=== PATIENT | female | born 1945 | race Caucasian/White ===

== ENCOUNTER → 2019-02-22 07:21 | Outpatient (CLI) | payer MEDICARE, OTHER, SELFPAY ==
--- NOTE | 2019-02-22 08:40 | PM.TREADMILL ---
Cardiac Stress Test Report Referral & Results Date Patient Seen: 02/22/19 Time Patient Seen: 08:30 Requesting provider: Zabrina Vincent Indication: Abnormal EKG Rest ECG: NSR Procedure Note: After both written and verbal informed consent the patient had an IV started by the diagnostic imaging RN, and then was hooked up to the treadmill monitoring system. The Lexiscan material, and then the Cardiolite tracer, were administered sequentially. An additional 3 min was spent monitoring the patient while supine on the gurney. The patient had a normal response to all infused materials. Impression: Successful Lakeisha protocol. Will await perfusion imaging. Please note: Actual ECG tracings can be found in the PACS system.
--- NOTE | 2019-02-23 17:32 | DI.NM.S_ITS ---
DATE OF SERVICE: 02/22/2019 PROCEDURE: Pharmacological perfusion study. INDICATIONS: Preoperative evaluation, abnormal EKG, underlying diabetes mellitus, hypertension, hyperlipidemia, obesity.. RADIOPHARMACEUTICAL: 25.5 mCi technetium-99m Myoview IV was injected at stress and 27.0 mCi technetium-99m Myoview IV was injected at rest. CARDIAC STRESS: Patient underwent IV Lexiscan perfusion study under the supervision of an attending staff. Patient remained hemodynamically stable. No symptoms were reported. Baseline EKG showed sinus rhythm with diffuse low- voltage complexes. Stress EKG did not reveal any obvious inducible ischemic changes. There were no significant arrhythmias seen. RAW DATA: Significant breast shadow was seen. GATED STUDY: Resting stress LV ejection fraction 80%, and stress LV ejection fraction 86% without any significant wall motion abnormalities. There is no transient ischemic dilatation. TID ratio is 0.87, which is within normal limits. Resting LV end-diastolic volume is 108 mL. Lung/heart ratio is 0.40, which is within normal limits. MYOCARDIAL PERFUSION SCAN: Please note that in this study there is no prone images. Stress supine and resting supine images were compared to each other. Stress supine images revealed minimally decreased perfusion of distal anterior septum. During resting supine, there was small-sized mildly decreased perfusion of distal anterior septum as well as apex. Resting images have more perfusion defects than stress supine. I do not see any obvious reversible ischemia. CONCLUSION: I will call this study a likely normal myocardial perfusion scan with evidence of breast tissue attenuation artifact. Stress supine images showed only minimally decreased perfusion of distal anterior septum. The rest of the segments have normal perfusion. Significant breast shadow seen during raw images. Those segments are moving well. Stress left ventricular (LV) ejection fraction 86%. Overall, this is a low-risk myocardial perfusion scan. Please note that this patient does not have any prone images. Carrie Cortez - [employer]/mario/ab doc#: [id number]/job#: [id number] dd: 02/23/2019 17:10:00 dt: 02/23/2019 17:25:00 DICTATING MD/COPIES TO: Funmilayo Bassett MD COPIES MNE: SUMMER
== END ==
PROVIDERS: Visit Provider Physician Assistant Medical
DX: R94.31 Abnormal electrocardiogram [ECG] [EKG] (principal); E11.9 Type 2 diabetes mellitus without complications; I10 Essential (primary) hypertension; E78.5 Hyperlipidemia, unspecified; E66.9 Obesity, unspecified
CPT/HCPCS: 78452; 93016; 93017; 93018; A9502; J2785

== ENCOUNTER 2019-04-24 06:01 | Inpatient (IN) | payer MEDICARE, OTHER, SELFPAY ==
[2019-04-06 09:46] VITALS: BMI 44.4
[2019-04-24] VITALS (20 sets, daily range): BP systolic 119–175; BP diastolic 53–88; PULSE 18–108; RESP 9–18; TEMP 35.6–36.8; O2SAT 90–100; BMI 43.7
--- NOTE | 2019-04-24 | DI.RAD.S_ITS ---
PROCEDURE: XR LUMBAR SPINE 2-3V INDICATIONS: L4-5, L5-S1 TLIF TECHNIQUE: 2 views of the lumbar spine were acquired. COMPARISON: None. FINDINGS: Bones: Postoperative examination, immediately after spine fusion surgery from dorsal approach. Normal alignment is established by transverse pedicle screws and vertical fixation rods bilaterally crossing from L4-S1, with interbody disc cage prosthesis devices at the 2 intervening disc levels. Soft tissues: Overlying bowel gas pattern is normal. No suspicious soft tissue calcifications. IMPRESSION: Normal alignment immediately after dorsal spine fusion surgery L4-S1. Dictated by: Sudeep Man M.D. on 04/24/2019 at 14:29 Approved by: Sudeep Man M.D. on 04/24/2019 at 14:41
[2019-04-24] MEDS: VANCOMYCIN 1,500 MG/300 ML FROZ.PIGGY 200 MG IV (07:12)
[2019-04-24] MEDS: LACTATED RINGERS 1,000 ML 42 ML IV ×3 (07:42→11:09)
--- NOTE | 2019-04-24 07:46 | PM.PREOP ---
Pre-operative Note Interval Note History & Physical reviewed/Exam performed by Physician: Yes Changes to H&P: No
[2019-04-24] MEDS: BUPIVACAINE LIPOSOME 266 MG/20 ML VIAL INJ (08:38)
[2019-04-24] MEDS: BUPIVACAINE 0.25% W/ EPI 30 ML VIAL INJ (08:38)
--- NOTE | 2019-04-24 08:44 | SUR.OPER ---
Prone on spine table, head in foam head support, padded chest and pelvic supports, gel pad at knees, lower legs supported by pillows; nipples, genitalia and toes free of pressure, arms secured on foam padded arm boards at <90 degrees abduction. Tape over blanket at thigh secured to table.
--- NOTE | 2019-04-24 12:34 | P.OP_ITS ---
Operative Date/Time/Diagnoses Date of procedure: 04/24/19 Time of procedure: 08:15 Pre-op diagnosis: 1. L4-5, L5-S1 spondylolisthesis 2. L4-5, L5-S1 spinal stenosis with neurogenic claudication Post-op diagnosis: same Procedure & Clinicians Procedure: 1. L4-5, L5-S1 Postero-lateral and posterior interbody fusion 2. L4-5, L5-S1 interbody cage placement. 3. L4-5, L5-S1 decompressive laminectomy with bilateral facetecomies 4. L4-5, L5-S1 Posterior segmental instrumentation 5. Muldrow of bone marrow from iliac crest 6. Utilization of microsurgical technique and operating microscope Same procedure as scheduled: Yes Indications: Patient has been having chronic back pain and worsening lumbar radiculopathy. Patient failed multiple conservative management with worsening pain weakness and numbness in her lower extremity. Patient has been having difficulty performing activity of daily living. After discussing risks benefits of treatment options, patient elected proceed with surgery. Surgeon: Soledad Sosa [employer]enic [employer] Supervisor: Elicia Beckman Click Yes if Unassisted: No Anesthesia Type: General Operative Notes Closure Type: primary Specimen(s): none sent Prosthetic devices, grafts, tissues, transplants, or devices: Globus revolve screws, Rise cages Applied: catheter Estimated Blood Loss (mL): 100 Blood products transfused: none Procedure in detail: Patient was seen in the preoperative area. Risks and bene fits of the surgery was discussed with the patient. Informed consent was obtained from the patient and placed in the chart. Surgical site was marked. Patient was taken to the operative room. General anesthesia was administered. Prophylactic antibiotic was given to the patient less than 30 min before the incision was made. Patient was placed into a prone position on the Parish table. Patient's back was then prepped and draped in the sterile fashion. Time- out was performed at this time. Using AP and lateral C-arm imaging the interval between L4-S1 was identified and marked on patient's back. A 2 inch incision 2 in from midline was made on the left side first. The fascia was incised in line with skin incision. Globus MARS retractors was placed inside the incision and docked onto the L4 and L5 lamina. Using microsurgical technique and operating microscope, a L4 and L5 laminectomy and L4-5 L5-S1 facetectomy was performed using a Kerrison rongeur. During the process of decompression more than 75% of bilateral L4-5 L5-S1 facets were removed in order to decompress the spinal canal and the lateral recess. The L4- 5 L5-S1 level was grossly unstable after the decompression was completed and requiring the fusion procedure. The disc space at L4-5, L5-S1 was identified. And a total diskectomy was performed at L4-5, L5-S1 level. The endplates were decorticated using a rasp and shaver. The total diskectomy and decortication was performed at L4-5, L5-S1 level in order to to accomplish a L4-5, L5-S1 fusion. The local bone from the laminectomy and facetectomy was saved for local bone grafting. After the total diskectomy and decortication was completed, Bio4 bone graft material was combined with local bone that was harvested earlier. At this time, a separate skin is incision was made over the iliac crest. A Jamshidi needle was inserted into the iliac crest through a separate skin incision. 5 cc of bone marrow aspiration was obtained through the separate skin incision using a Jamshidi needle from the iliac crest. The bone marrow aspiration was combined with local bone and the Bio4 bone grafting material. The bone grafting material was placed into the L4-5, L5-S1 interbody space along with two cages, one expandable cage at each level. The cages were expanded to their maximum height using the torque limiting screwdriver. At this time a mirror image incision was made on the right side. The fascia was incised in line with the skin incision. Globus MARS retractor was inserted and docked onto the L4-5, L5-S1 posterolateral gutter. Using the power drill, posterior-lateral decortication was performed at L4-5, L5-S1 level until bleeding cortical bone was identified. The remaining bone grafting material was placed into the L4-5 L5-S1 posterior lateral gutter he order to accomplish posterolateral fusion at the L4-5 L5-S1 levels. Using the double C-arm technique, pedicle screws were placed into the L4, L5, S1 pedicles bilaterally. This was done by placing the Jamshidi needle into the pedicles, then placing the guidewires over the Jamshidi needle, and finally placing the cannulated screws over the guidewires bilaterally. After the pedicle screws were placed, 2 titanium rods was locked into the heads of the pedicle screws using locking caps and torque limiting screwdriver. Total 6 pedicles screws were placed. The thread reducers were used to reduce patient's spondylolisthesis and appropriate reduction was accomplished using the heart were placed into the patient's L4-S1 vertebrae. After all the hardware was placed, and confirmed with AP and lateral C-arm imaging, the wound was then irrigated with sterile normal saline and packed with Ray-Kelton gauze for 3 min to accomplish hemostasis. After the gauze was removed the deep fascia was closed with #1 Vicryl suture. The subcutaneous layer was closed with 2-0 Vicryl. The skin was closed with skin andra. Patient tolerated the procedure well. There were no complications. Complications: none Post-operative Condition: stable Disposition: PACU Plan for aftercare: Admit to inpatient hospital
[2019-04-24] MEDS: fentaNYL 100 MCG/2 ML INJ IV (12:41)
[2019-04-24] MEDS: HYDROMORPHONE 2 MG INJ IV (12:42)
--- NOTE | 2019-04-24 12:44 | PC.NURSE ---
Day shift: Pt not on AC unit at this time.
[2019-04-24] MEDS: INSULIN REGULAR 100 UNIT/ML 3 ML VIAL IV (12:46)
[2019-04-24] MEDS: OXYCODONE/ACETAMINOPHEN 5/325 TABLET 1 TAB PO (13:18)
[2019-04-24] MEDS: hydrOXYzine 50 MG/ML INJ 25 MG IM (13:26)
--- NOTE | 2019-04-24 13:51 | SUR.PHASEI ---
Patient resting quietly in bed with eyes closed but arousable too voice. Patient still remains on oxygen at 2 liters. VSS. RRR 11 at transfer. All belongings with patient to room.
--- NOTE | 2019-04-24 14:15 | PC.NURSE ---
Day shift: Pt goes by Randa. Pt on unit from PACU at approx 1400. Call light in reach and bed alarm is on. Davis cath patent and draining to gravity. Back dressing is CDI. MECHANICAL FIELD ENGINEER intact and PPP. BP elevated. Will continue to monitor.
[2019-04-24] MEDS: SODIUM CHLORIDE 0.9% 1,000 ML 100 ML IV (14:38)
[2019-04-24] MEDS: OXYCODONE IR 10 MG TABLET PO ×3 (16:15→23:57)
--- NOTE | 2019-04-24 16:21 | PT-IP ANOTE ---
PT orders received, chart reviewed. PT contacted pt to initiate evaluation, but she was extremely drowsy and uncomfortable, not able to participate at this time. Will check on patient morning of 04/25.
[2019-04-24] MEDS: HYDROMORPHONE 0.5 MG INJ IV (17:10)
[2019-04-24] MEDS: FLUTICASONE 44 MCG HFA 120 PUFF INH INH (19:27)
[2019-04-24] MEDS: CLINDAMYCIN 900 MG/50 ML PIGGYBACK 50 MG IV (19:50)
[2019-04-24] MEDS: SENNOSIDES 8.6 MG TABLET 17.2 MG PO (20:00)
[2019-04-24] MEDS: OXYBUTYNIN 5 MG TABLET PO (20:00)
[2019-04-24] MEDS: DOCUSATE 100 MG CAPSULE PO (20:00)
[2019-04-24] MEDS: SIMVASTATIN 20 MG TABLET PO (20:01)
[2019-04-24] MEDS: DORZOLAMIDE 2% OPHTH 10 ML 1 DROPS EYE-BOTH (20:03)
[2019-04-24] MEDS: ACETAMINOPHEN 325 MG TABLET 650 MG PO (23:57)
[2019-04-25] VITALS (9 sets, daily range): BP systolic 117–160; BP diastolic 50–75; PULSE 92–101; RESP 16–19; TEMP 36.7–37.4; O2SAT 90–98
[2019-04-25] MEDS: SODIUM CHLORIDE 0.9% 1,000 ML 100 ML IV ×3 (01:16→21:44)
[2019-04-25] MEDS: HYDROMORPHONE 0.5 MG INJ IV (01:39)
[2019-04-25] MEDS: CLINDAMYCIN 900 MG/50 ML PIGGYBACK 50 MG IV (03:14)
[2019-04-25 05:21] LABS: Hematocrit 32.8 % (36-46); Hemoglobin 11.1 g/dL (12.0-16.0)
[2019-04-25] MEDS: LEVOTHYROXINE 150 MCG TABLET PO (05:36)
--- NOTE | 2019-04-25 07:53 | DI.US.S_ITS ---
PROCEDURE: US PERIPH VENOUS LOW EXTREM LT INDICATIONS: LEFT CALF TENDER TO PALPATION POST OPERATIVE TECHNIQUE: Real-time imaging, as well as color and pulse Doppler interrogation, were performed of the lower extremity deep veins from the inguinal ligament to the popliteal fossa. COMPARISON: None. FINDINGS: The common femoral, femoral and popliteal veins are normally compressible, and free of intraluminal thrombus. Color and pulse Doppler demonstrate normal phasic intraluminal flow. There is normal augmentation response to distal compression maneuver. IMPRESSION: No deep venous thrombosis in the left lower extremity. Dictated by: Quintin Hernandez M.D. on 04/25/2019 at 9:21 Approved by: Quintin Hernandez M.D. on 04/25/2019 at 9:21
--- NOTE | 2019-04-25 07:53 | PM.PNPO.1 ---
Subjective Subjective Date Patient Seen: 04/25/19 Time Patient Seen: 07:30 Interval history: POD #1 s/p L4-5, L5-S1 TLIF with Dr. Sosa. Overnight patient complains of moderate pain, worsens with movement in bed. Has deep pain in lower back at incision site and hips bilaterally. Denies muscle spasms, burning sensation, numbness, tingling. Patient has not ambulated out of bed since surgery. Verdugo catheter in place. Pain well managed with oxycodone 10mg, dilaudid 0.5 IV prn, tylenol. Patient denies fever, chills, chest pain, shortness of breath. Exam Vital Signs (past 8 hours): - 04/25/19 06:30 Temperature 98.5 F Pulse Rate 96 H Respiratory Rate 16 Blood Pressure 142/66 H Pulse Oximetry 98 Oxygen Delivery Method Nasal Cannula Oxygen Flow Rate 3 Narrative Exam Narrative: 73 year old female is laying comfortably in bed, in no apparent distress. A&Ox3. Dressing CDI on lower back. L calf tender to deep palpation, R calf nttp. Mild non pitting edema in LE b/l. Able to actively dorsiflex/plantar flex LE b/l. Sensory function grossly intact to light touch in LE b/l. Capillary refill <2sec. Dorsalis pedis 2+. Objective Labs Result Diagrams: 04/25/19 05:00 Labs: Laboratory Results - last 24 hr 04/25/19 05:00 Hgb 11.1 L Hct 32.8 L Assessment & Plan Post-op Postoperative Procedures: Procedures Operation Date: 04/24/19 07:45 Actual Procedures Side Surgeon p L4-5, L5-S1 TLIF w/posterior instrumentation Soledad Sosa MD Postoperative plan narrative: Rule out DVT - L calf pain to deep palpation ; doppler ultrasound ordered and came back negative Continue current pain management. Patient will being working with PT this morning. She was encouraged to mobilize more to reduce pain. If patient able to mobilize, discontinue verdugo catheter. Discharge in next 24-48 hours, likely will need a SNF Time Spent With Patient Time with patient: less than 15 minutes Quality VTE Deep Vein Thrombosis/Pulmonary Embolism Present on Admission: No
[2019-04-25] MEDS: ACETAMINOPHEN 325 MG TABLET 650 MG PO ×2 (09:51→15:24)
[2019-04-25] MEDS: OXYCODONE IR 10 MG TABLET PO ×4 (09:51→20:04)
[2019-04-25] MEDS: DOCUSATE 100 MG CAPSULE PO ×2 (09:52→21:48)
[2019-04-25] MEDS: CHOLECALCIFEROL (VITAMIN D3) 1,000 UNIT TABLET 2000 UNIT PO (09:52)
[2019-04-25] MEDS: LORATADINE 10 MG TABLET PO (09:52)
[2019-04-25] MEDS: MULTIVITAMIN 1 TABLET 1 TAB PO (09:52)
[2019-04-25] MEDS: DORZOLAMIDE 2% OPHTH 10 ML 1 DROPS EYE-BOTH ×2 (09:53→21:46)
[2019-04-25] MEDS: FLUTICASONE 44 MCG HFA 120 PUFF INH INH ×2 (10:10→21:19)
--- NOTE | 2019-04-25 10:57 | OT.IP.EVAL ---
Current Diagnoses Morbid (severe) obesity due to excess calories (04/24/19) Spondylolisthesis, lumbar region (04/24/19) Other spondylosis with radiculopathy, lumbosacral region (04/24/19) Spinal stenosis, lumbar region with neurogenic claudication (04/24/19) Surgery Performed Operation Date: 04/24/19 07:45 Actual Procedures p L4-5, L5-S1 TLIF w/posterior instrumentation - Soledad Sosa MD Past Medical History (Last Updated 04/06/19 @ 10:25 by Randa Pan RN) Arthritis (Acute) Diabetes (Acute) Easy bruisability (Acute) Edema (Acute) Hair loss (Acute) Heartburn (Acute) HLD (hyperlipidemia) (Acute) HTN (hypertension) (Acute) Hypothyroid (Acute) Pneumonia (Acute) Sciatica (Acute) Seasonal allergies (Acute) Wrinkled retina, right eye (Acute) Surgical History (Last Updated 04/06/19 @ 10:25 by Randa Pan RN) H/O: hysterectomy (Acute) Hx laparoscopic cholecystectomy (Acute) Hx of bilateral cataract extraction (Acute) Occupational Therapy Inpatient Evaluation/Re-Eval M1 PT/OT-IP Prior Functional Status Start: 04/25/19 13:18 Freq: NEEDED Status: Active Protocol: Document 04/25/19 13:18 [facility] (Rec: 04/25/19 13:40 [facility] [id number]) Medical Review Prior Functional Status Medical History Reviewed Yes Communication Independent. Mobility and Gait Pt states use of 2 cane to walk outside, pt's family clarified that pt would use 2 canes to walk inside the house as well and only able to walk to he mailbox and back approx 25 ft. Pt states her house in too small to use a FWw inside. Activities of Daily Living and IADL's Pt states needing increased time to do all ADL and IADl needs. Pt did all her bills and medications on her own. Social History Household Members none Living Arrangements House Number of Floors (Floors) One Floor Number of Stairs To Enter/Railing? Ramp to enter the house. Home Environment High Toilet,Walk in Shower Home Equipment Straight Cane,Hand Held Shower ,Grab Bars In Shower Additional Social History Comment Pt sleeps in a power recliner. M2 OT-IP Current Condition Start: 04/25/19 13:18 Freq: Status: Active Protocol: Document 04/25/19 13:18 [facility] (Rec: 04/25/19 13:40 [facility] [id number]) Occupational Therapy Current Condition Current Condition Evaluation Date 04/25/19 Treatment Diagnosis s/p L4-5, L5-S1 TLIF, decreased mobility and self care Post Operative Precautions Lumbar Precautions Log Roll,No Twisting,Limit Bending,Lifting Restriction of 10 lbs,Gait Belt above Incisional Area M3 OT- IP Subjective and Pain Start: 04/25/19 13:18 Freq: Status: Active Protocol: Document 04/25/19 13:18 [facility] (Rec: 04/25/19 13:40 [facility] [id number]) OT- Subjective Occupational Therapy Visit Type Type Initial Evaluation Visit Start Time 10:57 Visit Stop Time 11:57 Total Visit Minutes 60 Occupational Therapy Visit Comments Patient Comments Pt willing to try to get up. PT/OT present for eval as pt needing extensive physical assist for bed mobility. Pt's family also present. Patient/Caregiver Goals Pt open to going to skilled rehab prior to going home. OT Pain Assessment Pain When Pain Assessed During Mobility Pain Present Pain Present Pain Reported Location Lower Back Intensity 5 Scale Used Numeric (1 - 10) M4 OT- IP ADL's Start: 04/25/19 13:18 Freq: Status: Active Protocol: Document 04/25/19 13:18 [facility] (Rec: 04/25/19 13:40 [facility] [id number]) OT [id number] Comments OT Self-Feeding Comments Pt able to drink form water bottle once handed to her. OT ADL-Grooming General Evaluation Grooming Ability Standby Assistance Areas Needing Assistance Retrieving/Set-up of Grooming Items Comments OT Grooming Comments Pt able to do while sitting up in the recliner. OT ADL-Oral Care General Eval Oral Care Ability Independent OT ADL-Dressing General Eval Lower Body Dressing Ability Maximum Assistance Areas Needing Assistance Socks,Shoes Comments OT Dressing Comments Dependent for socks and able to help slip in her feet to slipper while holding the slippers in place. OT ADL-Toileting General Evaluation Toileting Ability Total Assistance Areas Needing Assistance Empty Catheter or Colostomy Comments OT Toileting Comments Davis still in. OT ADL-Bathing Comments OT Bathing Comments Not at this time, sponge bath more appropriate due to limited not able to transfer at this time yet. M5 OT- IP IADL's Start: 04/25/19 13:18 Freq: Status: Active Protocol: Document 04/25/19 13:18 [facility] (Rec: 04/25/19 13:40 [facility] [id number]) OT-Instrumental Activities of Daily Living Home Safety Awareness Home Safety Comments A this time pt not able to recall any back precautions and looking to go to skilled rehab prior to going home. M6 OT- IP Functional Cognition Start: 04/25/19 13:18 Freq: Status: Active Protocol: Document 04/25/19 13:18 [facility] (Rec: 04/25/19 13:40 [facility] [id number]) Cognitive Factors Limiting Selfcare Function Cognitive Ability Level of Alertness Alert,Drowsy Patient Orientation Name,Place,Situation Attention Span Ability Capable of Focused Attention, Capable of Sustained Attention Ability to Follow Commands Able to Follow One Step Commands with Increased Time Memory Description Short Term Impaired Safety Awareness Decreased Recall of Precautions,Decreased Ability to Apply Precautions, Underestimates Need for Assistance Problem Solving Ability Unable to Identify Errors, Needs Assist to Identify Solutions Cognitive Comments Cognitive Assessment Comments Pt very sleepy and not able to recall any back precautions. Pt needing step by step instructions for bed mobility and safety with FWW. Pt a bit confused as wanting her neck roll for her knees, felt like she was falling when lying in bed. OT- Hearing Assessment OT- Hearing Assessment WFL OT- Vision Assessment Vision Assessment Comments Chart states winkled retina right eye and pt states not able to see well out of right eye. Pt not able to read name tag when shown to pt.Pt able to feel call light, but requested on nursingn to check with her whether the bulb call light would work better for her. M7 OT- IP Mobility and Balance Start: 04/25/19 13:18 Freq: Status: Active Protocol: Document 04/25/19 13:18 [facility] (Rec: 04/25/19 13:40 [facility] [id number]) OT- Bed Mobility Assessment Supine to Sit Supine to Sit Assist Maximum Assistance,2 Person Assistance,Head of Bed Elevated,Bedrails Sit to Supine Sit to Supine Assist Maximum Assistance,2 Person Assistance OT-Transfer Assessment Sit to and From Stand Sit to and from Stand Maximum Assistance,2 Person Assistance Devices Transfer Assistive Devices Gait Belt,4 Wheeled Walker Comments Mobility Comments Pt MAX A to help assist to get her legs to the edge of the bed and total assist to get her trunk upright to sitting. MAX A X 2 to stand with FWW with bed raised up to stand. Pt tends to stand with flexed posture. Pt only able to tolerate standing at this time and have to sit back down. OT- Balance Assessment Sitting Balance and Reactions Static Sitting Balance Ability Fair Standing Balance and Reactions Static Standing Balance Ability Poor M8 OT- IP Objective Assessments Start: 04/25/19 13:18 Freq: Status: Active Protocol: Document 04/25/19 13:18 [facility] (Rec: 04/25/19 13:40 [facility] [id number]) OT Gross Range of Motion Upper Extremity Range of Motion Assessment Within Functional Limits OT Strength Upper Extremity Strength Assessment Within Functional Limits M9 OT- IP Assessment and Plan Start: 04/25/19 13:18 Freq: Status: Active Protocol: Document 04/25/19 13:18 [facility] (Rec: 04/25/19 13:40 [facility] [id number]) OT Summary Assessment and Plan Potential Rehabilitation Potential Good Analytic Complexity at Evaluation Low Summary OT Impairments Pain,Strength,Balance, Functional Cognition, Functional Mobility,Grooming, Dressing,Toileting,Bathing, Toilet Transfers,Shower Transfers Progress Towards Goals Slow Progress due to Pain,Slow Progress due to Activity Tolerance,Slow Progress due to Cognition Assessment Summary Pt low complexity and main barrier is decreased activity tolerance, balance, strength, and now needing extensive two person assist for bed mobility and only able to stand at this time. Pt looking to go to skilled rehab as far from her baseline for MOD I at home . Continue inpt OT with pt to work on education of equipment needs for ADL's, use of adaptive equipment to help increased safety and independence for ADL needs , and to educated for incorporation of back precautions for all needs. Goals Self-Feeding Goal Independent Grooming Goal Standby Assistance Dressing Goal Minimal Assistance Toileting Goal Minimal Assistance Bathing Goal Moderate Assistance Toilet Transfer Goal Minimal Assistance Shower Transfer Goal Minimal Assistance OT-Other Goals Grooming goal in standing. Days to Meet Goals 10 Frequency of Treatment Frequency Of Treatment Once a Day Treatment Plan OT Treatment Plan ADL Training,Functional Cognition Training,Functional Mobility,Patient/Family Education,Discharge Planning Other Treatment Recommendations and Next Transfer to [facility] [place] with MODA X2 Treatment Focus with FWW. Discharge Recommendations OT Discharge Recommendations SNF Rehab Home Equipment Needs Defer to skilled rehab.
--- NOTE | 2019-04-25 11:55 | PT.IIE ---
Current Diagnoses Morbid (severe) obesity due to excess calories (04/24/19) Spondylolisthesis, lumbar region (04/24/19) Other spondylosis with radiculopathy, lumbosacral region (04/24/19) Spinal stenosis, lumbar region with neurogenic claudication (04/24/19) Surgery Performed Operation Date: 04/24/19 07:45 Actual Procedures p L4-5, L5-S1 TLIF w/posterior instrumentation - Soledad Sosa MD Surgical History (Last Updated 04/06/19 @ 10:25 by Randa Pan RN) H/O: hysterectomy (Acute) Hx laparoscopic cholecystectomy (Acute) Hx of bilateral cataract extraction (Acute) Medical History (Last Updated 04/06/19 @ 10:25 by Randa Pan RN) Arthritis (Acute) Diabetes (Acute) Easy bruisability (Acute) Edema (Acute) Hair loss (Acute) Heartburn (Acute) HLD (hyperlipidemia) (Acute) HTN (hypertension) (Acute) Hypothyroid (Acute) Pneumonia (Acute) Sciatica (Acute) Seasonal allergies (Acute) Wrinkled retina, right eye (Acute) Physical Therapy Inpatient Evaluation/Re-Eval M1 PT/OT-IP Prior Functional Status Start: 04/25/19 13:18 Freq: NEEDED Status: Active Protocol: Document 04/25/19 14:11 AW (Rec: 04/25/19 14:41 AW [id number]) Medical Review Prior Functional Status Medical History Reviewed Yes Communication Independent. Mobility and Gait Pt states use of 2 cane to walk outside, pt's family clarified that pt would use 2 canes to walk inside the house as well and only able to walk to he mailbox and back approx 25 ft. Activities of Daily Living and IADL's Pt states needing increased time to do all ADL and IADl needs. Pt did all her billls and medications on her own. Social History Household Members none Living Arrangements House Number of Floors (Floors) One Floor Number of Stairs To Enter/Railing? Ramp to enter the house. Home Environment High Toilet,Walk in Shower Home Equipment Straight Cane,Hand Held Shower ,Grab Bars In Shower Additional Social History Comment Pt sleeps in a power recliner. M2 PT-IP Current Condition Start: 04/24/19 16:13 Freq: NEEDED Status: Active Protocol: Document 04/25/19 14:11 AW (Rec: 04/25/19 14:41 AW [id number]) Physical Therapy Current Condition Current Condition Evaluation Date 04/25/19 Treatment Diagnosis s/p TLIF, impaired mobility Onset Date 04/24/19 Precautions Lumbar Precautions Log Roll,No Twisting,Limit Bending,Lifting Restriction of 10 lbs,Gait Belt above Incisional Area Other Precautions history of multiple falls Weight Bearing Status Weight Bearing Status Full Weight Bearing M3 PT-IP Subjective Start: 04/24/19 16:13 Freq: NEEDED Status: Active Protocol: Document 04/25/19 14:11 AW (Rec: 04/25/19 14:41 AW [id number]) Subjective Physical Therapy Visit Type Type Initial Evaluation Visit Start Time 10:52 Visit Stop Time 11:55 Total Visit Minutes 63 Notes Pt seen with OT. Pt son and daughter in law also in room, contributing to history. Number of COMMERCIAL ATTACHE Visits 0 Physical Therapy Visit Comments Patient Comments I feel dopey. Patient Goals Pt would like to be able to sleep in a bed eventually Therapy Pain Assessment Pain When Pain Assessed During Mobility Pain Present Pain Present Pain Reported Location Lower Back Intensity 5 Scale Used 3/10 at rest; 5/10 with mobility M4 PT-IP Mobility and Gait Start: 04/24/19 16:13 Freq: NEEDED Status: Active Protocol: Document 04/25/19 14:11 AW (Rec: 04/25/19 14:41 AW [id number]) PT-Bed Mobility Assessment Rolling Type of Rolling Log Rolling Level of Assist Maximal Assistance,2 Person Assistance Supine to Sit Supine to Sit Maximum Assistance,Total Assistance,2 Person Assistance ,Head of Bed Elevated,Bedrails Sit to Supine Sit to Supine Maximum Assistance,2 Person Assistance Scooting Scooting to Edge of Bed Maximum Assistance Scooting Up and Down in Bed Dependent PT-Transfer Assessment Sit to and From Stand Sit to and from Stand Maximum Assistance,2 Person Assistance,Use of Upper Extremities Equipment Transfer Assistive Device Gait Belt,Front Wheeled Walker Orthotic/Prosthetic Devices or Brace: No Comments Mobility Comments Pt required max A to move legs toward EOB and then needed total assist to right her trunk. Max A required to scoot toward EOB using draw sheet to assist. Pt completed sit to stand with max A x 2 twice. She was able to stand 5-10 seconds before needing to sit down. She attempted a third sit to stand but could not complete. Pt was able to scoot toward HOB by moving her feet to the right and then pivoting her hips x 3 and mod A x 2. Return to supine required max A x 2 and verbal cues using log roll technique. OT/PT spent considerable time repositioning pt in bed. She is used to sleeping in a power recliner and has trouble finding a comfortable position in bed. Pt left with call light and needs within reach, family visiting. Reported to RN that pt has difficulty seeing the call light and she may do better with a bulb- style call system. PT-Balance Assessment Sitting Balance and Reactions Static Sitting Balance Ability Fair Dynamic Sitting Balance Ability Fair Standing Balance and Reactions Static Standing Balance Ability Poor Dynamic Standing Balance Ability Poor Device Used FWW M5 PT-IP Objective Assessments Start: 04/24/19 16:13 Freq: NEEDED Status: Active Protocol: Document 04/25/19 14:11 AW (Rec: 04/25/19 14:41 AW [id number]) Orientation Orientation/Cognition Level of Alertness Confusional State Orientation Name,Place,Situation Language Function Ability No Deficits Noted Safety Awareness Understands Safety Issues Memory Description Short Term Impaired Comments Pt was a poor historian, inflating her prior level of function compared with reports from her family. Gross Range of Motion Lower Extremity ROM Assessment Bilaterally Impaired Strength Lower Extremity Strength Assessment Bilaterally Impaired Hip 3-/5 Knee 4-/5 Ankle 3+/5 Comments Strength Comments Strength was symmetrical but poor against gravity. Sensation Assessment Sensation Gross Sensation WNL Comments Sensation Comments No deficits on clinical exam M6 PT-IP Treatment Start: 04/24/19 16:13 Freq: NEEDED Status: Active Protocol: Document 04/25/19 14:11 AW (Rec: 04/25/19 14:41 AW [id number]) Physical Therapy Treatment Education Education Provided Precautions,Weight Bearing Status,Post-Op Packet,Safety Other Treatments Other Treatment Performed PT provided education on PT plan of care, post-op precautions, and need for assistive devices. M7 PT-IP Assessment and Plan Start: 04/24/19 16:13 Freq: NEEDED Status: Active Protocol: Document 04/25/19 14:11 AW (Rec: 04/25/19 14:41 AW [id number]) PT Summary Assessment and Plan Potential Rehabilitation Potential Good Status of Condition at Evaluation Evolving Summary Impairments Pain,ROM,Strength,Balance, Cognition,Bed Mobility, Transfers,Gait,Activity Tolerance Assessment Summary Randa is a 73 yo woman seen for PT evaluation on POD1 following L3-7 L4-5 L5-S1 TLIF . At baseline, she used bilateral single point canes for household mobility. She could walk as far as her mailbox (~25 feet) with the canes. She and her family did report multiple falls within the past few months. On evaluation, pt presents with significant bilateral lower extremity weakness. She typically sleeps in a power recliner/lift chair, but did require max A x 2 for bed mobility and standing. Gait was not attempted this visit due to weakness and poor standing tolerance. Pt requires continued acute and subacute PT to address these impairments and to increase her independence and safety at home. PT recommends SNF rehab when medically stable for discharge. Goals Bed Mobility Goal Minimal Assistance Transfer Goal Minimal Assistance,Front Wheeled Walker Gait Goal Minimal Assistance,Four Wheel Walker Gait Distance 25 feet Days to Meet Goals 10 Frequency of Treatment Frequency Of Treatment Twice a Day Treatment Plan Physical Therapy Treatment Plan Bed Mobility Training,Transfer Training,Gait Training, Therapeutic Exercise,Balance Retraining,Post Op Education, Discharge Planning,Hot or Cold Pack,Neuromuscular Re-ed, Coordination Retraining,Manual Therapy Other Recommendations and Next Treatment bed mobility, standing Focus tolerance, transfer if able Recommendations To Nursing Amount of Assist Needed 2 Person Assist Discharge Recommendations PT Discharge Recommendations SNF Rehab Equipment Needed for Home Before defer to SNF Discharge
--- NOTE | 2019-04-25 12:27 | CM.DANOTE ---
DCP/Assessment: Reviewed chart. Patient is a 73yr old female admitted to [facility] for lumbar surgery performed by Dr. Sosa on 04-24-19. PCP is Dr. Zabrina Vincent. Primary payor is 1)Medicare 2)[employer]. Met with patient explained CM/SW role. Patient laying in bed with [address] Patient laying flat in bed and appears uncomfortable. Therapy evaluation pending. Patient reports that she resides alone and hopes to go to [facility] when medically stable. Patient notified that she will need to meet criteria. However, it appears she will given her medical history which includes severe obesity. Placed call to October at [facility] requesting that they evaluate for admit. P: Pending. Hopeful that patient will be accepted at [facility] when medically stable. Patient inpatient status from day of admit 04-24-19. ROSETTE Wong Discharge Planning/Care Management Pre-Anesthesia Assessment Start: 04/06/19 09:46 Freq: Status: Complete Protocol: Document 04/06/19 09:46 CAB (Rec: 04/06/19 10:41 CAB [id number]) Pre-Anesthesia Assessment Preferred Name Randa Patient Information Reviewed Via Phone Assessment Assessment Completed With Patient Diagnostic Results BMP/CMP,CBC,EKG Comment Outside labs/EKG scanned to record Primary Care Provider Zabrina Vincent Medical Clearance Received Yes Seen Specialist in Last 12 Months Yes Specialist Seen Opthamologist/Corporate Logistics Manager, Orthopedist Comment PCP clearance 03/07/19 scanned to record Primary Language Estonian Public Service Administrator Required No Height 162.56 cm Weight 117.48 kg Body Mass Index (BMI) 44.4 Hearing Ability Normal Visual Assist Glasses Dentition Type Teeth, Natural Present,Teeth, Missing Barriers to Learning None Comment Pt denies, but seems slightly confused at times Hx Anesthesia Reactions No Hx Family Anesthesia Reaction No Hx Malignant Hyperthermia No Hx Blood Transfusions No Anesthesia Review Requested No alcohol intake never Smoking Status Former smoker how long ago did patient quit smoking Quit age 38 Substance Use Type does not use Pain Present Pain Reported Musculoskeletal Symptoms Abnormal Gait,Back Pain, Difficulty Walking,Muscle Weakness History of Falling (Recent or History of Yes ) Patient is completely paralyzed or No completely immobile Prosthesis or Orthotic Device Cane Mental Status Oriented to own ability Is patient on oxygen? No Does patient have GIVENS/SOB No Hx Sleep Apnea No Currently Taking a Beta Cindy No Can You Climb a Flight of Stairs Without Pt unsure SOB Hx Chest Pain No Hx SOB No Hx Syncope or Dizziness Yes: Vertigo, intermittent Anti-Coagulant Therapy No Has a Core Sucker No Cardiac Testing Yes: Perfus scan @ [facility] 02/22/19 r/t abn EKG-normal Hx Pacemaker/ICD No Pacemaker Rep Required? No Diet Type At Home Diabetic dysphagia No Bladder Pattern Nocturia Urinary Catheter Present No Hx Urinary Self Catheterization No Diabetes Yes: Checks blood sugar twice a day HgbA1C 7.1 Date 01/18/19 Patient No Lactating No Hx Drug Resistant Organism No Presence of External or Internal Medical Yes: Bilateral eye lens Devices Have you traveled outside the [facility] in the last 30 days? Marital Status / Lives With none Prior Living Arrangements House Number of Floors (Floors) One Floor Support System Child/Children Does the Patient Have Assistance After Yes Surgery Patient Discharge Plan Description [facility] Facility/Rehab Comment Children are attentive and supportive Feels Safe in Current Environment Yes Been Physically Hurt or Threatened By a No Person in Current Environment Do you have thoughts of harming yourself None or others? Are you currently considering suicide? No Do you have a plan to hurt yourself or No Plan others? Do You Have Any Spiritual Beliefs That No May Affect Your HC Choices? Do You Have Any Cultural Practices That No May Affect Your HC Choices? Comment Religion Who Can We Speak to About Patient's Care Family, friends Identifying Code for Release of Patient Declines to issue Information Health Care Proxy/Next of Kin Martina (daughter in-law) Health Care Proxy Emergency Contact Name Ed (son) Emergency Contact Advance Directives? Yes: Whereabouts unknown Advance Directives on File No Power of Nuclear Waste Process Operator No PAC Instructions Durable medical equipment, Medications to take/avoid, Nasal antibiotic,No ETOH/ petroleum product on skin DOS, NPO,Pre-surgical wash,Sturdy shoes/comfortable clothes,Do not bring valuables and remove jewelry Comment States cannot remove wedding ring
--- NOTE | 2019-04-25 17:13 | PT.IPTN ---
Current Diagnoses Morbid (severe) obesity due to excess calories (04/24/19) Spondylolisthesis, lumbar region (04/24/19) Other spondylosis with radiculopathy, lumbosacral region (04/24/19) Spinal stenosis, lumbar region with neurogenic claudication (04/24/19) Surgery Performed Operation Date: 04/24/19 07:45 Actual Procedures p L4-5, L5-S1 TLIF w/posterior instrumentation - Soledad Sosa MD Physical Therapy Treatment Note M2 PT-IP Current Condition Start: 04/24/19 16:13 Freq: NEEDED Status: Active Protocol: Document 04/25/19 14:11 AW (Rec: 04/25/19 14:41 AW [id number]) Physical Therapy Current Condition Current Condition Evaluation Date 04/25/19 Treatment Diagnosis s/p TLIF, impaired mobility Onset Date 04/24/19 Precautions Lumbar Precautions Log Roll,No Twisting,Limit Bending,Lifting Restriction of 10 lbs,Gait Belt above Incisional Area Other Precautions history of multiple falls Weight Bearing Status Weight Bearing Status Full Weight Bearing M3 PT-IP Subjective Start: 04/24/19 16:13 Freq: NEEDED Status: Active Protocol: Document 04/25/19 17:04 AW (Rec: 04/25/19 17:13 AW [id number]) Subjective Physical Therapy Visit Type Type Treatment Note Visit Start Time 16:40 Visit Stop Time 17:00 Total Visit Minutes 20 Number of INSTRUCTIONAL INTERVENTIONIST Visits 0 Physical Therapy Visit Comments Patient Comments Pt sleepy but willing to work with therapy Therapy Pain Assessment Pain When Pain Assessed During Mobility Pain Present Pain Present Allowed to Sleep Location Lower Back Scale Used pt reluctant to quantify but not as bad as I expected Pain Management Techniques Re-positioning,Timing of Activity with Medications M4 PT-IP Mobility and Gait Start: 04/24/19 16:13 Freq: NEEDED Status: Active Protocol: Document 04/25/19 17:04 AW (Rec: 04/25/19 17:13 AW [id number]) PT-Bed Mobility Assessment Rolling Type of Rolling Log Rolling Level of Assist Maximal Assistance,2 Person Assistance Supine to Sit Supine to Sit Maximum Assistance,Total Assistance,2 Person Assistance ,Head of Bed Elevated,Bedrails Sit to Supine Sit to Supine Maximum Assistance,2 Person Assistance Scooting Scooting to Edge of Bed Moderate Assistance Scooting Up and Down in Bed Dependent PT-Transfer Assessment Sit to and From Stand Sit to and from Stand Maximum Assistance,2 Person Assistance,Use of Upper Extremities Equipment Orthotic/Prosthetic Devices or Brace: No Comments Mobility Comments Pt continued to require max A x 2 for supine to sit and log roll to return to supine. In sitting, pt did use bed rail and bed cane to assist with pulling herself to EOB. Pt attempted sit to stand with max A x 2 and FWW by pulling on walker frame stabilized by therapist. First attempt resulted in lifting hips from bed but lack of extension. Second attempt resulted in standing in flexed posture. Standing was tolerated 3-5 seconds before pt needed return to sitting. In sitting, pt was able to assist with shifting her hips back in the bed. Log roll for return to supine. LONGWALL HEADGATE OPERATOR assisted with all mobility. Pt left with LONGWALL HEADGATE OPERATOR attending, family visiting, call light within reach. M5 PT-IP Objective Assessments Start: 04/24/19 16:13 Freq: NEEDED Status: Active Protocol: Document 04/25/19 14:11 AW (Rec: 04/25/19 14:41 AW [id number]) Orientation Orientation/Cognition Level of Alertness Confusional State Orientation Name,Place,Situation Language Function Ability No Deficits Noted Safety Awareness Understands Safety Issues Memory Description Short Term Impaired Comments Pt was a poor historian, inflating her prior level of function compared with reports from her family. Gross Range of Motion Lower Extremity ROM Assessment Bilaterally Impaired Strength Lower Extremity Strength Assessment Bilaterally Impaired Hip 3-/5 Knee 4-/5 Ankle 3+/5 Comments Strength Comments Strength was symmetrical but poor against gravity. Sensation Assessment Sensation Gross Sensation WNL Comments Sensation Comments No deficits on clinical exam M6 PT-IP Treatment Start: 04/24/19 16:13 Freq: NEEDED Status: Active Protocol: Document 04/25/19 17:04 AW (Rec: 04/25/19 17:13 AW [id number]) Physical Therapy Treatment Education Education Provided Precautions,Weight Bearing Status,Safety Other Treatments Other Treatment Performed PT provided education on benefits of mobility for skin integrity and respiratory function M7 PT-IP Assessment and Plan Start: 04/24/19 16:13 Freq: NEEDED Status: Active Protocol: Document 04/25/19 17:04 AW (Rec: 04/25/19 17:13 AW [id number]) PT Summary Assessment and Plan Summary Impairments Pain,ROM,Strength,Balance, Cognition,Bed Mobility, Transfers,Gait,Activity Tolerance Progress Towards Goals Slow Progress due to Pain,Slow Progress due to Activity Tolerance Assessment Summary Pt shows good effort with therapy. She continues to require max A x 2 for bed mobility and attempts to stand with FWW. She will certainly require SNF rehab at discharge . Goals Bed Mobility Goal Minimal Assistance Transfer Goal Minimal Assistance,Front Wheeled Walker Gait Goal Minimal Assistance,Four Wheel Walker Gait Distance 25 feet Days to Meet Goals 10 Frequency of Treatment Frequency Of Treatment Twice a Day Treatment Plan Physical Therapy Treatment Plan Bed Mobility Training,Transfer Training,Gait Training, Therapeutic Exercise,Balance Retraining,Post Op Education, Discharge Planning,Hot or Cold Pack,Neuromuscular Re-ed, Coordination Retraining,Manual Therapy Other Recommendations and Next Treatment bed mobility, standing Focus tolerance, transfer if able Recommendations To Nursing Amount of Assist Needed 2 Person Assist Discharge Recommendations PT Discharge Recommendations SNF Rehab Equipment Needed for Home Before defer to SNF Discharge
[2019-04-25] MEDS: OXYBUTYNIN 5 MG TABLET PO (21:48)
[2019-04-25] MEDS: SENNOSIDES 8.6 MG TABLET 17.2 MG PO (21:48)
[2019-04-25] MEDS: SIMVASTATIN 20 MG TABLET PO (21:49)
[2019-04-26] VITALS (12 sets, daily range): BP systolic 121–158; BP diastolic 58–77; PULSE 100–109; RESP 18–20; TEMP 36.3–37.6; O2SAT 90–97
[2019-04-26] MEDS: OXYCODONE IR 10 MG TABLET PO (03:44)
[2019-04-26] MEDS: SODIUM CHLORIDE 0.9% 1,000 ML 100 ML IV (06:13)
[2019-04-26] MEDS: LEVOTHYROXINE 150 MCG TABLET PO (06:14)
--- NOTE | 2019-04-26 06:19 | PC.NURSE ---
Pt reports pain 10/10, oxycodone given x1 per order. Pt verbalized tolerating pain enough to turn side to side q2hr with diony bed. Pt able to reach (with min assist) to opposite side rail to assist in turn. Pt able to turn enough to allow for RN skin check, dressing (CDI bulky gauze with tegaderm), and assessment of posterior lung sounds. Appeared to sleep overnight, easily aroused and A&O x4. Pt conversed with RN regarding childhood memories ie mother was seamstress. Davis remain patent. Offering sips of water with turns and with meds. Noted pt to take sips independently with water at bedside. No BM since 04/23, on schedule stool meds. Offered pt praise for turns and increased mobility in bed. Allowed time for pt to reflect on the progress she has made in past 24hrs and how this was reassuring she may be able to push herself some with PT today. IVF con't per order as pt not yet tolerating PO fluids due to drowsiness/pain. Will report to next shift to confer with MD regarding IVF. Pt with foot SCDs on.
[2019-04-26] MEDS: ACETAMINOPHEN 325 MG TABLET 650 MG PO ×3 (08:35→20:00)
[2019-04-26] MEDS: DOCUSATE 100 MG CAPSULE PO ×2 (09:03→20:00)
[2019-04-26] MEDS: hydroCHLOROthiazide 25 MG TABLET PO (09:03)
[2019-04-26] MEDS: MULTIVITAMIN 1 TABLET 1 TAB PO (09:03)
[2019-04-26] MEDS: CHOLECALCIFEROL (VITAMIN D3) 1,000 UNIT TABLET 2000 UNIT PO (09:03)
[2019-04-26] MEDS: LORATADINE 10 MG TABLET PO (09:04)
[2019-04-26] MEDS: FELODIPINE ER 5 MG TAB PO (09:05)
[2019-04-26] MEDS: DORZOLAMIDE 2% OPHTH 10 ML 1 DROPS EYE-BOTH ×2 (09:06→20:01)
[2019-04-26] MEDS: FLUTICASONE 44 MCG HFA 120 PUFF INH INH ×2 (09:06→19:27)
--- NOTE | 2019-04-26 10:08 | PC.NURSE ---
Addendum entered by Zehra Mcnamara R.N. 04/26/19 14:43: PAIN - after ret to bed, pt drowsy, given 650mg po tylenol. Addendum entered by Zehra Mcnamara R.N. 04/26/19 13:57: PAIN - spoke to David DELAROSA regarding pt oversedation with earlier 10mg oxycodone, will review medications. Addendum entered by Zehra Mcnamara R.N. 04/26/19 13:55: MS/GI/PAIN - states no pain while seated and not moving, pt has become more alert and responses clearer since am assessment, given mom after lunch, phys therapy in to mobilize, pt tried standing and said she couldn' support legs, rosetta lift brought in and returned to bed. Addendum entered by Zehra Mcnamara R.N. 04/26/19 11:14: MS/PAIN - pt remains drowsy but able to interact with PT and OT, pt assisted with log roll and slowly up to dangle position, very slowly stood and took a few steps to the chair, OT assisting with adl's and encouraging pt to do herself, now ready for some po intake. Original Note: AM NOTE - during bedside shift report, pt noted to be very drowsy, snorning the her eyes partially open, will respond to verbal stimulus, speech and movements are delayed and pupils are constricted, did not eat breakfast, later am, enc with stimulus to reposition and able sip water and take some medications orally, given 650mg po tylenol, discussed pt mobilization with PT and OT and pt now repositioned in bed with pillow support under knees, pt does not help to lift from bed, back discomfort 8 on scale 0/10, footie scd on and able to wiggle toes, +bt, passing flatus, no nausea now, 2l 96-97%, decr to 1L, noted to have superficial abraisons to r cheek at 02 tubing.
--- NOTE | 2019-04-26 10:40 | PT.IPTN ---
Current Diagnoses Morbid (severe) obesity due to excess calories (04/24/19) Spondylolisthesis, lumbar region (04/24/19) Other spondylosis with radiculopathy, lumbosacral region (04/24/19) Spinal stenosis, lumbar region with neurogenic claudication (04/24/19) Surgery Performed Operation Date: 04/24/19 07:45 Actual Procedures p L4-5, L5-S1 TLIF w/posterior instrumentation - Soledad Sosa MD Physical Therapy Treatment Note M2 PT-IP Current Condition Start: 04/24/19 16:13 Freq: NEEDED Status: Active Protocol: Document 04/25/19 14:11 AW (Rec: 04/25/19 14:41 AW [id number]) Physical Therapy Current Condition Current Condition Evaluation Date 04/25/19 Treatment Diagnosis s/p TLIF, impaired mobility Onset Date 04/24/19 Precautions Lumbar Precautions Log Roll,No Twisting,Limit Bending,Lifting Restriction of 10 lbs,Gait Belt above Incisional Area Other Precautions history of multiple falls Weight Bearing Status Weight Bearing Status Full Weight Bearing M3 PT-IP Subjective Start: 04/24/19 16:13 Freq: NEEDED Status: Active Protocol: Document 04/26/19 10:40 AB (Rec: 04/26/19 11:44 AB [id number]) Subjective Physical Therapy Visit Type Type Treatment Note Visit Start Time 10:40 Visit Stop Time 11:09 Total Visit Minutes 29 Number of FIRE PREVENTION SPECIALIST Visits 0 Therapy Pain Assessment Pain When Pain Assessed During Mobility Pain Present Pain Present Pain Reported Location Lower Back Scale Used pain scale not stated Pain Behaviors Guarding Pain Management Techniques Re-positioning M4 PT-IP Mobility and Gait Start: 04/24/19 16:13 Freq: NEEDED Status: Active Protocol: Document 04/26/19 10:40 AB (Rec: 04/26/19 11:44 AB [id number]) PT-Bed Mobility Assessment Rolling Type of Rolling Log Rolling Level of Assist Maximal Assistance,2 Person Assistance Supine to Sit Supine to Sit Total Assistance,2 Person Assistance Scooting Scooting to Edge of Bed Dependent PT-Transfer Assessment Sit to and From Stand Sit to and from Stand Maximum Assistance,2 Person Assistance,Use of Upper Extremities Equipment Transfer Assistive Device Gait Belt,Front Wheeled Walker Orthotic/Prosthetic Devices or Brace: No Transfers Transfer Destination Chair Transfer Technique Stand Step Pivot Transfer Ability Level of Assist Maximum Assistance,2 Person Assistance,Use of Upper Extremities Comments Mobility Comments completed log roll supine to sit total Ax 2 and max cues. required initial mod to max A to maintain sitting on EOB and cues to correct posture and balance. pt completed sit to stand using FWW max A x 2 and max cues. attempted transfer to chair but pt unable to complete with max A x 2-3 but tolerated ~ 15 sec of standing. attempted transfer again and completed sit to stand max A x 2 and max cues and completed stand pivot transfer using FWW max A x 2 and max cues. positioned pt on chair. call light and table placed within reach. Left pt with OT. Gait Assessment Comments Gait Comments unable at this time M5 PT-IP Objective Assessments Start: 04/24/19 16:13 Freq: NEEDED Status: Active Protocol: Document 04/25/19 14:11 AW (Rec: 04/25/19 14:41 AW [id number]) Orientation Orientation/Cognition Level of Alertness Confusional State Orientation Name,Place,Situation Language Function Ability No Deficits Noted Safety Awareness Understands Safety Issues Memory Description Short Term Impaired Comments Pt was a poor historian, inflating her prior level of function compared with reports from her family. Gross Range of Motion Lower Extremity ROM Assessment Bilaterally Impaired Strength Lower Extremity Strength Assessment Bilaterally Impaired Hip 3-/5 Knee 4-/5 Ankle 3+/5 Comments Strength Comments Strength was symmetrical but poor against gravity. Sensation Assessment Sensation Gross Sensation WNL Comments Sensation Comments No deficits on clinical exam M6 PT-IP Treatment Start: 04/24/19 16:13 Freq: NEEDED Status: Active Protocol: Document 04/26/19 10:40 AB (Rec: 04/26/19 11:44 AB [id number]) Physical Therapy Treatment Exercises Exercises Heel Slides Education Education Provided Precautions,Safety Other Treatments Other Treatment Performed pt unable to recall her precautions. reviewed back precautions with pt. M7 PT-IP Assessment and Plan Start: 04/24/19 16:13 Freq: NEEDED Status: Active Protocol: Document 04/26/19 10:40 AB (Rec: 04/26/19 11:44 AB [id number]) PT Summary Assessment and Plan Potential Rehabilitation Potential Fair Summary Impairments Pain,ROM,Strength,Balance, Coordination,Sensation,Tone, Cognition,Bed Mobility, Transfers,Gait,Activity Tolerance Progress Towards Goals Slow Progress due to Pain,Slow Progress due to Activity Tolerance Assessment Summary pt requires max A x 2 to total A x 2 and max cues with mobility. pt requires SNF rehab at this time to improve strength and be able to increase mobility independence prior to d/c home. Goals Bed Mobility Goal Minimal Assistance Transfer Goal Minimal Assistance,Front Wheeled Walker Gait Goal Minimal Assistance,Four Wheel Walker Gait Distance 50 Days to Meet Goals 10 Frequency of Treatment Frequency Of Treatment Twice a Day Treatment Plan Physical Therapy Treatment Plan Bed Mobility Training,Transfer Training,Gait Training, Therapeutic Exercise,Balance Retraining,Post Op Education, Discharge Planning,Hot or Cold Pack,Neuromuscular Re-ed, Coordination Retraining,Manual Therapy Other Recommendations and Next Treatment bed mobility, standing Focus tolerance, transfer, ambulation Recommendations To Nursing Amount of Assist Needed Mechanical Lift Discharge Recommendations PT Discharge Recommendations SNF Rehab
--- NOTE | 2019-04-26 11:16 | OT.IP.TRT ---
Current Diagnoses Morbid (severe) obesity due to excess calories (04/24/19) Spondylolisthesis, lumbar region (04/24/19) Other spondylosis with radiculopathy, lumbosacral region (04/24/19) Spinal stenosis, lumbar region with neurogenic claudication (04/24/19) Surgery Performed Operation Date: 04/24/19 07:45 Actual Procedures p L4-5, L5-S1 TLIF w/posterior instrumentation - Soledad Sosa MD Occupational Therapy Treatment Note M2 OT-IP Current Condition Start: 04/25/19 13:18 Freq: Status: Active Protocol: Document 04/25/19 13:18 [facility] (Rec: 04/25/19 13:40 [facility] [id number]) Occupational Therapy Current Condition Current Condition Evaluation Date 04/25/19 Treatment Diagnosis s/p L4-5, L5-S1 TLIF, decreased mobility and self care Post Operative Precautions Lumbar Precautions Log Roll,No Twisting,Limit Bending,Lifting Restriction of 10 lbs,Gait Belt above Incisional Area M3 OT- IP Subjective and Pain Start: 04/25/19 13:18 Freq: Status: Active Protocol: Document 04/26/19 11:16 PJM (Rec: 04/26/19 12:54 PJM [id number]) OT- Subjective Occupational Therapy Visit Type Type Treatment Note Visit Start Time 10:48 Visit Stop Time 11:16 Total Visit Minutes 28 Notes co tx with P.T. as 2 skilled assist needed for all functional mobility at present Occupational Therapy Visit Comments Patient Comments I am not thinking straight. Patient/Caregiver Goals to get stronger and be return to independent living alone OT Pain Assessment Pain When Pain Assessed After Treatment Pain Present Pain Present Pain Reported Location Lower Back Scale Used pt did not rate Description Aching,Acute Pain Behaviors Facial Grimacing,Guarding Management Techniques Distraction,Re-positioning, Timing of Activity with Medications M4 OT- IP ADL's Start: 04/25/19 13:18 Freq: Status: Active Protocol: Document 04/26/19 11:16 PJM (Rec: 04/26/19 12:54 PJM [id number]) OT [id number] General Evaluation Self-Feeding Ability Standby Assistance Comments OT Self-Feeding Comments pt needs full meal tray set up and intermittent verbal cues due to drowsiness and slow speed of processing OT ADL-Grooming General Evaluation Grooming Ability Standby Assistance Areas Needing Assistance Combing/Brushing Hair,Face Washing Comments OT Grooming Comments seated in chair; poor thoroughness OT ADL-Oral Care Comments Oral Care Comments did not occur OT ADL-Dressing General Eval Lower Body Dressing Ability Total Assistance Areas Needing Assistance Shoes OT ADL-Toileting General Evaluation Toileting Ability Total Assistance Comments OT Toileting Comments verdugo still in place OT ADL-Bathing Comments OT Bathing Comments to be assessed as activity level improves M6 OT- IP Functional Cognition Start: 04/25/19 13:18 Freq: Status: Active Protocol: Document 04/26/19 11:16 PJM (Rec: 04/26/19 12:54 [facility] [id number]) Cognitive Factors Limiting Selfcare Function Cognitive Ability Level of Alertness Drowsy,Lethargic Attention Span Ability Capable of Focused Attention Ability to Follow Commands Able to Follow One Step Commands with Increased Time, Able to Follow One Step Commands with Repetition Cognitive Comments Cognitive Assessment Comments Pt presents with slow speed of processing and appears over sedated this session. RN aware and decreasing narcotics given. M7 OT- IP Mobility and Balance Start: 04/25/19 13:18 Freq: Status: Active Protocol: Document 04/26/19 11:16 PJM (Rec: 04/26/19 12:54 [facility] [id number]) OT- Bed Mobility Assessment Rolling Type of Rolling Roll to Right Level of Assistance Maximum Assistance,Total Assistance,2 Person Assistance Supine to Sit Supine to Sit Assist Maximum Assistance,Total Assistance,2 Person Assistance Scooting Scooting to Edge of Bed Maximum Assistance,1 Person Assistance OT-Transfer Assessment Sit to and From Stand Sit to and from Stand Maximum Assistance,2 Person Assistance,Use of Upper Extremities Transfers Transfer Ability Maximum Assistance,2 Person Assistance,Use of Upper Extremities Technique Transfer Destination Chair Transfer Technique Stand Step Pivot Devices Transfer Assistive Devices Gait Belt,Front Wheeled Walker Comments Mobility Comments Pt needs max verbal cues to problem solve log rolling technique and hand placement for all mobility. Appears apraxic likely due to pain meds. OT- Gait Assessment Comments Gait Ability Comments pt unable to ambulate at present OT- Balance Assessment Sitting Balance and Reactions Static Sitting Balance Ability Fair Comments Other Balance Tests/Deviations/Treatment tends to lean back or sideways : while seated EOB with max assist needed initially for sitting balance progressing to close BSA to CGA M9 OT- IP Assessment and Plan Start: 04/25/19 13:18 Freq: Status: Active Protocol: Document 04/26/19 11:16 PJStephen (Rec: 04/26/19 12:54 PJM [id number]) OT Summary Assessment and Plan Potential Rehabilitation Potential Good Summary Progress Towards Goals Slow Progress due to Pain,Slow Progress due to Activity Tolerance Assessment Summary Pt did make progress with mobility today as she was able to complete sit to stand x2then slowly take 2-3 very small steps to chair with heavy BUE use on FWW. She currently requires max assist of 2 for all moblity but anticipate pt will continue to improve as she becomes less sedated. Pt able to wash face and comb hair with poor to fair thoroughness seated, and able to feed herself with intermittent cues due to drowsiness. Pt will need SNF at discharge as she is far below her baseline level of function as she normally lives alone and is independent with self care, IADLS including driving. Goals Self-Feeding Goal Independent Grooming Goal Standby Assistance Dressing Goal Minimal Assistance Toileting Goal Minimal Assistance Bathing Goal Moderate Assistance Toilet Transfer Goal Minimal Assistance Shower Transfer Goal Minimal Assistance OT-Other Goals Grooming goal in standing. Days to Meet Goals 10 Frequency of Treatment Frequency Of Treatment Once a Day Treatment Plan OT Treatment Plan ADL Training,Functional Cognition Training,Functional Mobility,Patient/Family Education,Discharge Planning Discharge Recommendations OT Discharge Recommendations SNF Rehab Home Equipment Needs Defer to skilled rehab.
[2019-04-26] MEDS: GLIMEPIRIDE 2 MG TABLET 1 MG PO ×2 (12:06→17:10)
[2019-04-26] MEDS: MAGNESIUM HYDROXIDE 30 ML UDC PO (13:44)
--- NOTE | 2019-04-26 14:10 | PT.IPTN ---
Current Diagnoses Morbid (severe) obesity due to excess calories (04/24/19) Spondylolisthesis, lumbar region (04/24/19) Other spondylosis with radiculopathy, lumbosacral region (04/24/19) Spinal stenosis, lumbar region with neurogenic claudication (04/24/19) Surgery Performed Operation Date: 04/24/19 07:45 Actual Procedures p L4-5, L5-S1 TLIF w/posterior instrumentation - Soledad Sosa MD Physical Therapy Treatment Note M2 PT-IP Current Condition Start: 04/24/19 16:13 Freq: NEEDED Status: Active Protocol: Document 04/25/19 14:11 AW (Rec: 04/25/19 14:41 AW [id number]) Physical Therapy Current Condition Current Condition Evaluation Date 04/25/19 Treatment Diagnosis s/p TLIF, impaired mobility Onset Date 04/24/19 Precautions Lumbar Precautions Log Roll,No Twisting,Limit Bending,Lifting Restriction of 10 lbs,Gait Belt above Incisional Area Other Precautions history of multiple falls Weight Bearing Status Weight Bearing Status Full Weight Bearing M3 PT-IP Subjective Start: 04/24/19 16:13 Freq: NEEDED Status: Active Protocol: Document 04/26/19 13:40 SP (Rec: 04/26/19 14:27 SP [id number]) Subjective Physical Therapy Visit Type Type Treatment Note Visit Start Time 13:40 Visit Stop Time 14:10 Total Visit Minutes 30 Notes Pt seen with executive director of nursing . Number of MAINTENANCE DATA ANALYST Visits 1 Physical Therapy Visit Comments Patient Comments Pt willing to work with PT, feel little sleepy . Patient Goals Pt would like to use the commode. Therapy Pain Assessment Pain When Pain Assessed During Mobility Pain Present Pain Present Pain Reported Location Lower Back Intensity 9 Scale Used Numeric (1 - 10) Pain Behaviors Facial Grimacing,Holding Area, Moaning,Restlessness Pain Management Techniques Re-positioning,Timing of Activity with Medications M4 PT-IP Mobility and Gait Start: 04/24/19 16:13 Freq: NEEDED Status: Active Protocol: Document 04/26/19 13:40 SP (Rec: 04/26/19 14:27 SP [id number]) PT-Bed Mobility Assessment Scooting Scooting Up and Down in Bed Dependent PT-Transfer Assessment Sit to and From Stand Sit to and from Stand Maximum Assistance,Total Assistance,2 Person Assistance ,Use of Upper Extremities Equipment Transfer Assistive Device Gait Belt,Front Wheeled Walker ,Mechanical Lift Orthotic/Prosthetic Devices or Brace: No Transfers Transfer Destination Bed,Chair,Bedside Commode Transfer Ability Level of Assist Total Assistance,2 Person Assistance Comments Mobility Comments Pt tried 3 attempts sit to stand from chair Max to total A of 2 person using FWW for support. Pt was unable to tolerate pain in posterior L LE and come to full standing, BUE full WB on chair arm rests . Pt required use of mechanical lift with executive director of nursing to assist patient to bed side commode. Pt was able to maintain sitting on commode SBA and BLE supported on a cushion. Pt unsuccessful BM on commode and required mechanical lift back to bed. Pt required support for eccentric upper body laying back into bed due to lack of strength and pain reported. Pt requested LLE elevated on 3 pillows for comfort of posterior thigh pain 9/10 during mobility and 7/10 once rested in bed. Gait Assessment Comments Gait Comments unable at this time. PT-Balance Assessment Sitting Balance and Reactions Static Sitting Balance Ability Fair Dynamic Sitting Balance Ability Fair Standing Balance and Reactions Static Standing Balance Ability Poor Dynamic Standing Balance Ability Poor Device Used FWW M5 PT-IP Objective Assessments Start: 04/24/19 16:13 Freq: NEEDED Status: Active Protocol: Document 04/25/19 14:11 AW (Rec: 04/25/19 14:41 AW [id number]) Orientation Orientation/Cognition Level of Alertness Confusional State Orientation Name,Place,Situation Language Function Ability No Deficits Noted Safety Awareness Understands Safety Issues Memory Description Short Term Impaired Comments Pt was a poor historian, inflating her prior level of function compared with reports from her family. Gross Range of Motion Lower Extremity ROM Assessment Bilaterally Impaired Strength Lower Extremity Strength Assessment Bilaterally Impaired Hip 3-/5 Knee 4-/5 Ankle 3+/5 Comments Strength Comments Strength was symmetrical but poor against gravity. Sensation Assessment Sensation Gross Sensation WNL Comments Sensation Comments No deficits on clinical exam M6 PT-IP Treatment Start: 04/24/19 16:13 Freq: NEEDED Status: Active Protocol: Document 04/26/19 13:40 SP (Rec: 04/26/19 14:27 SP [id number]) Physical Therapy Treatment Education Education Provided Precautions,Safety Other Treatments Other Treatment Performed pt unable to recall her precautions. reviewed back precautions with pt. PT provided education on benefits of mobility for skin integrity and respiratory function M7 PT-IP Assessment and Plan Start: 04/24/19 16:13 Freq: NEEDED Status: Active Protocol: Document 04/26/19 13:40 SP (Rec: 04/26/19 14:27 SP [id number]) PT Summary Assessment and Plan Potential Rehabilitation Potential Fair Summary Impairments Pain,ROM,Strength,Balance, Coordination,Sensation,Tone, Cognition,Bed Mobility, Transfers,Gait,Activity Tolerance Progress Towards Goals Slow Progress due to Pain,Slow Progress due to Activity Tolerance Assessment Summary pt requires max A x 2 to total A x 2 and max cues with mobility. pt requires SNF rehab at this time to improve strength and be able to increase mobility independence prior to d/c home. Pt had all needs within reach and executive director of nursing in room when left tx. Goals Bed Mobility Goal Minimal Assistance Transfer Goal Minimal Assistance,Front Wheeled Walker Gait Goal Minimal Assistance,Four Wheel Walker Gait Distance 50 Days to Meet Goals 10 Frequency of Treatment Frequency Of Treatment Twice a Day Treatment Plan Physical Therapy Treatment Plan Bed Mobility Training,Transfer Training,Gait Training, Therapeutic Exercise,Balance Retraining,Post Op Education, Discharge Planning,Hot or Cold Pack,Neuromuscular Re-ed, Coordination Retraining,Manual Therapy Other Recommendations and Next Treatment bed mobility, standing Focus tolerance, transfer, ambulation Recommendations To Nursing Amount of Assist Needed Mechanical Lift Discharge Recommendations PT Discharge Recommendations SNF Rehab Equipment Needed for Home Before Defer to SNF Discharge
[2019-04-26] MEDS: raNITIdine 150 MG CAPSULE 300 MG PO (17:10)
--- NOTE | 2019-04-26 17:30 | PM.PNPO.1 ---
Subjective Subjective Date Patient Seen: 04/26/19 Time Patient Seen: 17:30 Interval history: Patient's pain is moderate to severe. Her major complaint is sharp pain which is intermittent in nature down the left posterior thigh into the calf. She notes increased pain with any movement of the left leg. She was able to get up and sit at the bedside chair this morning but wasn't able tolerate it for long until she need to go back into bed. She has minimal pain along the lumbar spine. She denies fever chills. No shortness of breath or chest pain. Exam Vital Signs (past 8 hours): - 04/26/19 11:15 04/26/19 14:37 04/26/19 15:40 Temperature 99.6 F Pulse Rate 109 H 100 H Respiratory Rate 20 20 Blood Pressure 121/72 155/77 H Pulse Oximetry 94 94 91 Oxygen Delivery Method Room Air Oxygen Flow Rate 2 Narrative Exam Narrative: Pleasant 73-year-old female resting comfortably in bed in no apparent distress. The lumbar dressing is clean, dry and intact. The left leg is tender along the posterior thigh into the calf. The tenderness is generalized. There is no abnormal swelling in the left leg. She has 5/5 strength left lower extremity. Left leg is warm and dry. Sensation grossly intact to light touch. SCDs are on and functioning. Objective Labs Result Diagrams: 04/25/19 05:00 Assessment & Plan Post-op Postoperative Procedures: Procedures Operation Date: 04/24/19 07:45 Actual Procedures Side Surgeon p L4-5, L5-S1 TLIF w/posterior instrumentation Soledad Sosa MD Postop day 2. Patient had left leg ultrasound yesterday which was negative. Encouraged her to continue ankle pumps. Mobilize with physical therapy. Possible discharge to [facility] facility tomorrow or the following day secondary to limited mobility and pain control issues. Quality VTE Deep Vein Thrombosis/Pulmonary Embolism Present on Admission: No
[2019-04-26] MEDS: OXYBUTYNIN 5 MG TABLET PO (20:01)
[2019-04-26] MEDS: LISINOPRIL 20 MG TABLET PO (20:01)
[2019-04-26] MEDS: SIMVASTATIN 20 MG TABLET PO (20:01)
[2019-04-26] MEDS: SENNOSIDES 8.6 MG TABLET 17.2 MG PO (20:01)
[2019-04-27] VITALS: O2SAT 94
[2019-04-27 00:30] VITALS: BP 160/82; PULSE 96; RESP 20; TEMP 37.4; O2SAT 94
[2019-04-27] MEDS: ACETAMINOPHEN 325 MG TABLET 650 MG PO ×2 (02:13→09:10)
[2019-04-27 05:42] VITALS: BP 155/77; PULSE 94; RESP 18; TEMP 36.7; O2SAT 96
[2019-04-27] MEDS: LEVOTHYROXINE 150 MCG TABLET PO (05:47)
[2019-04-27] MEDS: BISACODYL 10 MG SUPP PR (07:29)
[2019-04-27 07:30] VITALS: BP 160/74; PULSE 96; RESP 26; TEMP 37.4; O2SAT 92
[2019-04-27 07:41] VITALS: O2SAT 93
--- NOTE | 2019-04-27 07:41 | PC.NURSE ---
Addendum entered by Zehra Mcnamara R.N. 04/27/19 14:37: TSF - DC packet given to ambulance personnel. Addendum entered by Zehra Mcnamara R.N. 04/27/19 14:34: DC - prior to tsf to [place] [facility], [place] [facility] [place] and some incontinence, urine appearance yellow, periarea cleaned, using lift, tsf pt to the [place] [facility], all her belongings packed, including eye drops, Flovent, has large black suitcase taken by son with clothing, shoes, has her glasses on, x2 canes sent, report called to Janeth ABDALLA. Addendum entered by Zehra Mcnamara R.N. 04/27/19 12:58: - post verdugo removal, pt was lifted via [facility] to [facility] and voided 225ml urine. Addendum entered by Zehra Mcnamara R.N. 04/27/19 11:28: GI//MS/PAIN - after breakfast, given tylenol 650mg for back discomfort 6 on scale 0/10, rosetta lift to the [facility] w/med soft brown stool, rosetta back to the chair, discussed verdugo cath with David DELAROSA and shown and advised that the pt had blood tinged urine in verdugo, new order rec'd to dc verdugo now, no other order at this time, emptied 500ml, balloon deflated and dc'd w/o difficulty, placed in brief, barrier cream to skin opening l buttock cheek and at r torso skin fold, removed surg dsg, parallel incisions w/o drainage, surrounding bruising and has a small fluid filled blister at the l distal end, replaced with coversite. Original Note: AM NOTE - after bedside shift report, discussed bm with pt, with assist from direct marketing intern and night RN, pt turned side and dulcolax suppos admin, pt has difficulty moving her legs w/complaint l leg pain, did enc try bend and assist with turn, repositioned for comfort w/l leg supported with pillow, open mouth breathing, responses are appropriate, ra 93%, hr 92, abd soft, +bt, verdugo w/concentrated urine.+
[2019-04-27] MEDS: FELODIPINE ER 5 MG TAB PO (09:09)
[2019-04-27] MEDS: CHOLECALCIFEROL (VITAMIN D3) 1,000 UNIT TABLET 2000 UNIT PO (09:09)
[2019-04-27] MEDS: DORZOLAMIDE 2% OPHTH 10 ML 1 DROPS EYE-BOTH (09:09)
[2019-04-27] MEDS: hydroCHLOROthiazide 25 MG TABLET PO (09:09)
[2019-04-27] MEDS: DOCUSATE 100 MG CAPSULE PO (09:09)
[2019-04-27] MEDS: LORATADINE 10 MG TABLET PO (09:09)
[2019-04-27] MEDS: MULTIVITAMIN 1 TABLET 1 TAB PO (09:09)
[2019-04-27] MEDS: FLUTICASONE 44 MCG HFA 120 PUFF INH INH (09:11)
[2019-04-27] MEDS: SODIUM CHLORIDE 0.9% FLUSH 10 ML IV (09:11)
--- NOTE | 2019-04-27 10:38 | P.DS_ITS ---
History of Present Illness History of Present Illness Date Patient Seen: 04/27/19 Time Patient Seen: 10:45 Chief complaint: [id number] Narrative: Patient's pain is moderate to severe. Still complaining about left posterior leg pain. She does have bilateral leg pain prior to surgery. She knows the right leg pain has subsided however the left leg pain is mildly worse. Denies numbness and tingling in her lower extremities. No shortness of breath or chest pain. No nausea vomiting. Denies fever chills. Discharge Providers Provider Date of admission: 04/24/19 06:01 Discharge Date: 04/27/19 Primary care physician: Zabrina Vincent PA-C Consults: 04/24/19 14:15 Consult to Occupational Therapy Evaluate & Treat Comment: Physician Instructions: Evaluate and treat Consult to Physical Therapy Evaluate & Treat Comment: Physician Instructions: Evaluate and Treat Discharge provider: David Bull PA-C Summary Hospital Course Discharge Diagnosis: Pre-op diagnosis: 1. L4-5, L5-S1 spondylolisthesis 2. L4-5, L5-S1 spinal stenosis with neurogenic claudication Morbid obesity Post-op diagnosis: same Hospital Course: Procedure: 1. L4-5, L5-S1 Postero-lateral and posterior interbody fusion 2. L4-5, L5-S1 interbody cage placement. 3. L4-5, L5-S1 decompressive laminectomy with bilateral facetecomies 4. L4-5, L5-S1 Posterior segmental instrumentation 5. Bypro of bone marrow from iliac crest 6. Utilization of microsurgical technique and operating microscope Same procedure as scheduled: Yes Indications: Patient has been having chronic back pain and worsening lumbar radiculopathy. Patient failed multiple conservative management with worsening pain weakness and numbness in her lower extremity. Patient has been having difficulty performing activity of daily living. After discussing risks benefits of treatment options, patient elected proceed with surgery. Surgeon: Soledad Sosa Carton Gluing Machine Operator: Elicia Beckman Click Yes if Unassisted: No Anesthesia Type: General Operative Notes Closure Type: primary Specimen(s): none sent Prosthetic devices, grafts, tissues, transplants, or devices: Globus revolve screws, Rise cages Applied: catheter Estimated Blood Loss (mL): 100 Blood products transfused: none Patient admitted to the hospital for the above-mentioned procedure. Patient consented to the same. Patient taken to the operating room on April 24, 2019. Patient underwent surgery and is back in her room recovering well as in stable condition. Patient has been slow to mobilize secondary to left leg pain. Patient did have bilateral leg pain prior to surgery. Right leg pain has di minished and left leg pain is slightly worse. She did have an ultrasound on left leg 2 days ago which was negative for DVT. She denies numbness and tingling in her lower extremities. Morbidly obese female requiring max assist. She will need detention facility placement for further rehab prior to returning home. Status at Discharge Cognitive/behavioral status at discharge: at baseline, oriented Functional status at discharge: uses cane/walker Overall status at discharge: patient is progressing back to baseline Time Spent with Patient Time spent: Less than 30 minutes Exam Vital Signs (past 8 hours): - 04/27/19 05:42 04/27/19 07:30 04/27/19 07:41 Temperature 98.0 F 99.4 F Pulse Rate 94 H 96 H Respiratory Rate 18 26 H Blood Pressure 155/77 H 160/74 H Pulse Oximetry 96 92 93 Oxygen Delivery Method Room Air Oxygen Flow Rate 0 Narrative Exam Narrative: 73-year-old female sitting in bedside chair in no apparent distress. Lumbar dressing is clean, dry and intact. Both lower legs are warm and dry. Left calf is soft and nontender. Motor functions intact distally bilateral lower extremities. Sensation grossly intact to light touch bilateral lower extremities. Objective Labs Result Diagrams: 04/25/19 05:00 Discharge Plan Discharge Plan Patient Disposition: SNF Transfer to: [facility] and [facility] Under care of provider: Dr. Sosa Consult as needed: Dental, Hearing, Mental health, Podiatry and Vision Discharge comment: DC to SNF today Discharge orders & Medications Prescriptions: New hydroxyzine pamoate 25 mg Capsule 25 mg PO Q6-8H PRN (Reason: Nausea And Vomiting) Qty: 30 RF: 0 oxycodone 5 mg tablet 5 mg PO Q4H PRN (Reason: pain) Qty: 60 RF: 0 Continued glimepiride [Amaryl] 2 MG tablet 1 mg PO BID Qty: 0 RF: 0 fexofenadine 180 MG tablet 180 mg PO QDAY Qty: 0 RF: 0 multivitamin Capsule 1 cap PO QAM Qty: 0 RF: 0 levothyroxine [Synthroid] 150 MCG tablet 150 mcg PO QAM Qty: 0 RF: 0 cholecalciferol (vitamin D3) [Vitamin D3] 2,000 UNIT capsule 2,000 iu PO QDAY Qty: 0 RF: 0 hydrochlorothiazide 25 MG tablet 25 mg PO QDAY Qty: 0 RF: 0 acetaminophen [Tylenol Extra Strength] 500 MG tablet 1,000 mg PO TID Qty: 0 RF: 0 cyclobenzaprine 10 mg Tablet 10 mg PO TID PRN (Reason: Muscle pain, spasm) RF: 0 lisinopril 20 mg Tablet 20 mg PO BEDTIME RF: 0 felodipine 5 mg Tablet Extended Release 24 Hr 5 mg PO QAM RF: 0 meloxicam 7.5 mg Tablet 7.5 mg PO BID RF: 0 meclizine 25 mg Tablet 25 mg PO DAILY PRN (Reason: Vertigo) RF: 0 simvastatin 20 mg Tablet 20 mg PO BEDTIME RF: 0 diphenhydramine HCl [Benadryl] 25 mg Capsule 50 mg PO BEDTIME PRN (Reason: Allergic Symptoms) RF: 0 Flovent HFA 44 mcg/actuation Hfa Aerosol Inhaler 2 puff INHALATION BID RF: 0 ranitidine HCl 150 mg Capsule 300 mg PO QPM RF: 0 oxybutynin chloride 5 mg Tablet 5 mg PO BEDTIME RF: 0 Victoza 2-Wilfredo 0.6 mg/0.1 mL (18 mg/3 mL) Pen Injector 1.2 mg SUBCUT DAILY RF: 0 dorzolamide 2 % Drops 1 % OPHTHALMIC (EYE) BID RF: 0 Alphagan P 0.1 % drops 0.1 % EYE-RIGHT BID RF: 0 Follow up/Referrals: Soledad Sosa MD [Physician] - (2 wks) Zabrina Vincent PA-C [Primary Care Provider] - Discharge Health Status Multidrug resistant organism: No MDRO Diet/Activity/Treatments Diet: Carb-consistent/Diabetic Liquid consistency: Normal/Thin Food texture: Regular Activity: Limit bending, twisting, lifting Cold/Heat Therapy: ice to low back as needed Skin/Wound/Dressing Care Report to your healthcare provider any signs of infection, such as:: chills, f ever, night sweats, increased pain, unusual drainage and unusual redness Dressing: keep clean and dry Special Rehabilitation Services Reason for rehabilitation: Post-operative therapy Rehab type: Physical therapy and Occupational therapy Restrictions to mobility: limit bending, twisting, lifting Discharge Data Primary Care Provider: Zabrina Vincent VTE Deep Vein Thrombosis/Pulmonary Embolism Present on Admission: No
--- NOTE | 2019-04-27 10:50 | PT.IPTN ---
Current Diagnoses Morbid (severe) obesity due to excess calories (04/24/19) Spondylolisthesis, lumbar region (04/24/19) Other spondylosis with radiculopathy, lumbosacral region (04/24/19) Spinal stenosis, lumbar region with neurogenic claudication (04/24/19) Surgery Performed Operation Date: 04/24/19 07:45 Actual Procedures p L4-5, L5-S1 TLIF w/posterior instrumentation - Soledad Sosa MD Physical Therapy Treatment Note M2 PT-IP Current Condition Start: 04/24/19 16:13 Freq: NEEDED Status: Active Protocol: Document 04/25/19 14:11 AW (Rec: 04/25/19 14:41 AW [id number]) Physical Therapy Current Condition Current Condition Evaluation Date 04/25/19 Treatment Diagnosis s/p TLIF, impaired mobility Onset Date 04/24/19 Precautions Lumbar Precautions Log Roll,No Twisting,Limit Bending,Lifting Restriction of 10 lbs,Gait Belt above Incisional Area Other Precautions history of multiple falls Weight Bearing Status Weight Bearing Status Full Weight Bearing M3 PT-IP Subjective Start: 04/24/19 16:13 Freq: NEEDED Status: Active Protocol: Document 04/27/19 10:21 FARHAD (Rec: 04/27/19 11:53 FARHAD [id number]) Subjective Physical Therapy Visit Type Type Treatment Note Visit Start Time 10:21 Visit Stop Time 10:50 Total Visit Minutes 29 Notes Treatment supervised by TARSHA Jolly. Number of PLANT OPERATIONS VICE PRESIDENT Visits 2 Physical Therapy Visit Comments Patient Comments Pt agreeable to work w/ therapy. Therapy Pain Assessment Pain When Pain Assessed At Rest Pain Present Pain Present Pain Reported Location Lower Back Intensity 5 Scale Used Numeric (1 - 10) Pain Behaviors Facial Grimacing,Holding Area, Moaning,Restlessness Pain Management Techniques Re-positioning M4 PT-IP Mobility and Gait Start: 04/24/19 16:13 Freq: NEEDED Status: Active Protocol: Document 04/27/19 10:21 FARHAD (Rec: 04/27/19 11:53 FARHAD [id number]) PT-Bed Mobility Assessment Rolling Type of Rolling Log Rolling Level of Assist Maximal Assistance,2 Person Assistance Sit to Supine Sit to Supine Maximum Assistance,2 Person Assistance Scooting Scooting to Edge of Bed Maximum Assistance Scooting Up and Down in Bed Maximum Assistance PT-Transfer Assessment Sit to and From Stand Sit to and from Stand Maximum Assistance,2 Person Assistance,Use of Upper Extremities Equipment Transfer Assistive Device Gait Belt,Front Wheeled Walker Orthotic/Prosthetic Devices or Brace: No Transfers Transfer Destination Bed Transfer Technique Squat Pivot Transfer Ability Level of Assist Maximum Assistance,2 Person Assistance Comments Mobility Comments Pt required Mod A for transitioning trunk flexion to sit foward in chair,cued to use BUE to pull self foward to assist application of gait belt, Max A x1 with max cues for scooting to edge of chair, and Max to total Ax2 for sit< >squat from stair. Pt was unable to fully stand from chair w/ Max A due to LLE pain and weakness and requested to sit back down. Pt was then Max to total A x2 for squat pivot with 1 person in front utilizing gait belt and providing anterior L>R knee support to prevent buckling and one behind for posterior pelvic support to transition squat pivot from chair to bed. Required Max A x2 for scooting back in bed x3 attempts before completed. Max Ax1 for sit<>sup for LE assistance into bed as well as Max A x2 for scooting up and repositioning in bed. Pt requested 2-3 pillow support uner LLE for comfort and pain control. Pt left in bed all needs in reach w/ nursing present. Gait Assessment Comments Gait Comments unable at this time. PT-Balance Assessment Sitting Balance and Reactions Static Sitting Balance Ability Poor Dynamic Sitting Balance Ability Poor Standing Balance and Reactions Static Standing Balance Ability Poor Dynamic Standing Balance Ability Poor Device Used FWW M5 PT-IP Objective Assessments Start: 04/24/19 16:13 Freq: NEEDED Status: Active Protocol: Document 04/25/19 14:11 AW (Rec: 04/25/19 14:41 AW [id number]) Orientation Orientation/Cognition Level of Alertness Confusional State Orientation Name,Place,Situation Language Function Ability No Deficits Noted Safety Awareness Understands Safety Issues Memory Description Short Term Impaired Comments Pt was a poor historian, inflating her prior level of function compared with reports from her family. Gross Range of Motion Lower Extremity ROM Assessment Bilaterally Impaired Strength Lower Extremity Strength Assessment Bilaterally Impaired Hip 3-/5 Knee 4-/5 Ankle 3+/5 Comments Strength Comments Strength was symmetrical but poor against gravity. Sensation Assessment Sensation Gross Sensation WNL Comments Sensation Comments No deficits on clinical exam M6 PT-IP Treatment Start: 04/24/19 16:13 Freq: NEEDED Status: Active Protocol: Document 04/27/19 10:21 FARHAD (Rec: 04/27/19 11:53 [id number]) Physical Therapy Treatment Exercises Exercises Ankle Pumps,Gluteal Sets,Quad Sets Education Education Provided Precautions,Safety Other Treatments Other Treatment Performed Instructed to perform exercises every 30 min to for assist in reeducation on strengthen to progress in indepenedence for transfers. M7 PT-IP Assessment and Plan Start: 04/24/19 16:13 Freq: NEEDED Status: Active Protocol: Document 04/27/19 10:21 FARHAD (Rec: 04/27/19 11:53 [id number]) PT Summary Assessment and Plan Potential Rehabilitation Potential Fair Summary Impairments Pain,ROM,Strength,Balance, Coordination,Sensation,Tone, Cognition,Bed Mobility, Transfers,Gait,Activity Tolerance Progress Towards Goals Slow Progress due to Pain,Slow Progress due to Activity Tolerance Assessment Summary Pt continues to be limited by pain and weakness. Pt is eager to report that she is unable to perform requested task before trying. Encouraged pt to try moving her legs on her own, put weight through legs for standing, and scoot in chair and bed, but she was unable due to janice pain. Pt was Max A for scooting to edge of chair, and Max A x2 for squat pivot transfer to bed and seated scooting in bed, Max a x1 for sit<>sup for LE assistance and log roll. Pt left repositioned in bed to decrease pain w/ nursing present. Goals Bed Mobility Goal Minimal Assistance Transfer Goal Minimal Assistance,Front Wheeled Walker Gait Goal Minimal Assistance,Four Wheel Walker Gait Distance 50 Days to Meet Goals 10 Frequency of Treatment Frequency Of Treatment Twice a Day Treatment Plan Physical Therapy Treatment Plan Bed Mobility Training,Transfer Training,Gait Training, Therapeutic Exercise,Balance Retraining,Post Op Education, Discharge Planning,Hot or Cold Pack,Neuromuscular Re-ed, Coordination Retraining,Manual Therapy Other Recommendations and Next Treatment bed mobility, standing Focus tolerance, transfer, ambulation Recommendations To Nursing Amount of Assist Needed Mechanical Lift Discharge Recommendations PT Discharge Recommendations SNF Rehab Equipment Needed for Home Before Defer to SNF Discharge
[2019-04-27 11:40] VITALS: TEMP 36.7
--- NOTE | 2019-04-27 12:11 | CM.DPC ---
DCP Cont: Faxed SNF order, signed med list, discharge summary and PASRR to [facility] at fax # [phone]. Fax confirmation scanned in. Gaby Granger, [facility] Social Insurance Specialist
[2019-04-27] MEDS: GLIMEPIRIDE 2 MG TABLET 1 MG PO (12:29)
--- NOTE | 2019-04-27 13:52 | CM.DPC ---
DC Note: Reviewed chart and spoke to October at [facility], pt okay to admit there today. Then spoke w/ Ortho PA David Bull who explained that pt was medically ready to DC to SNF today and she was agreeable to this plan; [facility] via BLS Completed PASRR and requested that Gaby, Chief Ultrasound Technologist fax all DC ppk and arrange BLS transport. This was arranged for October at [facility] was updated. P: DC to [facility] via BLS today. ROSETTE Walker
== END 2019-04-27 14:39 | DRG 454 ==
PROVIDERS: Admitting Provider Orthopaedic Surgery Orthopaedic Surgery of the Spine; PCP Physician Assistant Medical; Visit Provider Orthopaedic Surgery Orthopaedic Surgery of the Spine
PROC: 0SG00AJ Fusion of Lumbar Vertebral Joint with Interbody Fusion Device, Posterior Approach, Anterior Column, Open Approach (ICD-10-PCS; principal; 2019-04-24 07:45)
DX: M48.062 Spinal stenosis, lumbar region with neurogenic claudication (principal); Z68.41 Body mass index [BMI] 40.0-44.9, adult; M47.27 Other spondylosis with radiculopathy, lumbosacral region; E66.01 Morbid (severe) obesity due to excess calories; I10 Essential (primary) hypertension; E78.5 Hyperlipidemia, unspecified; K21.9 Gastro-esophageal reflux disease without esophagitis; E11.9 Type 2 diabetes mellitus without complications; J45.909 Unspecified asthma, uncomplicated; Z87.891 Personal history of nicotine dependence; E07.9 Disorder of thyroid, unspecified; M79.662 Pain in left lower leg; M79.661 Pain in right lower leg
CPT/HCPCS: 36415; 72100; 76000; 82962; 85014; 85018; 93971; 94640; 94760; 97110; 97162; 97165; 97530; 97535; C1776; C9290; J0330; J1170; J2405; J2704; J3010; J3410

== ENCOUNTER 2019-06-01 17:06 | Inpatient (IN) | payer MEDICARE, OTHER, SELFPAY ==
[2019-04-24 14:26] VITALS: BMI 43.7
[2019-06-01 17:09] VITALS: BP 152/81; PULSE 97; RESP 18; TEMP 36.1; O2SAT 98
--- NOTE | 2019-06-01 18:55 | DI.RAD.S_ITS ---
PROCEDURE: XR CHEST 1V INDICATIONS: suspected sepsis TECHNIQUE: One view of the chest was acquired. COMPARISON: None. FINDINGS: Surgical changes and devices: None. Lungs and pleura: Lungs are clear. No pleural effusions or pneumothorax. Mediastinum: Mediastinal contours appear normal. Heart size is normal. Bones and chest wall: No suspicious bony lesions. Overlying soft tissues appear unremarkable. IMPRESSION: No acute cardiopulmonary disease. Dictated by: Quintin Hernandez M.D. on 06/01/2019 at 19:46 Approved by: Quintin Hernandez M.D. on 06/01/2019 at 19:47
--- NOTE | 2019-06-01 18:58 | PC.NURSE ---
s/p thoracic surgery on 04/24, was just dc from [facility] yesterday. today reporting not feeling well, confusion, pt concern incision site with drainage. denies
[2019-06-01 19:14] LABS: Add Manual Diff / Slide Review NO; Basophils Absolute Auto 100 /uL (0-100); Basophils Percent Auto 0.9 % (0-2); Eosinophils Absolute Auto 200 /uL (0-450); Eosinophils Percent Auto 1.9 % (2-4); Hematocrit 37.6 % (36-46); Hemoglobin 12.7 g/dL (12.0-16.0); Lymphocytes Absolute Auto 1600 /uL (1100-4500); Lymphocytes Percent Auto 19.5 % (25-40); Mean Corpuscular HGB Conc 33.9 % (30-36); Mean Corpuscular Hemoglobin 32.6 PG (26-34); Mean Corpuscular Volume 96.3 fL (80-100); Monocytes Absolute Auto 700 /uL (0-900); Monocytes Percent Auto 8.8 % (3-14); Neutrophils Absolute Auto 5600 /uL (1500-7000); Neutrophils Percent Auto 68.9 % (50-75); Platelet Count 331 X10^3/uL (150-400); Red Blood Cell Count 3.91 X10^6/uL (4.0-5.2); Red Cell Distribution Width 14.4 % (11.6-14.8); White Blood Cell Count 8.1 X10^3/uL (4.5-11.0)
[2019-06-01 19:22] LABS: INR 1.1 (0.9-1.3); Prothrombin Time 12.4 SECONDS (10.1-12.7)
[2019-06-01 19:23] VITALS: BP 137/59; PULSE 84; RESP 16; O2SAT 94
[2019-06-01 19:24] LABS: PTT Partial Thromboplastin Tim 46 SECONDS (26.4-36.2)
[2019-06-01 19:27] LABS: Alanine Aminotransferase 16 IU/L (<35); Albumin 4.3 g/dL (3.5-5.0); Albumin Globulin Ratio 1.4 (1.0-2.8); Alkaline Phosphatase 111 U/L (38-126); Aspartate Aminotransferase 28 IU/L (14-36); BUN Creatinine Ratio 32.5 (6-22); Bilirubin Total 0.3 mg/dL (0.2-1.3); Blood Urea Nitrogen 26 mg/dL (7-17); Calcium 9.8 mg/dL (8.4-10.2); Carbon Dioxide 27 mmol/L (22-32); Chloride 102 mmol/L (98-107); Estimated Glomerular Filt Rate > 60.0 mL/min (>60); Globulin 3.1 g/dL (1.7-4.1); Glucose 121 mg/dL (80-110); HEMOLYSIS < 15 (0-50); Lipase 237 U/L (23-300); Potassium 3.5 mmol/L (3.4-5.1); Sodium 138 mmol/L (137-145); Total Protein 7.4 g/dL (6.3-8.2)
--- NOTE | 2019-06-01 19:35 | ED.DIZZY ---
HPI - Dizziness General Chief Complaint: Dizziness Stated Complaint: states has open wound on back that is not healing Time Seen by Provider: 06/01/19 18:06 Source: patient Mode of arrival: Ambulatory History of Present Illness HPI Narrative: 73-year-old former smoker with extensive medical history including diabetes, hypertension hyperlipidemia presents with her son and a chief complaint of dizziness, weakness and drainage from a surgical site. Patient was just discharged yesterday from [facility] after having a lumbar surgery on April 24. They just noticed yesterday some drainage from a wound site on her right lumbar region and had written a prescription for an antibiotic but she had yet to fill it. She feels poorly but is very nondescript in her symptoms stating she feels dizzy, weak and in her own words ?like shit?. She denies fever, shaking chills nor nausea, vomiting or diarrhea. She denies neurologic symptoms such as numbness, tingling or weakness of her extremities. She denies any control with bowel or bladder. She presents with her son whom is very concerned about her ability to be at home alone. She has at home without any help during the day and did not do well in her 1st day at home. She forgot to take all of her medications and called him this morning and was confused and clearly unable to care for herself. Related Data Home Medications Medication Instructions Recorded Confirmed acetaminophen [Tylenol Extra 1,000 mg PO TID #0 05/10/17 04/24/19 Strength] cholecalciferol (vitamin D3) 2,000 iu PO QDAY #0 05/10/17 04/24/19 [Vitamin D3] fexofenadine 180 mg PO QDAY #0 05/10/17 04/24/19 glimepiride [Amaryl] 1 mg PO BID #0 05/10/17 04/24/19 hydrochlorothiazide 25 mg PO QDAY #0 05/10/17 04/24/19 levothyroxine [Synthroid] 150 mcg PO QAM #0 05/10/17 04/24/19 multivitamin 1 cap PO QAM #0 05/10/17 04/24/19 Flovent HFA 2 puff INHALATION BID 04/06/19 04/24/19 Victoza 2-Wilfredo 1.2 mg SUBCUT DAILY 04/06/19 04/24/19 cyclobenzaprine 10 mg PO TID PRN 04/06/19 04/24/19 diphenhydramine HCl [Benadryl] 50 mg PO BEDTIME PRN 04/06/19 04/24/19 felodipine 5 mg PO QAM 04/06/19 04/24/19 lisinopril 20 mg PO BEDTIME 04/06/19 04/24/19 meclizine 25 mg PO DAILY PRN 04/06/19 04/24/19 meloxicam 7.5 mg PO BID 04/06/19 04/24/19 oxybutynin chloride 5 mg PO BEDTIME 04/06/19 04/24/19 ranitidine HCl 300 mg PO QPM 04/06/19 04/24/19 simvastatin 20 mg PO BEDTIME 04/06/19 04/24/19 dorzolamide 1 % OPHTHALMIC (EYE) BID 04/21/19 04/24/19 Alphagan P 0.1 % EYE-RIGHT BID 04/26/19 04/26/19 Previous Rx's Medication Instructions Recorded aspirin 81 mg PO DAILY #30 tab 04/27/19 hydroxyzine pamoate 25 mg PO Q6-8H PRN #30 cap 04/27/19 oxycodone 5 mg PO Q4H PRN #60 tab 04/27/19 Allergies Allergy/AdvReac Type Severity Reaction Status Date / Time adhesive tape Allergy Severe Rash Verified 06/01/19 17:19 alcohol Allergy Severe Vomiting Verified 06/01/19 17:19 Penicillins Allergy Reaction Verified 06/01/19 17:19 unknown, Told me years ago I was allergic gabapentin AdvReac Severe Diarrhea Verified 06/01/19 17:19 meperidine [From Demerol] AdvReac Severe feeling Verified 06/01/19 17:19 of falling off a georgette propoxyphene [From Darvon] AdvReac Severe feeling Verified 06/01/19 17:19 of falling off a georgette Review of Systems Constitutional Constitutional: Denies chills, Reports fatigue, Denies fever(s), Denies frequent falls, Denies lethargy and Reports weakness Eyes Eyes: Denies change in vision, Denies eye discharge, Denies irritation and Denies loss of vision ENT Ears, Nose, Mouth, and Throat: Denies change in voice, Denies dizziness, Denies neck pain, Denies sore throat and Denies throat swelling Cardiovascular Cardiovascular: Denies chest pain, Denies irregular heart rhythm, Denies lightheadedness, Denies palpitations, Denies dyspnea, Denies dyspnea on exertion and Denies orthopnea Respiratory Respiratory: Denies cough, Denies dyspnea, Denies dyspnea on exertion and Denies wheezing Gastrointestinal Gastrointestinal: Denies abdominal pain, Denies change in bowel habits, Denies diarrhea, Denies nausea and Denies vomiting Genitourinary Genitourinary: Denies hematuria, Denies flank pain, Denies urinary incontinence and Denies urinary urgency Musculoskeletal Musculoskeletal: Denies back pain, Denies muscle weakness, Denies neck pain, Denies numbness and Denies tingling Integumentary/Breasts Skin/Breast: Denies pruritus, Denies erythema, Denies rash and Reports wounds Neurologic Neurologic: Denies behavioral changes, Denies confusion, Denies dizziness, Denies frequent falls, Denies loss of vision, Denies numbness, Denies tingling and Reports weakness Psychiatric Psychiatric: Denies anxiety, Denies behavioral changes, Denies confusion, Denies depression, Denies homicidal ideation and Denies suicidal ideation Endocrine Endocrine: Reports fatigue, Denies flushing and Denies palpitations Hematologic/Lymphatic Hematologic/Lymphatic: Denies easy bruising Allergic/Immunologic Allergic/Immunologic: Denies urticaria, Denies throat swelling and Denies wheezing Patient History Medical History Arthritis (Acute) Diabetes (Acute) Easy bruisability (Acute) Edema (Acute) Hair loss (Acute) Heartburn (Acute) HLD (hyperlipidemia) (Acute) HTN (hypertension) (Acute) Hypothyroid (Acute) Pneumonia (Acute) Sciatica (Acute) Seasonal allergies (Acute) Wrinkled retina, right eye (Acute) Surgical History H/O: hysterectomy (Acute) Hx laparoscopic cholecystectomy (Acute) Hx of bilateral cataract extraction (Acute) Social History household members: none Smoking Status: Former smoker alcohol intake: never Smoking Status: Former smoker Substance Use Type: does not use Exam Narrative Exam Narrative: GENERAL: [73] year old patient appears stated age. Morbidly obese, awake and alert, apparently currently at her baseline mentation per son. GCS 15 HEAD: Atraumatic. Normocephalic. EYES: Pupils equal round and reactive. Extraocular motions intact. No scleral icterus. No injection or drainage. ENT: Nose without bleeding, purulent drainage. Throat without erythema, tonsillar hypertrophy or exudate. Airway patent. NECK: Trachea midline. Non tender CARDIOVASCULAR: Regular rate and rhythm without murmurs, gallops, or rubs. RESPIRATORY: Clear to auscultation. Breath sounds equal bilaterally. No wheezes, rales, or rhonchi. GASTROINTESTINAL: Abdomen soft, non-tender, nondistended. EXTREMITIES: No edema or joint tenderness. BACK: Wound dehiscence at right lower lumbar region with mild amount of drainage which has been cultured and sent to the lab. There is no underlying fluctuance or induration. No significant surrounding erythema. No saddle anesthesia or lower extremity numbness, tingling or weakness. NEURO: AOx3. SKIN: No rash or erythema of visible areas, other than that which is noted above Initial Vital Signs Initial Vital Signs: Vital Signs Temperature 97.0 F L 06/01/19 17:09 Pulse Rate 97 H 06/01/19 17:09 Respiratory Rate 18 06/01/19 17:09 Blood Pressure 152/81 H 06/01/19 17:09 Pulse Oximetry 98 06/01/19 17:09 Course Course Course Narrative: patient is able to ambulate to bathroom with assistance Orders Ordered: ED Orders 06/01/19 18:45 C-Reactive Protein Quant Stat Complete Blood Count AUTO DIFF Stat Comprehensive Metabolic Panel Stat Erythrocyte Sedimentation Rate Stat Lactate (Lactic Acid) Stat Lipase Stat Partial Thromboplastin Time Stat Procalcitonin Stat Prothrombin Time INR Stat Wound Culture and Gram Stain Stat 06/01/19 18:55 XR chest 1V Stat 06/01/19 19:12 EKG-12 Lead Stat 06/01/19 20:00 Blood Culture Stat 06/01/19 20:54 CT lumbar spine w con Stat Vancomycin HCl/Dextrose (Vancomycin) 1,500 mg in 300 mls @ 200 mls/hr IV NOW ONE Stop: 06/02/19 00:12 Last Admin: 06/01/19 22:52 Dose: 200 mls/hr [facility]: [facility] Consultations Consultation #1: call to orthopedics (Yumiko) whom has reviewed imaging and requests admission to hospitalist with orthopedic referral (Dr. Sosa) can see her tomorrow. Request that she remain NPO after midnight. Vital Signs Vital signs: Vital Signs - 8 hr 06/01/19 17:09 06/01/19 19:23 06/01/19 21:36 Temperature 97.0 F L Pulse Rate 97 H 84 90 Respiratory Rate 18 16 16 Blood Pressure 152/81 H Blood Pressure [Left Arm] 137/59 L 164/71 H Pulse Oximetry 98 94 96 06/01/19 23:00 Temperature Pulse Rate 84 Respiratory Rate 19 Blood Pressure Blood Pressure [Left Arm] 144/72 H Pulse Oximetry 94 MDM - Dizziness Lab Data Result diagrams: 06/01/19 18:45 06/01/19 18:45 Labs: Lab Results 06/01/19 06/01/19 06/01/19 Range/Units 18:45 18:45 18:45 WBC 8.1 (4.5-11.0) X10^3/uL RBC 3.91 L (4.0-5.2) X10^6/uL Hgb 12.7 (12.0-16.0) g/dL Hct 37.6 (36-46) % MCV 96.3 (80-100) fL MCH 32.6 (26-34) PG MCHC 33.9 (30-36) % RDW 14.4 (11.6-14.8) % Plt Count 331 (150-400) X10^3/uL Neut % (Auto) 68.9 (50-75) % Lymph % (Auto) 19.5 L (25-40) % Sanders % (Auto) 8.8 (3-14) % Eos % (Auto) 1.9 L (2-4) % Baso % (Auto) 0.9 (0-2) % Neut # (Auto) 5600 (5661-1603) /uL Lymph # (Auto) 1600 (0210-0009) /uL Sanders # (Auto) 700 (0-900) /uL Eos # (Auto) 200 (0-450) /uL Baso # (Auto) 100 (0-100) /uL ESR (0-20) MM/HR PT 12.4 (10.1-12.7) SECONDS INR 1.1 (0.9-1.3) APTT 46 H (26.4-36.2) SECONDS Sodium (137-145) mmol/L Potassium (3.4-5.1) mmol/L Chloride (98-107) mmol/L Carbon Dioxide (22-32) mmol/L BUN (7-17) mg/dL Creatinine (0.52-1.04) mg/dL Estimated GFR (>60) mL/min BUN/Creatinine Ratio (6-22) Glucose (80-110) mg/dL Lactate (0.7-2.1) mmol/L Calcium (8.4-10.2) mg/dL Total Bilirubin (0.2-1.3) mg/dL AST (14-36) IU/L ALT (<35) IU/L Alkaline Phosphatase (38-126) U/L C-Reactive Protein (<1.0) mg/dL Total Protein (6.3-8.2) g/dL Albumin (3.5-5.0) g/dL Globulin (1.7-4.1) g/dL Albumin/Globulin Ratio (1.0-2.8) Lipase (23-300) U/L Procalcitonin < 0.05 (<0.5) ng/mL 06/01/19 06/01/19 06/01/19 Range/Units 18:45 18:45 18:45 WBC (4.5-11.0) X10^3/uL RBC (4.0-5.2) X10^6/uL Hgb (12.0-16.0) g/dL Hct (36-46) % MCV (80-100) fL MCH (26-34) PG MCHC (30-36) % RDW (11.6-14.8) % Plt Count (150-400) X10^3/uL Neut % (Auto) (50-75) % Lymph % (Auto) (25-40) % Sanders % (Auto) (3-14) % Eos % (Auto) (2-4) % Baso % (Auto) (0-2) % Neut # (Auto) (7830-3083) /uL Lymph # (Auto) (7933-7977) /uL Sanders # (Auto) (0-900) /uL Eos # (Auto) (0-450) /uL Baso # (Auto) (0-100) /uL ESR 24 H (0-20) MM/HR PT (10.1-12.7) SECONDS INR (0.9-1.3) APTT (26.4-36.2) SECONDS Sodium 138 (137-145) mmol/L Potassium 3.5 (3.4-5.1) mmol/L Chloride 102 (98-107) mmol/L Carbon Dioxide 27 (22-32) mmol/L BUN 26 H (7-17) mg/dL Creatinine 0.80 (0.52-1.04) mg/dL Estimated GFR > 60.0 (>60) mL/min BUN/Creatinine Ratio 32.5 H (6-22) Glucose 121 H (80-110) mg/dL Lactate 1.0 (0.7-2.1) mmol/L Calcium 9.8 (8.4-10.2) mg/dL Total Bilirubin 0.3 (0.2-1.3) mg/dL AST 28 (14-36) IU/L ALT 16 (<35) IU/L Alkaline Phosphatase 111 (38-126) U/L C-Reactive Protein (<1.0) mg/dL Total Protein 7.4 (6.3-8.2) g/dL Albumin 4.3 (3.5-5.0) g/dL Globulin 3.1 (1.7-4.1) g/dL Albumin/Globulin Ratio 1.4 (1.0-2.8) Lipase 237 (23-300) U/L Procalcitonin (<0.5) ng/mL 06/01/19 Range/Units 18:45 WBC (4.5-11.0) X10^3/uL RBC (4.0-5.2) X10^6/uL Hgb (12.0-16.0) g/dL Hct (36-46) % MCV (80-100) fL MCH (26-34) PG MCHC (30-36) % RDW (11.6-14.8) % Plt Count (150-400) X10^3/uL Neut % (Auto) (50-75) % Lymph % (Auto) (25-40) % Sanders % (Auto) (3-14) % Eos % (Auto) (2-4) % Baso % (Auto) (0-2) % Neut # (Auto) (0773-9033) /uL Lymph # (Auto) (2334-4217) /uL Sanders # (Auto) (0-900) /uL Eos # (Auto) (0-450) /uL Baso # (Auto) (0-100) /uL ESR (0-20) MM/HR PT (10.1-12.7) SECONDS INR (0.9-1.3) APTT (26.4-36.2) SECONDS Sodium (137-145) mmol/L Potassium (3.4-5.1) mmol/L Chloride (98-107) mmol/L Carbon Dioxide (22-32) mmol/L BUN (7-17) mg/dL Creatinine (0.52-1.04) mg/dL Estimated GFR (>60) mL/min BUN/Creatinine Ratio (6-22) Glucose (80-110) mg/dL Lactate (0.7-2.1) mmol/L Calcium (8.4-10.2) mg/dL Total Bilirubin (0.2-1.3) mg/dL AST (14-36) IU/L ALT (<35) IU/L Alkaline Phosphatase (38-126) U/L C-Reactive Protein 0.8 (<1.0) mg/dL Total Protein (6.3-8.2) g/dL Albumin (3.5-5.0) g/dL Globulin (1.7-4.1) g/dL Albumin/Globulin Ratio (1.0-2.8) Lipase (23-300) U/L Procalcitonin (<0.5) ng/mL Urine Dip Bedside Urine Glucose Negative Bedside Urine Bilirubin - Negative Bedside Urine Ketone + 15 Urine Specific [place] 1.015 Bedside Urine Occult Blood - Negative Bedside Urine pH 5.5 Bedside Urine Protein +/- 15 Bedside Urine Urobilinogen - Negative Bedside Urine Nitrite - Negative Bedside Urine Leukocytes - Negative Esterase Discharge Plan Departure Patient Disposition: Admitted as Observation Clinical Impression: Post-operative wound abscess, Weakness Admit Date/Time: 06/01/19 23:37 Admit Provider: Isreal Sheets
[2019-06-01 19:42] LABS: Procalcitonin < 0.05 ng/mL (<0.5)
[2019-06-01 20:11] LABS: C-Reactive Protein Quant 0.8 mg/dL (<1.0)
[2019-06-01 20:33] LABS: Erythrocyte Sedimentation Rate 24 MM/HR (0-20)
--- NOTE | 2019-06-01 20:54 | DI.CT.S_ITS ---
PROCEDURE: CT LUMBAR SPINE W CON INDICATIONS: post operative complications TECHNIQUE: After the administration of intravenous Isovue contrast, 3 mm thick sections acquired through the levels of interest. Sagittal and coronal reformats were then constructed. For radiation dose reduction, the following was used: automated exposure control. COMPARISON: [facility], CR, XR LUMBAR SPINE 2-3V, 04/24/2019, 9:32. [facility], CR, XR LUMBAR SPINE 2 OR 3 VIEWS, 01/11/2019, 15:23. [facility], MR, MR LUMBAR SPINE WITHOUT CONTRAST, 12/08/2018, 10:23. FINDINGS: Image quality: Excellent. Bones: There is discectomy, laminectomy and posterior fusion at L4-L5 and L5-S1. Pedicular screws and fusion rods appear intact. There is grade 1 listhesis of L4-L5 and L5-S1. [id number] degenerative disc disease is present in the lower thoracic and lumbar spine. Soft tissues: Metallic artifacts from surgical hardware somewhat obscure adjacent structures. In the area of left hemilaminectomies at L5 and S1, there is amorphous soft tissue which may be postsurgical change but post surgical consultation such as hematoma or infection cannot be excluded. There is a small rim enhancing collection measuring 1.4 x 2.0 cm just superficial to the left paraspinous muscle and the subcutaneous tissue posteriorly, suspicious for small abscess. There is skin thickening and a subcutaneous tract along the surgical scar on the right side, which correlates with clinical finding of drainage on the skin. Deep to this area, there is a 1.0 x 1.5 cm ring-enhancing collection suspicious for an abscess. IMPRESSION: 1. Postsurgical changes related to discectomy, laminectomy and posterior fusion at L4-L5 and L5-S1. The surgical hardware appear intact. 2. Along the laminectomy defect, there is amorphous soft tissue which may be postsurgical change but postsurgical complication such as hematoma or infection cannot be confidently excluded. If clinically indicated, MRI with and without contrast may be obtained. 3. Skin thickening and a subcutaneous tract along the surgical scar on the right side. two small rim enhancing collections in the lower back, one on each side are suspicious for small abscesses. No drainable fluid collections. The result was discussed with Dr. Mattson. Dictated by: Quintin Hernandez M.D. on 06/01/2019 at 21:49 Approved by: Quintin Hernandez M.D. on 06/01/2019 at 22:06
[2019-06-01 21:36] VITALS: BP 164/71; PULSE 90; RESP 16; O2SAT 96
--- NOTE | 2019-06-01 22:30 | PC.NURSE ---
Medication reconciliation attempted and unable to obtain from pt or Son, pt Son at bedside states that he will try to obtain list/meds for admission.
[2019-06-01] MEDS: VANCOMYCIN 1,500 MG/300 ML FROZ.PIGGY 200 MG IV (22:52)
[2019-06-01 23:00] VITALS: BP 144/72; PULSE 84; RESP 19; O2SAT 94
[2019-06-02] VITALS (7 sets, daily range): BP systolic 136–155; BP diastolic 59–69; PULSE 63–83; RESP 12–18; TEMP 36–36.3; O2SAT 93–96; BMI 44.9
[2019-06-02] MEDS: LACTATED RINGERS 1,000 ML 100 ML IV ×3 (02:37→22:17)
--- NOTE | 2019-06-02 03:06 | PM.HP.1 ---
History of Present Illness History of Present Illness Date Patient Seen: 06/02/19 Time Patient Seen: 01:00 Chief complaint: states has open wound on back that is not healing Narrative: Ms. Carrie Cortez is a 73-year-old female patient with a history significant for morbid obesity, diabetes type 2, hypertension, hyperlipidemia, asthma, GERD, hypothyroidism, osteoarthritis degenerative joint disease and memory loss presents to the ER with her son with complaints of dizziness and weakness and draining surgical wound. The patient was discharged to home where she lives alone from [facility] on 05/31/2019 where she had been rehabilitating following and L4-5, L5-S1 lumbar fusion with instrumentation done on 04/24/2019. The day of discharge drainage was noted from one of her incisions and she had received a prescription for antibiotics that had not yet been filled. She had not taken any of her medications. The patient states she ambulates with 2 canes. She denies falls. She denies complaints of fevers chills or headache. She does report nasal congestion has a history of allergies and denies sore throat. She denies chest pain or palpitations, shortness of breath cough or wheezing. She denies changes in bowel or bladder and reports no loss of control. Reports no complaints of numbness or tingling of her lower extremities. Upon arrival to the ER the patient is afebrile with temperature 97.0?, heart rate of 97, blood pressure 152/81, respirations of 13 saturating 98% on room air. Imaging is obtained finding postsurgical changes related diskectomy laminectomy and post fusion of L4-L5 and L5-S1, or for soft tissue changes are noted along the laminectomy defect with skin thickening and subcutaneous tract along the surgical scar on the right side, 2 small rim enhancing collections of lower back 1 on each side of the suspicious for small abscesses. Chest x-ray finds no acute cardiopulmonary processes. On laboratory analysis the patient has white count of 8.1, hemoglobin 12.7, hematocrit of 37.6 and platelets of 331. ESR is elevated at 24 and procalcitonin is negative at less than 0.05. Her PT is 12.4 with an INR 1.1 and a PTT of 46. Her electrolytes are within normal range with a BUN of 26 and creatinine 0.8 and a nonfasting glucose of 121. Liver functions are within normal range. Twelve lead EKG is obtained finding sinus rhythm with a right bundle branch block and left anterior fascicular block. Orthopedics has been consulted his request at the medicine admit the patient related to her multiple comorbid conditions with orthopedics to consult. Patient History Medical History Arthritis (Acute) Diabetes (Acute) Easy bruisability (Acute) Edema (Acute) Hair loss (Acute) Heartburn (Acute) HLD (hyperlipidemia) (Acute) HTN (hypertension) (Acute) Hypothyroid (Acute) Pneumonia (Acute) Sciatica (Acute) Seasonal allergies (Acute) Wrinkled retina, right eye (Acute) Surgical History H/O: hysterectomy (Acute) Hx laparoscopic cholecystectomy (Acute) Hx of bilateral cataract extraction (Acute) Family & Social History Family History (Updated 06/02/19 @ 03:24 by IONA Evans) Father Emphysema of lung Mother Diabetes mellitus Obesity Social History: household members none Prior Living Arrangements House Safety & Behavioral: Feels Safe in Current Yes Environment Been Physically Hurt or No Threatened By a Person Suicidal Ideation Description None Tobacco & Substance use: Smoking Status Former smoker alcohol intake never Substance Use Type does not use Comment: Patient lives in a single family home by herself. She has been for 3-4 years. Her father was a heavy smoker in from complications of emphysema in his 50s. Her mother was obese with diabetes and heart attack in her mid 50s. She has 4 brothers and 2 sisters and 3 children. Smoking: Patient quit smoking 35 years ago before which she was a social smoker but had significant secondhand exposure from her father. Alcohol: Patient denies consuming alcohol stating she is allergic. Substance use: Patient denies recreation pharmaceuticals herbal or cannabis products. Advanced directives: Patient states she has an advanced directive and states her desire to be FULL CODE. She designates her son Jarrod to be her surrogate decision maker. Meds Home Medications and Allergies Home Medications Medication Instructions Recorded Confirmed Type acetaminophen [Tylenol Extra 1,000 mg PO TID #0 05/10/17 04/24/19 History Strength] cholecalciferol (vitamin D3) 2,000 iu PO QDAY #0 05/10/17 04/24/19 History [Vitamin D3] fexofenadine 180 mg PO QDAY #0 05/10/17 04/24/19 History glimepiride [Amaryl] 1 mg PO BID #0 05/10/17 04/24/19 History hydrochlorothiazide 25 mg PO QDAY #0 05/10/17 04/24/19 History levothyroxine [Synthroid] 150 mcg PO QAM #0 05/10/17 04/24/19 History multivitamin 1 cap PO QAM #0 05/10/17 04/24/19 History Flovent HFA 2 puff INHALATION BID 04/06/19 04/24/19 History Victoza 2-Wilfredo 1.2 mg SUBCUT DAILY 04/06/19 04/24/19 History cyclobenzaprine 10 mg PO TID PRN 04/06/19 04/24/19 History diphenhydramine HCl [Benadryl] 50 mg PO BEDTIME PRN 04/06/19 04/24/19 History felodipine 5 mg PO QAM 04/06/19 04/24/19 History lisinopril 20 mg PO BEDTIME 04/06/19 04/24/19 History meclizine 25 mg PO DAILY PRN 04/06/19 04/24/19 History meloxicam 7.5 mg PO BID 04/06/19 04/24/19 History oxybutynin chloride 5 mg PO BEDTIME 04/06/19 04/24/19 History ranitidine HCl 300 mg PO QPM 04/06/19 04/24/19 History simvastatin 20 mg PO BEDTIME 04/06/19 04/24/19 History dorzolamide 1 % OPHTHALMIC (EYE) BID 04/21/19 04/24/19 History Alphagan P 0.1 % EYE-RIGHT BID 04/26/19 04/26/19 History aspirin 81 mg PO DAILY #30 tab 04/27/19 Rx hydroxyzine pamoate 25 mg PO Q6-8H PRN #30 cap 04/27/19 Rx oxycodone 5 mg PO Q4H PRN #60 tab 04/27/19 Rx Allergies Allergy/AdvReac Type Severity Reaction Status Date / Time adhesive tape Allergy Severe Rash Verified 06/01/19 17:19 alcohol Allergy Severe Vomiting Verified 06/01/19 17:19 Penicillins Allergy Reaction Verified 06/01/19 17:19 unknown, Told me years ago I was allergic gabapentin AdvReac Severe Diarrhea Verified 06/01/19 17:19 meperidine [From Demerol] AdvReac Severe feeling Verified 06/01/19 17:19 of falling off a georgette propoxyphene [From Darvon] AdvReac Severe feeling Verified 06/01/19 17:19 of falling off a georgette Review of Systems Review of Systems Narrative: All systems reviewed and found unremarkable under discussed in the HPI above. Exam Vital Signs (past 8 hours): - 06/01/19 19:23 06/01/19 21:36 06/01/19 23:00 Temperature Pulse Rate 84 90 84 Respiratory Rate 16 16 19 Blood Pressure Blood Pressure [Left Arm] 137/59 L 164/71 H 144/72 H Pulse Oximetry 94 96 94 06/02/19 00:35 Temperature 97.3 F L Pulse Rate 83 Respiratory Rate 12 Blood Pressure 144/66 H Blood Pressure [Left Arm] Pulse Oximetry 95 Oxygen Delivery Method Room Air Oxygen Flow Rate 0 Narrative Exam Narrative: GENERAL APPEARANCE: well developed, morbidly obese with a BMI of 44.9, supine in bed in no acute distress. HEENT: Normocephalic, PERRLA, conjunctiva clear, sclera anicteric, EOMs intact without nystagmus, mucous membranes are moist and pink without lesions or exudate. NECK/THYROID: neck supple, no JVD, no thyromegaly, trachea midline. LYMPH NODES: no cervical or supraclavicular lymphadenopathy. SKIN: [place], warm and dry. HEART: regular rate and rhythm, S1-S2, no murmur, no rubs or gallops, brisk capillary refill, trace to 1+ bilateral lower extremity edema LUNGS: clear to auscultation bilaterally, no coarseness crackles or wheezing, no cough present CHEST: Symmetrical movement, no accessory muscle use, good tidal volume. ABDOMEN: Soft, obese, no abdominal tenderness, no guarding or peritoneal signs, no organomegaly, exam limited by body habitus, active bowel tones. BACK: To parent lumbar incisions, draining wound from the right incision. EXTREMITIES: moves all extremities, strength is 4/5 and symmetrical, hip pain with straight leg raise, no deformities or joint effusions. NEUROLOGIC: Alert and responsive, oriented x3, blunted affect, slow to respond with impaired memory and recall cranial nerves II-XII grossly intact, sensation intact to light touch, hearing grossly normal to speech. PSYCH: Flat affect, cooperative, appropriate with stable behavior. Objective Labs Result Diagrams: 06/01/19 18:45 06/01/19 18:45 Labs: Laboratory Results - last 24 hr 06/01/19 06/01/19 06/01/19 18:45 18:45 18:45 WBC 8.1 RBC 3.91 L Hgb 12.7 Hct 37.6 MCV 96.3 MCH 32.6 MCHC 33.9 RDW 14.4 Plt Count 331 Neut % (Auto) 68.9 Lymph % (Auto) 19.5 L [place] % (Auto) 8.8 Eos % (Auto) 1.9 L Baso % (Auto) 0.9 Neut # (Auto) 5600 Lymph # (Auto) 1600 [place] # (Auto) 700 Eos # (Auto) 200 Baso # (Auto) 100 ESR PT 12.4 INR 1.1 APTT 46 H Sodium Potassium Chloride Carbon Dioxide BUN Creatinine Estimated GFR BUN/Creatinine Ratio Glucose Lactate Calcium Total Bilirubin AST ALT Alkaline Phosphatase C-Reactive Protein Total Protein Albumin Globulin Albumin/Globulin Ratio Lipase Procalcitonin < 0.05 06/01/19 06/01/19 06/01/19 18:45 18:45 18:45 WBC RBC Hgb Hct MCV MCH MCHC RDW Plt Count Neut % (Auto) Lymph % (Auto) [place] % (Auto) Eos % (Auto) Baso % (Auto) Neut # (Auto) Lymph # (Auto) [place] # (Auto) Eos # (Auto) Baso # (Auto) ESR 24 H PT INR APTT Sodium 138 Potassium 3.5 Chloride 102 Carbon Dioxide 27 BUN 26 H Creatinine 0.80 Estimated GFR > 60.0 BUN/Creatinine Ratio 32.5 H Glucose 121 H Lactate 1.0 Calcium 9.8 Total Bilirubin 0.3 AST 28 ALT 16 Alkaline Phosphatase 111 C-Reactive Protein Total Protein 7.4 Albumin 4.3 Globulin 3.1 Albumin/Globulin Ratio 1.4 Lipase 237 Procalcitonin 06/01/19 18:45 WBC RBC Hgb Hct MCV MCH MCHC RDW Plt Count Neut % (Auto) Lymph % (Auto) [place] % (Auto) Eos % (Auto) Baso % (Auto) Neut # (Auto) Lymph # (Auto) [place] # (Auto) Eos # (Auto) Baso # (Auto) ESR PT INR APTT Sodium Potassium Chloride Carbon Dioxide BUN Creatinine Estimated GFR BUN/Creatinine Ratio Glucose Lactate Calcium Total Bilirubin AST ALT Alkaline Phosphatase C-Reactive Protein 0.8 Total Protein Albumin Globulin Albumin/Globulin Ratio Lipase Procalcitonin Assessment & Plan Assessment & Plan narrative: This is a 73-year-old female patient who was discharged yesterday from [facility] where she had been rehabilitating following lumbar spinal fusion. The patient has developed a postoperative infection with wound drainage. Patient has self-care deficit not taking medications at with no caregiver at home. 1. Postoperative wound infection, status post lumbar spinal fusion, present on admission, active. -patient underwent lumbar laminectomy and fusion of L4-5, L5-S1 on 04/24/2019, discharge to [facility] on 04/27/2019. -wound drainage noted on day of discharge 05/31/2019, prescription provided but had not been filled. -lab findings: White count 8.1, ESR 24, CRP 0.8, procalcitonin less than 0.05. -CT scan finds amorphous soft tissue which may be postsurgical change lung laminectomy defect and skin thickening with subcutaneous tract along the surgical scar on the right side, 2 small rim enhancing collections in the lower back one on each side are suspicious for small abscesses. -wound culture obtained in the ER culture obtained, gram stain identifies 1+ positive cocci. Blood cultures obtained. -orthopedics consulted from the ER, appreciate Orthopedics evaluation treatment and recommendations. Patient is NPO pending evaluation. -ordered vancomycin 1500 mg IV every 12 hours, pharmacy to dose. -hydromorphone 0.5 mg IV every 6 hours as needed for pain. -will hold aspirin pending possible surgery 2. Diabetes type 2, non insulin-dependent, chronic, present on admission, active -blood sugar on admission is 121. No complaints of neuropathy, no evidence of nephropathy. -patient takes glimepiride and Victoza, both medications are held -blood sugars is every 6 hours while NPO, sliding scale correctional insulin low range. 3. Essential hypertension, chronic, present on admission, active -blood pressure on admission is 152/81. -will continue home regimen of lisinopril 20 mg daily and hydrochlorothiazide 25 mg daily. 4. Asthma, chronic, stable. -presumed to be mild persistent with the patient using Flovent twice daily. -respiratory therapy to consult -albuterol nebulizer every 2 hours as needed for shortness of breath or wheezing. -continue home regimen of Flovent 2 puffs twice daily. 5. Gastroesophageal reflux disorder, chronic, stable. -no complaints of abdominal pain or heartburn. -continue home regimen of ranitidine 300 mg each evening. 6. Hyperlipidemia, chronic, presumed stable -will continue home regimen of simvastatin 20 mg daily at bedtime. 7. Acquired hypothyroidism, chronic, presumed stable. -will continue home regimen of levothyroxine 150 mcg daily. 8. Overactive bladder, chronic, stable -continue home regimen of oxybutynin 5 mg at bedtime 9. Impaired memory, chronic. -patient with impaired memory and recall, the patient is for 3-4 years and lives alone. -per patient's son she failed to take any of her medicines yesterday. -requested social media sr strategy manager consult to evaluate living situation -requested OT consult for cognitive evaluation VTE prophylaxis: SCDs, heparin Diet: NPO IVF: Lactated Ringer's 100 cc/hour The patient is admitted to the hospital with a postoperative wound infection requiring IV antibiotics and surgical evaluation. The patient is admitted as inpatient with expected length stay to be greater than 2 midnights. Scores GCS Cale coma scale eye opening: Spontaneous [place] coma scale verbal response: Orientated [place] coma scale motor response: Obey commands Shevlin coma scale total score: 15 Quality VTE Deep Vein Thrombosis/Pulmonary Embolism Present on Admission: No
[2019-06-02 07:05] LABS: Add Manual Diff / Slide Review NO; Basophils Absolute Auto 100 /uL (0-100); Basophils Percent Auto 1.2 % (0-2); Eosinophils Absolute Auto 300 /uL (0-450); Eosinophils Percent Auto 5.6 % (2-4); Hematocrit 35.1 % (36-46); Hemoglobin 11.8 g/dL (12.0-16.0); Lymphocytes Absolute Auto 1400 /uL (1100-4500); Lymphocytes Percent Auto 23.7 % (25-40); Mean Corpuscular HGB Conc 33.5 % (30-36); Mean Corpuscular Hemoglobin 32.4 PG (26-34); Mean Corpuscular Volume 96.6 fL (80-100); Monocytes Absolute Auto 600 /uL (0-900); Monocytes Percent Auto 9.6 % (3-14); Neutrophils Absolute Auto 3600 /uL (1500-7000); Neutrophils Percent Auto 59.9 % (50-75); Platelet Count 313 X10^3/uL (150-400); Red Blood Cell Count 3.64 X10^6/uL (4.0-5.2); Red Cell Distribution Width 14.6 % (11.6-14.8); White Blood Cell Count 6.1 X10^3/uL (4.5-11.0)
[2019-06-02 07:10] LABS: BUN Creatinine Ratio 24.3 (6-22); Blood Urea Nitrogen 17 mg/dL (7-17); Calcium 9.2 mg/dL (8.4-10.2); Carbon Dioxide 25 mmol/L (22-32); Chloride 104 mmol/L (98-107); Estimated Glomerular Filt Rate > 60.0 mL/min (>60); Glucose 125 mg/dL (80-110); HEMOLYSIS < 15 (0-50); Potassium 3.3 mmol/L (3.4-5.1); Sodium 137 mmol/L (137-145)
[2019-06-02 07:29] LABS: Hemoglobin A1C% w Est Avg Glu 6.2 % (4.0-6.0)
--- NOTE | 2019-06-02 07:39 | PM.CN ---
History of Present Illness Consult details Date Patient Seen: 06/02/19 Time Patient Seen: 07:39 Chief complaint: states has open wound on back that is not healing Reason for consult: post-op wound complication Narrative: Patient is a 73-year-old female patient who presented to the ER last night with complaints of dizziness and weakness and draining surgical wound. The patient was discharged to home where she lives alone from [facility] on 05/31/2019 where she had been rehabilitating following and L4-5, L5-S1 lumbar fusion with instrumentation done on 04/24/2019. The day of discharge drainage was noted from one of her incisions and she had received a prescription for antibiotics that had not yet been filled. She had not taken any of her medications. She denies falls. She denies complaints of fevers chills or headache. She denies chest pain or palpitations, shortness of breath cough or wheezing. She denies changes in bowel or bladder and reports no loss of control. Reports no complaints of numbness or tingling of her lower extremities. CT scan was ordered by the ED physician and read as several small abscesses near the wound track. Meds Home Medications and Allergies Home Medications Medication Instructions Recorded Confirmed Type acetaminophen [Tylenol Extra 1,000 mg PO TID #0 05/10/17 04/24/19 History Strength] cholecalciferol (vitamin D3) 2,000 iu PO QDAY #0 05/10/17 04/24/19 History [Vitamin D3] fexofenadine 180 mg PO QDAY #0 05/10/17 04/24/19 History glimepiride [Amaryl] 1 mg PO BID #0 05/10/17 04/24/19 History hydrochlorothiazide 25 mg PO QDAY #0 05/10/17 04/24/19 History levothyroxine [Synthroid] 150 mcg PO QAM #0 05/10/17 04/24/19 History multivitamin 1 cap PO QAM #0 05/10/17 04/24/19 History Flovent HFA 2 puff INHALATION BID 04/06/19 04/24/19 History Victoza 2-Wilfredo 1.2 mg SUBCUT DAILY 04/06/19 04/24/19 History cyclobenzaprine 10 mg PO TID PRN 04/06/19 04/24/19 History diphenhydramine HCl [Benadryl] 50 mg PO BEDTIME PRN 04/06/19 04/24/19 History felodipine 5 mg PO QAM 04/06/19 04/24/19 History lisinopril 20 mg PO BEDTIME 04/06/19 04/24/19 History meclizine 25 mg PO DAILY PRN 04/06/19 04/24/19 History meloxicam 7.5 mg PO BID 04/06/19 04/24/19 History oxybutynin chloride 5 mg PO BEDTIME 04/06/19 04/24/19 History ranitidine HCl 300 mg PO QPM 04/06/19 04/24/19 History simvastatin 20 mg PO BEDTIME 04/06/19 04/24/19 History dorzolamide 1 % OPHTHALMIC (EYE) BID 04/21/19 04/24/19 History Alphagan P 0.1 % EYE-RIGHT BID 04/26/19 04/26/19 History aspirin 81 mg PO DAILY #30 tab 04/27/19 Rx hydroxyzine pamoate 25 mg PO Q6-8H PRN #30 cap 04/27/19 Rx oxycodone 5 mg PO Q4H PRN #60 tab 04/27/19 Rx Allergies Allergy/AdvReac Type Severity Reaction Status Date / Time adhesive tape Allergy Severe Rash Verified 06/01/19 17:19 alcohol Allergy Severe Vomiting Verified 06/01/19 17:19 Penicillins Allergy Reaction Verified 06/01/19 17:19 unknown, Told me years ago I was allergic gabapentin AdvReac Severe Diarrhea Verified 06/01/19 17:19 meperidine [From Demerol] AdvReac Severe feeling Verified 06/01/19 17:19 of falling off a georgette propoxyphene [From Darvon] AdvReac Severe feeling Verified 06/01/19 17:19 of falling off a georgette Review of Systems Review of Systems ROS Unobtainable: All systems reviewed & are unremarkable except as noted in HPI and below Exam Vital Signs (past 8 hours): - 06/02/19 00:35 06/02/19 05:01 Temperature 97.3 F L 97.4 F L Pulse Rate 83 76 Respiratory Rate 12 18 Blood Pressure 144/66 H 136/59 L Pulse Oximetry 95 94 Oxygen Delivery Method Room Air Oxygen Flow Rate 0 Narrative Exam Narrative: NV intact distally. No radicular symptoms. No increased pain. Denies sadle anaesthesia. 5/5 DF/PF/EHL Surgical wound with 1-2 cm of dehiscence. Slow drainage. Objective Labs Result Diagrams: 06/02/19 06:40 06/02/19 06:40 Labs: Laboratory Results - last 24 hr 06/01/19 06/01/19 06/01/19 18:45 18:45 18:45 WBC 8.1 RBC 3.91 L Hgb 12.7 Hct 37.6 MCV 96.3 MCH 32.6 MCHC 33.9 RDW 14.4 Plt Count 331 Neut % (Auto) 68.9 Lymph % (Auto) 19.5 L [place] % (Auto) 8.8 Eos % (Auto) 1.9 L Baso % (Auto) 0.9 Neut # (Auto) 5600 Lymph # (Auto) 1600 [place] # (Auto) 700 Eos # (Auto) 200 Baso # (Auto) 100 ESR PT 12.4 INR 1.1 APTT 46 H Sodium Potassium Chloride Carbon Dioxide BUN Creatinine Estimated GFR BUN/Creatinine Ratio Glucose Lactate Calcium Total Bilirubin AST ALT Alkaline Phosphatase C-Reactive Protein Total Protein Albumin Globulin Albumin/Globulin Ratio Lipase Procalcitonin < 0.05 06/01/19 06/01/19 06/01/19 18:45 18:45 18:45 WBC RBC Hgb Hct MCV MCH MCHC RDW Plt Count Neut % (Auto) Lymph % (Auto) [place] % (Auto) Eos % (Auto) Baso % (Auto) Neut # (Auto) Lymph # (Auto) [place] # (Auto) Eos # (Auto) Baso # (Auto) ESR 24 H PT INR APTT Sodium 138 Potassium 3.5 Chloride 102 Carbon Dioxide 27 BUN 26 H Creatinine 0.80 Estimated GFR > 60.0 BUN/Creatinine Ratio 32.5 H Glucose 121 H Lactate 1.0 Calcium 9.8 Total Bilirubin 0.3 AST 28 ALT 16 Alkaline Phosphatase 111 C-Reactive Protein Total Protein 7.4 Albumin 4.3 Globulin 3.1 Albumin/Globulin Ratio 1.4 Lipase 237 Procalcitonin 06/01/19 06/02/19 06/02/19 18:45 06:40 06:40 WBC 6.1 RBC 3.64 L Hgb 11.8 L Hct 35.1 L MCV 96.6 MCH 32.4 MCHC 33.5 RDW 14.6 Plt Count 313 Neut % (Auto) 59.9 Lymph % (Auto) 23.7 L [place] % (Auto) 9.6 Eos % (Auto) 5.6 H Baso % (Auto) 1.2 Neut # (Auto) 3600 Lymph # (Auto) 1400 [place] # (Auto) 600 Eos # (Auto) 300 Baso # (Auto) 100 ESR PT INR APTT Sodium 137 Potassium 3.3 L Chloride 104 Carbon Dioxide 25 BUN 17 Creatinine 0.70 Estimated GFR > 60.0 BUN/Creatinine Ratio 24.3 H Glucose 125 H Lactate Calcium 9.2 Total Bilirubin AST ALT Alkaline Phosphatase C-Reactive Protein 0.8 Total Protein Albumin Globulin Albumin/Globulin Ratio Lipase Procalcitonin Assessment & Plan Assessment & Plan narrative: Patient is a 73 yo female now 6 weeks s/p L4-S1 decompression and fusion. She presented to the ED last night with post-op wound complications and lethargy. CT was obtained which demonstrates several small abscesses. She was admitted for IV abx (vanco). I will have Dr. Sosa review the CT scan today. WBAT NPO until final decision made continue IV vanco
--- NOTE | 2019-06-02 09:32 | OT.IP.TRT ---
Current Diagnoses Infection following a procedure, other surgical site, initial encounter (06/01/19) Occupational Therapy Treatment Note M3 OT- IP Subjective and Pain Start: 06/02/19 09:31 Freq: Status: Active Protocol: Document 06/02/19 09:31 [facility] (Rec: 06/02/19 09:31 [facility] [id number]) OT- Subjective Occupational Therapy Visit Type Type Administrative Note Notes Per nursing to hold off on OT eval today as pt may need to have surgery later today. To check on pt tomorrow.
[2019-06-02] MEDS: BRIMONIDINE 0.1% OPHTH 5 ML 1 DROPS EYE-RIGHT ×2 (10:00→22:13)
--- NOTE | 2019-06-02 10:27 | PT-IP ANOTE ---
Per nursing Becca to hold off PT eval since pt might have I&D later this afternoon. Will attempt again tomorrow morning.
[2019-06-02] MEDS: DORZOLAMIDE 2% OPHTH 10 ML 1 DROPS EYE-RIGHT ×2 (10:57→22:13)
[2019-06-02] MEDS: HEPARIN 5,000 UNIT/ML VIAL 5000 UNIT SUBCUT ×2 (10:59→22:24)
[2019-06-02] MEDS: FELODIPINE ER 5 MG TAB PO (11:02)
--- NOTE | 2019-06-02 11:05 | PC.NURSE ---
Addendum entered by Becca Contreras R.N. 06/02/19 11:34: 1000-Son at bed side. Updated on POC, IV ABX, Son expresses concern with Pt not at baseline currently. Confusion, overall weakness, continue IV ABX. Will Discuss with PA, who has also seen Pt this AM. Original Note: Am shift Pt is A/ox2, forgetful at times. Flat facial affect. Challenging to read, I don't know to many questions, my son will be back, you can ask him when prompted about living situation. When [facility] called for med rec, Loreta stated Pt left AMA yesterday, Pt denies knowledge of this.
[2019-06-02] MEDS: VANCOMYCIN 1,250 MG in SODIUM CHLORIDE 0.9% 250 ML IV ×2 (11:49→22:17)
[2019-06-02] MEDS: POTASSIUM CHLORIDE 20 MEQ TAB 40 MEQ PO (12:39)
--- NOTE | 2019-06-02 12:51 | P.PN_ITS ---
Exam Vital Signs (past 8 hours): - 06/02/19 05:01 06/02/19 08:00 06/02/19 12:00 Temperature 97.4 F L 96.8 F L 97.4 F L Pulse Rate 76 63 70 Respiratory Rate 18 16 17 Blood Pressure 136/59 L 139/62 136/64 Pulse Oximetry 94 94 93 Oxygen Delivery Method Room Air Oxygen Flow Rate 0 Objective Labs Result Diagrams: 06/02/19 06:40 06/02/19 06:40 Labs: Laboratory Results - last 24 hr 06/01/19 06/01/19 06/01/19 18:45 18:45 18:45 WBC 8.1 RBC 3.91 L Hgb 12.7 Hct 37.6 MCV 96.3 MCH 32.6 MCHC 33.9 RDW 14.4 Plt Count 331 Neut % (Auto) 68.9 Lymph % (Auto) 19.5 L Gosper % (Auto) 8.8 Eos % (Auto) 1.9 L Baso % (Auto) 0.9 Neut # (Auto) 5600 Lymph # (Auto) 1600 Gosper # (Auto) 700 Eos # (Auto) 200 Baso # (Auto) 100 ESR PT 12.4 INR 1.1 APTT 46 H Sodium Potassium Chloride Carbon Dioxide BUN Creatinine Estimated GFR BUN/Creatinine Ratio Glucose Hemoglobin A1c Lactate Calcium Magnesium Total Bilirubin AST ALT Alkaline Phosphatase C-Reactive Protein Total Protein Albumin Globulin Albumin/Globulin Ratio Lipase Procalcitonin < 0.05 06/01/19 06/01/19 06/01/19 18:45 18:45 18:45 WBC RBC Hgb Hct MCV MCH MCHC RDW Plt Count Neut % (Auto) Lymph % (Auto) Gosper % (Auto) Eos % (Auto) Baso % (Auto) Neut # (Auto) Lymph # (Auto) Gosper # (Auto) Eos # (Auto) Baso # (Auto) ESR 24 H PT INR APTT Sodium 138 Potassium 3.5 Chloride 102 Carbon Dioxide 27 BUN 26 H Creatinine 0.80 Estimated GFR > 60.0 BUN/Creatinine Ratio 32.5 H Glucose 121 H Hemoglobin A1c Lactate 1.0 Calcium 9.8 Magnesium Total Bilirubin 0.3 AST 28 ALT 16 Alkaline Phosphatase 111 C-Reactive Protein Total Protein 7.4 Albumin 4.3 Globulin 3.1 Albumin/Globulin Ratio 1.4 Lipase 237 Procalcitonin 06/01/19 06/02/1906/02/20 18:45 06:40 06:40 WBC 6.1 RBC 3.64 L Hgb 11.8 L Hct 35.1 L MCV 96.6 MCH 32.4 MCHC 33.5 RDW 14.6 Plt Count 313 Neut % (Auto) 59.9 Lymph % (Auto) 23.7 L Gosper % (Auto) 9.6 Eos % (Auto) 5.6 H Baso % (Auto) 1.2 Neut # (Auto) 3600 Lymph # (Auto) 1400 Gosper # (Auto) 600 Eos # (Auto) 300 Baso # (Auto) 100 ESR PT INR APTT Sodium 137 Potassium 3.3 L Chloride 104 Carbon Dioxide 25 BUN 17 Creatinine 0.70 Estimated GFR > 60.0 BUN/Creatinine Ratio 24.3 H Glucose 125 H Hemoglobin A1c Lactate Calcium 9.2 Magnesium Total Bilirubin AST ALT Alkaline Phosphatase C-Reactive Protein 0.8 Total Protein Albumin Globulin Albumin/Globulin Ratio Lipase Procalcitonin 06/02/19 06/02/19 06:40 06:40 WBC RBC Hgb Hct MCV MCH MCHC RDW Plt Count Neut % (Auto) Lymph % (Auto) Gosper % (Auto) Eos % (Auto) Baso % (Auto) Neut # (Auto) Lymph # (Auto) Gosper # (Auto) Eos # (Auto) Baso # (Auto) ESR PT INR APTT Sodium Potassium Chloride Carbon Dioxide BUN Creatinine Estimated GFR BUN/Creatinine Ratio Glucose Hemoglobin A1c 6.2 H Lactate Calcium Magnesium 2.0 Total Bilirubin AST ALT Alkaline Phosphatase C-Reactive Protein Total Protein Albumin Globulin Albumin/Globulin Ratio Lipase Procalcitonin Assessment & Plan Assessment & Plan narrative: Patient admitted due to inability to perform self care and lack of family support with ED assessment and reported wound issues. Patient on exam is A&Ox3, comfortable. Her wound as examined. There is no erythema, minimum spotting on dressing. Left sided incision has small abrasion. Right sided wound has 1 cm area of granulation tissue exposed due to inferior incision delayed healing. The right sided wound is also shallow and limited to the less than 1 cm subcutaneous layer. There is no induration or fluid collection that can be expressed. I discussed with patient she will need some simple wound cleaning to maintain hygiene and she does not need formal wound debridement. I recommend oral antibiotic x 7 days, keflex 500 mg qid. I will see her in 1 week for wound check. She is neuro intact on exam. She does not have family member to help with her wound care. Combine with her limited mobility, she may benefit from more extended SNF stay, which she recently was discharged from. Quality VTE Deep Vein Thrombosis/Pulmonary Embolism Present on Admission: No
--- NOTE | 2019-06-02 13:55 | PT.IIE ---
Current Diagnoses Infection following a procedure, other surgical site, initial encounter (06/01/19) Surgical History (Last Reviewed 06/01/19 @ 22:47 by Justino Mattson DO) H/O: hysterectomy (Acute) Hx laparoscopic cholecystectomy (Acute) Hx of bilateral cataract extraction (Acute) Medical History (Last Reviewed 06/01/19 @ 22:47 by Justino Mattson DO) Arthritis (Acute) Diabetes (Acute) Easy bruisability (Acute) Edema (Acute) Hair loss (Acute) Heartburn (Acute) HLD (hyperlipidemia) (Acute) HTN (hypertension) (Acute) Hypothyroid (Acute) Pneumonia (Acute) Sciatica (Acute) Seasonal allergies (Acute) Wrinkled retina, right eye (Acute) Physical Therapy Inpatient Evaluation/Re-Eval M1 PT/OT-IP Prior Functional Status Start: 06/02/19 09:31 Freq: NEEDED Status: Active Protocol: Document 06/02/19 13:55 AB (Rec: 06/02/19 15:21 AB [id number]) Medical Review Prior Functional Status Medical History Reviewed Yes Communication able to make needs known Mobility and Gait per son: pt went to [facility] and was doing well and went home 05/31/19. pt was doing fine and modified independent with mobilities and ambulation using 2 SPC. son stated that the next day, pt was not feeling well and prompted him to take pt to the hospital. Social History Household Members none Living Arrangements House Number of Floors (Floors) One Floor Number of Stairs To Enter/Railing? ramp to enter Home Environment High Toilet,Ramp Home Equipment Front Wheel Walker,Straight Cane,Shower Seat without Backrest,Hand Held Shower,Lift Recliner,Grab Bars In Shower Additional Social History Comment pt has a toilet safety bar/ handles M2 PT-IP Current Condition Start: 06/02/19 08:31 Freq: NEEDED Status: Active Protocol: Document 06/02/19 13:55 AB (Rec: 06/02/19 15:21 AB [id number]) Physical Therapy Current Condition Current Condition Evaluation Date 06/02/19 Treatment Diagnosis wound abscess; difficulty in walking Onset Date 06/01/19 Precautions Lumbar Precautions Log Roll,No Twisting,Limit Bending,Lifting Restriction of 10 lbs,Gait Belt above Incisional Area M3 PT-IP Subjective Start: 06/02/19 08:31 Freq: NEEDED Status: Active Protocol: Document 06/02/19 13:55 AB (Rec: 06/02/19 15:21 AB [id number]) Subjective Physical Therapy Visit Type Type Initial Evaluation Visit Start Time 13:55 Visit Stop Time 14:16 Total Visit Minutes 21 Number of RECORD CENTER SPECIALIST Visits 0 Physical Therapy Visit Comments Patient Comments pt agreeable to do PT but c/o lightheadedness Therapy Pain Assessment Pain When Pain Assessed At Rest Pain Present Pain Present Pain Reported Location Lower Back Intensity 5 Scale Used Numeric (1 - 10) Pain Management Techniques Re-positioning,Timing of Activity with Medications M4 PT-IP Mobility and Gait Start: 06/02/19 08:31 Freq: NEEDED Status: Active Protocol: Document 06/02/19 13:55 AB (Rec: 06/02/19 15:21 AB [id number]) PT-Transfer Assessment Sit to and From Stand Sit to and from Stand Maximum Assistance,1 Person Assistance,Use of Upper Extremities Equipment Transfer Assistive Device Gait Belt,Front Wheeled Walker Orthotic/Prosthetic Devices or Brace: No Comments Mobility Comments pt sitting on chair. c/o lightheadedness. BP 155/71. completed sit to stand from the chair max A and max cues. required 3 attempts before able to stand up. pt ambulated ~ 3 ft and c/o lightheadedness and wants to sit down. ambulated ~ 3ft backwards. BP checked: 157/77 . pt agreed to stand again and completed max A and max cues with 2 attempts. refused to do more ambulation. pt sat back on chair. positioned on chair. call light and table within. Bed mobility not assessed as pt does not want to go back to bed and that pt uses a lift chair to sleep on. Gait Assessment Gait Gait Assistance Required: Moderate Assistance,Maximum Assistance,1 Person Assist Distance (Feet) 3 Able to Maintain Weight Bearing Status Yes During Gait Assistive Devices Assistive Device Gait Belt,Front Wheeled Walker Orthotic/Prosthetic Devices or Brace: Yes Gait Deviations General Gait Pattern Antalgic,Step-to Gait Factors Limiting Gait Function Factors Limiting Gait Function Decreased Activity Tolerance, Decreased Strength,Difficulty Following Directions,Limited Range of Motion,Pain,Poor Balance,Poor Safety Awareness Comments Gait Comments pls refer to mobility section PT-Balance Assessment Sitting Balance and Reactions Static Sitting Balance Ability Good Dynamic Sitting Balance Ability Good Standing Balance and Reactions Static Standing Balance Ability Fair Dynamic Standing Balance Ability Poor Device Used FWW M5 PT-IP Objective Assessments Start: 06/02/19 08:31 Freq: NEEDED Status: Active Protocol: Document 06/02/19 13:55 AB (Rec: 06/02/19 15:21 AB [id number]) Orientation Orientation/Cognition Level of Alertness Alert Orientation Name,Situation Language Function Ability No Deficits Noted Safety Awareness Decreased Safety Awareness Memory Description Short Term Impaired Gross Range of Motion Lower Extremity ROM Assessment Within Functional Limits Strength Lower Extremity Strength Assessment Right Impaired Hip 3-/5 Knee 3+/5 Coordination Assessment Gross Coordination Gross Coordination WNL Sensation Assessment Sensation Gross Sensation WNL Muscle Tone Muscle Tone WNL Yes M6 PT-IP Treatment Start: 06/02/19 08:31 Freq: NEEDED Status: Active Protocol: Document 06/02/19 13:55 AB (Rec: 06/02/19 15:21 AB [id number]) Physical Therapy Treatment Education Education Provided Precautions,Safety M7 PT-IP Assessment and Plan Start: 06/02/19 08:31 Freq: NEEDED Status: Active Protocol: Document 06/02/19 13:55 AB (Rec: 06/02/19 15:21 AB [id number]) PT Summary Assessment and Plan Potential Rehabilitation Potential Fair Status of Condition at Evaluation Evolving Summary Impairments Pain,ROM,Strength,Balance, Coordination,Sensation,Tone, Cognition,Bed Mobility, Transfers,Gait,Activity Tolerance Assessment Summary Pt on hold this morning pending doctor's consult for possible I&D on wound. Consult was completed by Dr. Sosa and from EMR note that pt does not need a formal wound debridement at this time. Checked with nurse and agreed that pt can work with PT. pt agreed to do PT and completed. pt requiring max A with sit to stand and ambulation and will require SNF rehab to improve strength and mobility level. Goals Transfer Goal Contact Guard Assistance,Front Wheeled Walker Gait Goal Contact Guard Assistance,Front Wheel Walker Gait Distance 100 Days to Meet Goals 10 Frequency of Treatment Frequency Of Treatment Twice a Day Treatment Plan Physical Therapy Treatment Plan Bed Mobility Training,Transfer Training,Gait Training, Therapeutic Exercise,Balance Retraining,Post Op Education, Discharge Planning,Hot or Cold Pack,Neuromuscular Re-ed, Coordination Retraining,Manual Therapy Other Recommendations and Next Treatment ambulation Focus Recommendations To Nursing Amount of Assist Needed 2 Person Assist Discharge Recommendations PT Discharge Recommendations SNF Rehab
--- NOTE | 2019-06-02 15:15 | OT.IP.EVAL ---
Current Diagnoses Infection following a procedure, other surgical site, initial encounter (06/01/19) Past Medical History (Last Reviewed 06/01/19 @ 22:47 by Justino Mattson DO) Arthritis (Acute) Diabetes (Acute) Easy bruisability (Acute) Edema (Acute) Hair loss (Acute) Heartburn (Acute) HLD (hyperlipidemia) (Acute) HTN (hypertension) (Acute) Hypothyroid (Acute) Pneumonia (Acute) Sciatica (Acute) Seasonal allergies (Acute) Wrinkled retina, right eye (Acute) Surgical History (Last Reviewed 06/01/19 @ 22:47 by Justino Mattson DO) H/O: hysterectomy (Acute) Hx laparoscopic cholecystectomy (Acute) Hx of bilateral cataract extraction (Acute) Occupational Therapy Inpatient Evaluation/Re-Eval M1 PT/OT-IP Prior Functional Status Start: 06/02/19 09:31 Freq: NEEDED Status: Active Protocol: Document 06/02/19 16:31 [facility] (Rec: 06/02/19 17:07 [facility] [id number]) Medical Review Prior Functional Status Medical History Reviewed Yes Communication able to make needs known Mobility and Gait per son: pt went to [facility] and was doing well and went home 05/31/19. pt was doing fine and modified independent with mobilities and ambulation using 2 SPC. Son stated that the next day, pt was not feeling well and prompted him to take pt to the hospital. Pt's son noted that pt did not take her medication or have anything to eat. Activities of Daily Living and IADL's Prior to wound abscess, pt was JASEN with all ADl's, IADl's , took her own medications and paid her bills and states just drove locally. Social History Household Members none Living Arrangements House Number of Floors (Floors) One Floor Number of Stairs To Enter/Railing? ramp to enter Home Environment High Toilet,Ramp Home Equipment Front Wheel Walker,Straight Cane,Shower Seat without Backrest,Hand Held Shower,Lift Recliner,Grab Bars In Shower Additional Social History Comment pt has a toilet safety bar/ handles M2 OT-IP Current Condition Start: 06/02/19 09:31 Freq: Status: Active Protocol: Document 06/02/19 16:31 [facility] (Rec: 06/02/19 17:07 [facility] [id number]) Occupational Therapy Current Condition Current Condition Evaluation Date 06/02/19 Treatment Diagnosis Wound abscess, altered mental status Diagnosis Onset Date 06/01/19 Post Operative Precautions Lumbar Precautions Log Roll,No Twisting,Limit Bending,Lifting Restriction of 10 lbs,Gait Belt above Incisional Area Weight Bearing Status Weight Bearing Status Weight Bear as Tolerated M3 OT- IP Subjective and Pain Start: 06/02/19 09:31 Freq: Status: Active Protocol: Document 06/02/19 16:31 [facility] (Rec: 06/02/19 17:07 [facility] [id number]) OT- Subjective Occupational Therapy Visit Type Type Initial Evaluation Visit Start Time 15:15 Visit Stop Time 16:32 Total Visit Minutes 77 Notes Surgeon states not surgery needed and just to have simple wound cleansing to maintain hygiene. Occupational Therapy Visit Comments Patient Comments Pt states does not feel back to normal and feel not able to care for herself at this time . Patient/Caregiver Goals To get better especially cognitively and be able to go home. OT Pain Assessment Pain When Pain Assessed At Rest Pain Present Pain Present Denied Pain M4 OT- IP ADL's Start: 06/02/19 09:31 Freq: Status: Active Protocol: Document 06/02/19 16:31 [facility] (Rec: 06/02/19 17:07 [facility] [id number]) OT [id number] Comments OT Self-Feeding Comments Not at meal time. OT ADL-Grooming General Evaluation Grooming Ability Standby Assistance Comments OT Grooming Comments Pt able to wash her hands while standing with FWW in front of her. OT ADL-Oral Care Comments Oral Care Comments Not performed. OT ADL-Dressing Comments OT Dressing Comments Pt states use of stock patcher and sock aid at home for LB dressing needs and wears a pad a night. Pt states has to use the bathroom several times at night. OT ADL-Toileting General Evaluation Toileting Ability Standby Assistance Comments OT Toileting Comments Pt able to wipe on her own after use of toilet. OT ADL-Bathing Comments OT Bathing Comments Not performed. M5 OT- IP IADL's Start: 06/02/19 09:31 Freq: Status: Active Protocol: Document 06/02/19 16:31 [facility] (Rec: 06/02/19 17:07 [facility] [id number]) OT-Instrumental Activities of Daily Living Home Safety Awareness Home Safety Comments Pt able to answer all home safety questions with 100% accuracy. Medication Management Medication Management Comments Pt state uses pill organizer. educated pt and family regarding use of automatic pill dispenser. Money Management Money Management Comments Pt having trouble with number calculations on the SLUMS and would benefit from assist at this time. Society Reporter Society Reporter Comments At this time pt would benefit from assist with IADl needs. Driving Driving Comments Not recommended at this time see cognitive section. M6 OT- IP Functional Cognition Start: 06/02/19 09:31 Freq: Status: Active Protocol: Document 06/02/19 16:31 [facility] (Rec: 06/02/19 17:07 [facility] [id number]) Cognitive Factors Limiting Selfcare Function Cognitive Ability Level of Alertness Alert,Confusional State Patient Orientation Name,Place,Situation Attention Span Ability Capable of Focused Attention, Unable to Sustain Attention Ability to Follow Commands Able to Follow One Step Commands Memory Description Short Term Impaired Safety Awareness Underestimates Need for Assistance Problem Solving Ability Needs Assist to Identify Solutions Executive Function Ability Unable to Remember Details Cognitive Tests SLUMS Pt scored 12/30 which implioes dementia. Pt feels that she has not been sleeping well, and that her medications maybe effecting her cognition. Pt thinking that it was Wednesday, unable to do simple 2 digit math calculation as not able to recall the information, only able to name 12 animals and kept repeating the same ones at times, unable to draw the clock correctly and also for the hour hands, only able to answer 2/4 questions after a paragraph read. It would be beneficial to retry the SLUMs at a later date. Prior pt able to, sew in her sleep, Pt scored 4.6 on the ACL out of 6.0 which implies may live lone with daily assistance , scan visible environment and limited for cause and effect. However compared to pt's SLUM's score and functional needs, OT recommending that pt has someone to stay with the pt due to decreased short term memory and safety awareness. When coming out of the bathroom, pt did not remember where the sink was at. In the middle of checking her proprioception, pt blaked out and could not recall what she was doing. Cognitive Comments Cognitive Assessment Comments Pt scored 210 seconds on [place] making B and needing 3 MAX vc as forgetting the directions. Per [employer] a score of greater than 180 seconds implies greater risk on getting into a car accident. During the assessment pt not able to find the numbers/letters as her finger/hand were covering the numbers /letters and needing cues to move her hand. OT- Vision and Hearing OT- Vision Assessment Vision Assessment Comments Per pt needs new glasses and has a Winkled retina and not able to see well with her right eye. M7 OT- IP Mobility and Balance Start: 06/02/19 09:31 Freq: Status: Active Protocol: Document 06/02/19 16:31 [facility] (Rec: 06/02/19 17:07 [facility] [id number]) OT-Transfer Assessment Sit to and From Stand Sit to and from Stand Minimal Assistance Transfers Transfer Ability Contact Guard Assistance Technique Transfer Destination Bed,Chair,Toilet Transfer Technique Stand Step Pivot Devices Transfer Assistive Devices Gait Belt,Front Wheeled Walker Comments Mobility Comments Pt sleeps in a recliner at home. Josette to stand from recliner and CGA with fww. vc to keep FWW in front of her at all times.. Pt at home uses two cane as FWW too big for her home. OT- Balance Assessment Sitting Balance and Reactions Static Sitting Balance Ability Normal Standing Balance and Reactions Static Standing Balance Ability Fair M8 OT- IP Objective Assessments Start: 06/02/19 09:31 Freq: Status: Active Protocol: Document 06/02/19 16:31 [facility] (Rec: 06/02/19 17:07 [facility] [id number]) OT Gross Range of Motion Upper Extremity Range of Motion Assessment Within Functional Limits OT Strength Comments Strength Comments RUE 4/5, LUE4-/5 OT- Coordination Assessment Upper Extremity Finger to Nose Test Within Functional Limits OT-Muscle Tone Assessment Muscle Tone WNL Yes OT Sensation Assessment Location Lower Extremity Light Touch Intact/Normal Upper Extremity Light Touch Intact/Normal Proprioception (Position) Intact/Normal M9 OT- IP Assessment and Plan Start: 06/02/19 09:31 Freq: Status: Active Protocol: Document 06/02/19 16:31 [facility] (Rec: 06/02/19 17:07 [facility] [id number]) OT Summary Assessment and Plan Potential Rehabilitation Potential Good Analytic Complexity at Evaluation Low Summary OT Impairments Functional Cognition,Dressing, Toileting,Bathing,Shower Transfers Progress Towards Goals Progressing Toward Goals Assessment Summary Pt low complexity and main barrier having decreased short term memory , safety awareness and periods of confusion. Recommend pt to go to skilled rehab otherwise would need to have someone stay with her to help care for her. Goals Self-Feeding Goal Independent Grooming Goal Independent Dressing Goal Independent Toileting Goal Independent Bathing Goal Standby Assistance Toilet Transfer Goal Independent Shower Transfer Goal Standby Assistance Patient/Caregiver Education Goal Demonstrate Post-Op Precautions,Caregiver Independent Assisting Patient Days to Meet Goals 5 Frequency of Treatment Frequency Of Treatment Once a Day Treatment Plan OT Treatment Plan ADL Training,Functional Cognition Training,Functional Mobility,Patient/Family Education,Discharge Planning Other Treatment Recommendations and Next shower, reassess cognition Treatment Focus Discharge Recommendations OT Discharge Recommendations SNF Rehab Home Equipment Needs Automatic pill dispenser
--- NOTE | 2019-06-02 15:22 | DIET.PN ---
Dietary Progress Note Assessment: 73y F admitted for unhealing abcess on back s/p lumbar fusion procedure in April 2019 referred to nutrition for morbid obesity c BMI>40. prior to surgery pt was doing 45 min/d on recumbent bike, has lost 12# in 2 mo intentionally. Wants to get back to doing this along with free weights to support health. Pt going back to [facility] for further rehab, admits she wasn't able to care for herself well at home. Pt reports they feed her well there but she doesn't have a choice in menu options. HT: 157.6cm WT: 111.5kg UBW: 117kg BMI: 44.9 MNA: 12 normal Alejandro: 19 Nutrition Diagnosis: inadequate intake of nutrients for healing r/t increased need for pro, vit a, vit, c, zinc aeb wound abcesses s/p lumbar fusion procedure, pt unable to care for self in home setting. Interventions: Discussed healthy plate, nutrients for wound healing. Focus on protein at every meal, moderating carbs to no more than 45g/meal, including orange fruits/vegetables daily. Diet Order: CCD EER: 1800kcal (wt loss), 100g PRO (0.9g/kg), 2.8L fluids Monitoring/Evaluations: as needed
--- NOTE | 2019-06-02 15:51 | CM.IDA ---
Brief DCP Note: Placed call to October at [facility] today per pt/family request; pt is accepted for Wednesday, PASSR needed. Pt and family agreeable to this. More detailed initial assessment note and information to follow Wednesday. JW
[2019-06-02] MEDS: INSULIN ASPART 100 UNIT/ML INSULN PEN SUBCUT (17:16)
[2019-06-02] MEDS: raNITIdine 150 MG CAPSULE 300 MG PO (17:18)
[2019-06-02] MEDS: FLUTICASONE 44 MCG HFA 120 PUFF INH INH (18:40)
[2019-06-02 22:07] LABS: RBC Urine None Seen (0-5/HPF); WBC Urine None Seen (0-5/HPF)
[2019-06-02 22:10] LABS: Appearance Urine UA CLEAR; Bilirubin Urine UA NEGATIVE (NEGATIVE); Color Urine UA YELLOW; Glucose Urine UA NEGATIVE (Negative); Ketones Urine UA TRACE (NEGATIVE); Leukocyte Esterase Urine UA NEGATIVE (NEGATIVE); Nitrite Urine UA NEGATIVE (Negative); Occult Blood Urine UA NEGATIVE (Negative); Protein Urine UA NEGATIVE (Negative); Specific Gravity Urine UA 1.015 (1.000-1.035); Urobilinogen Urine UA 0.2 E.U./dL (0.2)
[2019-06-02] MEDS: OXYBUTYNIN 5 MG TABLET PO (22:13)
[2019-06-02] MEDS: SIMVASTATIN 20 MG TABLET PO (22:13)
[2019-06-02 22:15] LABS: pH Urine UA 5.5 (4.5-8.0)
[2019-06-02 23:06] LABS: Bacteria Urine Occasional (0-1); Squamous Epithelial Cell Urine 1-5 /HPF (0-5/HPF)
[2019-06-02 23:07] LABS: Culture Indicated Urine Cult Not Indicated
[2019-06-03 00:06] VITALS: BP 133/64; PULSE 73; RESP 20; TEMP 36.1; O2SAT 91
[2019-06-03 04:00] VITALS: BP 143/74; PULSE 62; RESP 20; TEMP 36.4; O2SAT 96
[2019-06-03 06:05] LABS: BUN Creatinine Ratio 23.8 (6-22); Blood Urea Nitrogen 19 mg/dL (7-17); Calcium 9.1 mg/dL (8.4-10.2); Carbon Dioxide 26 mmol/L (22-32); Chloride 105 mmol/L (98-107); Estimated Glomerular Filt Rate > 60.0 mL/min (>60); Glucose 139 mg/dL (80-110); HEMOLYSIS 23 (0-50); Magnesium 1.9 mg/dL (1.6-2.3); Sodium 137 mmol/L (137-145)
[2019-06-03 06:51] LABS: TSH w/ Reflex to FT4 1.71 uIU/mL (0.47-4.68)
[2019-06-03 08:00] VITALS: BP 146/75; PULSE 57; RESP 17; TEMP 36.6; O2SAT 99
[2019-06-03] MEDS: HEPARIN 5,000 UNIT/ML VIAL 5000 UNIT SUBCUT (08:05)
[2019-06-03] MEDS: FELODIPINE ER 5 MG TAB PO (08:05)
[2019-06-03] MEDS: BRIMONIDINE 0.1% OPHTH 5 ML 1 DROPS EYE-RIGHT (08:05)
[2019-06-03] MEDS: LEVOTHYROXINE 150 MCG TABLET PO (08:06)
[2019-06-03] MEDS: INSULIN ASPART 100 UNIT/ML INSULN PEN SUBCUT ×2 (08:06→12:15)
[2019-06-03] MEDS: FLUTICASONE 44 MCG HFA 120 PUFF INH INH (08:58)
[2019-06-03 09:06] VITALS: PULSE 75; RESP 16; O2SAT 95
[2019-06-03] MEDS: DORZOLAMIDE 2% OPHTH 10 ML 1 DROPS EYE-RIGHT (09:07)
--- NOTE | 2019-06-03 10:44 | PT.IPTN ---
Current Diagnoses Infection following a procedure, other surgical site, initial encounter (06/01/19) Physical Therapy Treatment Note M2 PT-IP Current Condition Start: 06/02/19 08:31 Freq: NEEDED Status: Active Protocol: Document 06/02/19 13:55 AB (Rec: 06/02/19 15:21 AB [id number]) Physical Therapy Current Condition Current Condition Evaluation Date 06/02/19 Treatment Diagnosis wound abscess; difficulty in walking Onset Date 06/01/19 Precautions Lumbar Precautions Log Roll,No Twisting,Limit Bending,Lifting Restriction of 10 lbs,Gait Belt above Incisional Area M3 PT-IP Subjective Start: 06/02/19 08:31 Freq: NEEDED Status: Active Protocol: Document 06/03/19 10:44 AB (Rec: 06/03/19 12:13 AB [id number]) Subjective Physical Therapy Visit Type Type Treatment Note Visit Start Time 10:44 Visit Stop Time 11:05 Total Visit Minutes 21 Number of TROLLEY COLLECTOR Visits 0 Physical Therapy Visit Comments Patient Comments pt agreeable to do PT Therapy Pain Assessment Pain When Pain Assessed At Rest Pain Present Pain Present Pain Reported Location Lower Back Scale Used pain scale not stated; stated soreness but not enough to say it is pain Pain Management Techniques Re-positioning,Timing of Activity with Medications M4 PT-IP Mobility and Gait Start: 06/02/19 08:31 Freq: NEEDED Status: Active Protocol: Document 06/03/19 10:44 AB (Rec: 06/03/19 12:13 AB [id number]) PT-Bed Mobility Assessment Rolling Type of Rolling Log Rolling Level of Assist Standby Assistance Supine to Sit Supine to Sit Standby Assistance,Bedrails Sit to Supine Sit to Supine Standby Assistance,Bedrails Scooting Scooting to Edge of Bed Standby Assistance PT-Transfer Assessment Sit to and From Stand Sit to and from Stand Contact Guard Assistance,1 Person Assistance,Use of Upper Extremities Equipment Transfer Assistive Device Bed Rail,Front Wheeled Walker Orthotic/Prosthetic Devices or Brace: No Transfers Transfer Destination Bed,Chair Transfer Technique ambulated using FWW Transfer Ability Level of Assist Minimal Assistance,1 Person Assistance Comments Mobility Comments pt sitting on chair and agreeable to do PT. completed sit to stand CGA and ambulated ~ 100 ft using FWW min A and cues. ambulated to the bed and completed log roll bed mobility supine <>sit SBA with use of bed rail. pt completed sit to stand from EOB CGA and ambulated to the chair using FWW min A and cues . positioned pt on the chair. call light and table placed within reach. Gait Assessment Gait Gait Assistance Required: Minimum Assistance Distance (Feet) 100 Able to Maintain Weight Bearing Status Yes During Gait Assistive Devices Assistive Device Gait Belt,Front Wheeled Walker Orthotic/Prosthetic Devices or Brace: No Gait Deviations General Gait Pattern Antalgic,Decreased Stride Length,Decreased Feet Clearance Factors Limiting Gait Function Factors Limiting Gait Function Decreased Activity Tolerance, Limited Range of Motion,Pain, Poor Balance,Poor Safety Awareness Comments Gait Comments pls refer to mobility section for details M5 PT-IP Objective Assessments Start: 06/02/19 08:31 Freq: NEEDED Status: Active Protocol: Document 06/02/19 13:55 AB (Rec: 06/02/19 15:21 AB [id number]) Orientation Orientation/Cognition Level of Alertness Alert Orientation Name,Situation Language Function Ability No Deficits Noted Safety Awareness Decreased Safety Awareness Memory Description Short Term Impaired Gross Range of Motion Lower Extremity ROM Assessment Within Functional Limits Strength Lower Extremity Strength Assessment Right Impaired Hip 3-/5 Knee 3+/5 Coordination Assessment Gross Coordination Gross Coordination WNL Sensation Assessment Sensation Gross Sensation WNL Muscle Tone Muscle Tone WNL Yes M6 PT-IP Treatment Start: 06/02/19 08:31 Freq: NEEDED Status: Active Protocol: Document 06/03/19 10:44 AB (Rec: 06/03/19 12:13 AB [id number]) Physical Therapy Treatment Education Education Provided Precautions,Safety Other Treatments Other Treatment Performed pt has been using her lift chair to sleep on but expressed desire to eventually be able to use her bed. pt completed bed mobility but used bed rail to assist. educated pt regarding possible benefit from bed canes. showed pt bed cane picture and stated that she will show it to her son. M7 PT-IP Assessment and Plan Start: 06/02/19 08:31 Freq: NEEDED Status: Active Protocol: Document 06/03/19 10:44 AB (Rec: 06/03/19 12:13 AB [id number]) PT Summary Assessment and Plan Potential Rehabilitation Potential Good Summary Impairments Pain,ROM,Strength,Balance, Coordination,Sensation,Tone, Cognition,Bed Mobility, Transfers,Gait,Activity Tolerance Progress Towards Goals Progressing Toward Goals Assessment Summary pt progressing with mobility and able to ambulate more today using FWW min A and cues . pt lives alone and has to be more independent than current level and will require SNF rehab. Goals Transfer Goal Contact Guard Assistance,Front Wheeled Walker Gait Goal Contact Guard Assistance,Front Wheel Walker Gait Distance 100 Days to Meet Goals 10 Frequency of Treatment Frequency Of Treatment Twice a Day Treatment Plan Physical Therapy Treatment Plan Bed Mobility Training,Transfer Training,Gait Training, Therapeutic Exercise,Balance Retraining,Post Op Education, Discharge Planning,Hot or Cold Pack,Neuromuscular Re-ed, Coordination Retraining,Manual Therapy Other Recommendations and Next Treatment ambulation Focus Recommendations To Nursing Amount of Assist Needed 1 Person Assist Discharge Recommendations PT Discharge Recommendations SNF Rehab
--- NOTE | 2019-06-03 11:06 | P.DS_ITS ---
History of Present Illness History of Present Illness Date Patient Seen: 06/03/19 Time Patient Seen: 11:06 Chief complaint: states has open wound on back that is not healing Narrative: As per IONA Evans: Ms. Carrie Cortez is a 73-year-old female patient with a history significant for morbid obesity, diabetes type 2, hypertension, hyperlipidemia, asthma, GERD, hypothyroidism, osteoarthritis degenerative joint disease and memory loss presents to the ER with her son with complaints of dizziness and weakness and draining surgical wound. The patient was discharged to home where she lives alone from [facility] on 05/31/2019 where she had been rehabilitating following and L4-5, L5-S1 lumbar fusion with instrumentation done on 04/24/2019. The day of discharge drainage was noted from one of her incisions and she had received a prescription for antibiotics that had not yet been filled. She had not taken any of her medications. The patient states she ambulates with 2 canes. She denies falls. She denies complaints of fevers chills or headache. She does report nasal congestion has a history of allergies and denies sore throat. She denies chest pain or palpitations, shortness of breath cough or wheezing. She denies changes in bowel or bladder and reports no loss of control. Reports no complaints of numbness or tingling of her lower extremities. Upon arrival to the ER the patient is afebrile with temperature 97.0?, heart rate of 97, blood pressure 152/81, respirations of 13 saturating 98% on room air. Imaging is obtained finding postsurgical changes related diskectomy laminectomy and post fusion of L4-L5 and L5-S1, or for soft tissue changes are noted along the laminectomy defect with skin thickening and subcutaneous tract along the surgical scar on the right side, 2 small rim enhancing collections of lower back 1 on each side of the suspicious for small abscesses. Chest x-ray finds no acute cardiopulmonary processes. On laboratory analysis the patient has white count of 8.1, hemoglobin 12.7, hematocrit of 37.6 and platelets of 331. ESR is elevated at 24 and procalcitonin is negative at less than 0.05. Her PT is 12.4 with an INR 1.1 and a PTT of 46. Her electrolytes are within normal range with a BUN of 26 and creatinine 0.8 and a nonfasting glucose of 121. Liver functions are within normal range. Twelve lead EKG is obtained finding sinus rhythm with a right bundle branch block and left anterior fascicular block. Orthopedics has been consulted his request at the medicine admit the patient related to her multiple comorbid conditions with orthopedics to consult. Discharge Providers Provider Date of admission: 06/01/19 23:37 Discharge Date: 06/03/19 Primary care physician: Zabrina Vincent PA-C Consults: 06/02/19 01:07 Consult to Dietitian, Adult Routine Comment: Reason For Exam: Morbid obesity Consult to Discharge Planning Routine Comment: Consult to Physician Routine Comment: Consulting Provider: Soledad Sosa Reason for consultation: Postoperative wound abscess Has provider been notified: Yes 06/02/19 03:33 Consult to Respiratory Therapy Evaluate & Treat Comment: Asthma using Flovent inhaler Physician Instructions: Evaluate and treat 06/02/19 04:06 Consult to TUMBLER DRIER OPERATOR - Radiologic Therapist Routine Comment: Self-care deficit, inability to live alone. TUMBLER DRIER OPERATOR Consult: Community [facility] Res Need 06/02/19 04:14 Consult to Occupational Therapy Evaluate & Treat Comment: Evaluate cognitive impairment, s/p lumbar fusion Physician Instructions: Evaluate and treat 06/02/19 04:16 Consult to Physical Therapy Evaluate & Treat Comment: S/p lumbar fusion, impaired mobility Physician Instructions: Evaluate and Treat Discharge provider: Isreal Ayon DO Summary Hospital Course Discharge Diagnosis: 1. Postoperative wound infection, status post lumbar spinal fusion, present on admission, active. 2. toxic-metabolic encephalopathy, acute, present on admission, improved. 3. Diabetes type 2, non insulin-dependent, chronic, present on admission, active 4. Essential hypertension, chronic, present on admission, active 5. Asthma, chronic, stable. 6. Gastroesophageal reflux disorder, chronic, stable. 7. Hyperlipidemia, chronic, presumed stable 8. Acquired hypothyroidism, chronic, presumed stable. 9. Overactive bladder, chronic, stable Hospital Course: This is a 73-year-old female patient who was discharged from [facility] where she had been rehabilitating following lumbar spinal fusion. The patient has developed a postoperative infection with wound drainage. Her confusion at home was likely secondary to her postoperative wound infection as she did improve after initiation of IV antibiotics. She is being discharged on Keflex back to [facility] today. 1. Postoperative wound infection, status post lumbar spinal fusion, present on admission, active. -patient underwent lumbar laminectomy and fusion of L4-5, L5-S1 on 04/24/2019, discharge to [facility] on 04/27/2019. -wound drainage noted on day of discharge 05/31/2019, prescription provided but had not been filled. -CT scan finds amorphous soft tissue which may be postsurgical change lung laminectomy defect and skin thickening with subcutaneous tract along the surgical scar on the right side, 2 small rim enhancing collections in the lower back one on each side are suspicious for small abscesses. -wound culture obtained in the ER culture obtained, grew multidrug resistant MSSA. Patient was continued on IV vancomycin with improvement and confusion. Orthopedic surgery recommendations appreciated, no surgical intervention was performed. Recommended Keflex upon discharge, after cultures have now resulted this seems reasonable. If there is no improvement in her wound would recommend ID consultation given her MSSA is still quite drug-resistant. 2. Toxic metabolic encephalopathy, acute, present on admission, improved. -likely secondary to underlying postoperative wound infection. Patient did improve after initiation of IV antibiotics. -continue antibiotics as noted above -further evaluation with urinalysis and TSH was unremarkable. 3. Diabetes type 2, non insulin-dependent, chronic, present on admission, active -blood sugar on admission is 121. No complaints of neuropathy, no evidence of nephropathy. -patient takes glimepiride and Victoza, which she can continue 4. Essential hypertension, chronic, present on admission, active -will continue home regimen of lisinopril 20 mg daily and hydrochlorothiazide 25 mg daily. 5. Asthma, chronic, stable. -presumed to be mild persistent with the patient using Flovent twice daily. -continue home regimen of Flovent 2 puffs twice daily. 6. Gastroesophageal reflux disorder, chronic, stable. -no complaints of abdominal pain or heartburn. -continue home regimen of ranitidine 300 mg each evening. 7. Hyperlipidemia, chronic, presumed stable -will continue home regimen of simvastatin 20 mg daily at bedtime. 8. Acquired hypothyroidism, chronic, presumed stable. -will continue home regimen of levothyroxine 150 mcg daily. 9. Overactive bladder, chronic, stable -continue home regimen of oxybutynin 5 mg at bedtime Exam Vital Signs (past 8 hours): - 06/03/19 04:00 06/03/19 08:00 06/03/19 09:06 Temperature 97.6 F 98 F Pulse Rate 62 57 L 75 Respiratory Rate 20 17 16 Blood Pressure 143/74 H 146/75 H Pulse Oximetry 96 99 95 Oxygen Delivery Method Room Air Oxygen Flow Rate 0 Narrative Exam Narrative: GENERAL APPEARANCE: well developed, morbidly obese with a BMI of 44.9, supine in bed in no acute distress. HEENT: Normocephalic, PERRLA, conjunctiva clear, sclera anicteric, EOMs intact without nystagmus, mucous membranes are moist and pink without lesions or exudate. NECK/THYROID: neck supple, no JVD, no thyromegaly, trachea midline. LYMPH NODES: no cervical or supraclavicular lymphadenopathy. SKIN: [place], warm and dry. HEART: regular rate and rhythm, S1-S2, no murmur, no rubs or gallops, brisk capillary refill, trace to 1+ bilateral lower extremity edema LUNGS: clear to auscultation bilaterally, no coarseness crackles or wheezing, no cough present CHEST: Symmetrical movement, no accessory muscle use, good tidal volume. ABDOMEN: Soft, obese, no abdominal tenderness, no guarding or peritoneal signs, no organomegaly, exam limited by body habitus, active bowel tones. BACK: To parent lumbar incisions, draining wound from the right incision. EXTREMITIES: moves all extremities, strength is 4/5 and symmetrical, hip pain with straight leg raise, no deformities or joint effusions. NEUROLOGIC: Alert and responsive, oriented x3, blunted affect, slow to respond but with improved memory and recall. cranial nerves II-XII grossly intact, sensa tion intact to light touch, hearing grossly normal to speech. PSYCH: Flat affect, cooperative, appropriate with stable behavior. Objective Labs Result Diagrams: 06/02/19 06:40 06/03/19 05:45 Labs: Laboratory Results - last 24 hr 06/02/19 06/02/19 06/02/19 06:40 06:40 20:20 Sodium Potassium Chloride Carbon Dioxide BUN Creatinine Estimated GFR BUN/Creatinine Ratio Glucose Calcium Magnesium 2.0 TSH 1.71 Urine Color Yellow Urine Appearance Clear Urine pH 5.5 Ur Specific [place] 1.015 Urine Protein Negative Urine Glucose (UA) Negative Urine Ketones Trace H Urine Occult Blood Negative Urine Nitrate Negative Urine Bilirubin Negative Urine Urobilinogen 0.2 Ur Leukocyte Esterase Negative Urine RBC None seen Urine WBC None seen Ur Squamous Epith Cells 1-5 /hpf Urine Bacteria Occasional (0-1) Ur Culture Indicated? Cult not indicated 06/03/19 05:45 Sodium 137 Potassium 4.0 Chloride 105 Carbon Dioxide 26 BUN 19 H Creatinine 0.80 Estimated GFR > 60.0 BUN/Creatinine Ratio 23.8 H Glucose 139 H Calcium 9.1 Magnesium 1.9 TSH Urine Color Urine Appearance Urine pH Ur Specific [place] Urine Protein Urine Glucose (UA) Urine Ketones Urine Occult Blood Urine Nitrate Urine Bilirubin Urine Urobilinogen Ur Leukocyte Esterase Urine RBC Urine WBC Ur Squamous Epith Cells Urine Bacteria Ur Culture Indicated? Discharge Plan Discharge Plan Patient Disposition: SNF Transfer to: [facility] Discharge comment: This is a 73-year-old female patient who was discharged from [facility] where she had been rehabilitating following lumbar spinal fusion. The patient has developed a postoperative infection with wound drainage. Her confusion at home was likely secondary to her postoperative wound infection as she did improve after initiation of IV antibiotics. She is being discharged on Keflex back to [facility] today. 1. Postoperative wound infection, status post lumbar spinal fusion, present on admission, active. -patient underwent lumbar laminectomy and fusion of L4-5, L5-S1 on 04/24/2019, discharge to [facility] on 04/27/2019. -wound drainage noted on day of discharge 05/31/2019, prescription provided but had not been filled. -CT scan finds amorphous soft tissue which may be postsurgical change lung laminectomy defect and skin thickening with subcutaneous tract along the surgica l scar on the right side, 2 small rim enhancing collections in the lower back one on each side are suspicious for small abscesses. -wound culture obtained in the ER culture obtained, grew multidrug resistant MSSA. Patient was continued on IV vancomycin with improvement and confusion. Orthopedic surgery recommendations appreciated, no surgical intervention was performed. Recommended Keflex upon discharge, after cultures have now resulted this seems reasonable. If there is no improvement in her wound would recommend ID consultation given her MSSA is still quite drug-resistant. 2. Toxic metabolic encephalopathy, acute, present on admission, improved. -likely secondary to underlying postoperative wound infection. Patient did improve after initiation of IV antibiotics. -continue antibiotics as noted above -further evaluation with urinalysis and TSH was unremarkable. 3. Diabetes type 2, non insulin-dependent, chronic, present on admission, active -blood sugar on admission is 121. No complaints of neuropathy, no evidence of nephropathy. -patient takes glimepiride and Victoza, which she can continue 4. Essential hypertension, chronic, present on admission, active -will continue home regimen of lisinopril 20 mg daily and hydrochlorothiazide 25 mg daily. 5. Asthma, chronic, stable. -presumed to be mild persistent with the patient using Flovent twice daily. -continue home regimen of Flovent 2 puffs twice daily. 6. Gastroesophageal reflux disorder, chronic, stable. -no complaints of abdominal pain or heartburn. -continue home regimen of ranitidine 300 mg each evening. 7. Hyperlipidemia, chronic, presumed stable -will continue home regimen of simvastatin 20 mg daily at bedtime. 8. Acquired hypothyroidism, chronic, presumed stable. -will continue home regimen of levothyroxine 150 mcg daily. 9. Overactive bladder, chronic, stable -continue home regimen of oxybutynin 5 mg at bedtime Discharge orders & Medications Prescriptions: New ranitidine HCl 150 mg Capsule 300 mg PO QPM 30 Days Qty: 60 RF: 0 dorzolamide 2 % Drops 1 drops EYE-RIGHT BID 30 Days Qty: 2 RF: 0 cephalexin 500 mg capsule 500 mg PO QID 7 Days Qty: 28 RF: 0 Continued glimepiride [Amaryl] 2 MG tablet 1 mg PO BID Qty: 0 RF: 0 fexofenadine 180 MG tablet 180 mg PO QDAY Qty: 0 RF: 0 multivitamin Capsule 1 cap PO QAM Qty: 0 RF: 0 levothyroxine [Synthroid] 150 MCG tablet 150 mcg PO QAM Qty: 0 RF: 0 cholecalciferol (vitamin D3) [Vitamin D3] 2,000 UNIT capsule 2,000 iu PO QDAY Qty: 0 RF: 0 hydrochlorothiazide 25 MG tablet 25 mg PO DAILY Qty: 0 RF: 0 acetaminophen [Tylenol Extra Strength] 500 MG tablet 1,000 mg PO TID Qty: 0 RF: 0 cyclobenzaprine 10 mg Tablet 10 mg PO TID PRN (Reason: Muscle pain, spasm) RF: 0 lisinopril 20 mg Tablet 20 mg PO BEDTIME RF: 0 felodipine 5 mg Tablet Extended Release 24 Hr 10 mg PO QAM RF: 0 meloxicam 7.5 mg Tablet 7.5 mg PO BID RF: 0 meclizine 25 mg Tablet 25 mg PO DAILY PRN (Reason: Vertigo) RF: 0 simvastatin 20 mg Tablet 20 mg PO BEDTIME RF: 0 diphenhydramine HCl [Benadryl] 25 mg Capsule 50 mg PO BEDTIME PRN (Reason: Allergic Symptoms) RF: 0 Flovent HFA 44 mcg/actuation Hfa Aerosol Inhaler 2 puff INHALATION BID RF: 0 oxybutynin chloride 5 mg Tablet 5 mg PO BEDTIME RF: 0 Alphagan P 0.1 % drops 0.1 % EYE-RIGHT BID RF: 0 hydroxyzine pamoate 25 mg Capsule 25 mg PO Q6-8H PRN (Reason: Nausea And Vomiting) Qty: 30 RF: 0 oxycodone 5 mg tablet 5 mg PO Q4H PRN (Reason: pain) Qty: 60 RF: 0 aspirin 81 mg tablet,delayed release (DR/EC) 81 mg PO DAILY Qty: 30 RF: 0 dorzolamide-timolol 22.3-6.8 mg/mL drops 1 drp EYE-RIGHT BID RF: 0 ranitidine HCl 150 mg tablet 300 mg PO BEDTIME RF: 0 gabapentin 300 mg capsule 300 mg PO BID RF: 0 Victoza 3-Wilfredo 0.6 mg/0.1 mL (18 mg/3 mL) pen injector SUBCUT RF: 0 Follow up/Referrals: Zabrina Vincent PA-C [Primary Care Provider] - Discharge Health Status Health Concerns: post operative wound infection Multidrug resistant organism: Other Precautions: [place] Diet/Activity/Treatments Diet: Diet as Tolerated Activity: As tolerated [facility] Reason for rehabilitation: Post-operative therapy and Recovery r/t decondition Rehab type: Physical therapy and Occupational therapy Discharge Data Primary Care Provider: Zabrina Vincent VTE Deep Vein Thrombosis/Pulmonary Embolism Present on Admission: No
--- NOTE | 2019-06-03 11:17 | P.PN_ITS ---
Subjective Subjective Date Patient Seen: 06/03/19 Time Patient Seen: 11:17 Interval history: Patient is HD #2 for superficial wound dehiscence and subsequent infection. She is over 5 weeks s/p L4-5, L5-S1 TLIF with Dr. Sosa. She reports her pain has been well controlled. Has not mobilized much this hospitalization but states she was moving well at SNF. She reports she feels more clear headed than she did yesterday, and recalls meeting me yesterday. Exam Vital Signs (past 8 hours): - 06/03/19 04:00 06/03/19 08:00 06/03/19 09:06 Temperature 97.6 F 98 F Pulse Rate 62 57 L 75 Respiratory Rate 20 17 16 Blood Pressure 143/74 H 146/75 H Pulse Oximetry 96 99 95 Oxygen Delivery Method Room Air Oxygen Flow Rate 0 Narrative Exam Narrative: 73 year old female resting comfortably in chair. Alert and oriented in no acute distress. Band aid in place over right distal incision. Removed to reveal visible granulation tissue. Minimal surrounding erythema. No visible drainage. Objective Labs Result Diagrams: 06/02/19 06:40 06/03/19 05:45 Labs: Laboratory Results - last 24 hr 06/02/19 06/02/19 06/02/19 06:40 06:40 20:20 Sodium Potassium Chloride Carbon Dioxide BUN Creatinine Estimated GFR BUN/Creatinine Ratio Glucose Calcium Magnesium 2.0 TSH 1.71 Urine Color Yellow Urine Appearance Clear Urine pH 5.5 Ur Specific [place] 1.015 Urine Protein Negative Urine Glucose (UA) Negative Urine Ketones Trace H Urine Occult Blood Negative Urine Nitrate Negative Urine Bilirubin Negative Urine Urobilinogen 0.2 Ur Leukocyte Esterase Negative Urine RBC None seen Urine WBC None seen Ur Squamous Epith Cells 1-5 /hpf Urine Bacteria Occasional (0-1) Ur Culture Indicated? Cult not indicated 06/03/19 05:45 Sodium 137 Potassium 4.0 Chloride 105 Carbon Dioxide 26 BUN 19 H Creatinine 0.80 Estimated GFR > 60.0 BUN/Creatinine Ratio 23.8 H Glucose 139 H Calcium 9.1 Magnesium 1.9 TSH Urine Color Urine Appearance Urine pH Ur Specific [place] Urine Protein Urine Glucose (UA) Urine Ketones Urine Occult Blood Urine Nitrate Urine Bilirubin Urine Urobilinogen Ur Leukocyte Esterase Urine RBC Urine WBC Ur Squamous Epith Cells Urine Bacteria Ur Culture Indicated? Assessment & Plan Assessment & Plan narrative: Patient should continue to mobilize with PT. Cultures grew multidrug resistant MSSA, Keflex remains appropriate based off of these. Coversite dressing applied prior to discharge. She will need daily dressing changes to keep the wound clean and to assess heali ng progress. Due to social reasons patient will need to discharge to SNF. Follow up with Dr. Sosa outpatient in 1 week for wound check. Quality VTE Deep Vein Thrombosis/Pulmonary Embolism Present on Admission: No
[2019-06-03] MEDS: cephALEXin 250 MG CAPSULE 500 MG PO (12:16)
--- NOTE | 2019-06-03 13:16 | PC.NURSE ---
SHIFT SUMMARY: PATIENT 2P ASSIST OOB THEN 1P, SBA FOR ACTIVITY. HAD 3 VERY SMALL LITTLE STOOLS SOFT AND FORMED THIS AM. VOIDING WITHOUT DIFFICULTY. MD AND ORTHO PA NOTIFIED OF PATIENT TRANSIENT C/O LEFT CALF SORENESS WHEN SHE FIRST GOT OOB. NO REDNESS OR SWELLING TO THAT AREA. RIGHT DISTAL BACK INCISION WITH SMALL OPEN AREA SMALLER THAN DIME SIZED WITH 90% ADHERENT WHITE SLOUGH AND 10% GRANULATION TISSUE. NO ACTIVE DRAINAGE. LEFT DISTAL BACK INCISION WITH WHITISH APPEARING SCAB. NON-OPEN AND NON-DRAINING. CLEANSED RIGHT DISTAL WOUND WITH NS AND GAUZE AND APPLIED COVERSITE PER ORDERS. REPORT GIVEN TO DANIELLE AT [facility]. PATIENT LEFT WITH ALL BELONGINGS AND PACKET GIVEN TO TRANSPORT STAFF. PATIENT'S PHONE IS IN HER POCKET.
--- NOTE | 2019-06-03 15:15 | CM.IDA ---
Initial DCP Assessment Note: Pt is a 73 yo female, resident of [place]. Pt presented to the ED w/her son Jarrod after being home from [facility] (SNF) for one day s/p spinal surgery at 12.9.19. Pt's spinal wounds were weeping and son also concerned that pt was much more confused than baseline. PCP: Zabrina Vincent Payer: [facility] Reviewed chart yesterday and then met w/pt and her son Jarrod. Pt does not have a DPOA assigned, she has three sons, 2 in [facility] ( [facility]) and one in [facility]. Sons in [facility] visit pt every weekend, son Jarrod is particularly involved in his mom's care. Strongly encouraged pt to designate a DPOA that she trusts. Son Jarrod already on pt's chking account in case assist w/ bills/finances is needed. Pt is not A+O during yesterday's conversation; significant short term memory loss is noted and pt is loppy . Son Jarrod explains this is not my mom, could she have had a stroke? Jarrod explains pt had been doing really well at [facility] before they DC her home w/family. She was walking w/walker and completely A+O w/her usual short term memory loss, but nothing significant. Pt admits she doesn't remember much about returning home from [facility] and doesn't remember if she took her AM meds the morning after she got home, she admits she felt very strange and lethargic half way through the day and placed call to son Jarrod. This BUSINESS LAW TEACHER strongly encouraged pt and son to consider ways to help avoid a crisis from developing once pt returns home again...especially since pt lives alone, is medically and functionally vulnerable and family do not live nearby. Provided the Senior Resource Guide... we discussed in home caregivers, home health and potential HI spouse benefits (?) and then provided an [employer] care application. DCP: Pt was agreeable to going back to [facility], son agreed, and October at [facility] reviewed referral and accepted pt back again, new PASRR completed. Today, DC order completed for SNF and pt remained agreeable to [facility]; pt much more later today and po abx were prescribed for a confirmed post operative wound infection. w/c transport was arranged for 1300 p/u, RN Dorina made aware of time and RN to RN report number provided. PASRR, completed and signed med list, DC ppk were all faxed to [facility]. ROSETTE Walker
== END 2019-06-03 13:20 | DRG 862 ==
LOC: ED 22:51 → AC 23:38
PROVIDERS: Internal Medicine; Admitting Provider Nurse Practitioner Adult Health; Emergency Provider Emergency Medicine; PCP Physician Assistant Medical; Visit Provider Nurse Practitioner Adult Health
DX: T81.49XA Infection following a procedure, other surgical site, initial encounter (principal); G93.41 Metabolic encephalopathy; Z68.41 Body mass index [BMI] 40.0-44.9, adult; E66.01 Morbid (severe) obesity due to excess calories; E11.9 Type 2 diabetes mellitus without complications; I10 Essential (primary) hypertension; E03.9 Hypothyroidism, unspecified; E78.5 Hyperlipidemia, unspecified; J45.909 Unspecified asthma, uncomplicated; K21.9 Gastro-esophageal reflux disease without esophagitis; N32.81 Overactive bladder; B95.61 Methicillin susceptible Staphylococcus aureus infection as the cause of diseases classified elsewhere; Z79.84 Long term (current) use of oral hypoglycemic drugs
CPT/HCPCS: 36415; 71045; 72132; 80048; 80053; 81001; 81003; 82962; 83036; 83605; 83690; 83735; 84145; 84443; 85025; 85610; 85651; 85730; 86140; 87040; 87070; 87075; 87077; 87147; 87186; 87205; 93005; 94640; 96365; 96366; 97116; 97162; 97165; 97535; 99284; 99285; J1644; Q9967

== ENCOUNTER 2019-07-10 15:17 | Observation (INO) | payer MEDICARE, OTHER, SELFPAY ==
[2019-06-02 00:51] VITALS: BMI 44.9
[2019-07-10 15:23] VITALS: BP 161/71; PULSE 89; RESP 18; TEMP 36.3; O2SAT 97
--- NOTE | 2019-07-10 15:28 | DI.RAD.S_ITS ---
PROCEDURE: XR CHEST 1V INDICATIONS: suspected sepsis TECHNIQUE: One view of the chest was acquired. COMPARISON: [facility], CR, XR CHEST 1V, 06/01/2019, 18:58. FINDINGS: Surgical changes and devices: None. Lungs and pleura: Lungs are clear. No pleural effusions or pneumothorax. Calcified granulomas are present within the left lung, which appear to be similar to the previous exam. Mediastinum: Mediastinal contours appear normal. Heart size is normal. There is aortic atherosclerosis. Bones and chest wall: No suspicious bony lesions. Overlying soft tissues appear unremarkable. IMPRESSION: No acute cardiopulmonary process is evident. Dictated by: Tera Grant M.D. on 07/10/2019 at 15:07 Approved by: Tera Grant M.D. on 07/10/2019 at 15:08
[2019-07-10 15:56] LABS: Add Manual Diff / Slide Review NO; Basophils Absolute Auto 100 /uL (0-100); Basophils Percent Auto 0.7 % (0-2); Eosinophils Absolute Auto 0 /uL (0-450); Eosinophils Percent Auto 0.4 % (2-4); Hematocrit 37.1 % (36-46); Hemoglobin 12.6 g/dL (12.0-16.0); Lymphocytes Absolute Auto 1500 /uL (1100-4500); Lymphocytes Percent Auto 20.3 % (25-40); Mean Corpuscular HGB Conc 33.9 % (30-36); Mean Corpuscular Hemoglobin 32.2 PG (26-34); Mean Corpuscular Volume 94.8 fL (80-100); Monocytes Absolute Auto 500 /uL (0-900); Monocytes Percent Auto 6.8 % (3-14); Neutrophils Absolute Auto 5200 /uL (1500-7000); Neutrophils Percent Auto 71.8 % (50-75); Platelet Count 345 X10^3/uL (150-400); Red Blood Cell Count 3.91 X10^6/uL (4.0-5.2); Red Cell Distribution Width 14.3 % (11.6-14.8); White Blood Cell Count 7.2 X10^3/uL (4.5-11.0)
[2019-07-10 16:05] LABS: INR 1.1 (0.9-1.3); Prothrombin Time 12.2 SECONDS (10.1-12.7)
[2019-07-10 16:08] LABS: PTT Partial Thromboplastin Tim 53 SECONDS (26.4-36.2)
--- NOTE | 2019-07-10 16:11 | DI.CT.S_ITS ---
PROCEDURE: CT HEAD/BRAIN WO CON INDICATIONS: confusion TECHNIQUE: Noncontrast 4.5 mm thick angled axial sections acquired from the foramen magnum to the vertex, with coronal and sagittal reformats. For radiation dose reduction, the following was used: automated exposure control, adjustment of mA and/or kV according to patient size. COMPARISON: None. FINDINGS: Image quality: Diagnostic. CSF spaces: Basal cisterns are patent. No extra-axial fluid collections. Ventricles are normal in size and shape. Brain: No midline shift. No intracranial masses or hemorrhage. Norton-white matter interface is normal. Relatively symmetric areas of low attenuation are identified involving the deep white matter along the sylvian fissures, which probably involves the external capsules. Skull and face: Calvarium and visualized facial bones are intact, without suspicious lesions. Sinuses: Visualized sinuses and mastoids are clear. IMPRESSION: 1. No acute intracranial hemorrhage. 2. Low attenuation involving the deep white matter within the region of the sylvian fissures probably is related to previous ischemia. The need for better characterization utilizing MRI may be determined clinically. Dictated by: Tera Grant M.D. on 07/10/2019 at 15:46 Approved by: Tera Grant M.D. on 07/10/2019 at 15:47
[2019-07-10 16:12] LABS: Creatine Kinase 174 U/L (30-135)
[2019-07-10 16:13] LABS: Alanine Aminotransferase 28 IU/L (<35); Albumin 4.4 g/dL (3.5-5.0); Albumin Globulin Ratio 1.3 (1.0-2.8); Alkaline Phosphatase 92 U/L (38-126); Aspartate Aminotransferase 39 IU/L (14-36); BUN Creatinine Ratio 37.1 (6-22); Bilirubin Total 0.3 mg/dL (0.2-1.3); Blood Urea Nitrogen 26 mg/dL (7-17); Calcium 10.1 mg/dL (8.4-10.2); Carbon Dioxide 24 mmol/L (22-32); Chloride 105 mmol/L (98-107); Estimated Glomerular Filt Rate > 60.0 mL/min (>60); Globulin 3.3 g/dL (1.7-4.1); Glucose 131 mg/dL (80-110); HEMOLYSIS 17 (0-50); Lipase 208 U/L (23-300); Sodium 139 mmol/L (137-145); Total Protein 7.7 g/dL (6.3-8.2)
[2019-07-10 16:14] LABS: Lactate (Lactic Acid) 0.7 mmol/L (0.7-2.1)
[2019-07-10 16:24] LABS: Troponin I < 0.012 ng/mL (0.01-0.034)
[2019-07-10 16:26] LABS: Procalcitonin < 0.05 ng/mL (<0.5)
[2019-07-10 16:27] LABS: CKMB % Relative Index 4.7 % (1.5-5.0); Creatine Kinase MB 8.12 ng/mL (<2.37)
[2019-07-10 16:40] LABS: C-Reactive Protein Quant < 0.5 mg/dL (<1.0); Erythrocyte Sedimentation Rate 29 MM/HR (0-20)
[2019-07-10 16:41] LABS: Bacteria Urine None Seen
[2019-07-10 16:42] LABS: Appearance Urine UA CLEAR; Bilirubin Urine UA NEGATIVE (NEGATIVE); Color Urine UA YELLOW; Glucose Urine UA NEGATIVE (Negative); Ketones Urine UA NEGATIVE (NEGATIVE); Leukocyte Esterase Urine UA NEGATIVE (NEGATIVE); Nitrite Urine UA NEGATIVE (Negative); Occult Blood Urine UA TRACE-INTACT (Negative); Protein Urine UA NEGATIVE (Negative); Specific Gravity Urine UA 1.015 (1.000-1.035); Urobilinogen Urine UA 0.2 E.U./dL (0.2)
[2019-07-10 16:49] LABS: Culture Indicated Urine Cult Not Indicated; RBC Urine 0-1/HPF (0-5/HPF); Squamous Epithelial Cell Urine 0-1 /HPF (0-5/HPF); WBC Urine 0-1/HPF (0-5/HPF)
[2019-07-10] MEDS: SODIUM CHLORIDE 0.9% 1,000 ML 1000 ML IV (16:49)
[2019-07-10 17:06] LABS: UR Morphine/Opiate cutoff 300 Negative (Negative); Ur Creatinine Normal (Normal); Ur Specific Gravity Normal (Normal); Urine Amphetamines Negative (Negative); Urine Barbiturates Negative (Negative); Urine Benzodiazepines Negative (Negative); Urine Cocaine Negative (Negative); Urine MDMA Negative (Negative); Urine Methadone Negative (Negative); Urine Methamphetamines Negative (Negative); Urine Oxycodone Negative (Negative); Urine Phencyclidine Negative (Negative); Urine Tetrahydrocannabinol Negative (Negative); Urine Tricyclic Antidepressant Negative (Negative); Urine pH Normal (Normal)
--- NOTE | 2019-07-10 17:52 | DI.CT.S_ITS ---
PROCEDURE: CT LUMBAR SPINE W CON INDICATIONS: fever, confusion, hx post op infection TECHNIQUE: After the administration of intravenous Isovue contrast, 3 mm thick sections acquired through the levels of interest. Sagittal and coronal reformats were then constructed. For radiation dose reduction, the following was used: automated exposure control. COMPARISON: [facility], CT, CT LUMBAR SPINE W CON, 06/01/2019, 21:12. FINDINGS: Image quality: There is motion artifact slightly limiting evaluation. Metallic streak artifact is demonstrated associated with patient's surgical hardware limiting evaluation. Bones: Postsurgical changes are redemonstrated status post posterior fixation at L4-S1 with bilateral pedicle screws and posterior fusion rods as well as prior discectomy demonstrated at L4-5 and L5-S1. Posterior left hemilaminectomies also again noted at these levels. The there is minimal retrolisthesis redemonstrated at T12-L1 and L1-L2. Minimal anterolisthesis redemonstrated at L3-L4. There is mild grade 1 anterolisthesis at L4-5. The findings are similar to the prior study. Multilevel mild disc space narrowing with vacuum disc phenomenon redemonstrated throughout the remaining lumbar spine and visualized lower thoracic spine. There is facet arthropathy within the lower lumbar spine. Soft tissues: Within the surgical bed posteriorly at L4 and L5, there is soft tissue fullness along the hemilaminectomy which appears increased compared to the prior study and is suspicious for a fluid collection which is not well evaluated on the current study due to streak artifact and CT technique. There is fat stranding and edema within the posterior subcutaneous soft tissues and paraspinous musculature again noted without a discrete abscess collection. IMPRESSION: 1. Post surgical changes redemonstrated in the lower lumbar spine as described with suggestion of a fluid collection in the left hemilaminectomy surgical bed at L4-5. Evaluation is limited on CT. If clinical concern persists, further evaluation may be obtained with a contrast enhanced MRI. Dictated by: Felix Garcia M.D. on 07/10/2019 at 19:08 Approved by: Felix Garcia M.D. on 07/10/2019 at 19:15
[2019-07-10 18:17] LABS: Adenovirus Not Detected (Not Detect); Bordetella pertussis Not Detected (Not Detect); Chlamydophila pneumoniae Not Detected (Not Detect); Coronavirus 229E Not Detected (Not Detect); Coronavirus HKU1 Not Detected (Not Detect); Coronavirus NL 63 Not Detected (Not Detect); Coronavirus OC43 Not Detected (Not Detect); Human Metapneumovirus Not Detected (Not Detect); Human Rhinovirus/Enterovirus Not Detected (Not Detect); Influenza A Not Detected (Not Detect); Influenza B Not Detected (Not Detect); Mycoplasma pneumoniae Not Detected (Not Detect); Parainfluenza Virus 1 Not Detected (Not Detect); Parainfluenza Virus 2 Not Detected (Not Detect); Parainfluenza Virus 3 Not Detected (Not Detect); Parainfluenza Virus 4 Not Detected (Not Detect); Respiratory Syncytial Virus Not Detected (Not Detect)
[2019-07-10] MEDS: SODIUM CHLORIDE 0.9% 1,000 ML 150 ML IV (20:02)
--- NOTE | 2019-07-10 20:29 | ED_ITS ---
HPI - Fever <Patricia Patino PREP PERSON-BC - Last Filed: 07/10/19 20:40> General Chief Complaint: Fever Stated Complaint: Fever Time Seen by Provider: 07/10/19 15:30 Source: patient Mode of arrival: EMS Limitations: no limitations History of Present Illness HPI Narrative: The patient is a 73-year-old female former smoker with history of spinal surgery at this facility in April, admission for postoperative infection in May who presents by EMS from her PCPs office for chief complaint of confusion and fever. She is noted to have a fever 100.4 at her PCPs office, where she was at for a wound check. She states that she was there to get rid of medication. The patient complains of general muscle aches, chills, malaise and fatigue for the past 3 days. She states she has had some soft stools, but no abdominal pain nausea vomiting or diarrhea. She states that her back is increasingly painful. The patient was discharged to assisted on 06/03/2019 and was discharged from assisted on 07/03/2019. She lives by herself in [place]. She denies any dysuria urgency or frequency. She denies any chest pain or shortness of breath. She states she just does not feel very well overall. She states she was scheduled to have surgery on her eye due to lid lag and a wrinkle, but that surgery was postponed due to her current complications with her back surgery. PCP is concerned about a open area on her back. She denies any incontinence bowel, incontinence of bladder or saddle anesthesia. She denies any numbness or tingling or any focal weakness. Related Data Home Medications Medication Instructions Recorded Confirmed acetaminophen [Tylenol Extra 1,000 mg PO TID #0 05/10/17 07/10/19 Strength] cholecalciferol (vitamin D3) 2,000 iu PO DAILY #0 05/10/17 07/10/19 [Vitamin D3] glimepiride [Amaryl] 1 mg PO BID #0 05/10/17 07/10/19 hydrochlorothiazide 25 mg PO DAILY #0 05/10/17 07/10/19 levothyroxine [Synthroid] 150 mcg PO QAM #0 05/10/17 07/10/19 Flovent HFA 2 puff INHALATION BID 04/06/19 07/10/19 cyclobenzaprine 10 mg PO TID PRN 04/06/19 07/10/19 diphenhydramine HCl [Benadryl] 50 mg PO BEDTIME PRN 04/06/19 07/10/19 felodipine 10 mg PO QAM 04/06/19 07/10/19 lisinopril 20 mg PO BEDTIME 04/06/19 07/10/19 meclizine 25 mg PO DAILY PRN 04/06/19 07/10/19 meloxicam 7.5 mg PO BID 04/06/19 07/10/19 oxybutynin chloride 5 mg PO BEDTIME 04/06/19 07/10/19 simvastatin 20 mg PO BEDTIME 04/06/19 07/10/19 Alphagan P 0.1 % EYE-RIGHT BID 04/26/19 07/10/19 Victoza 3-Wilfredo 1.2 mg SUBCUT BEDTIME 06/02/19 07/10/19 gabapentin 300 mg PO BID 06/02/19 07/10/19 loratadine [Claritin] 10 mg PO DAILY 07/10/19 07/10/19 multivitamin with minerals 1 tab PO DAILY 07/10/19 07/10/19 oxybutynin chloride 5 mg PO BEDTIME 07/10/19 07/10/19 Previous Rx's Medication Instructions Recorded aspirin 81 mg PO DAILY #30 tab 04/27/19 hydroxyzine pamoate 25 mg PO Q6-8H PRN #30 cap 04/27/19 dorzolamide 1 drops EYE-RIGHT BID 30 Days #2 ml 06/03/19 ranitidine HCl 300 mg PO QPM 30 Days #60 cap 06/03/19 Allergies Allergy/AdvReac Type Severity Reaction Status Date / Time adhesive tape Allergy Severe Rash Verified 06/01/19 17:19 alcohol Allergy Severe Vomiting Verified 06/01/19 17:19 Penicillins Allergy Reaction Verified 06/01/19 17:19 unknown, Told me years ago I was allergic gabapentin AdvReac Severe Diarrhea Verified 06/01/19 17:19 meperidine [From Demerol] AdvReac Severe feeling Verified 06/01/19 17:19 of falling off a georgette propoxyphene [From Darvon] AdvReac Severe feeling Verified 06/01/19 17:19 of falling off a georgette Review of Systems <ROSHAN Robb - Last Filed: 07/10/19 20:40> Review of Systems Narrative: GENERAL: See HPI HEENT: Denies sinus pain, ear pain, sore throat, difficulty swallowing, dizziness. RESPIRATORY: Denies dyspnea, cough, wheezing, hemoptysis, sputum. CARDIOVASCULAR: Denies chest pain, palpitations, orthopnea, edema, GASTROINTESTINAL: Denies nausea, vomiting, abdominal pain, diarrhea, constipation, melena. : Denies dysuria, frequency, incontinence, hematuria, urinary retention. MUSCULOSKELETAL: See HPI SKIN: See HPI NEUROLOGIC: Denies weakness, headache, numbness, change in speech, confusion, seizures, incoordination. PSYCHIATRIC: No concerning psychosocial issues. 12 point review of systems is negative except for those stated above Patient History <ROSHAN Robb - Last Filed: 07/10/19 20:40> Medical History Arthritis (Acute) Diabetes (Acute) Easy bruisability (Acute) Edema (Acute) Hair loss (Acute) Heartburn (Acute) HLD (hyperlipidemia) (Acute) HTN (hypertension) (Acute) Hypothyroid (Acute) Pneumonia (Acute) Sciatica (Acute) Seasonal allergies (Acute) Wrinkled retina, right eye (Acute) Surgical History H/O: hysterectomy (Acute) Hx laparoscopic cholecystectomy (Acute) Hx of bilateral cataract extraction (Acute) Family History Father Emphysema of lung Mother Diabetes mellitus Obesity Social History household members: none Smoking Status: Former smoker alcohol intake: never Smoking Status: Former smoker Substance Use Type: does not use Exam <ROSHAN Robb - Last Filed: 07/10/19 20:40> Narrative Exam Narrative: GENERAL: Obese chronically ill-appearing female lying on stretcher HEAD: Atraumatic. Normocephalic. No temporal or scalp tenderness. EYES: Pupils equal round and reactive. Extraocular motions intact. No scleral icterus. No injection or drainage. ENT: Nose without bleeding, purulent drainage or septal hematoma. Throat without erythema, tonsillar hypertrophy or exudate. Uvula midline. Airway patent. NECK: Trachea midline. No JVD or lymphadenopathy. Supple, nontender, no meningeal signs. CARDIOVASCULAR: Regular rate and rhythm RESPIRATORY: Clear to auscultation. Breath sounds equal bilaterally. No wheezes, rales, or rhonchi. No cough. No increased GASTROINTESTINAL: Abdomen soft, non-tender, nondistended. No hepato- splenomegaly, or palpable masses. No guarding. EXTREMITIES: No clubbing, cyanosis, or edema. No joint tenderness, effusion, or edema noted. BACK: Skin exam as noted. Diffuse tenderness to lumbar spine palpation.. NEURO: Alert to place, name, year. Not oriented to situation. Stable gait was standby. SKIN: Open area on lower right of posterior lumbar spine surgical incision open with very slight drainage noted. Surrounded by 0.5 cm of erythema. Initial Vital Signs Initial Vital Signs: Vital Signs Temperature 97.4 F L 07/10/19 15:23 Pulse Rate 89 07/10/19 15:23 Respiratory Rate 18 07/10/19 15:23 Blood Pressure 161/71 H 07/10/19 15:23 Pulse Oximetry 97 07/10/19 15:23 <Patricia aCmpa DO - Last Filed: 07/11/19 07:42> Initial Vital Signs Initial Vital Signs: Vital Signs Temperature 97.4 F L 07/10/19 15:23 Pulse Rate 89 07/10/19 15:23 Respiratory Rate 18 07/10/19 15:23 Blood Pressure 161/71 H 07/10/19 15:23 Pulse Oximetry 97 07/10/19 15:23 Course <ROSHAN Robb - Last Filed: 07/10/19 20:40> Orders Ordered: Acetaminophen (Tylenol) 975 mg PO Q8H PRN PRN Reason: Fever/Mild Pain (1-3) Albuterol (Ventolin) 2.5 mg INH [id number] PRN PRN Reason: Shortness Of Breath Bisacodyl (Dulcolax) 10 mg NM DAILY PRN PRN Reason: Constipation Brimonidine Tartrate (Alphagan P 0.1% Oph) 1 drops EYE-RIGHT BID [facility] Last Admin: 07/10/19 22:34 Dose: 1 drops Documented by: KKNOTT Calcium Carbonate (Tums) 1,000 mg PO Q4HR PRN PRN Reason: Dyspepsia Cyclobenzaprine HCl (Flexeril) 10 mg PO TID PRN PRN Reason: Muscle pain, spasm Last Admin: 07/10/19 22:28 Dose: 10 mg Documented by: YUKI Dextrose (D50w) 25 gm IV PRN PRN; Protocol PRN Reason: Hypoglycemia Docusate Sodium (Colace) 100 mg PO BID PRN PRN Reason: Constipation Last Admin: 07/10/19 22:28 Dose: 100 mg Documented by: YUKI Dorzolamide HCl (Trusopt) 1 drops EYE-RIGHT BID [facility] Last Admin: 07/10/19 22:34 Dose: Not Given Documented by: YUKI Felodipine (Plendil) 10 mg PO DAILY [facility] Fluticasone Propionate (Flovent Hfa) 2 puff INH BID [facility] Last Admin: 07/10/19 23:23 Dose: 2 puff Documented by: DENTON Gabapentin (Neurontin) 300 mg PO BID [facility] Last Admin: 07/10/19 22:29 Dose: Not Given Documented by: YUKI Glimepiride (Amaryl) 1 mg PO BID [facility] Last Admin: 07/10/19 22:33 Dose: 1 mg Documented by: YUKI Hydrochlorothiazide (Hydrochlorothiazide) 25 mg PO DAILY [facility] Sodium Chloride (Normal Saline 0.9%) 1,000 mls @ 100 mls/hr IV CONT [facility] Last Admin: 07/11/19 06:57 Dose: 100 mls/hr Documented by: Infusion: 07/11/19 06:57 Dose: 100 mls/hr Documented by: Admin: 07/10/19 22:23 Dose: 100 mls/hr Documented by: YUKI Vancomycin HCl 1,250 mg/ (Sodium Chloride) 250 mls @ 167 mls/hr IV Q12H [facility] Insulin Aspart (Novolog Flexpen) 0 unit SUBCUT Q6H [facility]; Protocol Last Admin: 07/11/19 06:17 Dose: 1 unit Documented by: MICHAEL Cosigned by: ANILA Admin: 07/11/19 00:55 Dose: Not Given Documented by: MICHAEL Levothyroxine Sodium (Synthroid) 150 mcg PO 0600 [facility] Last Admin: 07/11/19 06:27 Dose: Not Given Documented by: MICHAEL Lisinopril (Zestril) 20 mg PO BEDTIME [facility] Last Admin: 07/10/19 22:31 Dose: 20 mg Documented by: YUKI Melatonin (Melatonin) 6 mg PO BEDTIME [facility] Last Admin: 07/10/19 23:01 Dose: 6 mg Documented by: YUKI Meloxicam (Mobic) 7.5 mg PO BID [facility] Last Admin: 07/10/19 22:29 Dose: 7.5 mg Documented by: YUKI Multivitamins/Calcium (Thera M Plus) 1 tab PO DAILY [facility] Non-Formulary Medication (Liraglutide [Victoza 3-Wilfredo]) 1.2 mg SUBCUT BEDTIME [facility] Last Admin: 07/10/19 22:56 Dose: Not Given Documented by: YUKI Ondansetron HCl (Zofran) 4 mg IV Q8HR PRN PRN Reason: Nausea And Vomiting Oxybutynin Chloride (Ditropan Xl) 5 mg PO BEDTIME [facility] Last Admin: 07/10/19 22:33 Dose: 5 mg Documented by: YUKI Ranitidine HCl (Zantac) 300 mg PO QPM [facility] Simvastatin (Zocor) 20 mg PO BEDTIME [facility] Last Admin: 07/10/19 22:33 Dose: 20 mg Documented by: YUKI Vancomycin HCl (Vancomycin Trough) 1 request [facility] [place] ONE Stop: 07/12/19 11:31 Discontinued Medications Acetaminophen (Tylenol) 650 mg PO Q6HR PRN PRN Reason: Fever/Mild Pain (1-3) Sodium Chloride (Normal Saline 0.9%) 1,000 mls @ 1,000 mls/hr IV BOLUS ONE Stop: 07/10/19 16:27 Last Infusion: 07/10/19 18:05 Dose: 0 mls/hr Documented by: Admin: 07/10/19 16:49 Dose: 1,000 mls/hr Documented by: NORM Sodium Chloride (Normal Saline 0.9%) 1,000 mls @ 150 mls/hr IV CONT [facility] Last Admin: 07/10/19 20:02 Dose: 150 mls/hr Documented by: NORM Vancomycin HCl/Dextrose (Vancomycin) 1,500 mg in 300 mls @ 200 mls/hr IV NOW ONE Stop: 07/11/19 00:57 Last Infusion: 07/11/19 01:45 Dose: 0 mls/hr Documented by: Admin: 07/11/19 00:14 Dose: 200 mls/hr Documented by: MICHAEL Vital Signs Vital signs: Vital Signs - 8 hr 07/10/19 15:23 Temperature 97.4 F L Pulse Rate 89 Respiratory Rate 18 Blood Pressure 161/71 H Pulse Oximetry 97 <Patricia Campa, - Last Filed: 07/11/19 07:42> Orders Ordered: Acetaminophen (Tylenol) 975 mg PO Q8H PRN PRN Reason: Fever/Mild Pain (1-3) Albuterol (Ventolin) 2.5 mg INH [id number] PRN PRN Reason: Shortness Of Breath Bisacodyl (Dulcolax) 10 mg NM DAILY PRN PRN Reason: Constipation Brimonidine Tartrate (Alphagan P 0.1% Oph) 1 drops EYE-RIGHT BID [facility] Last Admin: 07/10/19 22:34 Dose: 1 drops Documented by: YUKI Calcium Carbonate (Tums) 1,000 mg PO Q4HR PRN PRN Reason: Dyspepsia Cyclobenzaprine HCl (Flexeril) 10 mg PO TID PRN PRN Reason: Muscle pain, spasm Last Admin: 07/10/19 22:28 Dose: 10 mg Documented by: YUKI Dextrose (D50w) 25 gm IV PRN PRN; Protocol PRN Reason: Hypoglycemia Docusate Sodium (Colace) 100 mg PO BID PRN PRN Reason: Constipation Last Admin: 07/10/19 22:28 Dose: 100 mg Documented by: YUKI Dorzolamide HCl (Trusopt) 1 drops EYE-RIGHT BID [facility] Last Admin: 07/10/19 22:34 Dose: Not Given Documented by: YUKI Felodipine (Plendil) 10 mg PO DAILY [facility] Fluticasone Propionate (Flovent Hfa) 2 puff INH BID [facility] Last Admin: 07/10/19 23:23 Dose: 2 puff Documented by: DENTON Gabapentin (Neurontin) 300 mg PO BID [facility] Last Admin: 07/10/19 22:29 Dose: Not Given Documented by: YUKI Glimepiride (Amaryl) 1 mg PO BID [facility] Last Admin: 07/10/19 22:33 Dose: 1 mg Documented by: YUKI Hydrochlorothiazide (Hydrochlorothiazide) 25 mg PO DAILY [facility] Sodium Chloride (Normal Saline 0.9%) 1,000 mls @ 100 mls/hr IV CONT [facility] Last Admin: 07/11/19 06:57 Dose: 100 mls/hr Documented by: Infusion: 07/11/19 06:57 Dose: 100 mls/hr Documented by: Admin: 07/10/19 22:23 Dose: 100 mls/hr Documented by: YUKI Vancomycin HCl 1,250 mg/ (Sodium Chloride) 250 mls @ 167 mls/hr IV Q12H [facility] Insulin Aspart (Novolog Flexpen) 0 unit SUBCUT Q6H [facility]; Protocol Last Admin: 07/11/19 06:17 Dose: 1 unit Documented by: MICHAEL Cosigned by: ANILA Admin: 07/11/19 00:55 Dose: Not Given Documented by: MICHAEL Levothyroxine Sodium (Synthroid) 150 mcg PO 0600 [facility] Last Admin: 07/11/19 06:27 Dose: Not Given Documented by: MICHAEL Lisinopril (Zestril) 20 mg PO BEDTIME [facility] Last Admin: 07/10/19 22:31 Dose: 20 mg Documented by: YUKI Melatonin (Melatonin) 6 mg PO BEDTIME [facility] Last Admin: 07/10/19 23:01 Dose: 6 mg Documented by: YUKI Meloxicam (Mobic) 7.5 mg PO BID [facility] Last Admin: 07/10/19 22:29 Dose: 7.5 mg Documented by: YUKI Multivitamins/Calcium (Thera M Plus) 1 tab PO DAILY [facility] Non-Formulary Medication (Liraglutide [Victoza 3-Wilfredo]) 1.2 mg SUBCUT BEDTIME [facility] Last Admin: 07/10/19 22:56 Dose: Not Given Documented by: YUKI Ondansetron HCl (Zofran) 4 mg IV Q8HR PRN PRN Reason: Nausea And Vomiting Oxybutynin Chloride (Ditropan Xl) 5 mg PO BEDTIME [facility] Last Admin: 07/10/19 22:33 Dose: 5 mg Documented by: YUKI Ranitidine HCl (Zantac) 300 mg PO QPM [facility] Simvastatin (Zocor) 20 mg PO BEDTIME [facility] Last Admin: 07/10/19 22:33 Dose: 20 mg Documented by: YUKI Vancomycin HCl (Vancomycin Trough) 1 request [facility] [place] ONE Stop: 07/12/19 11:31 Discontinued Medications Acetaminophen (Tylenol) 650 mg PO Q6HR PRN PRN Reason: Fever/Mild Pain (1-3) Sodium Chloride (Normal Saline 0.9%) 1,000 mls @ 1,000 mls/hr IV BOLUS ONE Stop: 07/10/19 16:27 Last Infusion: 07/10/19 18:05 Dose: 0 mls/hr Documented by: Admin: 07/10/19 16:49 Dose: 1,000 mls/hr Documented by: NORM Sodium Chloride (Normal Saline 0.9%) 1,000 mls @ 150 mls/hr IV CONT [facility] Last Admin: 07/10/19 20:02 Dose: 150 mls/hr Documented by: NORM Vancomycin HCl/Dextrose (Vancomycin) 1,500 mg in 300 mls @ 200 mls/hr IV NOW ONE Stop: 07/11/19 00:57 Last Infusion: 07/11/19 01:45 Dose: 0 mls/hr Documented by: Admin: 07/11/19 00:14 Dose: 200 mls/hr Documented by: MICHAEL Vital Signs Vital signs: Vital Signs - 8 hr 07/10/19 15:23 Temperature 97.4 F L Pulse Rate 89 Respiratory Rate 18 Blood Pressure 161/71 H Pulse Oximetry 97 MDM - Fever <ROSHAN Robb - Last Filed: 07/10/19 20:40> Lab Data Result diagrams: 07/11/19 06:45 07/11/19 06:45 Labs: Lab Results 07/10/19 07/10/19 07/10/19 Range/Units 15:46 15:46 15:46 WBC 7.2 (4.5-11.0) X10^3/uL RBC 3.91 L (4.0-5.2) X10^6/uL Hgb 12.6 (12.0-16.0) g/dL Hct 37.1 (36-46) % MCV 94.8 (80-100) fL MCH 32.2 (26-34) PG MCHC 33.9 (30-36) % RDW 14.3 (11.6-14.8) % Plt Count 345 (150-400) X10^3/uL Neut % (Auto) 71.8 (50-75) % Lymph % (Auto) 20.3 L (25-40) % Vermilion % (Auto) 6.8 (3-14) % Eos % (Auto) 0.4 L (2-4) % Baso % (Auto) 0.7 (0-2) % Neut # (Auto) 5200 (4089-0559) /uL Lymph # (Auto) 1500 (3937-2307) /uL [place] # (Auto) 500 (0-900) /uL Eos # (Auto) 0 (0-450) /uL Baso # (Auto) 100 (0-100) /uL ESR (0-20) MM/HR PT 12.2 (10.1-12.7) SECONDS INR 1.1 (0.9-1.3) APTT 53 H D (26.4-36.2) SECONDS Sodium (137-145) mmol/L Potassium (3.4-5.1) mmol/L Chloride (98-107) mmol/L Carbon Dioxide (22-32) mmol/L BUN (7-17) mg/dL Creatinine (0.52-1.04) mg/dL Estimated GFR (>60) mL/min BUN/Creatinine Ratio (6-22) Glucose (80-110) mg/dL Lactate (0.7-2.1) mmol/L Calcium (8.4-10.2) mg/dL Total Bilirubin (0.2-1.3) mg/dL AST (14-36) IU/L ALT (<35) IU/L Alkaline Phosphatase (38-126) U/L Total Creatine Kinase (30-135) U/L CK-MB (CK-2) (<2.37) ng/mL CK-MB (CK-2) Rel Index (1.5-5.0) % Troponin I (0.01-0.034) ng/mL C-Reactive Protein (<1.0) mg/dL Total Protein (6.3-8.2) g/dL Albumin (3.5-5.0) g/dL Globulin (1.7-4.1) g/dL Albumin/Globulin Ratio (1.0-2.8) Lipase (23-300) U/L Procalcitonin < 0.05 (<0.5) ng/mL Urine Color Urine Appearance Urine pH (4.5-8.0) Ur Specific Artemas (1.000-1.035) Urine Protein (Negative) Urine Glucose (UA) (Negative) g/dL Urine Ketones (NEGATIVE) Urine Occult Blood (Negative) Urine Nitrate (Negative) Urine Bilirubin (NEGATIVE) Urine Urobilinogen (0.2) E.U./dL Ur Leukocyte Esterase (NEGATIVE) Urine RBC (0-5/HPF) Urine WBC (0-5/HPF) Ur Squamous Epith Cells (0-5/HPF) Urine Bacteria (None) Ur Culture Indicated? U Opiates 300ng/mL cut (Negative) Ur Oxycodone Screen (Negative) Urine Methadone Screen (Negative) Ur Barbiturates Screen (Negative) U Tricyclic Antidepress (Negative) Ur Phencyclidine Scrn (Negative) Ur Amphetamines Screen (Negative) U Methamphetamines Scrn (Negative) Ur MDMA Scrn (Ecstasy) (Negative) U Benzodiazepines Scrn (Negative) Urine Cocaine Screen (Negative) U Marijuana (THC) Screen (Negative) Chlamy pneumoniae PCR (Not Detect) Adenovirus (PCR) (Not Detect) B.parapertussis DNA PCR (Not Detect) Coronavirus OC43 (PCR) (Not Detect) Coronavirus HKU1 (PCR) (Not Detect) Coronavirus 229E (PCR) (Not Detect) Coronavirus NL63 (PCR) (Not Detect) Human Metapneumovir PCR (Not Detect) Influenza Type A (PCR) (Not Detect) Influenza Type B (PCR) (Not Detect) M. pneumoniae (PCR) (Not Detect) Parainfluenza 1 (PCR) (Not Detect) Parainfluenza 2 (PCR) (Not Detect) Parainfluenza 3 (PCR) (Not Detect) Parainfluenza 4 (PCR) (Not Detect) RSV (PCR) (Not Detect) Entero/Rhino (PCR) (Not Detect) 07/10/19 07/10/19 07/10/19 Range/Units 15:46 15:46 15:46 WBC (4.5-11.0) X10^3/uL RBC (4.0-5.2) X10^6/uL Hgb (12.0-16.0) g/dL Hct (36-46) % MCV (80-100) fL MCH (26-34) PG MCHC (30-36) % RDW (11.6-14.8) % Plt Count (150-400) X10^3/uL Neut % (Auto) (50-75) % Lymph % (Auto) (25-40) % Vermilion % (Auto) (3-14) % Eos % (Auto) (2-4) % Baso % (Auto) (0-2) % Neut # (Auto) (9492-0726) /uL Lymph # (Auto) (5804-8048) /uL Vermilion # (Auto) (0-900) /uL Eos # (Auto) (0-450) /uL Baso # (Auto) (0-100) /uL ESR (0-20) MM/HR PT (10.1-12.7) SECONDS INR (0.9-1.3) APTT (26.4-36.2) SECONDS Sodium 139 (137-145) mmol/L Potassium 4.0 (3.4-5.1) mmol/L Chloride 105 (98-107) mmol/L Carbon Dioxide 24 (22-32) mmol/L BUN 26 H (7-17) mg/dL Creatinine 0.70 (0.52-1.04) mg/dL Estimated GFR > 60.0 (>60) mL/min BUN/Creatinine Ratio 37.1 H (6-22) Glucose 131 H (80-110) mg/dL Lactate 0.7 (0.7-2.1) mmol/L Calcium 10.1 (8.4-10.2) mg/dL Total Bilirubin 0.3 (0.2-1.3) mg/dL AST 39 H (14-36) IU/L ALT 28 (<35) IU/L Alkaline Phosphatase 92 (38-126) U/L Total Creatine Kinase 174 H (30-135) U/L CK-MB (CK-2) 8.12 H (<2.37) ng/mL CK-MB (CK-2) Rel Index 4.7 (1.5-5.0) % Troponin I < 0.012 (0.01-0.034) ng/mL C-Reactive Protein (<1.0) mg/dL Total Protein 7.7 (6.3-8.2) g/dL Albumin 4.4 (3.5-5.0) g/dL Globulin 3.3 (1.7-4.1) g/dL Albumin/Globulin Ratio 1.3 (1.0-2.8) Lipase 208 (23-300) U/L Procalcitonin (<0.5) ng/mL Urine Color Urine Appearance Urine pH (4.5-8.0) Ur Specific Artemas (1.000-1.035) Urine Protein (Negative) Urine Glucose (UA) (Negative) g/dL Urine Ketones (NEGATIVE) Urine Occult Blood (Negative) Urine Nitrate (Negative) Urine Bilirubin (NEGATIVE) Urine Urobilinogen (0.2) E.U./dL Ur Leukocyte Esterase (NEGATIVE) Urine RBC (0-5/HPF) Urine WBC (0-5/HPF) Ur Squamous Epith Cells (0-5/HPF) Urine Bacteria (None) Ur Culture Indicated? U Opiates 300ng/mL cut (Negative) Ur Oxycodone Screen (Negative) Urine Methadone Screen (Negative) Ur Barbiturates Screen (Negative) U Tricyclic Antidepress (Negative) Ur Phencyclidine Scrn (Negative) Ur Amphetamines Screen (Negative) U Methamphetamines Scrn (Negative) Ur MDMA Scrn (Ecstasy) (Negative) U Benzodiazepines Scrn (Negative) Urine Cocaine Screen (Negative) U Marijuana (THC) Screen (Negative) Chlamy pneumoniae PCR (Not Detect) Adenovirus (PCR) (Not Detect) B.parapertussis DNA PCR (Not Detect) Coronavirus OC43 (PCR) (Not Detect) Coronavirus HKU1 (PCR) (Not Detect) Coronavirus 229E (PCR) (Not Detect) Coronavirus NL63 (PCR) (Not Detect) Human Metapneumovir PCR (Not Detect) Influenza Type A (PCR) (Not Detect) Influenza Type B (PCR) (Not Detect) M. pneumoniae (PCR) (Not Detect) Parainfluenza 1 (PCR) (Not Detect) Parainfluenza 2 (PCR) (Not Detect) Parainfluenza 3 (PCR) (Not Detect) Parainfluenza 4 (PCR) (Not Detect) RSV (PCR) (Not Detect) Entero/Rhino (PCR) (Not Detect) 07/10/19 07/10/19 07/10/19 Range/Units 15:46 15:46 16:16 WBC (4.5-11.0) X10^3/uL RBC (4.0-5.2) X10^6/uL Hgb (12.0-16.0) g/dL Hct (36-46) % MCV (80-100) fL MCH (26-34) PG MCHC (30-36) % RDW (11.6-14.8) % Plt Count (150-400) X10^3/uL Neut % (Auto) (50-75) % Lymph % (Auto) (25-40) % Vermilion % (Auto) (3-14) % Eos % (Auto) (2-4) % Baso % (Auto) (0-2) % Neut # (Auto) (7548-5894) /uL Lymph # (Auto) (4363-9835) /uL Vermilion # (Auto) (0-900) /uL Eos # (Auto) (0-450) /uL Baso # (Auto) (0-100) /uL ESR 29 H (0-20) MM/HR PT (10.1-12.7) SECONDS INR (0.9-1.3) APTT (26.4-36.2) SECONDS Sodium (137-145) mmol/L Potassium (3.4-5.1) mmol/L Chloride (98-107) mmol/L Carbon Dioxide (22-32) mmol/L BUN (7-17) mg/dL Creatinine (0.52-1.04) mg/dL Estimated GFR (>60) mL/min BUN/Creatinine Ratio (6-22) Glucose (80-110) mg/dL Lactate (0.7-2.1) mmol/L Calcium (8.4-10.2) mg/dL Total Bilirubin (0.2-1.3) mg/dL AST (14-36) IU/L ALT (<35) IU/L Alkaline Phosphatase (38-126) U/L Total Creatine Kinase (30-135) U/L CK-MB (CK-2) (<2.37) ng/mL CK-MB (CK-2) Rel Index (1.5-5.0) % Troponin I (0.01-0.034) ng/mL C-Reactive Protein < 0.5 (<1.0) mg/dL Total Protein (6.3-8.2) g/dL Albumin (3.5-5.0) g/dL Globulin (1.7-4.1) g/dL Albumin/Globulin Ratio (1.0-2.8) Lipase (23-300) U/L Procalcitonin (<0.5) ng/mL Urine Color Urine Appearance Urine pH (4.5-8.0) Ur Specific Artemas (1.000-1.035) Urine Protein (Negative) Urine Glucose (UA) (Negative) g/dL Urine Ketones (NEGATIVE) Urine Occult Blood (Negative) Urine Nitrate (Negative) Urine Bilirubin (NEGATIVE) Urine Urobilinogen (0.2) E.U./dL Ur Leukocyte Esterase (NEGATIVE) Urine RBC (0-5/HPF) Urine WBC (0-5/HPF) Ur Squamous Epith Cells (0-5/HPF) Urine Bacteria (None) Ur Culture Indicated? U Opiates 300ng/mL cut Negative (Negative) Ur Oxycodone Screen Negative (Negative) Urine Methadone Screen Negative (Negative) Ur Barbiturates Screen Negative (Negative) U Tricyclic Antidepress Negative (Negative) Ur Phencyclidine Scrn Negative (Negative) Ur Amphetamines Screen Negative (Negative) U Methamphetamines Scrn Negative (Negative) Ur MDMA Scrn (Ecstasy) Negative (Negative) U Benzodiazepines Scrn Negative (Negative) Urine Cocaine Screen Negative (Negative) U Marijuana (THC) Screen Negative (Negative) Chlamy pneumoniae PCR (Not Detect) Adenovirus (PCR) (Not Detect) B.parapertussis DNA PCR (Not Detect) Coronavirus OC43 (PCR) (Not Detect) Coronavirus HKU1 (PCR) (Not Detect) Coronavirus 229E (PCR) (Not Detect) Coronavirus NL63 (PCR) (Not Detect) Human Metapneumovir PCR (Not Detect) Influenza Type A (PCR) (Not Detect) Influenza Type B (PCR) (Not Detect) M. pneumoniae (PCR) (Not Detect) Parainfluenza 1 (PCR) (Not Detect) Parainfluenza 2 (PCR) (Not Detect) Parainfluenza 3 (PCR) (Not Detect) Parainfluenza 4 (PCR) (Not Detect) RSV (PCR) (Not Detect) Entero/Rhino (PCR) (Not Detect) 07/10/19 07/10/19 Range/Units 16:26 17:02 WBC (4.5-11.0) X10^3/uL RBC (4.0-5.2) X10^6/uL Hgb (12.0-16.0) g/dL Hct (36-46) % MCV (80-100) fL MCH (26-34) PG MCHC (30-36) % RDW (11.6-14.8) % Plt Count (150-400) X10^3/uL Neut % (Auto) (50-75) % Lymph % (Auto) (25-40) % Vermilion % (Auto) (3-14) % Eos % (Auto) (2-4) % Baso % (Auto) (0-2) % Neut # (Auto) (8419-7163) /uL Lymph # (Auto) (2264-4237) /uL Vermilion # (Auto) (0-900) /uL Eos # (Auto) (0-450) /uL Baso # (Auto) (0-100) /uL ESR (0-20) MM/HR PT (10.1-12.7) SECONDS INR (0.9-1.3) APTT (26.4-36.2) SECONDS Sodium (137-145) mmol/L Potassium (3.4-5.1) mmol/L Chloride (98-107) mmol/L Carbon Dioxide (22-32) mmol/L BUN (7-17) mg/dL Creatinine (0.52-1.04) mg/dL Estimated GFR (>60) mL/min BUN/Creatinine Ratio (6-22) Glucose (80-110) mg/dL Lactate (0.7-2.1) mmol/L Calcium (8.4-10.2) mg/dL Total Bilirubin (0.2-1.3) mg/dL AST (14-36) IU/L ALT (<35) IU/L Alkaline Phosphatase (38-126) U/L Total Creatine Kinase (30-135) U/L CK-MB (CK-2) (<2.37) ng/mL CK-MB (CK-2) Rel Index (1.5-5.0) % Troponin I (0.01-0.034) ng/mL C-Reactive Protein (<1.0) mg/dL Total Protein (6.3-8.2) g/dL Albumin (3.5-5.0) g/dL Globulin (1.7-4.1) g/dL Albumin/Globulin Ratio (1.0-2.8) Lipase (23-300) U/L Procalcitonin (<0.5) ng/mL Urine Color Yellow Urine Appearance Clear Urine pH 7.0 (4.5-8.0) Ur Specific Artemas 1.015 (1.000-1.035) Urine Protein Negative (Negative) Urine Glucose (UA) Negative (Negative) g/dL Urine Ketones Negative (NEGATIVE) Urine Occult Blood Trace-intact (Negative) Urine Nitrate Negative (Negative) Urine Bilirubin Negative (NEGATIVE) Urine Urobilinogen 0.2 (0.2) E.U./dL Ur Leukocyte Esterase Negative (NEGATIVE) Urine RBC 0-1/hpf (0-5/HPF) Urine WBC 0-1/hpf (0-5/HPF) Ur Squamous Epith Cells 0-1 /hpf (0-5/HPF) Urine Bacteria None seen (None) Ur Culture Indicated? Cult not indicated U Opiates 300ng/mL cut (Negative) Ur Oxycodone Screen (Negative) Urine Methadone Screen (Negative) Ur Barbiturates Screen (Negative) U Tricyclic Antidepress (Negative) Ur Phencyclidine Scrn (Negative) Ur Amphetamines Screen (Negative) U Methamphetamines Scrn (Negative) Ur MDMA Scrn (Ecstasy) (Negative) U Benzodiazepines Scrn (Negative) Urine Cocaine Screen (Negative) U Marijuana (THC) Screen (Negative) Chlamy pneumoniae PCR Not detected (Not Detect) Adenovirus (PCR) Not detected (Not Detect) B.parapertussis DNA PCR Not detected (Not Detect) Coronavirus OC43 (PCR) Not detected (Not Detect) Coronavirus HKU1 (PCR) Not detected (Not Detect) Coronavirus 229E (PCR) Not detected (Not Detect) Coronavirus NL63 (PCR) Not detected (Not Detect) Human Metapneumovir PCR Not detected (Not Detect) Influenza Type A (PCR) Not detected (Not Detect) Influenza Type B (PCR) Not detected (Not Detect) M. pneumoniae (PCR) Not detected (Not Detect) Parainfluenza 1 (PCR) Not detected (Not Detect) Parainfluenza 2 (PCR) Not detected (Not Detect) Parainfluenza 3 (PCR) Not detected (Not Detect) Parainfluenza 4 (PCR) Not detected (Not Detect) RSV (PCR) Not detected (Not Detect) Entero/Rhino (PCR) Not detected (Not Detect) Imaging Data Lumbar spine CT: Radiologist's Impression: [address] [place] [id number] [address] Scan Report Signed Patient: Carrie Cortez CMR#: [id number] : 4Acct:[id number] Age/Sex: 73 / FDate of Service: 07/10/19 Loc: ED Accession Number: [id number] Procedure: CT lumbar spine w con Ordering Provider: Patricia Patino PREP PERSON-BC PROCEDURE: CT LUMBAR SPINE W CON INDICATIONS: fever, confusion, hx post op infection TECHNIQUE: After the administration of intravenous Isovue contrast, 3 mm thick sections acquired through the levels of interest. Sagittal and coronal reformats were then constructed. For radiation dose reduction, the following was used: automated exposure control. COMPARISON: Located Within [facility], CT, CT LUMBAR SPINE W CON, 06/01/2019, 21:12. FINDINGS: Image quality: There is motion artifact slightly limiting evaluation. Metallic streak artifact is demonstrated associated with patient's surgical hardware limiting evaluation. Bones: Postsurgical changes are redemonstrated status post posterior fixation at L4-S1 with bilateral pedicle screws and posterior fusion rods as well as prior discectomy demonstrated at L4-5 and L5-S1. Posterior left hemilaminectomies also again noted at these levels. The there is minimal retrolisthesis redemonstrated at T12-L1 and L1-L2. Minimal anterolisthesis redemonstrated at L3-L4. There is mild grade 1 anterolisthesis at L4-5. The findings are similar to the prior study. Multilevel mild disc space narrowing with vacuum disc phenomenon redemonstrated throughout the remaining lumbar spine and visualized lower thoracic spine. There is facet arthropathy within the lower lumbar spine. Soft tissues: Within the surgical bed posteriorly at L4 and L5, there is soft tissue fullness along the hemilaminectomy which appears increased compared to the prior study and is suspicious for a fluid collection which is not well evaluated on the current study due to streak artifact and CT technique. There is fat stranding and edema within the posterior subcutaneous soft tissues and paraspinous musculature again noted without a discrete abscess collection. IMPRESSION: 1. Post surgical changes redemonstrated in the lower lumbar spine as described with suggestion of a fluid collection in the left hemilaminectomy surgical bed at L4- 5. Evaluation is limited on CT. If clinical concern persists, further evaluation may be obtained with a contrast enhanced MRI. Dictated by: Felix Garcia M.D. on 07/10/2019 at 19:08 Approved by: Felix Garcia M.D. on 07/10/2019 at 19:15 CT scan - head: Radiologist's Impression: [address] [place] [address] CT Scan Report Signed Patient: Carrie Cortez CMR#: [id number] : 4Acct:[id number] Age/Sex: 73 / FDate of Service: 07/10/19 Loc: ED Accession Number: [id number] Procedure: CT head/brain wo con Ordering Provider: Patricia Patino [facility] PROCEDURE: CT HEAD/BRAIN WO CON INDICATIONS: confusion TECHNIQUE: Noncontrast 4.5 mm thick angled axial sections acquired from the foramen magnum to the vertex, with coronal and sagittal reformats. For radiation dose reduction, the following was used: automated exposure control, adjustment of mA and/or kV according to patient size. COMPARISON: None. FINDINGS: Image quality: Diagnostic. CSF spaces: Basal cisterns are patent. No extra-axial fluid collections. Ventricles are normal in size and shape. Brain: No midline shift. No intracranial masses or hemorrhage. Norton-white matter interface is normal. Relatively symmetric areas of low attenuation are identified involving the deep white matter along the sylvian fissures, which probably involves the external capsules. Skull and face: Calvarium and visualized facial bones are intact, without suspicious lesions. Sinuses: Visualized sinuses and mastoids are clear. IMPRESSION: 1. No acute intracranial hemorrhage. 2. Low attenuation involving the deep white matter within the region of the sylvian fissures probably is related to previous ischemia. The need for better characterization utilizing MRI may be determined clinically. Dictated by: Tera Grant M.D. on 07/10/2019 at 15:46 Approved by: Tera Grant M.D. on 07/10/2019 at 15:47 Chest x-ray: Radiologist's Impression: [address] [place] [id number] XRay Report Signed Patient: Carrie Cortez CMR#: [id number] : 4Acct:[id number] Age/Sex: 73 / FDate of Service: 07/10/19 Loc: ED Accession Number: [id number] Procedure: XR chest 1V Ordering Provider: Patricia Campa D.O. PROCEDURE: XR CHEST 1V INDICATIONS: suspected sepsis TECHNIQUE: One view of the chest was acquired. COMPARISON: [facility], XR CHEST 1V, 06/01/2019, 18:58. FINDINGS: Surgical changes and devices: None. Lungs and pleura: Lungs are clear. No pleural effusions or pneumothorax. Calcified granulomas are present within the left lung, which appear to be similar to the previous exam. Mediastinum: Mediastinal contours appear normal. Heart size is normal. There is aortic atherosclerosis. Bones and chest wall: No suspicious bony lesions. Overlying soft tissues appear unremarkable. IMPRESSION: No acute cardiopulmonary process is evident. Dictated by: Tera Grant M.D. on 07/10/2019 at 15:07 Approved by: Tera Grant M.D. on 07/10/2019 at 15:08 [facility] Narrative Medical decision making narrative: The patient is a 73-year-old female who presents with a chief complaint of fever and confusion from her primary care provider's office. Head CT shows no acute findings, chest x-ray shows no pneumonia, urinalysis shows no infection, respiratory panel is negative, urine drug screen is negative. Thus given the patient's history of postsurgical abscess, I did obtain a CT of her lumbar spine. This shows a slightly larger fluid collection in the left hemilaminectomy surgical bed. The patient's ESR slightly elevated, she has no leukocytosis, no elevation of her procalcitonin, no lactate. She has no elevated CRP. However given the patient's history and CT findings, I did speak with Dr. Ledbetter on-call from [facility]. Given the patient's earlier overall status as well as changes in mental status, I do not believe she is safe to discharge. Wound cultures pe nding at this time. Blood cultures are also pending. Discussed bringing the patient in by hospitalist with orthopedic consult. Per Dr. Ledbetter will hold off on antibiotics at this point time. Discussed patient at length admitting IONA Sheets, who kindly agreed to admit the patient to observation status. Patient is in accordance with plan and has no questions or concerns. <Patricia Campa, DO - Last Filed: 07/11/19 07:42> Lab Data Attestation: I reviewed the patient's lab results. Labs: Lab Results 07/10/19 07/10/19 07/10/19 Range/Units 15:46 15:46 15:46 WBC 7.2 (4.5-11.0) X10^3/uL RBC 3.91 L (4.0-5.2) X10^6/uL Hgb 12.6 (12.0-16.0) g/dL Hct 37.1 (36-46) % MCV 94.8 (80-100) fL MCH 32.2 (26-34) PG MCHC 33.9 (30-36) % RDW 14.3 (11.6-14.8) % Plt Count 345 (150-400) X10^3/uL Neut % (Auto) 71.8 (50-75) % Lymph % (Auto) 20.3 L (25-40) % Vermilion % (Auto) 6.8 (3-14) % Eos % (Auto) 0.4 L (2-4) % Baso % (Auto) 0.7 (0-2) % Neut # (Auto) 5200 (4328-4414) /uL Lymph # (Auto) 1500 (5086-0157) /uL Vermilion # (Auto) 500 (0-900) /uL Eos # (Auto) 0 (0-450) /uL Baso # (Auto) 100 (0-100) /uL ESR (0-20) MM/HR PT 12.2 (10.1-12.7) SECONDS INR 1.1 (0.9-1.3) APTT 53 H D (26.4-36.2) SECONDS Sodium (137-145) mmol/L Potassium (3.4-5.1) mmol/L Chloride (98-107) mmol/L Carbon Dioxide (22-32) mmol/L BUN (7-17) mg/dL Creatinine (0.52-1.04) mg/dL Estimated GFR (>60) mL/min BUN/Creatinine Ratio (6-22) Glucose (80-110) mg/dL Lactate (0.7-2.1) mmol/L Calcium (8.4-10.2) mg/dL Total Bilirubin (0.2-1.3) mg/dL AST (14-36) IU/L ALT (<35) IU/L Alkaline Phosphatase (38-126) U/L Total Creatine Kinase (30-135) U/L CK-MB (CK-2) (<2.37) ng/mL CK-MB (CK-2) Rel Index (1.5-5.0) % Troponin I (0.01-0.034) ng/mL C-Reactive Protein (<1.0) mg/dL Total Protein (6.3-8.2) g/dL Albumin (3.5-5.0) g/dL Globulin (1.7-4.1) g/dL Albumin/Globulin Ratio (1.0-2.8) Lipase (23-300) U/L Procalcitonin < 0.05 (<0.5) ng/mL Urine Color Urine Appearance Urine pH (4.5-8.0) Ur Specific Artemas (1.000-1.035) Urine Protein (Negative) Urine Glucose (UA) (Negative) g/dL Urine Ketones (NEGATIVE) Urine Occult Blood (Negative) Urine Nitrate (Negative) Urine Bilirubin (NEGATIVE) Urine Urobilinogen (0.2) E.U./dL Ur Leukocyte Esterase (NEGATIVE) Urine RBC (0-5/HPF) Urine WBC (0-5/HPF) Ur Squamous Epith Cells (0-5/HPF) Urine Bacteria (None) Ur Culture Indicated? U Opiates 300ng/mL cut (Negative) Ur Oxycodone Screen (Negative) Urine Methadone Screen (Negative) Ur Barbiturates Screen (Negative) U Tricyclic Antidepress (Negative) Ur Phencyclidine Scrn (Negative) Ur Amphetamines Screen (Negative) U Methamphetamines Scrn (Negative) Ur MDMA Scrn (Ecstasy) (Negative) U Benzodiazepines Scrn (Negative) Urine Cocaine Screen (Negative) U Marijuana (THC) Screen (Negative) Chlamy pneumoniae PCR (Not Detect) Adenovirus (PCR) (Not Detect) B.parapertussis DNA PCR (Not Detect) Coronavirus OC43 (PCR) (Not Detect) Coronavirus HKU1 (PCR) (Not Detect) Coronavirus 229E (PCR) (Not Detect) Coronavirus NL63 (PCR) (Not Detect) Human Metapneumovir PCR (Not Detect) Influenza Type A (PCR) (Not Detect) Influenza Type B (PCR) (Not Detect) M. pneumoniae (PCR) (Not Detect) Parainfluenza 1 (PCR) (Not Detect) Parainfluenza 2 (PCR) (Not Detect) Parainfluenza 3 (PCR) (Not Detect) Parainfluenza 4 (PCR) (Not Detect) RSV (PCR) (Not Detect) Entero/Rhino (PCR) (Not Detect) 07/10/19 07/10/19 07/10/19 Range/Units 15:46 15:46 15:46 WBC (4.5-11.0) X10^3/uL RBC (4.0-5.2) X10^6/uL Hgb (12.0-16.0) g/dL Hct (36-46) % MCV (80-100) fL MCH (26-34) PG MCHC (30-36) % RDW (11.6-14.8) % Plt Count (150-400) X10^3/uL Neut % (Auto) (50-75) % Lymph % (Auto) (25-40) % Vermilion % (Auto) (3-14) % Eos % (Auto) (2-4) % Baso % (Auto) (0-2) % Neut # (Auto) (8830-5726) /uL Lymph # (Auto) (3931-2443) /uL Vermilion # (Auto) (0-900) /uL Eos # (Auto) (0-450) /uL Baso # (Auto) (0-100) /uL ESR (0-20) MM/HR PT (10.1-12.7) SECONDS INR (0.9-1.3) APTT (26.4-36.2) SECONDS Sodium 139 (137-145) mmol/L Potassium 4.0 (3.4-5.1) mmol/L Chloride 105 (98-107) mmol/L Carbon Dioxide 24 (22-32) mmol/L BUN 26 H (7-17) mg/dL Creatinine 0.70 (0.52-1.04) mg/dL Estimated GFR > 60.0 (>60) mL/min BUN/Creatinine Ratio 37.1 H (6-22) Glucose 131 H (80-110) mg/dL Lactate 0.7 (0.7-2.1) mmol/L Calcium 10.1 (8.4-10.2) mg/dL Total Bilirubin 0.3 (0.2-1.3) mg/dL AST 39 H (14-36) IU/L ALT 28 (<35) IU/L Alkaline Phosphatase 92 (38-126) U/L Total Creatine Kinase 174 H (30-135) U/L CK-MB (CK-2) 8.12 H (<2.37) ng/mL CK-MB (CK-2) Rel Index 4.7 (1.5-5.0) % Troponin I < 0.012 (0.01-0.034) ng/mL C-Reactive Protein (<1.0) mg/dL Total Protein 7.7 (6.3-8.2) g/dL Albumin 4.4 (3.5-5.0) g/dL Globulin 3.3 (1.7-4.1) g/dL Albumin/Globulin Ratio 1.3 (1.0-2.8) Lipase 208 (23-300) U/L Procalcitonin (<0.5) ng/mL Urine Color Urine Appearance Urine pH (4.5-8.0) Ur Specific Artemas (1.000-1.035) Urine Protein (Negative) Urine Glucose (UA) (Negative) g/dL Urine Ketones (NEGATIVE) Urine Occult Blood (Negative) Urine Nitrate (Negative) Urine Bilirubin (NEGATIVE) Urine Urobilinogen (0.2) E.U./dL Ur Leukocyte Esterase (NEGATIVE) Urine RBC (0-5/HPF) Urine WBC (0-5/HPF) Ur Squamous Epith Cells (0-5/HPF) Urine Bacteria (None) Ur Culture Indicated? U Opiates 300ng/mL cut (Negative) Ur Oxycodone Screen (Negative) Urine Methadone Screen (Negative) Ur Barbiturates Screen (Negative) U Tricyclic Antidepress (Negative) Ur Phencyclidine Scrn (Negative) Ur Amphetamines Screen (Negative) U Methamphetamines Scrn (Negative) Ur MDMA Scrn (Ecstasy) (Negative) U Benzodiazepines Scrn (Negative) Urine Cocaine Screen (Negative) U Marijuana (THC) Screen (Negative) Chlamy pneumoniae PCR (Not Detect) Adenovirus (PCR) (Not Detect) B.parapertussis DNA PCR (Not Detect) Coronavirus OC43 (PCR) (Not Detect) Coronavirus HKU1 (PCR) (Not Detect) Coronavirus 229E (PCR) (Not Detect) Coronavirus NL63 (PCR) (Not Detect) Human Metapneumovir PCR (Not Detect) Influenza Type A (PCR) (Not Detect) Influenza Type B (PCR) (Not Detect) M. pneumoniae (PCR) (Not Detect) Parainfluenza 1 (PCR) (Not Detect) Parainfluenza 2 (PCR) (Not Detect) Parainfluenza 3 (PCR) (Not Detect) Parainfluenza 4 (PCR) (Not Detect) RSV (PCR) (Not Detect) Entero/Rhino (PCR) (Not Detect) 07/10/19 07/10/19 07/10/19 Range/Units 15:46 15:46 16:16 WBC (4.5-11.0) X10^3/uL RBC (4.0-5.2) X10^6/uL Hgb (12.0-16.0) g/dL Hct (36-46) % MCV (80-100) fL MCH (26-34) PG MCHC (30-36) % RDW (11.6-14.8) % Plt Count (150-400) X10^3/uL Neut % (Auto) (50-75) % Lymph % (Auto) (25-40) % Vermilion % (Auto) (3-14) % Eos % (Auto) (2-4) % Baso % (Auto) (0-2) % Neut # (Auto) (1423-4682) /uL Lymph # (Auto) (8741-8681) /uL Vermilion # (Auto) (0-900) /uL Eos # (Auto) (0-450) /uL Baso # (Auto) (0-100) /uL ESR 29 H (0-20) MM/HR PT (10.1-12.7) SECONDS INR (0.9-1.3) APTT (26.4-36.2) SECONDS Sodium (137-145) mmol/L Potassium (3.4-5.1) mmol/L Chloride (98-107) mmol/L Carbon Dioxide (22-32) mmol/L BUN (7-17) mg/dL Creatinine (0.52-1.04) mg/dL Estimated GFR (>60) mL/min BUN/Creatinine Ratio (6-22) Glucose (80-110) mg/dL Lactate (0.7-2.1) mmol/L Calcium (8.4-10.2) mg/dL Total Bilirubin (0.2-1.3) mg/dL AST (14-36) IU/L ALT (<35) IU/L Alkaline Phosphatase (38-126) U/L Total Creatine Kinase (30-135) U/L CK-MB (CK-2) (<2.37) ng/mL CK-MB (CK-2) Rel Index (1.5-5.0) % Troponin I (0.01-0.034) ng/mL C-Reactive Protein < 0.5 (<1.0) mg/dL Total Protein (6.3-8.2) g/dL Albumin (3.5-5.0) g/dL Globulin (1.7-4.1) g/dL Albumin/Globulin Ratio (1.0-2.8) Lipase (23-300) U/L Procalcitonin (<0.5) ng/mL Urine Color Urine Appearance Urine pH (4.5-8.0) Ur Specific Artemas (1.000-1.035) Urine Protein (Negative) Urine Glucose (UA) (Negative) g/dL Urine Ketones (NEGATIVE) Urine Occult Blood (Negative) Urine Nitrate (Negative) Urine Bilirubin (NEGATIVE) Urine Urobilinogen (0.2) E.U./dL Ur Leukocyte Esterase (NEGATIVE) Urine RBC (0-5/HPF) Urine WBC (0-5/HPF) Ur Squamous Epith Cells (0-5/HPF) Urine Bacteria (None) Ur Culture Indicated? U Opiates 300ng/mL cut Negative (Negative) Ur Oxycodone Screen Negative (Negative) Urine Methadone Screen Negative (Negative) Ur Barbiturates Screen Negative (Negative) U Tricyclic Antidepress Negative (Negative) Ur Phencyclidine Scrn Negative (Negative) Ur Amphetamines Screen Negative (Negative) U Methamphetamines Scrn Negative (Negative) Ur MDMA Scrn (Ecstasy) Negative (Negative) U Benzodiazepines Scrn Negative (Negative) Urine Cocaine Screen Negative (Negative) U Marijuana (THC) Screen Negative (Negative) Chlamy pneumoniae PCR (Not Detect) Adenovirus (PCR) (Not Detect) B.parapertussis DNA PCR (Not Detect) Coronavirus OC43 (PCR) (Not Detect) Coronavirus HKU1 (PCR) (Not Detect) Coronavirus 229E (PCR) (Not Detect) Coronavirus NL63 (PCR) (Not Detect) Human Metapneumovir PCR (Not Detect) Influenza Type A (PCR) (Not Detect) Influenza Type B (PCR) (Not Detect) M. pneumoniae (PCR) (Not Detect) Parainfluenza 1 (PCR) (Not Detect) Parainfluenza 2 (PCR) (Not Detect) Parainfluenza 3 (PCR) (Not Detect) Parainfluenza 4 (PCR) (Not Detect) RSV (PCR) (Not Detect) Entero/Rhino (PCR) (Not Detect) 07/10/19 07/10/19 Range/Units 16:26 17:02 WBC (4.5-11.0) X10^3/uL RBC (4.0-5.2) X10^6/uL Hgb (12.0-16.0) g/dL Hct (36-46) % MCV (80-100) fL MCH (26-34) PG MCHC (30-36) % RDW (11.6-14.8) % Plt Count (150-400) X10^3/uL Neut % (Auto) (50-75) % Lymph % (Auto) (25-40) % Vermilion % (Auto) (3-14) % Eos % (Auto) (2-4) % Baso % (Auto) (0-2) % Neut # (Auto) (8908-4280) /uL Lymph # (Auto) (4388-0602) /uL Vermilion # (Auto) (0-900) /uL Eos # (Auto) (0-450) /uL Baso # (Auto) (0-100) /uL ESR (0-20) MM/HR PT (10.1-12.7) SECONDS INR (0.9-1.3) APTT (26.4-36.2) SECONDS Sodium (137-145) mmol/L Potassium (3.4-5.1) mmol/L Chloride (98-107) mmol/L Carbon Dioxide (22-32) mmol/L BUN (7-17) mg/dL Creatinine (0.52-1.04) mg/dL Estimated GFR (>60) mL/min BUN/Creatinine Ratio (6-22) Glucose (80-110) mg/dL Lactate (0.7-2.1) mmol/L Calcium (8.4-10.2) mg/dL Total Bilirubin (0.2-1.3) mg/dL AST (14-36) IU/L ALT (<35) IU/L Alkaline Phosphatase (38-126) U/L Total Creatine Kinase (30-135) U/L CK-MB (CK-2) (<2.37) ng/mL CK-MB (CK-2) Rel Index (1.5-5.0) % Troponin I (0.01-0.034) ng/mL C-Reactive Protein (<1.0) mg/dL Total Protein (6.3-8.2) g/dL Albumin (3.5-5.0) g/dL Globulin (1.7-4.1) g/dL Albumin/Globulin Ratio (1.0-2.8) Lipase (23-300) U/L Procalcitonin (<0.5) ng/mL Urine Color Yellow Urine Appearance Clear Urine pH 7.0 (4.5-8.0) Ur Specific Artemas 1.015 (1.000-1.035) Urine Protein Negative (Negative) Urine Glucose (UA) Negative (Negative) g/dL Urine Ketones Negative (NEGATIVE) Urine Occult Blood Trace-intact (Negative) Urine Nitrate Negative (Negative) Urine Bilirubin Negative (NEGATIVE) Urine Urobilinogen 0.2 (0.2) E.U./dL Ur Leukocyte Esterase Negative (NEGATIVE) Urine RBC 0-1/hpf (0-5/HPF) Urine WBC 0-1/hpf (0-5/HPF) Ur Squamous Epith Cells 0-1 /hpf (0-5/HPF) Urine Bacteria None seen (None) Ur Culture Indicated? Cult not indicated U Opiates 300ng/mL cut (Negative) Ur Oxycodone Screen (Negative) Urine Methadone Screen (Negative) Ur Barbiturates Screen (Negative) U Tricyclic Antidepress (Negative) Ur Phencyclidine Scrn (Negative) Ur Amphetamines Screen (Negative) U Methamphetamines Scrn (Negative) Ur MDMA Scrn (Ecstasy) (Negative) U Benzodiazepines Scrn (Negative) Urine Cocaine Screen (Negative) U Marijuana (THC) Screen (Negative) Chlamy pneumoniae PCR Not detected (Not Detect) Adenovirus (PCR) Not detected (Not Detect) B.parapertussis DNA PCR Not detected (Not Detect) Coronavirus OC43 (PCR) Not detected (Not Detect) Coronavirus HKU1 (PCR) Not detected (Not Detect) Coronavirus 229E (PCR) Not detected (Not Detect) Coronavirus NL63 (PCR) Not detected (Not Detect) Human Metapneumovir PCR Not detected (Not Detect) Influenza Type A (PCR) Not detected (Not Detect) Influenza Type B (PCR) Not detected (Not Detect) M. pneumoniae (PCR) Not detected (Not Detect) Parainfluenza 1 (PCR) Not detected (Not Detect) Parainfluenza 2 (PCR) Not detected (Not Detect) Parainfluenza 3 (PCR) Not detected (Not Detect) Parainfluenza 4 (PCR) Not detected (Not Detect) RSV (PCR) Not detected (Not Detect) Entero/Rhino (PCR) Not detected (Not Detect) MDM Narrative Medical decision making narrative: Patient seen briefly by myself. Case discussed and imaging was obtained of back as well as Ct head with recent surgery, labs and plan reviewed. Concern for infection at surgical site and discussed with surgery with plan for consultation and admission to medicine. Discharge Plan Departure Patient Disposition: Admitted As Inpatient Clinical Impression: Postoperative wound abscess Discharge Date/Time: 07/10/19 20:40 Admit Date/Time: 07/10/19 19:55 Admit Provider: Isreal Sheets
[2019-07-10 20:35] VITALS: BP 164/71; PULSE 67; RESP 18; TEMP 37.7; O2SAT 96
[2019-07-10 20:40] VITALS: BP 170/77; PULSE 69; RESP 18; TEMP 36.3; O2SAT 96
[2019-07-10 21:30] VITALS: BMI 43.1
[2019-07-10] MEDS: SODIUM CHLORIDE 0.9% 1,000 ML 100 ML IV (22:23)
[2019-07-10] MEDS: CYCLOBENZAPRINE 10 MG TABLET PO (22:28)
[2019-07-10] MEDS: DOCUSATE 100 MG CAPSULE PO (22:28)
[2019-07-10] MEDS: MELOXICAM 7.5 MG TABLET PO (22:29)
[2019-07-10] MEDS: lisinopriL 20 MG TABLET PO (22:31)
[2019-07-10] MEDS: OXYBUTYNIN 5 MG ER TAB PO (22:33)
[2019-07-10] MEDS: SIMVASTATIN 20 MG TABLET PO (22:33)
[2019-07-10] MEDS: GLIMEPIRIDE 2 MG TABLET 1 MG PO (22:33)
[2019-07-10] MEDS: BRIMONIDINE 0.1% OPHTH 5 ML 1 DROPS EYE-RIGHT (22:34)
--- NOTE | 2019-07-10 22:40 | P.HP_ITS ---
History of Present Illness History of Present Illness Date Patient Seen: 07/10/19 Time Patient Seen: 22:40 Chief complaint: Fever Narrative: Ms. Carrie Cortez is a 73-year-old female patient with a history significant for morbid obesity, diabetes type 2, hypertension, hyperlipidemia, asthma, GERD, hypothyroidism, osteoarthritis degenerative joint disease and memory loss presents to the ER with her son sent in by their PCP for a training surgical wound. While there the patient was found to have a fever and confusion and sent to the emergency department. The patient was discharged to home following rehabilitation where she lives alone 1 week ago and has been otherwise doing well. The patient has had a prior hospitalization on 06/02/2019 for draining surgical wound following a L4-5, L5-S1 lumbar fusion with instrumentation done on 04/24/2019. At that time the patient had been treated with vancomycin IV and discharged on Keflex for oxacillin sensitive Staph aureus with multiple resistances. The patient states she continues to ambulates with 2 canes. She denies falls. She denies complaints of fevers chills or headache. She has been far mental allergies but denies nasal congestion or sore throat. She denies chest pain or palpitations, shortness of breath cough or wheezing. She reports experiencing diarrhea which her son is concerned is related to an increased dose of Victoza. She reports bilateral foot numbness and tingling ?feeling like my feet are half asleep? but no motor deficits identified. Upon arrival to the ER the patient is afebrile with a temperature of 97.4?, his heart rate of 89, blood pressure 161/71, respirations of 18 and oxygen saturation 97% on room air. Cells noted that time the patient has a pain level is 7/10. Imaging is obtained including a chest x-ray which was unremarkable, CT of the head which was unremarkable and spinal CT which found fluid collection surrounding the left kehinde laminectomy surgical bed at L4-5. The patient's wound is cultured. On laboratory analysis the patient has a white count of 7.2, hemoglobin of 12.6, hematocrit of 37.1 and platelets of 345. She has a PT of 12.2, INR of 1.1 and a PTT of 53. On chemistries are electrolytes are within normal limits that she has a BUN of 26 and creatinine 0.7 and a nonfasting glucose of 131. Her LFTs are within normal range. She has lactic acid is 0.7 and in ESR of 29. She does have an elevated total CK at 174 with an MB of 8.12 an index of 4.7 and a negative troponin at less than 0.012. Her urinalysis shows no infection. Dr. Ledbetter is consulted from the ER who agrees to consult. The patient is admitted to medicine service for continuing treatment and evaluation. Patient History Medical History Arthritis (Acute) Diabetes (Acute) Easy bruisability (Acute) Edema (Acute) Hair loss (Acute) Heartburn (Acute) HLD (hyperlipidemia) (Acute) HTN (hypertension) (Acute) Hypothyroid (Acute) Pneumonia (Acute) Sciatica (Acute) Seasonal allergies (Acute) Wrinkled retina, right eye (Acute) Surgical History H/O: hysterectomy (Acute) Hx laparoscopic cholecystectomy (Acute) Hx of bilateral cataract extraction (Acute) Family & Social History Family History Father Emphysema of lung Mother Diabetes mellitus Obesity Social History: household members none Prior Living Arrangements House Safety & Behavioral: Feels Safe in Current Yes Environment Been Physically Hurt or No Threatened By a Person Suicidal Ideation Description None Suicide Plan Description No Plan Tobacco & Substance use: Smoking Status Former smoker alcohol intake never Substance Use Type does not use Comment: Patient lives in a single family home by herself. She has been for 3-4 years. Her father was a heavy smoker in from complications of emphysema in his 50s. Her mother was obese with diabetes and heart attack in her mid 50s. She has 4 brothers and 2 sisters and 3 children. Smoking: Patient quit smoking 35 years ago before which she was a social smoker but had significant secondhand exposure from her father. Alcohol: Patient denies consuming alcohol stating she is allergic. Substance use: Patient denies recreation pharmaceuticals herbal or cannabis products. Advanced directives: Patient states she has an advanced directive and states her desire to be FULL CODE. She designates her son Jarrod to be her surrogate decision maker. Meds Home Medications and Allergies Home Medications Medication Instructions Recorded Confirmed Type acetaminophen [Tylenol Extra 1,000 mg PO TID #0 05/10/17 07/10/19 History Strength] cholecalciferol (vitamin D3) 2,000 iu PO DAILY #0 05/10/17 07/10/19 History [Vitamin D3] glimepiride [Amaryl] 1 mg PO BID #0 05/10/17 07/10/19 History hydrochlorothiazide 25 mg PO DAILY #0 05/10/17 07/10/19 History levothyroxine [Synthroid] 150 mcg PO QAM #0 05/10/17 07/10/19 History Flovent HFA 2 puff INHALATION BID 04/06/19 07/10/19 History cyclobenzaprine 10 mg PO TID PRN 04/06/19 07/10/19 History diphenhydramine HCl [Benadryl] 50 mg PO BEDTIME PRN 04/06/19 07/10/19 History felodipine 10 mg PO QAM 04/06/19 07/10/19 History lisinopril 20 mg PO BEDTIME 04/06/19 07/10/19 History meclizine 25 mg PO DAILY PRN 04/06/19 07/10/19 History meloxicam 7.5 mg PO BID 04/06/19 07/10/19 History oxybutynin chloride 5 mg PO BEDTIME 04/06/19 07/10/19 History simvastatin 20 mg PO BEDTIME 04/06/19 07/10/19 History Alphagan P 0.1 % EYE-RIGHT BID 04/26/19 07/10/19 History aspirin 81 mg PO DAILY #30 tab 04/27/19 07/10/19 Rx hydroxyzine pamoate 25 mg PO Q6-8H PRN #30 cap 04/27/19 07/10/19 Rx Victoza 3-Wilfredo 1.2 mg SUBCUT BEDTIME 06/02/19 07/10/19 History gabapentin 300 mg PO BID 06/02/19 07/10/19 History dorzolamide 1 drops EYE-RIGHT BID 30 Days #2 ml 06/03/19 07/10/19 Rx ranitidine HCl 300 mg PO QPM 30 Days #60 cap 06/03/19 07/10/19 Rx loratadine [Claritin] 10 mg PO DAILY 07/10/19 07/10/19 History multivitamin with minerals 1 tab PO DAILY 07/10/19 07/10/19 History oxybutynin chloride 5 mg PO BEDTIME 07/10/19 07/10/19 History Allergies Allergy/AdvReac Type Severity Reaction Status Date / Time adhesive tape Allergy Severe Rash Verified 06/01/19 17:19 alcohol Allergy Severe Vomiting Verified 06/01/19 17:19 Penicillins Allergy Reaction Verified 06/01/19 17:19 unknown, Told me years ago I was allergic gabapentin AdvReac Severe Diarrhea Verified 06/01/19 17:19 meperidine [From Demerol] AdvReac Severe feeling Verified 06/01/19 17:19 of falling off a georgette propoxyphene [From Darvon] AdvReac Severe feeling Verified 06/01/19 17:19 of falling off a georgette Review of Systems Review of Systems ROS: Yes All systems reviewed with the patient and are negative except as ot herwise documented Exam Vital Signs (past 8 hours): - 07/10/19 15:23 07/10/19 20:40 Temperature 97.4 F L 97.4 F L Pulse Rate 89 69 Respiratory Rate 18 18 Blood Pressure 161/71 H 170/77 H Pulse Oximetry 97 96 Oxygen Delivery Method Room Air Narrative Exam Narrative: GENERAL APPEARANCE: well developed, morbidly obese with a BMI of 43.1, supine in bed in no acute distress. HEENT: Normocephalic, PERRLA, conjunctiva clear, sclera anicteric, EOMs intact without nystagmus, mucous membranes are dry and pink without lesions or exudate. NECK/THYROID: neck supple, no JVD, no thyromegaly, trachea midline. LYMPH NODES: no cervical or supraclavicular lymphadenopathy. SKIN: [place], warm and dry. HEART: regular rate and rhythm, S1-S2, no murmur, no rubs or gallops, brisk capillary refill, trace bilateral lower extremity edema LUNGS: clear to auscultation bilaterally, no coarseness crackles or wheezing, no cough present CHEST: Symmetrical movement, no accessory muscle use, good tidal volume. ABDOMEN: Soft, obese, no abdominal tenderness, no guarding or peritoneal signs, no organomegaly, exam limited by body habitus, active bowel tones. BACK: Two gloria spinal lumbar incisions, 5 mm wound with scant drainage from the right incision. EXTREMITIES: moves all extremities, strength is 4/5 and symmetrical, hip pain with straight leg raise, no deformities or joint effusions. NEUROLOGIC: AAO to person place and time, blunted affect, slow responses with impaired recall, cranial nerves II-XII grossly intact, sensation intact to light touch, hearing grossly normal to speech. PSYCH: Flat affect, defers to her son at bedside, cooperative, appropriate with stable behavior. Objective Labs Result Diagrams: 07/10/19 15:46 07/10/19 15:46 Labs: Laboratory Results - last 24 hr 07/10/19 07/10/19 07/10/19 15:46 15:46 15:46 WBC 7.2 RBC 3.91 L Hgb 12.6 Hct 37.1 MCV 94.8 MCH 32.2 MCHC 33.9 RDW 14.3 Plt Count 345 Neut % (Auto) 71.8 Lymph % (Auto) 20.3 L [place] % (Auto) 6.8 Eos % (Auto) 0.4 L Baso % (Auto) 0.7 Neut # (Auto) 5200 Lymph # (Auto) 1500 [place] # (Auto) 500 Eos # (Auto) 0 Baso # (Auto) 100 ESR PT 12.2 INR 1.1 APTT 53 H D Sodium Potassium Chloride Carbon Dioxide BUN Creatinine Estimated GFR BUN/Creatinine Ratio Glucose Lactate Calcium Total Bilirubin AST ALT Alkaline Phosphatase Total Creatine Kinase CK-MB (CK-2) CK-MB (CK-2) Rel Index Troponin I C-Reactive Protein Total Protein Albumin Globulin Albumin/Globulin Ratio Lipase Procalcitonin < 0.05 Urine Color Urine Appearance Urine pH Ur Specific [place] Urine Protein Urine Glucose (UA) Urine Ketones Urine Occult Blood Urine Nitrate Urine Bilirubin Urine Urobilinogen Ur Leukocyte Esterase Urine RBC Urine WBC Ur Squamous Epith Cells Urine Bacteria Ur Culture Indicated? U Opiates 300ng/mL cut Ur Oxycodone Screen Urine Methadone Screen Ur Barbiturates Screen U Tricyclic Antidepress Ur Phencyclidine Scrn Ur Amphetamines Screen U Methamphetamines Scrn Ur MDMA Scrn (Ecstasy) U Benzodiazepines Scrn Urine Cocaine Screen U Marijuana (THC) Screen Chlamy pneumoniae PCR Adenovirus (PCR) B.parapertussis DNA PCR Coronavirus OC43 (PCR) Coronavirus HKU1 (PCR) Coronavirus 229E (PCR) Coronavirus NL63 (PCR) Human Metapneumovir PCR Influenza Type A (PCR) Influenza Type B (PCR) M. pneumoniae (PCR) Parainfluenza 1 (PCR) Parainfluenza 2 (PCR) Parainfluenza 3 (PCR) Parainfluenza 4 (PCR) RSV (PCR) Entero/Rhino (PCR) 07/10/19 07/10/19 07/10/19 15:46 15:46 15:46 WBC RBC Hgb Hct MCV MCH MCHC RDW Plt Count Neut % (Auto) Lymph % (Auto) [place] % (Auto) Eos % (Auto) Baso % (Auto) Neut # (Auto) Lymph # (Auto) [place] # (Auto) Eos # (Auto) Baso # (Auto) ESR PT INR APTT Sodium 139 Potassium 4.0 Chloride 105 Carbon Dioxide 24 BUN 26 H Creatinine 0.70 Estimated GFR > 60.0 BUN/Creatinine Ratio 37.1 H Glucose 131 H Lactate 0.7 Calcium 10.1 Total Bilirubin 0.3 AST 39 H ALT 28 Alkaline Phosphatase 92 Total Creatine Kinase 174 H CK-MB (CK-2) 8.12 H CK-MB (CK-2) Rel Index 4.7 Troponin I < 0.012 C-Reactive Protein Total Protein 7.7 Albumin 4.4 Globulin 3.3 Albumin/Globulin Ratio 1.3 Lipase 208 Procalcitonin Urine Color Urine Appearance Urine pH Ur Specific [place] Urine Protein Urine Glucose (UA) Urine Ketones Urine Occult Blood Urine Nitrate Urine Bilirubin Urine Urobilinogen Ur Leukocyte Esterase Urine RBC Urine WBC Ur Squamous Epith Cells Urine Bacteria Ur Culture Indicated? U Opiates 300ng/mL cut Ur Oxycodone Screen Urine Methadone Screen Ur Barbiturates Screen U Tricyclic Antidepress Ur Phencyclidine Scrn Ur Amphetamines Screen U Methamphetamines Scrn Ur MDMA Scrn (Ecstasy) U Benzodiazepines Scrn Urine Cocaine Screen U Marijuana (THC) Screen Chlamy pneumoniae PCR Adenovirus (PCR) B.parapertussis DNA PCR Coronavirus OC43 (PCR) Coronavirus HKU1 (PCR) Coronavirus 229E (PCR) Coronavirus NL63 (PCR) Human Metapneumovir PCR Influenza Type A (PCR) Influenza Type B (PCR) M. pneumoniae (PCR) Parainfluenza 1 (PCR) Parainfluenza 2 (PCR) Parainfluenza 3 (PCR) Parainfluenza 4 (PCR) RSV (PCR) Entero/Rhino (PCR) 07/10/19 07/10/1907/10/20 15:46 15:46 16:16 WBC RBC Hgb Hct MCV MCH MCHC RDW Plt Count Neut % (Auto) Lymph % (Auto) [place] % (Auto) Eos % (Auto) Baso % (Auto) Neut # (Auto) Lymph # (Auto) [place] # (Auto) Eos # (Auto) Baso # (Auto) ESR 29 H PT INR APTT Sodium Potassium Chloride Carbon Dioxide BUN Creatinine Estimated GFR BUN/Creatinine Ratio Glucose Lactate Calcium Total Bilirubin AST ALT Alkaline Phosphatase Total Creatine Kinase CK-MB (CK-2) CK-MB (CK-2) Rel Index Troponin I C-Reactive Protein < 0.5 Total Protein Albumin Globulin Albumin/Globulin Ratio Lipase Procalcitonin Urine Color Urine Appearance Urine pH Ur Specific [place] Urine Protein Urine Glucose (UA) Urine Ketones Urine Occult Blood Urine Nitrate Urine Bilirubin Urine Urobilinogen Ur Leukocyte Esterase Urine RBC Urine WBC Ur Squamous Epith Cells Urine Bacteria Ur Culture Indicated? U Opiates 300ng/mL cut Negative Ur Oxycodone Screen Negative Urine Methadone Screen Negative Ur Barbiturates Screen Negative U Tricyclic Antidepress Negative Ur Phencyclidine Scrn Negative Ur Amphetamines Screen Negative U Methamphetamines Scrn Negative Ur MDMA Scrn (Ecstasy) Negative U Benzodiazepines Scrn Negative Urine Cocaine Screen Negative U Marijuana (THC) Screen Negative Chlamy pneumoniae PCR Adenovirus (PCR) B.parapertussis DNA PCR Coronavirus OC43 (PCR) Coronavirus HKU1 (PCR) Coronavirus 229E (PCR) Coronavirus NL63 (PCR) Human Metapneumovir PCR Influenza Type A (PCR) Influenza Type B (PCR) M. pneumoniae (PCR) Parainfluenza 1 (PCR) Parainfluenza 2 (PCR) Parainfluenza 3 (PCR) Parainfluenza 4 (PCR) RSV (PCR) Entero/Rhino (PCR) 07/10/19 07/10/19 16:26 17:02 WBC RBC Hgb Hct MCV MCH MCHC RDW Plt Count Neut % (Auto) Lymph % (Auto) [place] % (Auto) Eos % (Auto) Baso % (Auto) Neut # (Auto) Lymph # (Auto) [place] # (Auto) Eos # (Auto) Baso # (Auto) ESR PT INR APTT Sodium Potassium Chloride Carbon Dioxide BUN Creatinine Estimated GFR BUN/Creatinine Ratio Glucose Lactate Calcium Total Bilirubin AST ALT Alkaline Phosphatase Total Creatine Kinase CK-MB (CK-2) CK-MB (CK-2) Rel Index Troponin I C-Reactive Protein Total Protein Albumin Globulin Albumin/Globulin Ratio Lipase Procalcitonin Urine Color Yellow Urine Appearance Clear Urine pH 7.0 Ur Specific [place] 1.015 Urine Protein Negative Urine Glucose (UA) Negative Urine Ketones Negative Urine Occult Blood Trace-intact Urine Nitrate Negative Urine Bilirubin Negative Urine Urobilinogen 0.2 Ur Leukocyte Esterase Negative Urine RBC 0-1/hpf Urine WBC 0-1/hpf Ur Squamous Epith Cells 0-1 /hpf Urine Bacteria None seen Ur Culture Indicated? Cult not indicated U Opiates 300ng/mL cut Ur Oxycodone Screen Urine Methadone Screen Ur Barbiturates Screen U Tricyclic Antidepress Ur Phencyclidine Scrn Ur Amphetamines Screen U Methamphetamines Scrn Ur MDMA Scrn (Ecstasy) U Benzodiazepines Scrn Urine Cocaine Screen U Marijuana (THC) Screen Chlamy pneumoniae PCR Not detected Adenovirus (PCR) Not detected B.parapertussis DNA PCR Not detected Coronavirus OC43 (PCR) Not detected Coronavirus HKU1 (PCR) Not detected Coronavirus 229E (PCR) Not detected Coronavirus NL63 (PCR) Not detected Human Metapneumovir PCR Not detected Influenza Type A (PCR) Not detected Influenza Type B (PCR) Not detected M. pneumoniae (PCR) Not detected Parainfluenza 1 (PCR) Not detected Parainfluenza 2 (PCR) Not detected Parainfluenza 3 (PCR) Not detected Parainfluenza 4 (PCR) Not detected RSV (PCR) Not detected Entero/Rhino (PCR) Not detected Assessment & Plan Assessment & Plan narrative: 1. Postoperative wound infection, status post lumbar spinal fusion, present on admission, active. -patient underwent lumbar laminectomy and fusion of L4-5, L5-S1 on 04/24/2019, discharge to [facility] where she was discharged 1 week ago following rehab. While at rehab the patient was treated with Keflex for oxacil justine sensitive Staph aureus with multiple antibiotic resistances. -seen by PCP today related to drainage from 5 mm lumbar wound with drainage, was found febrile with confusion, patient was referred to the emergency department. -lab findings: White count 7.2 without increased neutrophils, ESR 29, lactic acid is 0.7. -CT scan finds a fluid collection in the left hemilaminectomy surgical bed at L4-5. -wound culture obtained in the ER culture obtained, gram stain identifies 3+ positive cocci. Blood cultures obtained. -Dr. Ledbetter, orthopedics, consulted from the ER, appreciate Orthopedics evaluati on treatment and recommendations. Patient is NPO pending evaluation. -ordered vancomycin 1500 mg IV every 12 hours, pharmacy to dose. -continue gabapentin 300 mg twice daily and meloxicam 7.5 mg twice daily with good renal function. -acetaminophen 975 mg every 8 hours as needed for pain 2. Diabetes type 2, non insulin-dependent, chronic, present on admission, active -serum glucose on admission labs is 131, patient does report neuropathy the feet, no evidence of nephropathy with good renal function. -will continue glimepiride and patient may use own Victoza. -blood sugars is every 6 hours while NPO, sliding scale correctional insulin low range. 3. Essential hypertension, chronic, present on admission, active -blood pressure on admission is 161/71 improving to 137/62 upon arrival to acute care.. -will continue home regimen of lisinopril 20 mg daily and hydrochlorothiazide 25 mg daily. 4. Asthma, chronic, stable. -presumed to be mild persistent with the patient using Flovent twice daily. -respiratory therapy to consult. -albuterol nebulizer every 2 hours as needed for shortness of breath or wheezing. -continue home regimen of Flovent 2 puffs twice daily. 5. Gastroesophageal reflux disorder, chronic, stable. -no complaints of abdominal pain or heartburn. -continue home regimen of ranitidine 300 mg each evening. 6. Hyperlipidemia, chronic, presumed stable -will continue home regimen of simvastatin 20 mg daily at bedtime. 7. Acquired hypothyroidism, chronic, presumed stable. -will continue home regimen of levothyroxine 150 mcg daily. 8. Overactive bladder, chronic, stable -continue home regimen of oxybutynin 5 mg at bedtime 9. Impaired memory, chronic. -patient with impaired memory and recall, the patient is for 3-4 years and lives alone. -the patient lives alone with support of her son who sets up her medications for her. -OT evaluation completed on prior admission and appears to have adequate resources for community living. VTE prophylaxis: SCDs, heparin Diet: NPO pending surgery eval. IVF: Normal saline 100 cc/hour The patient is admitted to the hospital with a postoperative wound infection requiring IV antibiotics and surgical evaluation. The patient is admitted as observation with expected length stay to be less than 2 midnights. Scores GCS [place] coma scale eye opening: Spontaneous [place] coma scale verbal response: Orientated [place] coma scale motor response: Obey commands [place] coma scale total score: 15 Quality VTE Deep Vein Thrombosis/Pulmonary Embolism Present on Admission: No
[2019-07-10] MEDS: MELATONIN 3 MG TABLET 6 MG PO (23:01)
[2019-07-10] MEDS: FLUTICASONE 44 MCG HFA 120 PUFF INH INH (23:23)
[2019-07-10 23:28] VITALS: PULSE 62; RESP 20; O2SAT 95
[2019-07-11] VITALS: BP 137/62; PULSE 96; RESP 17; TEMP 37.5; O2SAT 97
[2019-07-11] MEDS: VANCOMYCIN 1,500 MG/300 ML FROZ.PIGGY 200 MG IV (00:14)
[2019-07-11 05:50] VITALS: BP 147/60; PULSE 64; RESP 19; TEMP 37.3; O2SAT 98
[2019-07-11] MEDS: INSULIN ASPART 100 UNIT/ML INSULN PEN SUBCUT (06:17)
[2019-07-11] MEDS: SODIUM CHLORIDE 0.9% 1,000 ML 100 ML IV (06:57)
[2019-07-11 06:59] LABS: Add Manual Diff / Slide Review NO; Basophils Absolute Auto 100 /uL (0-100); Basophils Percent Auto 0.9 % (0-2); Eosinophils Absolute Auto 200 /uL (0-450); Eosinophils Percent Auto 2.6 % (2-4); Hematocrit 34.8 % (36-46); Hemoglobin 11.6 g/dL (12.0-16.0); Lymphocytes Absolute Auto 1000 /uL (1100-4500); Lymphocytes Percent Auto 17.4 % (25-40); Mean Corpuscular HGB Conc 33.3 % (30-36); Mean Corpuscular Hemoglobin 31.6 PG (26-34); Mean Corpuscular Volume 94.9 fL (80-100); Monocytes Absolute Auto 600 /uL (0-900); Monocytes Percent Auto 10.8 % (3-14); Neutrophils Absolute Auto 4000 /uL (1500-7000); Neutrophils Percent Auto 68.3 % (50-75); Platelet Count 274 X10^3/uL (150-400); Red Blood Cell Count 3.67 X10^6/uL (4.0-5.2); Red Cell Distribution Width 14.5 % (11.6-14.8); White Blood Cell Count 5.9 X10^3/uL (4.5-11.0)
[2019-07-11 07:06] LABS: BUN Creatinine Ratio 24.3 (6-22); Blood Urea Nitrogen 17 mg/dL (7-17); Calcium 9.2 mg/dL (8.4-10.2); Carbon Dioxide 23 mmol/L (22-32); Chloride 107 mmol/L (98-107); Estimated Glomerular Filt Rate > 60.0 mL/min (>60); Glucose 142 mg/dL (80-110); HEMOLYSIS 16 (0-50); Potassium 4.1 mmol/L (3.4-5.1); Sodium 139 mmol/L (137-145)
[2019-07-11 07:45] VITALS: BP 115/52; PULSE 60; RESP 16; TEMP 36.4; O2SAT 93
--- NOTE | 2019-07-11 10:07 | P.PN_ITS ---
Subjective Subjective Date Patient Seen: 07/11/19 Interval history: The patient is resting in bed comfortably and in no acute distress. He or she denies headache, ear pain, rhinitis, sore throat, cough, shortness of breath, chest pain, abdominal pain, nausea, vomiting, fever, chills, dysuria, diarrhea or constipation. He or she is voiding and eliminating without difficulty. He or she is up ambulating without or with assistance. Exam Vital Signs (past 8 hours): - 07/11/19 05:50 07/11/19 07:45 Temperature 99.2 F 97.6 F Pulse Rate 64 60 Respiratory Rate 19 16 Blood Pressure 147/60 H 115/52 L Pulse Oximetry 98 93 Oxygen Delivery Method Room Air Oxygen Flow Rate 0 Narrative Exam Narrative: General: No acute distress, well-developed, well-nourished, appropriately interactive HEENT: Normocephalic, atraumatic. External ears without defect. Pupils equal, round, and reactive to light and accommodation. Anicteric sclerae, moist conjunctivae, and no lid lag. Oropharynx free of erythema and cobble stoning with moist mucosa. Neck: Supple with full range of motion. No jugular venous distension. No bruits. No lymphadenopathy or thyromegaly. Cardiovascular: Regular rate and rhythm without murmurs, rubs, or gallops appreciated Pulmonary: Clear to auscultation bilaterally without crackles, wheezes, or rhonchi. Normal respiratory effort with no use of accessory muscles. Abdomen: Bowel tones present. Soft, nontender, nondistended. No hepatosplenomegaly or masses appreciated. Extremities: No clubbing, cyanosis, or edema. Skin: Normal temperature, turgor, and texture; no rash, ulcers, or subcutaneous nodules appreciated. Neurological: Cranial nerves grossly intact. Normal muscle strength, tone, and bulk. Reflexes, coordination, and sensory function within normal limits. No known gait impairment. Psychiatric: Normal mood and affect. Alert and oriented to person, place, and time. Objective Labs Result Diagrams: 07/11/19 06:45 07/11/19 06:45 Labs: Laboratory Results - last 24 hr 07/10/19 07/10/19 07/10/19 15:46 15:46 15:46 WBC 7.2 RBC 3.91 L Hgb 12.6 Hct 37.1 MCV 94.8 MCH 32.2 MCHC 33.9 RDW 14.3 Plt Count 345 Neut % (Auto) 71.8 Lymph % (Auto) 20.3 L [place] % (Auto) 6.8 Eos % (Auto) 0.4 L Baso % (Auto) 0.7 Neut # (Auto) 5200 Lymph # (Auto) 1500 [place] # (Auto) 500 Eos # (Auto) 0 Baso # (Auto) 100 ESR PT 12.2 INR 1.1 APTT 53 H D Sodium Potassium Chloride Carbon Dioxide BUN Creatinine Estimated GFR BUN/Creatinine Ratio Glucose Lactate Calcium Total Bilirubin AST ALT Alkaline Phosphatase Total Creatine Kinase CK-MB (CK-2) CK-MB (CK-2) Rel Index Troponin I C-Reactive Protein Total Protein Albumin Globulin Albumin/Globulin Ratio Lipase Procalcitonin < 0.05 Urine Color Urine Appearance Urine pH Ur Specific [place] Urine Protein Urine Glucose (UA) Urine Ketones Urine Occult Blood Urine Nitrate Urine Bilirubin Urine Urobilinogen Ur Leukocyte Esterase Urine RBC Urine WBC Ur Squamous Epith Cells Urine Bacteria Ur Culture Indicated? U Opiates 300ng/mL cut Ur Oxycodone Screen Urine Methadone Screen Ur Barbiturates Screen U Tricyclic Antidepress Ur Phencyclidine Scrn Ur Amphetamines Screen U Methamphetamines Scrn Ur MDMA Scrn (Ecstasy) U Benzodiazepines Scrn Urine Cocaine Screen U Marijuana (THC) Screen Chlamy pneumoniae PCR Adenovirus (PCR) B.parapertussis DNA PCR Coronavirus OC43 (PCR) Coronavirus HKU1 (PCR) Coronavirus 229E (PCR) Coronavirus NL63 (PCR) Human Metapneumovir PCR Influenza Type A (PCR) Influenza Type B (PCR) M. pneumoniae (PCR) Parainfluenza 1 (PCR) Parainfluenza 2 (PCR) Parainfluenza 3 (PCR) Parainfluenza 4 (PCR) RSV (PCR) Entero/Rhino (PCR) 07/10/19 07/10/19 07/10/19 15:46 15:46 15:46 WBC RBC Hgb Hct MCV MCH MCHC RDW Plt Count Neut % (Auto) Lymph % (Auto) [place] % (Auto) Eos % (Auto) Baso % (Auto) Neut # (Auto) Lymph # (Auto) [place] # (Auto) Eos # (Auto) Baso # (Auto) ESR PT INR APTT Sodium 139 Potassium 4.0 Chloride 105 Carbon Dioxide 24 BUN 26 H Creatinine 0.70 Estimated GFR > 60.0 BUN/Creatinine Ratio 37.1 H Glucose 131 H Lactate 0.7 Calcium 10.1 Total Bilirubin 0.3 AST 39 H ALT 28 Alkaline Phosphatase 92 Total Creatine Kinase 174 H CK-MB (CK-2) 8.12 H CK-MB (CK-2) Rel Index 4.7 Troponin I < 0.012 C-Reactive Protein Total Protein 7.7 Albumin 4.4 Globulin 3.3 Albumin/Globulin Ratio 1.3 Lipase 208 Procalcitonin Urine Color Urine Appearance Urine pH Ur Specific [place] Urine Protein Urine Glucose (UA) Urine Ketones Urine Occult Blood Urine Nitrate Urine Bilirubin Urine Urobilinogen Ur Leukocyte Esterase Urine RBC Urine WBC Ur Squamous Epith Cells Urine Bacteria Ur Culture Indicated? U Opiates 300ng/mL cut Ur Oxycodone Screen Urine Methadone Screen Ur Barbiturates Screen U Tricyclic Antidepress Ur Phencyclidine Scrn Ur Amphetamines Screen U Methamphetamines Scrn Ur MDMA Scrn (Ecstasy) U Benzodiazepines Scrn Urine Cocaine Screen U Marijuana (THC) Screen Chlamy pneumoniae PCR Adenovirus (PCR) B.parapertussis DNA PCR Coronavirus OC43 (PCR) Coronavirus HKU1 (PCR) Coronavirus 229E (PCR) Coronavirus NL63 (PCR) Human Metapneumovir PCR Influenza Type A (PCR) Influenza Type B (PCR) M. pneumoniae (PCR) Parainfluenza 1 (PCR) Parainfluenza 2 (PCR) Parainfluenza 3 (PCR) Parainfluenza 4 (PCR) RSV (PCR) Entero/Rhino (PCR) 07/10/19 07/10/19 07/10/19 15:46 15:46 16:16 WBC RBC Hgb Hct MCV MCH MCHC RDW Plt Count Neut % (Auto) Lymph % (Auto) [place] % (Auto) Eos % (Auto) Baso % (Auto) Neut # (Auto) Lymph # (Auto) [place] # (Auto) Eos # (Auto) Baso # (Auto) ESR 29 H PT INR APTT Sodium Potassium Chloride Carbon Dioxide BUN Creatinine Estimated GFR BUN/Creatinine Ratio Glucose Lactate Calcium Total Bilirubin AST ALT Alkaline Phosphatase Total Creatine Kinase CK-MB (CK-2) CK-MB (CK-2) Rel Index Troponin I C-Reactive Protein < 0.5 Total Protein Albumin Globulin Albumin/Globulin Ratio Lipase Procalcitonin Urine Color Urine Appearance Urine pH Ur Specific [place] Urine Protein Urine Glucose (UA) Urine Ketones Urine Occult Blood Urine Nitrate Urine Bilirubin Urine Urobilinogen Ur Leukocyte Esterase Urine RBC Urine WBC Ur Squamous Epith Cells Urine Bacteria Ur Culture Indicated? U Opiates 300ng/mL cut Negative Ur Oxycodone Screen Negative Urine Methadone Screen Negative Ur Barbiturates Screen Negative U Tricyclic Antidepress Negative Ur Phencyclidine Scrn Negative Ur Amphetamines Screen Negative U Methamphetamines Scrn Negative Ur MDMA Scrn (Ecstasy) Negative U Benzodiazepines Scrn Negative Urine Cocaine Screen Negative U Marijuana (THC) Screen Negative Chlamy pneumoniae PCR Adenovirus (PCR) B.parapertussis DNA PCR Coronavirus OC43 (PCR) Coronavirus HKU1 (PCR) Coronavirus 229E (PCR) Coronavirus NL63 (PCR) Human Metapneumovir PCR Influenza Type A (PCR) Influenza Type B (PCR) M. pneumoniae (PCR) Parainfluenza 1 (PCR) Parainfluenza 2 (PCR) Parainfluenza 3 (PCR) Parainfluenza 4 (PCR) RSV (PCR) Entero/Rhino (PCR) 07/10/19 07/10/19 07/11/19 16:26 17:02 06:45 WBC 5.9 RBC 3.67 L Hgb 11.6 L Hct 34.8 L MCV 94.9 MCH 31.6 MCHC 33.3 RDW 14.5 Plt Count 274 Neut % (Auto) 68.3 Lymph % (Auto) 17.4 L [place] % (Auto) 10.8 Eos % (Auto) 2.6 Baso % (Auto) 0.9 Neut # (Auto) 4000 Lymph # (Auto) 1000 L [place] # (Auto) 600 Eos # (Auto) 200 Baso # (Auto) 100 ESR PT INR APTT Sodium Potassium Chloride Carbon Dioxide BUN Creatinine Estimated GFR BUN/Creatinine Ratio Glucose Lactate Calcium Total Bilirubin AST ALT Alkaline Phosphatase Total Creatine Kinase CK-MB (CK-2) CK-MB (CK-2) Rel Index Troponin I C-Reactive Protein Total Protein Albumin Globulin Albumin/Globulin Ratio Lipase Procalcitonin Urine Color Yellow Urine Appearance Clear Urine pH 7.0 Ur Specific [place] 1.015 Urine Protein Negative Urine Glucose (UA) Negative Urine Ketones Negative Urine Occult Blood Trace-intact Urine Nitrate Negative Urine Bilirubin Negative Urine Urobilinogen 0.2 Ur Leukocyte Esterase Negative Urine RBC 0-1/hpf Urine WBC 0-1/hpf Ur Squamous Epith Cells 0-1 /hpf Urine Bacteria None seen Ur Culture Indicated? Cult not indicated U Opiates 300ng/mL cut Ur Oxycodone Screen Urine Methadone Screen Ur Barbiturates Screen U Tricyclic Antidepress Ur Phencyclidine Scrn Ur Amphetamines Screen U Methamphetamines Scrn Ur MDMA Scrn (Ecstasy) U Benzodiazepines Scrn Urine Cocaine Screen U Marijuana (THC) Screen Chlamy pneumoniae PCR Not detected Adenovirus (PCR) Not detected B.parapertussis DNA PCR Not detected Coronavirus OC43 (PCR) Not detected Coronavirus HKU1 (PCR) Not detected Coronavirus 229E (PCR) Not detected Coronavirus NL63 (PCR) Not detected Human Metapneumovir PCR Not detected Influenza Type A (PCR) Not detected Influenza Type B (PCR) Not detected M. pneumoniae (PCR) Not detected Parainfluenza 1 (PCR) Not detected Parainfluenza 2 (PCR) Not detected Parainfluenza 3 (PCR) Not detected Parainfluenza 4 (PCR) Not detected RSV (PCR) Not detected Entero/Rhino (PCR) Not detected 07/11/19 06:45 WBC RBC Hgb Hct MCV MCH MCHC RDW Plt Count Neut % (Auto) Lymph % (Auto) [place] % (Auto) Eos % (Auto) Baso % (Auto) Neut # (Auto) Lymph # (Auto) [place] # (Auto) Eos # (Auto) Baso # (Auto) ESR PT INR APTT Sodium 139 Potassium 4.1 Chloride 107 Carbon Dioxide 23 BUN 17 Creatinine 0.70 Estimated GFR > 60.0 BUN/Creatinine Ratio 24.3 H Glucose 142 H Lactate Calcium 9.2 Total Bilirubin AST ALT Alkaline Phosphatase Total Creatine Kinase CK-MB (CK-2) CK-MB (CK-2) Rel Index Troponin I C-Reactive Protein Total Protein Albumin Globulin Albumin/Globulin Ratio Lipase Procalcitonin Urine Color Urine Appearance Urine pH Ur Specific [place] Urine Protein Urine Glucose (UA) Urine Ketones Urine Occult Blood Urine Nitrate Urine Bilirubin Urine Urobilinogen Ur Leukocyte Esterase Urine RBC Urine WBC Ur Squamous Epith Cells Urine Bacteria Ur Culture Indicated? U Opiates 300ng/mL cut Ur Oxycodone Screen Urine Methadone Screen Ur Barbiturates Screen U Tricyclic Antidepress Ur Phencyclidine Scrn Ur Amphetamines Screen U Methamphetamines Scrn Ur MDMA Scrn (Ecstasy) U Benzodiazepines Scrn Urine Cocaine Screen U Marijuana (THC) Screen Chlamy pneumoniae PCR Adenovirus (PCR) B.parapertussis DNA PCR Coronavirus OC43 (PCR) Coronavirus HKU1 (PCR) Coronavirus 229E (PCR) Coronavirus NL63 (PCR) Human Metapneumovir PCR Influenza Type A (PCR) Influenza Type B (PCR) M. pneumoniae (PCR) Parainfluenza 1 (PCR) Parainfluenza 2 (PCR) Parainfluenza 3 (PCR) Parainfluenza 4 (PCR) RSV (PCR) Entero/Rhino (PCR) Assessment & Plan Assessment & Plan narrative: 1. Postoperative wound infection, status post lumbar spinal fusion, present on admission, active. -patient underwent lumbar laminectomy and fusion of L4-5, L5-S1 on 04/24/2019, discharge to [facility] where she was discharged 1 week ago following rehab. While at rehab the patient was treated with Keflex for oxacillin sensitive Staph aureus with multiple antibiotic resistances. -seen by PCP today related to drainage from 5 mm lumbar wound with drainage, was found febrile with confusion, patient was referred to the emergency department. -lab findings: White count 7.2 without increased neutrophils, ESR 29, lactic acid is 0.7. -CT scan finds a fluid collection in the left hemilaminectomy surgical bed at L4-5. -wound culture obtained in the ER culture obtained, gram stain identifies 3+ positive cocci. Blood cultures obtained. -Dr. Ledbetter, orthopedics, consulted from the ER, appreciate Orthopedics evaluation treatment and recommendations. Patient is NPO pending evaluation. -ordered vancomycin 1500 mg IV every 12 hours, pharmacy to dose. -continue gabapentin 300 mg twice daily and meloxicam 7.5 mg twice daily with good renal function. -acetaminophen 975 mg every 8 hours as needed for pain 2. Diabetes type II, non insulin-dependent, chronic, present on admission, active -serum glucose on admission labs is 131, patient does report neuropathy the feet, no evidence of nephropathy with good renal function. -will continue glimepiride and patient may use own Victoza. -blood sugars is every 6 hours while NPO, sliding scale correctional insulin low range. 3. Essential hypertension, chronic, present on admission, active -blood pressure on admission is 161/71 improving to 137/62 upon arrival to acute care.. -will continue home regimen of lisinopril 20 mg daily and hydrochlorothiazide 25 mg daily. 4. Asthma, chronic, stable. -presumed to be mild persistent with the patient using Flovent twice daily. -respiratory therapy to consult. -albuterol nebulizer every 2 hours as needed for shortness of breath or wheezing. -continue home regimen of Flovent 2 puffs twice daily. 5. Gastroesophageal reflux disorder, chronic, stable. -no complaints of abdominal pain or heartburn. -continue home regimen of ranitidine 300 mg each evening. 6. Hyperlipidemia, chronic, presumed stable -will continue home regimen of simvastatin 20 mg daily at bedtime. 7. Acquired hypothyroidism, chronic, presumed stable. -will continue home regimen of levothyroxine 150 mcg daily. 8. Overactive bladder, chronic, stable -continue home regimen of oxybutynin 5 mg at bedtime 9. Impaired memory, chronic. -patient with impaired memory and recall, the patient is for 3-4 years and lives alone. -the patient lives alone with support of her son who sets up her medications for her. -OT evaluation completed on prior admission and appears to have adequate resourc es for community living. Code status: Full code VTE prophylaxis: SQ Heparin, SCDs Quality VTE Deep Vein Thrombosis/Pulmonary Embolism Present on Admission: No
--- NOTE | 2019-07-11 10:07 | PT.IIE ---
Surgical History (Last Reviewed 07/11/19 @ 03:22 by IONA Evans) H/O: hysterectomy (Acute) Hx laparoscopic cholecystectomy (Acute) Hx of bilateral cataract extraction (Acute) Medical History (Last Reviewed 07/11/19 @ 03:22 by IONA Evans) Arthritis (Acute) Diabetes (Acute) Easy bruisability (Acute) Edema (Acute) Hair loss (Acute) Heartburn (Acute) HLD (hyperlipidemia) (Acute) HTN (hypertension) (Acute) Hypothyroid (Acute) Pneumonia (Acute) Sciatica (Acute) Seasonal allergies (Acute) Wrinkled retina, right eye (Acute) Physical Therapy Inpatient Evaluation/Re-Eval M1 PT/OT-IP Prior Functional Status Start: 07/11/19 12:37 Freq: NEEDED Status: Active Protocol: Document 07/11/19 10:07 AB (Rec: 07/11/19 13:00 [id number]) Medical Review Prior Functional Status Medical History Reviewed No Communication able to make needs known Mobility and Gait pt stated that she was modified independent with all mobilities and ambulation using either just one SPC or 2 depending on when she is doing Social History Household Members none Living Arrangements House Number of Floors (Floors) One Floor Number of Stairs To Enter/Railing? ramp to enter Home Environment High Toilet,Walk in Shower Home Equipment Shower Seat without Backrest, Hand Held Shower,Lift Recliner ,Grab Bars In Shower Additional Social History Comment pt has a toilet safety bar/ handles M2 PT-IP Current Condition Start: 07/11/19 12:37 Freq: NEEDED Status: Active Protocol: Document 07/11/19 10:07 AB (Rec: 07/11/19 13:00 [id number]) Physical Therapy Current Condition Current Condition Evaluation Date 07/11/19 Treatment Diagnosis post-op wound abscess; difficulty in walking Onset Date 07/10/2019 Precautions Lumbar Precautions Log Roll,No Twisting,Limit Bending,Lifting Restriction of 10 lbs,Gait Belt above Incisional Area M3 PT-IP Subjective Start: 07/11/19 12:37 Freq: NEEDED Status: Active Protocol: Document 07/11/19 10:07 AB (Rec: 07/11/19 13:00 [id number]) Subjective Physical Therapy Visit Type Type Initial Evaluation Visit Start Time 10:07 Visit Stop Time 10:42 Total Visit Minutes 35 Number of [employer] Visits 0 Physical Therapy Visit Comments Patient Comments pt agreeable to do PT Therapy Pain Assessment Pain When Pain Assessed At Rest Pain Present Pain Present Pain Reported Location Head Intensity 4 Scale Used Numeric (1 - 10) Pain Management Techniques Re-positioning,Timing of Activity with Medications M4 PT-IP Mobility and Gait Start: 07/11/19 12:37 Freq: NEEDED Status: Active Protocol: Document 07/11/19 10:07 AB (Rec: 07/11/19 13:00 AB [id number]) PT-Bed Mobility Assessment Rolling Type of Rolling Log Rolling Level of Assist Maximal Assistance,1 Person Assistance Supine to Sit Supine to Sit Maximum Assistance,1 Person Assistance PT-Transfer Assessment Sit to and From Stand Sit to and from Stand Moderate Assistance,1 Person Assistance,Use of Upper Extremities Equipment Transfer Assistive Device Gait Belt,Front Wheeled Walker Orthotic/Prosthetic Devices or Brace: No Transfers Transfer Destination Toilet Transfer Technique ambulated using FWW Transfer Ability Level of Assist Moderate Assistance,1 Person Assistance,Use of Upper Extremities Comments Mobility Comments pt completed log roll bed mobility max A and max cues. pt was able to sit on EOB SBA. completed sit to stand mod A and cues from the EOB. ambulated in room ~ 20 ft using FWW min A and then requested to use the toilet after seated rest. ambulated to the toilet using FWW ~ 10 ft min A. completed sit to stand from the toilet CGA. ambulated towards the chair using FWW CGA to min A. positioned pt on the chair. call light and table placed within reach. Gait Assessment Gait Gait Assistance Required: Minimum Assistance,1 Person Assist Distance (Feet) 20 Able to Maintain Weight Bearing Status Yes During Gait Assistive Devices Assistive Device Gait Belt,Front Wheeled Walker Orthotic/Prosthetic Devices or Brace: No Gait Deviations General Gait Pattern Antalgic,Decreased Stride Length,Decreased Feet Clearance Factors Limiting Gait Function Factors Limiting Gait Function Decreased Activity Tolerance, Decreased Strength,Limited Range of Motion,Pain,Poor Balance,Poor Safety Awareness Comments Gait Comments pls refer to mobility section for details. pt unable to ambulate much with c/o feeling tired. PT-Balance Assessment Sitting Balance and Reactions Static Sitting Balance Ability Good Dynamic Sitting Balance Ability Good Standing Balance and Reactions Static Standing Balance Ability Fair Dynamic Standing Balance Ability Fair Device Used FWW M5 PT-IP Objective Assessments Start: 07/11/19 12:37 Freq: NEEDED Status: Active Protocol: Document 07/11/19 10:07 AB (Rec: 07/11/19 13:00 [id number]) Orientation Orientation/Cognition Level of Alertness Alert Orientation Name,Place,Situation Language Function Ability Hard of Hearing Safety Awareness Decreased Safety Awareness Memory Description Short Term Impaired Gross Range of Motion Lower Extremity ROM Assessment Within Functional Limits Strength Lower Extremity Strength Assessment Bilaterally Impaired Comments Strength Comments LLE: 4-/5 RLE 3+/5 Coordination Assessment Gross Coordination Gross Coordination WNL Muscle Tone Muscle Tone WNL Yes M6 PT-IP Treatment Start: 07/11/19 12:37 Freq: NEEDED Status: Active Protocol: Document 07/11/19 10:07 AB (Rec: 07/11/19 13:00 [id number]) Physical Therapy Treatment Education Education Provided Precautions,Safety M7 PT-IP Assessment and Plan Start: 07/11/19 12:37 Freq: NEEDED Status: Active Protocol: Document 07/11/19 10:07 AB (Rec: 07/11/19 13:00 [id number]) PT Summary Assessment and Plan Potential Rehabilitation Potential Good Status of Condition at Evaluation Stable Summary Impairments Pain,ROM,Strength,Balance, Coordination,Sensation,Tone, Cognition,Bed Mobility, Transfers,Gait,Activity Tolerance Assessment Summary pt had prior back surgery last april and has been at [facility] rehab afterwards but was admitted back to the hospital in may for incision infection and was d/c 'd back to [facility] rehab. pt stated that she was at [facility] for ~ 1 month and d /c'd home. pt now back to the hospital for a post-op wound abscess and is pending ortho consult. pt requiring max A with bed mobility, mod A with sit to stand and min A with ambulation using fWW. pt lives alone and stated that FWW will not fit inside the house and has been using SPCs for mobility. at this time, pt requires a FWW for ambulation for safety and with increase UE use for support on the FWW and unable to tolerate much ambulation due to decrease activity tolerance . pt will require 24/7 assist and will need SNF rehab at this time. will continue to assess progress. Goals Bed Mobility Goal Independent Transfer Goal Independent,Front Wheeled Walker Gait Goal Independent,Front Wheel Walker Gait Distance 200 Days to Meet Goals 5 Frequency of Treatment Frequency Of Treatment Once a Day Treatment Plan Physical Therapy Treatment Plan Bed Mobility Training,Transfer Training,Gait Training, Therapeutic Exercise,Balance Retraining,Post Op Education, Discharge Planning, Neuromuscular Re-ed Recommendations To Nursing Amount of Assist Needed 1 Person Assist Discharge Recommendations PT Discharge Recommendations SNF Rehab Transportation Needs at Discharge Private Vehicle,Wheelchair/ Cabulance
--- NOTE | 2019-07-11 10:43 | P.DS_ITS ---
History of Present Illness History of Present Illness Date Patient Seen: 07/10/19 Chief complaint: Fever Narrative: Written by Isreal MONSON: Ms. Carrie Cortez is a 73-year-old female patient with a history significant for morbid obesity, diabetes type 2, hypertension, hyperlipidemia, asthma, GERD, hypothyroidism, osteoarthritis degenerative joint disease and memory loss presents to the ER with her son sent in by their PCP for a training surgical wound. While there the patient was found to have a fever and confusion and sent to the emergency department. The patient was discharged to home following rehabilitation where she lives alone 1 week ago and has been otherwise doing well. The patient has had a prior hospitalization on 06/02/2019 for draining surgical wound following a L4-5, L5-S1 lumbar fusion with instrumentation done on 04/24/2019. At that time the patient had been treated with vancomycin IV and discharged on Keflex for oxacillin sensitive Staph aureus with multiple resistances. The patient states she continues to ambulates with 2 canes. She denies falls. She denies complaints of fevers chills or headache. She has been far mental allergies but denies nasal congestion or sore throat. She denies chest pain or palpitations, shortness of breath cough or wheezing. She reports experiencing diarrhea which her son is concerned is related to an increased dose of Victoza. She reports bilateral foot numbness and tingling ?feeling like my feet are half asleep? but no motor deficits identified. Upon arrival to the ER the patient is afebrile with a temperature of 97.4?, his heart rate of 89, blood pressure 161/71, respirations of 18 and oxygen saturation 97% on room air. Cells noted that time the patient has a pain level is 7/10. Imaging is obtained including a chest x-ray which was unremarkable, CT of the head which was unremarkable and spinal CT which found fluid collection surrounding the left kehinde laminectomy surgical bed at L4-5. The patient's wound is cultured. On laboratory analysis the patient has a white count of 7.2, hemoglobin of 12.6, hematocrit of 37.1 and platelets of 345. She has a PT of 12.2, INR of 1.1 and a PTT of 53. On chemistries are electrolytes are within normal limits that she has a BUN of 26 and creatinine 0.7 and a nonfasting glucose of 131. Her LFTs are within normal range. She has lactic acid is 0.7 and in ESR of 29. She does have an elevated total CK at 174 with an MB of 8.12 an index of 4.7 and a negative troponin at less than 0.012. Her urinalysis shows no infection. Dr. Ledbetter is consulted from the ER who agrees to consult. The patient is admitted to medicine service for continuing treatment and evaluation. Discharge Providers Provider Date of admission: 07/10/19 19:55 Discharge Date: 07/11/19 Consults: 07/10/19 22:02 Consult to Discharge Planning Routine Comment: 07/10/19 22:03 Consult to Physical Therapy Evaluate & Treat Comment: Postoperative wound infection, s/p lumbar fusion Physician Instructions: Evaluate and Treat 07/10/19 22:04 Consult to Orthopedic Surgery Routine Comment: Consulting Provider: Eliza Ledbetter Reason for consultation: Postoperative lumbar fusion wound infection Has provider been notified: Yes 07/11/19 02:50 Consult to Respiratory Therapy Evaluate & Treat Comment: Mild intermittent asthma using Flovent Physician Instructions: Evaluate and treat Discharge provider: Keisha Gibbons DO Summary Hospital Course Discharge Diagnosis: 1. Postoperative wound infection ruled out. 2. Diabetes type 2, non insulin-dependent, chronic, present on admission. Stable. 3. Hypertension, chronic, present on admission. Stable. 4. Asthma, chronic, present on admission. Stable. 5. Gastroesophageal reflux disorder, chronic, present on admission. Stable. 6. Hyperlipidemia, chronic, present on admission. Stable. 7. Hypothyroidism, chronic, present on admission. Stable. 8. Overactive bladder, chronic, present on admission. Stable 9. Moderate dementia without behavioral disturbance, chronic, present on admission. Stable. Hospital Course: Carrie Cortez is a 73-year-old female with a past medical history significant for morbid obesity, diabetes type 2, hypertension, hyperlipidemia, asthma, GERD, hypothyroidism, osteoarthritis degenerative joint disease and dementia who presented to the ED with her son sent in by their PCP for a draining surgical wound. 1. Postoperative wound infection ruled out. -Patient underwent lumbar laminectomy and fusion of L4-5, L5-S1 on 04/24/2019 and discharged to [facility] where she was discharged 1 week ago following rehab. While at rehab the patient was treated with Keflex for MSSA from wound culture from surgical site. -Patient was seen by PCP today related to drainage from 5 mm lumbar wound with drainage, febrile and questionable confusion. Patient was referred to the emergency department. -Orthopedic surgery was consulted, Dr. Ledbetter, who saw and examined patient and ruled out post-operative infection as no drainage, erythema, edema or signifcant tenderness present. No signs of infection with laboratory evaluation: WBC 7.2 without increased neutrophils, ESR 29, lactic acid normal at 0.7. Ortho relayed that fluid collection on CT was consistent with post-operative changes. Wound cultures likely manufacturer's representative of normal skin jayson. Orthopedic surgery did not recommend antibiotics. -CT scan finds a fluid collection in the left hemilaminectomy surgical bed at L4-5. -Received vancomycin with dosing per pharmacist.. -Continued gabapentin 300 mg twice daily, meloxicam 7.5 mg twice daily with good renal function and acetaminophen 975 mg every 8 hours as needed for pain 2. Diabetes type 2, non insulin-dependent, chronic, present on admission. Stable. -Hemoglobin A1C 6.2% in 05/2019 inidcative of tight glycemic control. -Continued glimepiride and home Victoza. -Continued blood glucose checks every 6 hours while NPO and then ACHS and low dose correctional scale insulin low. 3. Hypertension, chronic, present on admission. Stable. -Blood pressure mildly hypertensive at 161/71. -Continued lisinopril 20 mg daily and hydrochlorothiazide 25 mg daily. May need to consider titrating up on lisinopril. 4. Asthma, chronic, present on admission. Stable. -Does not represent an asthma exacerbation. Presumed to be mild persistent asthma with patient on Flovent twice daily. -Consulted respiratory therapy for evaluation and treatment. Continued albuterol nebulizer every 2 hours as needed for shortness of breath or wheezing. Continued home Flovent 2 puffs twice daily. 5. Gastroesophageal reflux disorder, chronic, present on admission. Stable. -No complaints of abdominal pain or heartburn. -Continued home ranitidine 300 mg each evening. 6. Hyperlipidemia, chronic, present on admission. Stable. -Continued home simvastatin 20 mg daily at bedtime. 7. Hypothyroidism, chronic, present on admission. Stable. -TSH normal at 1.71 on 05/2019. -Continued home levothyroxine 150 mcg daily. 8. Overactive bladder, chronic, present on admission. Stable -Continued home oxybutynin 5 mg daily at bedtime. 9. Moderate dementia without behavioral disturbance, chronic, present on admission. Stable. -Patient with impaired memory recall. Patient is for 3-4 years and lives alone. -Patient lives alone with support of her son who sets up her medications for her. -Occupational therapy previously perform slums which she scored a 12/30 which is indicative of moderate dementia. Patient previously seen by occupational therapy and appears to have adequate resources for community living. Exam Vital Signs (past 8 hours): - 07/11/19 05:50 07/11/19 07:45 Temperature 99.2 F 97.6 F Pulse Rate 64 60 Respiratory Rate 19 16 Blood Pressure 147/60 H 115/52 L Pulse Oximetry 98 93 Oxygen Delivery Method Room Air Oxygen Flow Rate 0 Narrative Exam Narrative: General: Elderly demented female sitting in bedside chair and in no acute distress, well-developed, well-nourished, alert and oriented to person and partially place with moderate short term memory recall deficit but otherwise appropriately interactive. Per sons at bedside patient is at baseline mentation. HEENT: Normocephalic, atraumatic. External ears without defect. Pupils equal, round, and reactive to light. Anicteric sclerae, moist conjunctivae, and no lid lag. Oropharynx free of erythema and cobble stoning with moist mucosa. Neck: Supple with full range of motion. No lymphadenopathy or thyromegaly. Cardiovascular: Regular rate and rhythm without murmurs, rubs, or gallops appreciated Pulmonary: Clear to auscultation bilaterally without crackles, wheezes, or rhonchi. Normal respiratory effort with no use of accessory muscles. Abdomen: Soft, obese, bowel sounds present, nontender, nondistended. Back: Surgical wound healing well without erythema, edema or drainage. Extremities: No clubbing, cyanosis, or edema. Skin: Normal temperature, turgor, and texture; no rash, ulcers, or subcutaneous nodules appreciated. Neurological: Cranial nerves grossly intact. Psychiatric: Normal mood and affect. Alert and oriented to person and partially place. Moderate dementia with moderate short term memory recall deficit. Objective Labs Result Diagrams: 07/11/19 06:45 07/11/19 06:45 Labs: Laboratory Results - last 24 hr 07/10/19 07/10/19 07/10/19 15:46 15:46 15:46 WBC 7.2 RBC 3.91 L Hgb 12.6 Hct 37.1 MCV 94.8 MCH 32.2 MCHC 33.9 RDW 14.3 Plt Count 345 Neut % (Auto) 71.8 Lymph % (Auto) 20.3 L Hayes % (Auto) 6.8 Eos % (Auto) 0.4 L Baso % (Auto) 0.7 Neut # (Auto) 5200 Lymph # (Auto) 1500 Hayes # (Auto) 500 Eos # (Auto) 0 Baso # (Auto) 100 ESR PT 12.2 INR 1.1 APTT 53 H D Sodium Potassium Chloride Carbon Dioxide BUN Creatinine Estimated GFR BUN/Creatinine Ratio Glucose Lactate Calcium Total Bilirubin AST ALT Alkaline Phosphatase Total Creatine Kinase CK-MB (CK-2) CK-MB (CK-2) Rel Index Troponin I C-Reactive Protein Total Protein Albumin Globulin Albumin/Globulin Ratio Lipase Procalcitonin < 0.05 Urine Color Urine Appearance Urine pH Ur Specific [place] Urine Protein Urine Glucose (UA) Urine Ketones Urine Occult Blood Urine Nitrate Urine Bilirubin Urine Urobilinogen Ur Leukocyte Esterase Urine RBC Urine WBC Ur Squamous Epith Cells Urine Bacteria Ur Culture Indicated? U Opiates 300ng/mL cut Ur Oxycodone Screen Urine Methadone Screen Ur Barbiturates Screen U Tricyclic Antidepress Ur Phencyclidine Scrn Ur Amphetamines Screen U Methamphetamines Scrn Ur MDMA Scrn (Ecstasy) U Benzodiazepines Scrn Urine Cocaine Screen U Marijuana (THC) Screen Chlamy pneumoniae PCR Adenovirus (PCR) B.parapertussis DNA PCR Coronavirus OC43 (PCR) Coronavirus HKU1 (PCR) Coronavirus 229E (PCR) Coronavirus NL63 (PCR) Human Metapneumovir PCR Influenza Type A (PCR) Influenza Type B (PCR) M. pneumoniae (PCR) Parainfluenza 1 (PCR) Parainfluenza 2 (PCR) Parainfluenza 3 (PCR) Parainfluenza 4 (PCR) RSV (PCR) Entero/Rhino (PCR) 07/10/19 07/10/19 07/10/19 15:46 15:46 15:46 WBC RBC Hgb Hct MCV MCH MCHC RDW Plt Count Neut % (Auto) Lymph % (Auto) Hayes % (Auto) Eos % (Auto) Baso % (Auto) Neut # (Auto) Lymph # (Auto) Hayes # (Auto) Eos # (Auto) Baso # (Auto) ESR PT INR APTT Sodium 139 Potassium 4.0 Chloride 105 Carbon Dioxide 24 BUN 26 H Creatinine 0.70 Estimated GFR > 60.0 BUN/Creatinine Ratio 37.1 H Glucose 131 H Lactate 0.7 Calcium 10.1 Total Bilirubin 0.3 AST 39 H ALT 28 Alkaline Phosphatase 92 Total Creatine Kinase 174 H CK-MB (CK-2) 8.12 H CK-MB (CK-2) Rel Index 4.7 Troponin I < 0.012 C-Reactive Protein Total Protein 7.7 Albumin 4.4 Globulin 3.3 Albumin/Globulin Ratio 1.3 Lipase 208 Procalcitonin Urine Color Urine Appearance Urine pH Ur Specific [place] Urine Protein Urine Glucose (UA) Urine Ketones Urine Occult Blood Urine Nitrate Urine Bilirubin Urine Urobilinogen Ur Leukocyte Esterase Urine RBC Urine WBC Ur Squamous Epith Cells Urine Bacteria Ur Culture Indicated? U Opiates 300ng/mL cut Ur Oxycodone Screen Urine Methadone Screen Ur Barbiturates Screen U Tricyclic Antidepress Ur Phencyclidine Scrn Ur Amphetamines Screen U Methamphetamines Scrn Ur MDMA Scrn (Ecstasy) U Benzodiazepines Scrn Urine Cocaine Screen U Marijuana (THC) Screen Chlamy pneumoniae PCR Adenovirus (PCR) B.parapertussis DNA PCR Coronavirus OC43 (PCR) Coronavirus HKU1 (PCR) Coronavirus 229E (PCR) Coronavirus NL63 (PCR) Human Metapneumovir PCR Influenza Type A (PCR) Influenza Type B (PCR) M. pneumoniae (PCR) Parainfluenza 1 (PCR) Parainfluenza 2 (PCR) Parainfluenza 3 (PCR) Parainfluenza 4 (PCR) RSV (PCR) Entero/Rhino (PCR) 07/10/19 07/10/19 07/10/19 15:46 15:46 16:16 WBC RBC Hgb Hct MCV MCH MCHC RDW Plt Count Neut % (Auto) Lymph % (Auto) Hayes % (Auto) Eos % (Auto) Baso % (Auto) Neut # (Auto) Lymph # (Auto) Hayes # (Auto) Eos # (Auto) Baso # (Auto) ESR 29 H PT INR APTT Sodium Potassium Chloride Carbon Dioxide BUN Creatinine Estimated GFR BUN/Creatinine Ratio Glucose Lactate Calcium Total Bilirubin AST ALT Alkaline Phosphatase Total Creatine Kinase CK-MB (CK-2) CK-MB (CK-2) Rel Index Troponin I C-Reactive Protein < 0.5 Total Protein Albumin Globulin Albumin/Globulin Ratio Lipase Procalcitonin Urine Color Urine Appearance Urine pH Ur Specific [place] Urine Protein Urine Glucose (UA) Urine Ketones Urine Occult Blood Urine Nitrate Urine Bilirubin Urine Urobilinogen Ur Leukocyte Esterase Urine RBC Urine WBC Ur Squamous Epith Cells Urine Bacteria Ur Culture Indicated? U Opiates 300ng/mL cut Negative Ur Oxycodone Screen Negative Urine Methadone Screen Negative Ur Barbiturates Screen Negative U Tricyclic Antidepress Negative Ur Phencyclidine Scrn Negative Ur Amphetamines Screen Negative U Methamphetamines Scrn Negative Ur MDMA Scrn (Ecstasy) Negative U Benzodiazepines Scrn Negative Urine Cocaine Screen Negative U Marijuana (THC) Screen Negative Chlamy pneumoniae PCR Adenovirus (PCR) B.parapertussis DNA PCR Coronavirus OC43 (PCR) Coronavirus HKU1 (PCR) Coronavirus 229E (PCR) Coronavirus NL63 (PCR) Human Metapneumovir PCR Influenza Type A (PCR) Influenza Type B (PCR) M. pneumoniae (PCR) Parainfluenza 1 (PCR) Parainfluenza 2 (PCR) Parainfluenza 3 (PCR) Parainfluenza 4 (PCR) RSV (PCR) Entero/Rhino (PCR) 07/10/19 07/10/19 07/11/19 16:26 17:02 06:45 WBC 5.9 RBC 3.67 L Hgb 11.6 L Hct 34.8 L MCV 94.9 MCH 31.6 MCHC 33.3 RDW 14.5 Plt Count 274 Neut % (Auto) 68.3 Lymph % (Auto) 17.4 L Hayes % (Auto) 10.8 Eos % (Auto) 2.6 Baso % (Auto) 0.9 Neut # (Auto) 4000 Lymph # (Auto) 1000 L Hayes # (Auto) 600 Eos # (Auto) 200 Baso # (Auto) 100 ESR PT INR APTT Sodium Potassium Chloride Carbon Dioxide BUN Creatinine Estimated GFR BUN/Creatinine Ratio Glucose Lactate Calcium Total Bilirubin AST ALT Alkaline Phosphatase Total Creatine Kinase CK-MB (CK-2) CK-MB (CK-2) Rel Index Troponin I C-Reactive Protein Total Protein Albumin Globulin Albumin/Globulin Ratio Lipase Procalcitonin Urine Color Yellow Urine Appearance Clear Urine pH 7.0 Ur Specific [place] 1.015 Urine Protein Negative Urine Glucose (UA) Negative Urine Ketones Negative Urine Occult Blood Trace-intact Urine Nitrate Negative Urine Bilirubin Negative Urine Urobilinogen 0.2 Ur Leukocyte Esterase Negative Urine RBC 0-1/hpf Urine WBC 0-1/hpf Ur Squamous Epith Cells 0-1 /hpf Urine Bacteria None seen Ur Culture Indicated? Cult not indicated U Opiates 300ng/mL cut Ur Oxycodone Screen Urine Methadone Screen Ur Barbiturates Screen U Tricyclic Antidepress Ur Phencyclidine Scrn Ur Amphetamines Screen U Methamphetamines Scrn Ur MDMA Scrn (Ecstasy) U Benzodiazepines Scrn Urine Cocaine Screen U Marijuana (THC) Screen Chlamy pneumoniae PCR Not detected Adenovirus (PCR) Not detected B.parapertussis DNA PCR Not detected Coronavirus OC43 (PCR) Not detected Coronavirus HKU1 (PCR) Not detected Coronavirus 229E (PCR) Not detected Coronavirus NL63 (PCR) Not detected Human Metapneumovir PCR Not detected Influenza Type A (PCR) Not detected Influenza Type B (PCR) Not detected M. pneumoniae (PCR) Not detected Parainfluenza 1 (PCR) Not detected Parainfluenza 2 (PCR) Not detected Parainfluenza 3 (PCR) Not detected Parainfluenza 4 (PCR) Not detected RSV (PCR) Not detected Entero/Rhino (PCR) Not detected 07/11/19 06:45 WBC RBC Hgb Hct MCV MCH MCHC RDW Plt Count Neut % (Auto) Lymph % (Auto) [place] % (Auto) Eos % (Auto) Baso % (Auto) Neut # (Auto) Lymph # (Auto) Hayes # (Auto) Eos # (Auto) Baso # (Auto) ESR PT INR APTT Sodium 139 Potassium 4.1 Chloride 107 Carbon Dioxide 23 BUN 17 Creatinine 0.70 Estimated GFR > 60.0 BUN/Creatinine Ratio 24.3 H Glucose 142 H Lactate Calcium 9.2 Total Bilirubin AST ALT Alkaline Phosphatase Total Creatine Kinase CK-MB (CK-2) CK-MB (CK-2) Rel Index Troponin I C-Reactive Protein Total Protein Albumin Globulin Albumin/Globulin Ratio Lipase Procalcitonin Urine Color Urine Appearance Urine pH Ur Specific [place] Urine Protein Urine Glucose (UA) Urine Ketones Urine Occult Blood Urine Nitrate Urine Bilirubin Urine Urobilinogen Ur Leukocyte Esterase Urine RBC Urine WBC Ur Squamous Epith Cells Urine Bacteria Ur Culture Indicated? U Opiates 300ng/mL cut Ur Oxycodone Screen Urine Methadone Screen Ur Barbiturates Screen U Tricyclic Antidepress Ur Phencyclidine Scrn Ur Amphetamines Screen U Methamphetamines Scrn Ur MDMA Scrn (Ecstasy) U Benzodiazepines Scrn Urine Cocaine Screen U Marijuana (THC) Screen Chlamy pneumoniae PCR Adenovirus (PCR) B.parapertussis DNA PCR Coronavirus OC43 (PCR) Coronavirus HKU1 (PCR) Coronavirus 229E (PCR) Coronavirus NL63 (PCR) Human Metapneumovir PCR Influenza Type A (PCR) Influenza Type B (PCR) M. pneumoniae (PCR) Parainfluenza 1 (PCR) Parainfluenza 2 (PCR) Parainfluenza 3 (PCR) Parainfluenza 4 (PCR) RSV (PCR) Entero/Rhino (PCR) Discharge Plan Discharge Plan Patient Disposition: Home Discharge comment: Your being discharged home to resume home health with physical therapy, occupational therapy, nursing, nurse aid and renal social worker. You do not have any signs or symptoms of infection of your back. Your intermittent diarrhea and formed stool is likely due to escape diarrhea around constipation versus resuming higher dose of Victoza versus gabapentin that you had been receiving versus recent antibiotic. There are no signs or symptoms of infectious diarrhea. Please follow-up with your primary care provider, HARSHA Vincent, in the next 1 week regarding your hospitalization. Discharge orders & Medications Prescriptions: Continued glimepiride [Amaryl] 2 MG tablet 1 mg PO BID Qty: 0 RF: 0 levothyroxine [Synthroid] 150 MCG tablet 150 mcg PO QAM Qty: 0 RF: 0 cholecalciferol (vitamin D3) [Vitamin D3] 2,000 UNIT capsule 2,000 iu PO DAILY Qty: 0 RF: 0 hydrochlorothiazide 25 MG tablet 25 mg PO DAILY Qty: 0 RF: 0 acetaminophen [Tylenol Extra Strength] 500 MG tablet 1,000 mg PO TID Qty: 0 RF: 0 cyclobenzaprine 10 mg Tablet 10 mg PO TID PRN (Reason: Muscle pain, spasm) RF: 0 lisinopril 20 mg Tablet 20 mg PO BEDTIME RF: 0 felodipine 5 mg Tablet Extended Release 24 Hr 10 mg PO QAM RF: 0 meloxicam 7.5 mg Tablet 7.5 mg PO BID RF: 0 meclizine 25 mg Tablet 25 mg PO DAILY PRN (Reason: Vertigo) RF: 0 simvastatin 20 mg Tablet 20 mg PO BEDTIME RF: 0 diphenhydramine HCl [Benadryl] 25 mg Capsule 50 mg PO BEDTIME PRN (Reason: Allergic Symptoms) RF: 0 Flovent HFA 44 mcg/actuation Hfa Aerosol Inhaler 2 puff INHALATION BID RF: 0 oxybutynin chloride 5 mg Tablet 5 mg PO BEDTIME RF: 0 Alphagan P 0.1 % drops 0.1 % EYE-RIGHT BID RF: 0 hydroxyzine pamoate 25 mg Capsule 25 mg PO Q6-8H PRN (Reason: Nausea And Vomiting) Qty: 30 RF: 0 aspirin 81 mg tablet,delayed release (DR/EC) 81 mg PO DAILY Qty: 30 RF: 0 Victoza 3-Wilfredo 0.6 mg/0.1 mL (18 mg/3 mL) pen injector 1.2 mg SUBCUT BEDTIME RF: 0 loratadine [Claritin] 10 mg Tablet 10 mg PO DAILY RF: 0 oxybutynin chloride 5 mg Tablet Extended Release 24hr 5 mg PO BEDTIME RF: 0 multivitamin with minerals Tablet 1 tab PO DAILY RF: 0 Discontinued gabapentin 300 mg capsule 300 mg PO BID RF: 0 Diet/Activity/Treatments Diet: Carb-consistent/Diabetic, Low-fat, Low-sodium and Low-cholesterol Activity: Activity as tolerated with forward wheeled walker and physical and occupational therapy Visit Report/Discharge Packet Instructions: Diarrhea, How to Prevent Falls Discharge Data Attending Provider: Isreal Sheets Admit Date/Time: 07/10/19 19:55 Discharges patient from system. Discharge Date/Time: 07/11/19 16:30 Quality VTE Deep Vein Thrombosis/Pulmonary Embolism Present on Admission: No
[2019-07-11] MEDS: FLUTICASONE 44 MCG HFA 120 PUFF INH INH (10:50)
[2019-07-11] MEDS: FELODIPINE ER 5 MG TAB 10 MG PO (11:04)
[2019-07-11] MEDS: GLIMEPIRIDE 2 MG TABLET 1 MG PO (11:05)
[2019-07-11] MEDS: hydroCHLOROthiazide 25 MG TABLET PO (11:05)
[2019-07-11] MEDS: MULTIVIT,CALC,MINS/IRON/FOLIC 1 TABLET 1 TAB PO (11:13)
[2019-07-11] MEDS: MELOXICAM 7.5 MG TABLET PO (11:13)
[2019-07-11 11:25] LABS: Procalcitonin < 0.05 ng/mL (<0.5)
[2019-07-11 11:46] VITALS: BP 152/67; PULSE 65; O2SAT 96
[2019-07-11 13:00] VITALS: BP 146/69; PULSE 64; RESP 16; TEMP 37.1; O2SAT 98
--- NOTE | 2019-07-11 14:45 | PM.CN ---
History of Present Illness Consult details Date Patient Seen: 07/11/19 Time Patient Seen: 08:08 Chief complaint: Fever Reason for consult: Back pain with history of prior back surgery by Dr. Sosa Requesting provider: Agatha Gan Narrative: This is a 73-year-old female who has a history of a previous lumbar fusion. She had some drainage postoperatively and some problems with wound healing. She previously was admitted and was given a short course of oral antibiotics and then discharged to a custodial facility. She has been at home now for more than a week. She reportedly went to her primary care practitioner today and there was some question as to whether she had increased confusion and to was sent to the emergency room for evaluation. She was evaluated in the emergency room thought to have some ongoing confusion and possible infection or wound problem such that she required additional observation into was admitted to observation status to the hospital. Her confusion did improve with fluids in the emergency room. Meds Home Medications and Allergies Home Medications Medication Instructions Recorded Confirmed Type acetaminophen [Tylenol Extra 1,000 mg PO TID #0 05/10/17 07/10/19 History Strength] cholecalciferol (vitamin D3) 2,000 iu PO DAILY #0 05/10/17 07/10/19 History [Vitamin D3] glimepiride [Amaryl] 1 mg PO BID #0 05/10/17 07/10/19 History hydrochlorothiazide 25 mg PO DAILY #0 05/10/17 07/10/19 History levothyroxine [Synthroid] 150 mcg PO QAM #0 05/10/17 07/10/19 History Flovent HFA 2 puff INHALATION BID 04/06/19 07/10/19 History cyclobenzaprine 10 mg PO TID PRN 04/06/19 07/10/19 History diphenhydramine HCl [Benadryl] 50 mg PO BEDTIME PRN 04/06/19 07/10/19 History felodipine 10 mg PO QAM 04/06/19 07/10/19 History lisinopril 20 mg PO BEDTIME 04/06/19 07/10/19 History meclizine 25 mg PO DAILY PRN 04/06/19 07/10/19 History meloxicam 7.5 mg PO BID 04/06/19 07/10/19 History oxybutynin chloride 5 mg PO BEDTIME 04/06/19 07/10/19 History simvastatin 20 mg PO BEDTIME 04/06/19 07/10/19 History Alphagan P 0.1 % EYE-RIGHT BID 04/26/19 07/10/19 History aspirin 81 mg PO DAILY #30 tab 04/27/19 07/10/19 Rx hydroxyzine pamoate 25 mg PO Q6-8H PRN #30 cap 04/27/19 07/10/19 Rx Victoza 3-Wilfredo 1.2 mg SUBCUT BEDTIME 06/02/19 07/10/19 History gabapentin 300 mg PO BID 06/02/19 07/10/19 History dorzolamide 1 drops EYE-RIGHT BID 30 Days #2 ml 06/03/19 07/10/19 Rx ranitidine HCl 300 mg PO QPM 30 Days #60 cap 06/03/19 07/10/19 Rx loratadine [Claritin] 10 mg PO DAILY 07/10/19 07/10/19 History multivitamin with minerals 1 tab PO DAILY 07/10/19 07/10/19 History oxybutynin chloride 5 mg PO BEDTIME 07/10/19 07/10/19 History Allergies Allergy/AdvReac Type Severity Reaction Status Date / Time adhesive tape Allergy Severe Rash Verified 06/01/19 17:19 alcohol Allergy Severe Vomiting Verified 06/01/19 17:19 Penicillins Allergy Reaction Verified 06/01/19 17:19 unknown, Told me years ago I was allergic gabapentin AdvReac Severe Diarrhea Verified 06/01/19 17:19 meperidine [From Demerol] AdvReac Severe feeling Verified 06/01/19 17:19 of falling off a georgette propoxyphene [From Darvon] AdvReac Severe feeling Verified 06/01/19 17:19 of falling off a georgette Review of Systems Review of Systems Narrative: She denies recent fever chills or other ongoing significant problems. She does live alone. She notes that her back pain is reasonably well controlled. Exam Vital Signs (past 8 hours): - 07/11/19 07:45 07/11/19 11:46 07/11/19 13:00 Temperature 97.6 F 98.7 F Pulse Rate 60 65 64 Respiratory Rate 16 16 Blood Pressure 115/52 L 152/67 H 146/69 H Pulse Oximetry 93 96 98 Oxygen Delivery Method Room Air Oxygen Flow Rate 0 Narrative Exam Narrative: She is alert she is oriented to situation she is a little unsure how long she has been home from the [facility]. HEENT is benign, lungs are clear cor regular rate and rhythm, her back shows healing wounds without significant erythema fluctuance and really no significant drainage. She is able to fire toe flexors and extensors quads and hamstrings bilaterally. Objective Labs Result Diagrams: 07/11/19 06:45 07/11/19 06:45 Labs: Laboratory Results - last 24 hr 07/10/19 07/10/19 07/10/19 15:46 15:46 15:46 WBC 7.2 RBC 3.91 L Hgb 12.6 Hct 37.1 MCV 94.8 MCH 32.2 MCHC 33.9 RDW 14.3 Plt Count 345 Neut % (Auto) 71.8 Lymph % (Auto) 20.3 L [place] % (Auto) 6.8 Eos % (Auto) 0.4 L Baso % (Auto) 0.7 Neut # (Auto) 5200 Lymph # (Auto) 1500 [place] # (Auto) 500 Eos # (Auto) 0 Baso # (Auto) 100 ESR PT 12.2 INR 1.1 APTT 53 H D Sodium Potassium Chloride Carbon Dioxide BUN Creatinine Estimated GFR BUN/Creatinine Ratio Glucose Lactate Calcium Total Bilirubin AST ALT Alkaline Phosphatase Total Creatine Kinase CK-MB (CK-2) CK-MB (CK-2) Rel Index Troponin I C-Reactive Protein Total Protein Albumin Globulin Albumin/Globulin Ratio Lipase Procalcitonin < 0.05 Urine Color Urine Appearance Urine pH Ur Specific [place] Urine Protein Urine Glucose (UA) Urine Ketones Urine Occult Blood Urine Nitrate Urine Bilirubin Urine Urobilinogen Ur Leukocyte Esterase Urine RBC Urine WBC Ur Squamous Epith Cells Urine Bacteria Ur Culture Indicated? U Opiates 300ng/mL cut Ur Oxycodone Screen Urine Methadone Screen Ur Barbiturates Screen U Tricyclic Antidepress Ur Phencyclidine Scrn Ur Amphetamines Screen U Methamphetamines Scrn Ur MDMA Scrn (Ecstasy) U Benzodiazepines Scrn Urine Cocaine Screen U Marijuana (THC) Screen Chlamy pneumoniae PCR Adenovirus (PCR) B.parapertussis DNA PCR Coronavirus OC43 (PCR) Coronavirus HKU1 (PCR) Coronavirus 229E (PCR) Coronavirus NL63 (PCR) Human Metapneumovir PCR Influenza Type A (PCR) Influenza Type B (PCR) M. pneumoniae (PCR) Parainfluenza 1 (PCR) Parainfluenza 2 (PCR) Parainfluenza 3 (PCR) Parainfluenza 4 (PCR) RSV (PCR) Entero/Rhino (PCR) 07/10/19 07/10/19 07/10/19 15:46 15:46 15:46 WBC RBC Hgb Hct MCV MCH MCHC RDW Plt Count Neut % (Auto) Lymph % (Auto) [place] % (Auto) Eos % (Auto) Baso % (Auto) Neut # (Auto) Lymph # (Auto) [place] # (Auto) Eos # (Auto) Baso # (Auto) ESR PT INR APTT Sodium 139 Potassium 4.0 Chloride 105 Carbon Dioxide 24 BUN 26 H Creatinine 0.70 Estimated GFR > 60.0 BUN/Creatinine Ratio 37.1 H Glucose 131 H Lactate 0.7 Calcium 10.1 Total Bilirubin 0.3 AST 39 H ALT 28 Alkaline Phosphatase 92 Total Creatine Kinase 174 H CK-MB (CK-2) 8.12 H CK-MB (CK-2) Rel Index 4.7 Troponin I < 0.012 C-Reactive Protein Total Protein 7.7 Albumin 4.4 Globulin 3.3 Albumin/Globulin Ratio 1.3 Lipase 208 Procalcitonin Urine Color Urine Appearance Urine pH Ur Specific [place] Urine Protein Urine Glucose (UA) Urine Ketones Urine Occult Blood Urine Nitrate Urine Bilirubin Urine Urobilinogen Ur Leukocyte Esterase Urine RBC Urine WBC Ur Squamous Epith Cells Urine Bacteria Ur Culture Indicated? U Opiates 300ng/mL cut Ur Oxycodone Screen Urine Methadone Screen Ur Barbiturates Screen U Tricyclic Antidepress Ur Phencyclidine Scrn Ur Amphetamines Screen U Methamphetamines Scrn Ur MDMA Scrn (Ecstasy) U Benzodiazepines Scrn Urine Cocaine Screen U Marijuana (THC) Screen Chlamy pneumoniae PCR Adenovirus (PCR) B.parapertussis DNA PCR Coronavirus OC43 (PCR) Coronavirus HKU1 (PCR) Coronavirus 229E (PCR) Coronavirus NL63 (PCR) Human Metapneumovir PCR Influenza Type A (PCR) Influenza Type B (PCR) M. pneumoniae (PCR) Parainfluenza 1 (PCR) Parainfluenza 2 (PCR) Parainfluenza 3 (PCR) Parainfluenza 4 (PCR) RSV (PCR) Entero/Rhino (PCR) 07/10/19 07/10/19 07/10/19 15:46 15:46 16:16 WBC RBC Hgb Hct MCV MCH MCHC RDW Plt Count Neut % (Auto) Lymph % (Auto) [place] % (Auto) Eos % (Auto) Baso % (Auto) Neut # (Auto) Lymph # (Auto) [place] # (Auto) Eos # (Auto) Baso # (Auto) ESR 29 H PT INR APTT Sodium Potassium Chloride Carbon Dioxide BUN Creatinine Estimated GFR BUN/Creatinine Ratio Glucose Lactate Calcium Total Bilirubin AST ALT Alkaline Phosphatase Total Creatine Kinase CK-MB (CK-2) CK-MB (CK-2) Rel Index Troponin I C-Reactive Protein < 0.5 Total Protein Albumin Globulin Albumin/Globulin Ratio Lipase Procalcitonin Urine Color Urine Appearance Urine pH Ur Specific [place] Urine Protein Urine Glucose (UA) Urine Ketones Urine Occult Blood Urine Nitrate Urine Bilirubin Urine Urobilinogen Ur Leukocyte Esterase Urine RBC Urine WBC Ur Squamous Epith Cells Urine Bacteria Ur Culture Indicated? U Opiates 300ng/mL cut Negative Ur Oxycodone Screen Negative Urine Methadone Screen Negative Ur Barbiturates Screen Negative U Tricyclic Antidepress Negative Ur Phencyclidine Scrn Negative Ur Amphetamines Screen Negative U Methamphetamines Scrn Negative Ur MDMA Scrn (Ecstasy) Negative U Benzodiazepines Scrn Negative Urine Cocaine Screen Negative U Marijuana (THC) Screen Negative Chlamy pneumoniae PCR Adenovirus (PCR) B.parapertussis DNA PCR Coronavirus OC43 (PCR) Coronavirus HKU1 (PCR) Coronavirus 229E (PCR) Coronavirus NL63 (PCR) Human Metapneumovir PCR Influenza Type A (PCR) Influenza Type B (PCR) M. pneumoniae (PCR) Parainfluenza 1 (PCR) Parainfluenza 2 (PCR) Parainfluenza 3 (PCR) Parainfluenza 4 (PCR) RSV (PCR) Entero/Rhino (PCR) 07/10/19 07/10/19 07/11/19 16:26 17:02 06:25 WBC RBC Hgb Hct MCV MCH MCHC RDW Plt Count Neut % (Auto) Lymph % (Auto) [place] % (Auto) Eos % (Auto) Baso % (Auto) Neut # (Auto) Lymph # (Auto) [place] # (Auto) Eos # (Auto) Baso # (Auto) ESR PT INR APTT Sodium Potassium Chloride Carbon Dioxide BUN Creatinine Estimated GFR BUN/Creatinine Ratio Glucose Lactate Calcium Total Bilirubin AST ALT Alkaline Phosphatase Total Creatine Kinase CK-MB (CK-2) CK-MB (CK-2) Rel Index Troponin I C-Reactive Protein Total Protein Albumin Globulin Albumin/Globulin Ratio Lipase Procalcitonin < 0.05 Urine Color Yellow Urine Appearance Clear Urine pH 7.0 Ur Specific [place] 1.015 Urine Protein Negative Urine Glucose (UA) Negative Urine Ketones Negative Urine Occult Blood Trace-intact Urine Nitrate Negative Urine Bilirubin Negative Urine Urobilinogen 0.2 Ur Leukocyte Esterase Negative Urine RBC 0-1/hpf Urine WBC 0-1/hpf Ur Squamous Epith Cells 0-1 /hpf Urine Bacteria None seen Ur Culture Indicated? Cult not indicated U Opiates 300ng/mL cut Ur Oxycodone Screen Urine Methadone Screen Ur Barbiturates Screen U Tricyclic Antidepress Ur Phencyclidine Scrn Ur Amphetamines Screen U Methamphetamines Scrn Ur MDMA Scrn (Ecstasy) U Benzodiazepines Scrn Urine Cocaine Screen U Marijuana (THC) Screen Chlamy pneumoniae PCR Not detected Adenovirus (PCR) Not detected B.parapertussis DNA PCR Not detected Coronavirus OC43 (PCR) Not detected Coronavirus HKU1 (PCR) Not detected Coronavirus 229E (PCR) Not detected Coronavirus NL63 (PCR) Not detected Human Metapneumovir PCR Not detected Influenza Type A (PCR) Not detected Influenza Type B (PCR) Not detected M. pneumoniae (PCR) Not detected Parainfluenza 1 (PCR) Not detected Parainfluenza 2 (PCR) Not detected Parainfluenza 3 (PCR) Not detected Parainfluenza 4 (PCR) Not detected RSV (PCR) Not detected Entero/Rhino (PCR) Not detected 07/11/19 07/11/19 06:45 06:45 WBC 5.9 RBC 3.67 L Hgb 11.6 L Hct 34.8 L MCV 94.9 MCH 31.6 MCHC 33.3 RDW 14.5 Plt Count 274 Neut % (Auto) 68.3 Lymph % (Auto) 17.4 L [place] % (Auto) 10.8 Eos % (Auto) 2.6 Baso % (Auto) 0.9 Neut # (Auto) 4000 Lymph # (Auto) 1000 L [place] # (Auto) 600 Eos # (Auto) 200 Baso # (Auto) 100 ESR PT INR APTT Sodium 139 Potassium 4.1 Chloride 107 Carbon Dioxide 23 BUN 17 Creatinine 0.70 Estimated GFR > 60.0 BUN/Creatinine Ratio 24.3 H Glucose 142 H Lactate Calcium 9.2 Total Bilirubin AST ALT Alkaline Phosphatase Total Creatine Kinase CK-MB (CK-2) CK-MB (CK-2) Rel Index Troponin I C-Reactive Protein Total Protein Albumin Globulin Albumin/Globulin Ratio Lipase Procalcitonin Urine Color Urine Appearance Urine pH Ur Specific [place] Urine Protein Urine Glucose (UA) Urine Ketones Urine Occult Blood Urine Nitrate Urine Bilirubin Urine Urobilinogen Ur Leukocyte Esterase Urine RBC Urine WBC Ur Squamous Epith Cells Urine Bacteria Ur Culture Indicated? U Opiates 300ng/mL cut Ur Oxycodone Screen Urine Methadone Screen Ur Barbiturates Screen U Tricyclic Antidepress Ur Phencyclidine Scrn Ur Amphetamines Screen U Methamphetamines Scrn Ur MDMA Scrn (Ecstasy) U Benzodiazepines Scrn Urine Cocaine Screen U Marijuana (THC) Screen Chlamy pneumoniae PCR Adenovirus (PCR) B.parapertussis DNA PCR Coronavirus OC43 (PCR) Coronavirus HKU1 (PCR) Coronavirus 229E (PCR) Coronavirus NL63 (PCR) Human Metapneumovir PCR Influenza Type A (PCR) Influenza Type B (PCR) M. pneumoniae (PCR) Parainfluenza 1 (PCR) Parainfluenza 2 (PCR) Parainfluenza 3 (PCR) Parainfluenza 4 (PCR) RSV (PCR) Entero/Rhino (PCR) Her CT scan showed instrumented fusion no evidence of obvious complications small amount of fluid on the left with no significant dural compression Assessment & Plan Assessment & Plan narrative: Impression is some fang healing issues post lumbar spine surgery. No obvious evidence of infection. The patient is afebrile. Her normal white count and her wound is fairly benign. She is being followed by Medicine for her confusion under CT scan of her head was negative. From an orthopedic standpoint I think she is stable for discharge if she is cleared by Medicine. I did contact Dr. Sosa who also reviewed her scan.
--- NOTE | 2019-07-11 15:41 | CM.DANOTE ---
DCP Assessment: EMR reviewed: Patient is a 73 yr old female who was admitted to for fever and possible wound infection. Cm/Rn met with patient and patients son at the bedside and explained cm/RN role. Patient currently lives alone but her son will be around to help with his mothers recovery. Patient was cleared by Dr. Ledbetter. patient is not completely independent with her ADL's and has family who assist her with her needs. CM/Rn called [facility] and let them know patient was D/C home and would need to reinstate services. They agreed and will call patient tomorrow. Patient notified. CM/RN , patient, and Patients son discussed retirement care services for patient as she goes on. CM/ RN gave patient a senior resources guide and for references for custodial care facilities to contact. I: Medicare and [facility] for life. Plan: D/C home with [facility] reinstated. Kaylah Ledbetter RN Discharge Planning/Care Management CM Discharge Assessment Start: 07/11/19 13:11 Freq: Status: Active Protocol: Document 07/11/19 13:12 HS (Rec: 07/11/19 13:14 HS [id number]) Discharge Planning Assessment Assigned Professor Of Legal Studies Kaylah Ledbetter RN DPOA/Assigned Designee Name Todd Cortez Contact Information [phone] Advance Directives? No: patient and family unsure Advance Directives on File No History Provided By Patient,Family Member Prior Living Arrangements House Household Members family,children,none Type of transporation used prior to Relies on Others admit Independent with ADL's No Is patient alert and oriented? No: patient was alert and orient x2 Needs Assistance With Bathing,Grooming Caregiver for Another No Community Services used prior to Home Health Aid,Home Health admission: Nurse DME Already Rented / Owned FWW / Walker Patient/Family Preference Home with Home Health Comment Home with [facility] restart[facility] Discharge Plan Home with Home Health Referrals Initiated None needed Whiteboard Updated in Patient Room with Yes name and ext. # of Professor Of Legal Studies Review Status In Process Next Review Type Continued Stay Review Document 07/11/19 15:41 HS (Rec: 07/11/19 15:41 HS [id number]) Discharge Planning Assessment Assigned Professor Of Legal Studies Kaylah Ledbetter RN DPOA/Assigned Designee Name Todd Diego Contact Information [phone] Advance Directives? No: patient and family unsure Advance Directives on File No History Provided By Patient,Family Member Prior Living Arrangements House Household Members family,none,children Type of transporation used prior to Relies on Others admit Independent with ADL's No Is patient alert and oriented? No: patient was alert and orient x2 Needs Assistance With Bathing,Grooming Caregiver for Another No Community Services used prior to Home Health Aid,Home Health admission: Nurse DME Already Rented / Owned FWW / Walker Patient/Family Preference Home with Home Health Comment Home with [facility] restarted Discharge Plan Home with Home Health Referrals Initiated None needed Whiteboard Updated in Patient Room with Yes name and ext. # of Professor Of Legal Studies Review Status In Process Next Review Type Continued Stay Review
--- NOTE | 2019-07-11 16:18 | PC.NURSE ---
Patient discharged A/Ox4, stable, accompanied by two sons. IV was removed, patient's belongings were gathered and removed by son and patient left via wheelchair to private vehicle. Discharge instructions were discussed with family and patient. Family stated they were going directly from hospital to an appointment with primary care doctor.
--- NOTE | 2019-07-17 13:40 | PC.NURSE ---
Late entry: NS stop time 07/10 [id number]
== END 2019-07-11 16:30 | disposition home or self-care (01) ==
LOC: ED 17:16 → AC 19:56
PROVIDERS: Emergency Medicine; Internal Medicine; Admitting Provider Nurse Practitioner Adult Health; Emergency Provider Nurse Practitioner Family; Visit Provider Nurse Practitioner Adult Health
DX: R50.9 Fever, unspecified (principal); M54.5 Low back pain; R41.0 Disorientation, unspecified; Z98.1 Arthrodesis status; E11.9 Type 2 diabetes mellitus without complications; I10 Essential (primary) hypertension; J45.909 Unspecified asthma, uncomplicated; K21.9 Gastro-esophageal reflux disease without esophagitis; E78.5 Hyperlipidemia, unspecified; E03.9 Hypothyroidism, unspecified; N32.81 Overactive bladder; F03.90 Unspecified dementia, unspecified severity, without behavioral disturbance, psychotic disturbance, mood disturbance, and anxiety; Z79.84 Long term (current) use of oral hypoglycemic drugs
CPT/HCPCS: 36415; 70450; 71045; 72132; 80048; 80053; 80305; 81001; 82550; 82553; 82962; 83605; 83690; 84145; 84484; 85025; 85610; 85651; 85730; 86140; 87040; 87070; 87075; 87077; 87147; 87186; 87205; 87633; 94640; 96361; 96365; 96366; 97161; 99284; G0378

== ENCOUNTER 2019-08-13 16:54 | Inpatient (IN) | payer MEDICARE, OTHER, SELFPAY ==
[2019-08-13] VITALS (9 sets, daily range): BP systolic 112–160; BP diastolic 62–75; PULSE 70–109; RESP 12–18; TEMP 36.3–37.3; O2SAT 93–99; BMI 41.0
--- NOTE | 2019-08-13 17:15 | ED_ITS ---
HPI - Dizziness General Chief Complaint: Nausea/Vomiting/Diarrhea Stated Complaint: Dizziness Time Seen by Provider: 08/13/19 17:10 History of Present Illness HPI Narrative: HPI: The patient is a 73-year-old female who states that she has multiple allergies. She was brought in by EMS because she has developed dizziness progressive weakness. The neighbors checked on the patient and found her to be confused and lethargic so they called EMS to bring the patient into the emergency department. The patient has had a mild cough but has had profuse diarrhea which started yesterday. She is very vague and has difficulty in saying exactly how long she has had the diarrhea. The patient has been complaining of lower abdominal cramps associated with her diarrhea and a generalized severe headache. She denies a history of migraines. She does not have a history of diabetes mellitus hypertension or COPD. The patient is a former smoker who denies drinking alcohol using any drugs. She denies any melena or hematochezia as well as a history of hepatitis TB HIV Crohn's disease ulcerative colitis irritable bowel syndrome and diverticulitis. She denies any recent history of being on antibiotics. She has multiple environmental allergies. She denies any fever chills or sweats. She has had no change in her vision loss of vision. She has had some nasal drainage secondary to her environmental allergies and hayfever but denies sinus congestion sore throat. Her cough is unproductive of any sputum and is dry. Her dizziness is that a progressive weakness and lightheadedness. She denies any chest pain or palpitations as well as any rash. She has had nausea but no vomiting. She has had no urinary symptoms. She denies any significant new fever, significant cough, or any known exposure to anyone with hunter virus. She denies any fall or head injury. Related Data Home Medications Medication Instructions Recorded Confirmed acetaminophen [Tylenol Extra 1,000 mg PO TID #0 05/10/17 07/10/19 Strength] cholecalciferol (vitamin D3) 2,000 iu PO DAILY #0 05/10/17 07/10/19 [Vitamin D3] glimepiride [Amaryl] 1 mg PO BID #0 05/10/17 07/10/19 hydrochlorothiazide 25 mg PO DAILY #0 05/10/17 07/10/19 levothyroxine [Synthroid] 150 mcg PO QAM #0 05/10/17 07/10/19 Flovent HFA 2 puff INHALATION BID 04/06/19 07/10/19 cyclobenzaprine 10 mg PO TID PRN 04/06/19 07/10/19 diphenhydramine HCl [Benadryl] 50 mg PO BEDTIME PRN 04/06/19 07/10/19 felodipine 10 mg PO QAM 04/06/19 07/10/19 lisinopril 20 mg PO BEDTIME 04/06/19 07/10/19 meclizine 25 mg PO DAILY PRN 04/06/19 07/10/19 meloxicam 7.5 mg PO BID 04/06/19 07/10/19 oxybutynin chloride 5 mg PO BEDTIME 04/06/19 07/10/19 simvastatin 20 mg PO BEDTIME 04/06/19 07/10/19 Alphagan P 0.1 % EYE-RIGHT BID 04/26/19 07/10/19 Victoza 3-Wilfredo 1.2 mg SUBCUT BEDTIME 06/02/19 07/10/19 loratadine [Claritin] 10 mg PO DAILY 07/10/19 07/10/19 multivitamin with minerals 1 tab PO DAILY 07/10/19 07/10/19 oxybutynin chloride 5 mg PO BEDTIME 07/10/19 07/10/19 Previous Rx's Medication Instructions Recorded aspirin 81 mg PO DAILY #30 tab 04/27/19 hydroxyzine pamoate 25 mg PO Q6-8H PRN #30 cap 04/27/19 Allergies Allergy/AdvReac Type Severity Reaction Status Date / Time adhesive tape Allergy Severe Rash Verified 06/01/19 17:19 alcohol Allergy Severe Vomiting Verified 06/01/19 17:19 Penicillins Allergy Reaction Verified 06/01/19 17:19 unknown, Told me years ago I was allergic gabapentin AdvReac Severe Diarrhea Verified 06/01/19 17:19 meperidine [From Demerol] AdvReac Severe feeling Verified 06/01/19 17:19 of falling off a georgette propoxyphene [From Darvon] AdvReac Severe feeling Verified 06/01/19 17:19 of falling off a georgette Review of Systems Review of Systems Narrative: Review of systems were all negative except for those mentioned in the history of present illness. Patient History Medical History Arthritis (Acute) Diabetes (Acute) Easy bruisability (Acute) Edema (Acute) Hair loss (Acute) Heartburn (Acute) HLD (hyperlipidemia) (Acute) HTN (hypertension) (Acute) Hypothyroid (Acute) Pneumonia (Acute) Sciatica (Acute) Seasonal allergies (Acute) Wrinkled retina, right eye (Acute) Surgical History H/O: hysterectomy (Acute) Hx laparoscopic cholecystectomy (Acute) Hx of bilateral cataract extraction (Acute) Family History Father Emphysema of lung Mother Diabetes mellitus Obesity Social History household members: family, children and none Smoking Status: Former smoker alcohol intake: never Smoking Status: Former smoker Substance Use Type: does not use Exam Narrative Exam Narrative: PHYSICAL EXAM: CONSTITUTIONAL: Awake, slower to respond arousable. Morbidly obese. Appears ill. Appears pale. HEAD: AT/NC EENT: PERRL, FROM of eyes, no discharge, No epistaxis or nasal drainage Oral mucosa is moist and pink, posterior pharynx is without erythema or exudate. NECK: The patient's neck is short. Says Supple, no obvious JVD, Trachea is midline without stridor, no palpable LN. SPINE: No gross deformity, no palpable tenderness of the cervical, thoracic, lumbar or sacral spine. No CVA tenderness. THORAX: No chest wall deformity. No crepitus or subcutaneous air. No tenderness. LUNGS: Decreased breath sounds with crackles in his left base in lower lung. No wheezes appreciated. HEART: Heart is regular rhythm and rate without murmur. Heart tones are distant. ABDOMEN: Her abdomen is soft, globular, doughy, rotund, tender in the left lower quadrant with minimal guarding no rebound no palpable mass. EXTREMITIES: No edema, cyanosis, deformity or tenderness. SKIN: No rash, bruising, petechiae or purpura. Skin appears sallow and pale NEURO: Awake, answers questions, no focal facial asymmetry: cranial nerves II- XII are symmetrical, moves all 4 extremities with generalized weakness. Initial Vital Signs Initial Vital Signs: Vital Signs Temperature 97.4 F L 08/13/19 16:40 Pulse Rate 70 08/13/19 16:40 Respiratory Rate 12 08/13/19 16:40 Blood Pressure 112/63 08/13/19 16:40 Pulse Oximetry 99 08/13/19 16:40 Course Orders Ordered: ED Orders 08/13/19 17:02 EKG-12 Lead Stat 08/13/19 17:33 XR chest 1V Stat 08/13/19 17:35 CT abdomen pelvis w con Stat Influenza A & B (PCR) Stat 08/13/19 17:37 GI Panel (Film Array) Stat 08/13/19 18:09 Complete Blood Count AUTO DIFF Stat Comprehensive Metabolic Panel Stat Ferritin Stat Lactate (Lactic Acid) Stat Lipase Stat Partial Thromboplastin Time Stat Procalcitonin Stat Prothrombin Time INR Stat Troponin & CK Cardiac Panel Stat Discontinued Medications Diphenhydramine HCl (Benadryl) 25 mg IV NOW ONE Stop: 08/13/19 17:38 Last Admin: 08/13/19 17:48 Dose: 25 mg Documented by: SJ Ketorolac Tromethamine (Toradol) 30 mg IV NOW ONE Stop: 08/13/19 17:38 Last Admin: 08/13/19 17:47 Dose: 30 mg Documented by: SJ Metoclopramide HCl (Reglan) 10 mg IV NOW ONE Stop: 08/13/19 17:38 Last Admin: 08/13/19 17:48 Dose: 10 mg Documented by: SJ Ondansetron HCl (Zofran) 4 mg IV NOW ONE Stop: 08/13/19 17:38 Last Admin: 08/13/19 17:47 Dose: 4 mg Documented by: SJ Vital Signs Vital signs: Vital Signs - 8 hr 08/13/19 16:40 08/13/19 17:14 Temperature 97.4 F L Pulse Rate 70 77 Respiratory Rate 12 18 Blood Pressure 112/63 Blood Pressure [Right Arm] 137/62 Pulse Oximetry 99 96 MDM - Dizziness Lab Data Result diagrams: 08/13/19 18:09 08/13/19 18:09 Labs: Lab Results 08/13/19 08/13/19 08/13/19 Range/Units 17:35 18:09 18:09 WBC 23.2 H (4.5-11.0) X10^3/uL RBC 5.04 (4.0-5.2) X10^6/uL Hgb 15.6 (12.0-16.0) g/dL Hct 47.4 H (36-46) % MCV 93.9 (80-100) fL MCH 30.9 (26-34) PG MCHC 32.9 (30-36) % RDW 13.9 (11.6-14.8) % Plt Count 345 (150-400) X10^3/uL Neut % (Auto) 91.7 H (50-75) % Lymph % (Auto) 3.4 L (25-40) % [place] % (Auto) 4.5 (3-14) % Eos % (Auto) 0.2 L (2-4) % Baso % (Auto) 0.2 (0-2) % Neut # (Auto) 94786 H (6336-1158) /uL Lymph # (Auto) 800 L (7081-9345) /uL [place] # (Auto) 1000 H (0-900) /uL Eos # (Auto) 0 (0-450) /uL Baso # (Auto) 0 (0-100) /uL PT 11.7 (10.1-12.7) SECONDS INR 1.0 (0.9-1.3) APTT 47 H D (26.4-36.2) SECONDS Sodium (137-145) mmol/L Potassium (3.4-5.1) mmol/L Chloride (98-107) mmol/L Carbon Dioxide (22-32) mmol/L BUN (7-17) mg/dL Creatinine (0.52-1.04) mg/dL Estimated GFR (>60) mL/min BUN/Creatinine Ratio (6-22) Glucose (80-110) mg/dL Lactate (0.7-2.1) mmol/L Calcium (8.4-10.2) mg/dL Ferritin (11-264) ng/mL Total Bilirubin (0.2-1.3) mg/dL AST (14-36) IU/L ALT (<35) IU/L Alkaline Phosphatase (38-126) U/L Total Creatine Kinase (30-135) U/L CK-MB (CK-2) (<2.37) ng/mL CK-MB (CK-2) Rel Index (1.5-5.0) % Troponin I (0.01-0.034) ng/mL Total Protein (6.3-8.2) g/dL Albumin (3.5-5.0) g/dL Globulin (1.7-4.1) g/dL Albumin/Globulin Ratio (1.0-2.8) Lipase (23-300) U/L Procalcitonin (<0.5) ng/mL Influenza A (RT-PCR) Flu a negative (NEGATIVE) Influenza B (RT-PCR) Flu b negative (NEGATIVE) 08/13/19 08/13/19 08/13/19 Range/Units 18:09 18:09 18:09 WBC (4.5-11.0) X10^3/uL RBC (4.0-5.2) X10^6/uL Hgb (12.0-16.0) g/dL Hct (36-46) % MCV (80-100) fL MCH (26-34) PG MCHC (30-36) % RDW (11.6-14.8) % Plt Count (150-400) X10^3/uL Neut % (Auto) (50-75) % Lymph % (Auto) (25-40) % [place] % (Auto) (3-14) % Eos % (Auto) (2-4) % Baso % (Auto) (0-2) % Neut # (Auto) (0311-6960) /uL Lymph # (Auto) (5011-8679) /uL [place] # (Auto) (0-900) /uL Eos # (Auto) (0-450) /uL Baso # (Auto) (0-100) /uL PT (10.1-12.7) SECONDS INR (0.9-1.3) APTT (26.4-36.2) SECONDS Sodium 137 (137-145) mmol/L Potassium 3.8 (3.4-5.1) mmol/L Chloride 98 (98-107) mmol/L Carbon Dioxide 25 (22-32) mmol/L BUN 37 H (7-17) mg/dL Creatinine 1.41 H (0.52-1.04) mg/dL Estimated GFR 36.4 L (>60) mL/min BUN/Creatinine Ratio 26.2 H (6-22) Glucose 185 H (80-110) mg/dL Lactate 2.3 H (0.7-2.1) mmol/L Calcium 11.3 H (8.4-10.2) mg/dL Ferritin (11-264) ng/mL Total Bilirubin 0.7 (0.2-1.3) mg/dL AST 37 H (14-36) IU/L ALT 23 (<35) IU/L Alkaline Phosphatase 112 (38-126) U/L Total Creatine Kinase 117 (30-135) U/L CK-MB (CK-2) 6.81 H (<2.37) ng/mL CK-MB (CK-2) Rel Index 5.8 H (1.5-5.0) % Troponin I 0.024 (0.01-0.034) ng/mL Total Protein 9.1 H (6.3-8.2) g/dL Albumin 5.1 H (3.5-5.0) g/dL Globulin 4.0 (1.7-4.1) g/dL Albumin/Globulin Ratio 1.3 (1.0-2.8) Lipase 228 (23-300) U/L Procalcitonin 0.12 (<0.5) ng/mL Influenza A (RT-PCR) (NEGATIVE) Influenza B (RT-PCR) (NEGATIVE) 08/13/19 Range/Units 18:09 WBC (4.5-11.0) X10^3/uL RBC (4.0-5.2) X10^6/uL Hgb (12.0-16.0) g/dL Hct (36-46) % MCV (80-100) fL MCH (26-34) PG MCHC (30-36) % RDW (11.6-14.8) % Plt Count (150-400) X10^3/uL Neut % (Auto) (50-75) % Lymph % (Auto) (25-40) % [place] % (Auto) (3-14) % Eos % (Auto) (2-4) % Baso % (Auto) (0-2) % Neut # (Auto) (2902-5702) /uL Lymph # (Auto) (1713-9504) /uL [place] # (Auto) (0-900) /uL Eos # (Auto) (0-450) /uL Baso # (Auto) (0-100) /uL PT (10.1-12.7) SECONDS INR (0.9-1.3) APTT (26.4-36.2) SECONDS Sodium (137-145) mmol/L Potassium (3.4-5.1) mmol/L Chloride (98-107) mmol/L Carbon Dioxide (22-32) mmol/L BUN (7-17) mg/dL Creatinine (0.52-1.04) mg/dL Estimated GFR (>60) mL/min BUN/Creatinine Ratio (6-22) Glucose (80-110) mg/dL Lactate (0.7-2.1) mmol/L Calcium (8.4-10.2) mg/dL Ferritin 18 (11-264) ng/mL Total Bilirubin (0.2-1.3) mg/dL AST (14-36) IU/L ALT (<35) IU/L Alkaline Phosphatase (38-126) U/L Total Creatine Kinase (30-135) U/L CK-MB (CK-2) (<2.37) ng/mL CK-MB (CK-2) Rel Index (1.5-5.0) % Troponin I (0.01-0.034) ng/mL Total Protein (6.3-8.2) g/dL Albumin (3.5-5.0) g/dL Globulin (1.7-4.1) g/dL Albumin/Globulin Ratio (1.0-2.8) Lipase (23-300) U/L Procalcitonin (<0.5) ng/mL Influenza A (RT-PCR) (NEGATIVE) Influenza B (RT-PCR) (NEGATIVE) Discharge Plan Departure Clinical Impression: Acute confusion, Abdominal cramping, Dizziness Diarrhea Qualifiers: Diarrhea type: unspecified type Qualified Code(s): R19.7 - Diarrhea, unspecifie d Nausea and vomiting Qualifiers: Vomiting type: unspecified Vomiting Intractability: non-intractable Qualified Code(s): R11.2 - Nausea with vomiting, unspecified Headache Qualifiers: Headache type: unspecified Headache chronicity pattern: unspecified pattern Intractability: not intractable Qualified Code(s): R51 - Headache Prescriptions: No Action glimepiride [Amaryl] 2 MG tablet 1 mg PO BID Qty: 0 RF: 0 levothyroxine [Synthroid] 150 MCG tablet 150 mcg PO QAM Qty: 0 RF: 0 cholecalciferol (vitamin D3) [Vitamin D3] 2,000 UNIT capsule 2,000 iu PO DAILY Qty: 0 RF: 0 hydrochlorothiazide 25 MG tablet 25 mg PO DAILY Qty: 0 RF: 0 acetaminophen [Tylenol Extra Strength] 500 MG tablet 1,000 mg PO TID Qty: 0 RF: 0 cyclobenzaprine 10 mg Tablet 10 mg PO TID PRN (Reason: Muscle pain, spasm) RF: 0 lisinopril 20 mg Tablet 20 mg PO BEDTIME RF: 0 felodipine 5 mg Tablet Extended Release 24 Hr 10 mg PO QAM RF: 0 meloxicam 7.5 mg Tablet 7.5 mg PO BID RF: 0 meclizine 25 mg Tablet 25 mg PO DAILY PRN (Reason: Vertigo) RF: 0 simvastatin 20 mg Tablet 20 mg PO BEDTIME RF: 0 diphenhydramine HCl [Benadryl] 25 mg Capsule 50 mg PO BEDTIME PRN (Reason: Allergic Symptoms) RF: 0 Flovent HFA 44 mcg/actuation Hfa Aerosol Inhaler 2 puff INHALATION BID RF: 0 oxybutynin chloride 5 mg Tablet 5 mg PO BEDTIME RF: 0 Alphagan P 0.1 % drops 0.1 % EYE-RIGHT BID RF: 0 hydroxyzine pamoate 25 mg Capsule 25 mg PO Q6-8H PRN (Reason: Nausea And Vomiting) Qty: 30 RF: 0 aspirin 81 mg tablet,delayed release (DR/EC) 81 mg PO DAILY Qty: 30 RF: 0 Victoza 3-Wilfredo 0.6 mg/0.1 mL (18 mg/3 mL) pen injector 1.2 mg SUBCUT BEDTIME RF: 0 loratadine [Claritin] 10 mg Tablet 10 mg PO DAILY RF: 0 oxybutynin chloride 5 mg Tablet Extended Release 24hr 5 mg PO BEDTIME RF: 0 multivitamin with minerals Tablet 1 tab PO DAILY RF: 0
--- NOTE | 2019-08-13 17:33 | DI.RAD.S_ITS ---
PROCEDURE: XR CHEST 1V INDICATIONS: Cough, crackles in left lung, profuse diarrhea TECHNIQUE: One view of the chest was acquired. COMPARISON: [facility], CR, XR CHEST 1V, 07/10/2019, 15:33. FINDINGS: Surgical changes and devices: None. Lungs and pleura: Lungs are clear. No pleural effusions or pneumothorax. Mediastinum: Mediastinal contours appear normal. Heart size is normal. Bones and chest wall: No suspicious bony lesions. Overlying soft tissues appear unremarkable. IMPRESSION: No acute disease Dictated by: Shubham Vicente M.D. on 08/13/2019 at 21:31 Approved by: Shubham Vicente M.D. on 08/13/2019 at 21:31
--- NOTE | 2019-08-13 17:35 | DI.CT.S_ITS ---
PROCEDURE: CT ABDOMEN PELVIS W CON INDICATIONS: LLQ tenderness with profuse diarrhea TECHNIQUE: After the administration of intravenous contrast, 5 mm thick sections acquired from the diaphragm to the symphysis. 5 mm coronal and sagittal reformats were acquired. For radiation dose reduction, the following was used: automated exposure control, adjustment of mA and/or kV according to patient size. COMPARISON: None. FINDINGS: Image quality: Excellent. ABDOMEN: Lung bases: Lung bases are clear. Heart size is normal. Solid organs: Liver is normal in size and enhancement. Gallbladder surgically absent. Biliary system is non dilated. Pancreas enhances normally. Spleen is normal in size and enhancement. No adrenal nodules. Kidneys demonstrate normal size and enhancement, without hydronephrosis. Probable exophytic right renal cyst, technically too small to characterize accurately. Peritoneum and bowel: No bowel obstruction seen. There is diffuse air fluid levels present throughout the colon and small bowel appear large amount of stool is present in the rectal vault as well as fluid. There is mild pericolonic inflammatory fat stranding along the descending colon, and possible mural thickening. No free fluid or air. Nodes and vessels: No retroperitoneal or mesenteric adenopathy by size criteria. Aorta and inferior vena cava are normal in size. Miscellaneous: No ventral hernias. PELVIS: Genitourinary: Bladder wall thickness is normal. Miscellaneous: No inguinal hernias or adenopathy. Bones: No suspicious bony lesions. No vertebral body compression fractures. Diffuse spondylosis and facet arthropathy IMPRESSION: Mild descending and colonic wall thickening and minimal adjacent pericolonic fat stranding. Extensive air-fluid levels seen throughout the small bowel and colon. Overall findings are suggestive of enterocolitis. Please correlate clinically and with laboratory data Dictated by: Shubham Vicente M.D. on 08/13/2019 at 21:32 Approved by: Shubham Vicente M.D. on 08/13/2019 at 21:36
[2019-08-13] MEDS: ONDANSETRON 4 MG/2 ML INJ IV (17:47)
[2019-08-13] MEDS: KETOROLAC 60 MG/2 ML VIAL 30 MG IV (17:47)
[2019-08-13] MEDS: METOCLOPRAMIDE 10 MG/2 ML INJ IV (17:48)
[2019-08-13] MEDS: diphenhydrAMINE 50 MG/ML VIAL 25 MG IV (17:48)
[2019-08-13 18:18] LABS: Influenza A - CEPHEID Flu A NEGATIVE (NEGATIVE); Influenza B - CEPHEID Flu B NEGATIVE (NEGATIVE)
[2019-08-13 18:19] LABS: Add Manual Diff / Slide Review NO; Basophils Absolute Auto 0 /uL (0-100); Basophils Percent Auto 0.2 % (0-2); Eosinophils Absolute Auto 0 /uL (0-450); Eosinophils Percent Auto 0.2 % (2-4); Hematocrit 47.4 % (36-46); Hemoglobin 15.6 g/dL (12.0-16.0); Lymphocytes Absolute Auto 800 /uL (1100-4500); Lymphocytes Percent Auto 3.4 % (25-40); Mean Corpuscular HGB Conc 32.9 % (30-36); Mean Corpuscular Hemoglobin 30.9 PG (26-34); Mean Corpuscular Volume 93.9 fL (80-100); Monocytes Absolute Auto 1000 /uL (0-900); Monocytes Percent Auto 4.5 % (3-14); Neutrophils Absolute Auto 21300 /uL (1500-7000); Neutrophils Percent Auto 91.7 % (50-75); Platelet Count 345 X10^3/uL (150-400); Red Blood Cell Count 5.04 X10^6/uL (4.0-5.2); Red Cell Distribution Width 13.9 % (11.6-14.8); White Blood Cell Count 23.2 X10^3/uL (4.5-11.0)
[2019-08-13 18:28] LABS: Prothrombin Time 11.7 SECONDS (10.1-12.7)
[2019-08-13 18:30] LABS: PTT Partial Thromboplastin Tim 47 SECONDS (26.4-36.2)
[2019-08-13 18:32] LABS: Lactate (Lactic Acid) 2.3 mmol/L (0.7-2.1)
[2019-08-13 18:33] LABS: Alanine Aminotransferase 23 IU/L (<35); Albumin 5.1 g/dL (3.5-5.0); Albumin Globulin Ratio 1.3 (1.0-2.8); Alkaline Phosphatase 112 U/L (38-126); Aspartate Aminotransferase 37 IU/L (14-36); BUN Creatinine Ratio 26.2 (6-22); Bilirubin Total 0.7 mg/dL (0.2-1.3); Blood Urea Nitrogen 37 mg/dL (7-17); Calcium 11.3 mg/dL (8.4-10.2); Carbon Dioxide 25 mmol/L (22-32); Chloride 98 mmol/L (98-107); Creatine Kinase 117 U/L (30-135); Estimated Glomerular Filt Rate 36.4 mL/min (>60); Glucose 185 mg/dL (80-110); HEMOLYSIS 28 (0-50); Lipase 228 U/L (23-300); Potassium 3.8 mmol/L (3.4-5.1); Sodium 137 mmol/L (137-145); Total Protein 9.1 g/dL (6.3-8.2)
[2019-08-13 18:44] LABS: Troponin I 0.024 ng/mL (0.01-0.034)
[2019-08-13 18:48] LABS: Creatine Kinase MB 6.81 ng/mL (<2.37)
--- NOTE | 2019-08-13 18:48 | PC.NURSE ---
Ysabel son at bedside reports patient had a surgery in her back done at this facility and [facility] has had some intermittent hip pain
[2019-08-13 18:49] LABS: CKMB % Relative Index 5.8 % (1.5-5.0)
[2019-08-13 18:59] LABS: Procalcitonin 0.12 ng/mL (<0.5)
[2019-08-13 19:08] LABS: Ferritin 18 ng/mL (11-264)
[2019-08-13 20:17] LABS: Reflexed Lactate in 2 Hours Y
--- NOTE | 2019-08-13 20:51 | PC.NURSE ---
Pt unable to stand for orthostats, notified Dr Mattson.
[2019-08-13 20:53] LABS: Lactate 2HR (Lactic Acid Rflx) 2.3 mmol/L (0.7-2.1)
[2019-08-13 20:56] LABS: Campylobacter Not Detected (Not Detect); Clostridium difficile toxin AB Detected (Not Detect); Enteroaggregative E.coli Not Detected (Not Detect); Enteropathogenic E.coli Not Detected (Not Detect); Enterotoxigenic E.coli It/st Not Detected (Not Detect); Plesiomonsa shigelloides Not Detected (Not Detect); Salmonella Not Detected (Not Detect); Shiga-like toxin-prod E.coli Not Detected (Not Detect); Vibrio Not Detected (Not Detect); Vibrio cholerae Not Detected (Not Detect); Yersinia enterocolitica Not Detected (Not Detect)
[2019-08-13 20:57] LABS: Adenovirus F 40/41 Not Detected (Not Detect); Astrovirus Not Detected (Not Detect); Cryptosporidium Not Detected (Not Detect); Cyclospora cayetanensis Not Detected (Not Detect); Entamoeba histolytica Not Detected (Not Detect); Giardia lamblia Not Detected (Not Detect); Norovirus GI/GII Not Detected (Not Detect); Rotavirus A Not Detected (Not Detect); Sapovirus Not Detected (Not Detect); Shigella/Enteroinvasive E.coli Not Detected (Not Detect)
[2019-08-13 21:46] LABS: Phosphorous 4.8 mg/dL (2.8-4.1)
[2019-08-13] MEDS: VANCOMYCIN 125 MG CAPSULE PO (22:31)
[2019-08-13] MEDS: ACETAMINOPHEN 325 MG TABLET 650 MG PO (22:31)
[2019-08-13] MEDS: SODIUM CHLORIDE 0.9% 1,000 ML 150 ML IV (22:32)
--- NOTE | 2019-08-13 22:37 | P.HP_ITS ---
History of Present Illness History of Present Illness Date Patient Seen: 08/13/19 Time Patient Seen: 22:11 Chief complaint: Dizziness Narrative: Ms. Carrie Cortez is a 73-year-old female with a history significant for morbid obesity, diabetes type 2, hypertension, hyperlipidemia, asthma, GERD, hypothyroidism, osteoarthritis degenerative joint disease and memory loss presents to the ER complaining of abrupt onset of nausea vomiting and diarrhea starting after lunch today. The patient presents complaining of crescendo crampy abdominal pain that becomes progressively worse until she passes watery diarrhea stool and feels somewhat better only for the processed began again. She has associated symptoms of headache and dizziness. The patient denies sick contacts and has been isolating per the pandemic guidelines and has been going out for walks most days approximately 1 block. She reports no sick contacts either with fever cough or shortness of breath or gastric symptoms. The patient has had no recent exposures to antibiotics. She denies complaints of fevers or chills, nasal congestion or sore throat. She has had no chest pain or palpitations and denies shortness of breath cough or wheezing. She has had abdominal pain as described above passing watery diarrhea with flecks. She denies urinary complaints. Upon arrival the patient is afebrile with temperature 97.4?, heart rate of 70, blood pressure 112/63, respiratory rate of 18 saturating 96% on room air. A no a been eating has been obtained. On laboratory analysis she has an elevated white count of 23.2, hemoglobin of 15.6, hematocrit of 47.6 and platelets 345. She has a PT of 11.7, INR 1.0 and PTT of 47. Her potassium is 3.8 has elevated calcium 11.3, BUN of 37 and creatinine of 1.41. She has a nonfasting glucose of 187. Her liver functions are all within normal limits. She has a procalcitonin of 0.12, lactic acid 2.3. She has a total CK of 117, CK-MB of 6.81, index of 5.8 and troponin of 0.024. A GI PCR is negative and C difficile PCR is positive. The patient is admitted to the medicine service for C difficile infection. Patient History Medical History Arthritis (Acute) Diabetes (Acute) Easy bruisability (Acute) Edema (Acute) Hair loss (Acute) Heartburn (Acute) HLD (hyperlipidemia) (Acute) HTN (hypertension) (Acute) Hypothyroid (Acute) Pneumonia (Acute) Sciatica (Acute) Seasonal allergies (Acute) Wrinkled retina, right eye (Acute) Surgical History H/O: hysterectomy (Acute) Hx laparoscopic cholecystectomy (Acute) Hx of bilateral cataract extraction (Acute) Family & Social History Family History Father Emphysema of lung Mother Diabetes mellitus Obesity Social History: household members family,none,children Safety & Behavioral: Feels Safe in Current Yes Environment Been Physically Hurt or No Threatened By a Person Tobacco & Substance use: Smoking Status Former smoker alcohol intake never Substance Use Type does not use Meds Home Medications and Allergies Home Medications Medication Instructions Recorded Confirmed Type acetaminophen [Tylenol Extra 1,000 mg PO TID PRN #0 05/10/17 08/13/19 History Strength] cholecalciferol (vitamin D3) 2,000 iu PO DAILY #0 05/10/17 08/13/19 History [Vitamin D3] glimepiride [Amaryl] 1 mg PO BID #0 05/10/17 08/13/19 History hydrochlorothiazide 25 mg PO DAILY #0 05/10/17 08/13/19 History levothyroxine [Synthroid] 150 mcg PO QAM #0 05/10/17 08/13/19 History diphenhydramine HCl [Benadryl] 50 mg PO BEDTIME PRN 04/06/19 08/13/19 History felodipine 10 mg PO QAM 04/06/19 08/13/19 History lisinopril 20 mg PO BEDTIME 04/06/19 08/13/19 History meclizine 25 mg PO DAILY PRN 04/06/19 08/13/19 History oxybutynin chloride 5 mg PO BEDTIME 04/06/19 08/13/19 History simvastatin 20 mg PO BEDTIME 04/06/19 08/13/19 History Alphagan P 0.1 % EYE-RIGHT BID 04/26/19 08/13/19 History Victoza 3-Wilfredo 1.2 mg SUBCUT BEDTIME 06/02/19 08/13/19 History multivitamin with minerals 1 tab PO DAILY 07/10/19 08/13/19 History calcium carbonate [Calcium 600] 600 mg PO BID 08/13/19 08/13/19 History Allergies Allergy/AdvReac Type Severity Reaction Status Date / Time adhesive tape Allergy Severe Rash Verified 06/01/19 17:19 alcohol Allergy Severe Vomiting Verified 06/01/19 17:19 Penicillins Allergy Reaction Verified 06/01/19 17:19 unknown, Told me years ago I was allergic gabapentin AdvReac Severe Diarrhea Verified 06/01/19 17:19 meperidine [From Demerol] AdvReac Severe feeling Verified 06/01/19 17:19 of falling off a georgette propoxyphene [From Darvon] AdvReac Severe feeling Verified 06/01/19 17:19 of falling off a georgette Review of Systems Review of Systems ROS: Yes All systems reviewed with the patient and are negative except as otherwise documented Exam Vital Signs (past 8 hours): - 08/13/19 16:40 08/13/19 17:14 08/13/19 19:45 Temperature 97.4 F L Pulse Rate 70 77 91 H Respiratory Rate 12 18 13 Blood Pressure 112/63 Blood Pressure [Right Arm] 137/62 146/67 H Pulse Oximetry 99 96 96 08/13/19 21:00 08/13/19 21:17 08/13/19 21:45 Temperature 97.7 F 97.7 F Pulse Rate 97 H 98 H 97 H Respiratory Rate 18 15 18 Blood Pressure 160/75 H Blood Pressure [Right Arm] 148/70 H 148/70 H Pulse Oximetry 98 98 93 08/13/19 21:50 08/13/19 22:31 Temperature 99.2 F 99.2 F Pulse Rate 109 H Respiratory Rate 18 Blood Pressure 134/64 Blood Pressure [Right Arm] Pulse Oximetry 98 Oxygen Delivery Method Room Air Oxygen Flow Rate 0 Narrative Exam Narrative: GENERAL APPEARANCE: well developed, obese elderly female semi recumbent in bed in no acute distress. HEENT: Normocephalic, PERRLA, conjunctiva clear, sclera anicteric, EOMs intact without nystagmus, mucous membranes are dry and pink without lesions or exudate. NECK/THYROID: neck supple, no JVD, no thyromegaly, trachea midline. LYMPH NODES: no cervical or supraclavicular lymphadenopathy. SKIN: [place], warm and dry. HEART: regular rate and rhythm, S1-S2, no murmur, no rubs or gallops, brisk capillary refill, no edema LUNGS: clear to auscultation bilaterally, no coarseness crackles or wheezing, no cough present CHEST: Symmetrical movement, no accessory muscle use, good tidal volume. ABDOMEN: Soft, no distention, generalized abdominal tenderness greater over epigastrium and left upper quadrant, no guarding or peritoneal signs, no organomegaly, no flank or suprapubic tenderness, active bowel tones. EXTREMITIES: moves all extremities, strength is 5/5 and symmetrical, no deformities or joint effusions. NEUROLOGIC: AAO to person place and time, slow responses with impaired recall, cranial nerves II-XII grossly intact, sensation intact to light touch, hearing grossly normal to speech. PSYCH: Flat affect, poor eye contact cooperative, appropriate with stable behavior. Objective Labs Result Diagrams: 08/14/19 05:40 08/14/19 05:40 Labs: Laboratory Results - last 24 hr 08/13/19 08/13/19 08/13/19 17:35 18:09 18:09 WBC 23.2 H RBC 5.04 Hgb 15.6 Hct 47.4 H MCV 93.9 MCH 30.9 MCHC 32.9 RDW 13.9 Plt Count 345 Neut % (Auto) 91.7 H Lymph % (Auto) 3.4 L Brantley % (Auto) 4.5 Eos % (Auto) 0.2 L Baso % (Auto) 0.2 Neut # (Auto) 68992 H Lymph # (Auto) 800 L Brantley # (Auto) 1000 H Eos # (Auto) 0 Baso # (Auto) 0 PT 11.7 INR 1.0 APTT 47 H D Sodium Potassium Chloride Carbon Dioxide BUN Creatinine Estimated GFR BUN/Creatinine Ratio Glucose Lactate Calcium Phosphorus Ferritin Total Bilirubin AST ALT Alkaline Phosphatase Total Creatine Kinase CK-MB (CK-2) CK-MB (CK-2) Rel Index Troponin I Total Protein Albumin Globulin Albumin/Globulin Ratio Lipase Procalcitonin Stl C. cayetanensis PCR Stool Rotavirus (PCR) Stool Adenovirus (PCR) Stool Astrovirus (PCR) Stool Cryptosporidium PCR Stl E.coli Shiga Tox PCR St Sh/Enteroin Ecoli PCR Stool E coli O157 PCR Stl Enterotoxigenic E PCR Stool EPEC (PCR) Stl E. histolytica PCR Stool Giardia Lamblia PCR Stool Sapovirus (PCR) Stl P. shigelloides PCR St Y.enterocolitica PCR Stool Vibrio (PCR) Stl Vibrio cholerae PCR Stl Enteroaggr Ecoli PCR Stl Norovirus GI/GII PCR Campylobacter (PCR) C. difficile Tox (PCR) Influenza A (RT-PCR) Flu a negative Influenza B (RT-PCR) Flu b negative Salmonella (PCR) 08/13/19 08/13/19 08/13/19 18:09 18:09 18:09 WBC RBC Hgb Hct MCV MCH MCHC RDW Plt Count Neut % (Auto) Lymph % (Auto) Brantley % (Auto) Eos % (Auto) Baso % (Auto) Neut # (Auto) Lymph # (Auto) Brantley # (Auto) Eos # (Auto) Baso # (Auto) PT INR APTT Sodium 137 Potassium 3.8 Chloride 98 Carbon Dioxide 25 BUN 37 H Creatinine 1.41 H Estimated GFR 36.4 L BUN/Creatinine Ratio 26.2 H Glucose 185 H Lactate 2.3 H Calcium 11.3 H Phosphorus Ferritin Total Bilirubin 0.7 AST 37 H ALT 23 Alkaline Phosphatase 112 Total Creatine Kinase 117 CK-MB (CK-2) 6.81 H CK-MB (CK-2) Rel Index 5.8 H Troponin I 0.024 Total Protein 9.1 H Albumin 5.1 H Globulin 4.0 Albumin/Globulin Ratio 1.3 Lipase 228 Procalcitonin 0.12 Stl C. cayetanensis PCR Stool Rotavirus (PCR) Stool Adenovirus (PCR) Stool Astrovirus (PCR) Stool Cryptosporidium PCR Stl E.coli Shiga Tox PCR St Sh/Enteroin Ecoli PCR Stool E coli O157 PCR Stl Enterotoxigenic E PCR Stool EPEC (PCR) Stl E. histolytica PCR Stool Giardia Lamblia PCR Stool Sapovirus (PCR) Stl P. shigelloides PCR St Y.enterocolitica PCR Stool Vibrio (PCR) Stl Vibrio cholerae PCR Stl Enteroaggr Ecoli PCR Stl Norovirus GI/GII PCR Campylobacter (PCR) C. difficile Tox (PCR) Influenza A (RT-PCR) Influenza B (RT-PCR) Salmonella (PCR) 08/13/19 08/13/19 08/13/19 18:09 18:09 19:30 WBC RBC Hgb Hct MCV MCH MCHC RDW Plt Count Neut % (Auto) Lymph % (Auto) Brantley % (Auto) Eos % (Auto) Baso % (Auto) Neut # (Auto) Lymph # (Auto) Brantley # (Auto) Eos # (Auto) Baso # (Auto) PT INR APTT Sodium Potassium Chloride Carbon Dioxide BUN Creatinine Estimated GFR BUN/Creatinine Ratio Glucose Lactate Calcium Phosphorus 4.8 H Ferritin 18 Total Bilirubin AST ALT Alkaline Phosphatase Total Creatine Kinase CK-MB (CK-2) CK-MB (CK-2) Rel Index Troponin I Total Protein Albumin Globulin Albumin/Globulin Ratio Lipase Procalcitonin Stl C. cayetanensis PCR Not detected Stool Rotavirus (PCR) Not detected Stool Adenovirus (PCR) Not detected Stool Astrovirus (PCR) Not detected Stool Cryptosporidium PCR Not detected Stl E.coli Shiga Tox PCR Not detected St Sh/Enteroin Ecoli PCR Not detected Stool E coli O157 PCR Not Reportable Stl Enterotoxigenic E PCR Not detected Stool EPEC (PCR) Not detected Stl E. histolytica PCR Not detected Stool Giardia Lamblia PCR Not detected Stool Sapovirus (PCR) Not detected Stl P. shigelloides PCR Not detected St Y.enterocolitica PCR Not detected Stool Vibrio (PCR) Not detected Stl Vibrio cholerae PCR Not detected Stl Enteroaggr Ecoli PCR Not detected Stl Norovirus GI/GII PCR Not detected Campylobacter (PCR) Not detected C. difficile Tox (PCR) Detected H Influenza A (RT-PCR) Influenza B (RT-PCR) Salmonella (PCR) Not detected 08/13/19 20:35 WBC RBC Hgb Hct MCV MCH MCHC RDW Plt Count Neut % (Auto) Lymph % (Auto) Brantley % (Auto) Eos % (Auto) Baso % (Auto) Neut # (Auto) Lymph # (Auto) Brantley # (Auto) Eos # (Auto) Baso # (Auto) PT INR APTT Sodium Potassium Chloride Carbon Dioxide BUN Creatinine Estimated GFR BUN/Creatinine Ratio Glucose Lactate 2.3 H Calcium Phosphorus Ferritin Total Bilirubin AST ALT Alkaline Phosphatase Total Creatine Kinase CK-MB (CK-2) CK-MB (CK-2) Rel Index Troponin I Total Protein Albumin Globulin Albumin/Globulin Ratio Lipase Procalcitonin Stl C. cayetanensis PCR Stool Rotavirus (PCR) Stool Adenovirus (PCR) Stool Astrovirus (PCR) Stool Cryptosporidium PCR Stl E.coli Shiga Tox PCR St Sh/Enteroin Ecoli PCR Stool E coli O157 PCR Stl Enterotoxigenic E PCR Stool EPEC (PCR) Stl E. histolytica PCR Stool Giardia Lamblia PCR Stool Sapovirus (PCR) Stl P. shigelloides PCR St Y.enterocolitica PCR Stool Vibrio (PCR) Stl Vibrio cholerae PCR Stl Enteroaggr Ecoli PCR Stl Norovirus GI/GII PCR Campylobacter (PCR) C. difficile Tox (PCR) Influenza A (RT-PCR) Influenza B (RT-PCR) Salmonella (PCR) Assessment & Plan Assessment & Plan narrative: This is a 73-year-old female patient who presents to the ER with acute onset of nausea vomiting and diarrhea after lunch today. She is found to have C difficile. She has had no recent antibiotic exposure nor contact with anybody with GI symptoms. 1. C difficile infection, acute, present on admission, active. -The patient with abrupt onset of symptoms this afternoon with crampy abdominal pain passing watery diarrhea stool. -PCR testing is positive for C difficile. Patient has elevated white count of 23.3 in a greater than 50% increase in creatinine and a GITA score of 2 consistent with severe infection. -Ordered vancomycin 125 mg 4 times daily. -ordered Zofran every 6 hours as needed for nausea. -patient will be on a clear liquid diet. -will follow infection markers 2. Diabetes type 2, non insulin-dependent, chronic, present on admission, active -serum glucose on admission labs is 185, patient does report neuropathy the feet, no evidence of nephropathy with good renal function. -ordered fingerstick glucose a.c. and HS, sliding scale correctional insulin low range. 3. Essential hypertension, chronic, present on admission, active -blood pressure on admission is 112/63. -will continue home regimen of lisinopril 20 mg daily, will hold hydrochlorothiazide. 4. Asthma, chronic, stable. -presumed to be mild persistent with the patient using Flovent twice daily. -respiratory therapy to consult. -albuterol nebulizer every 2 hours as needed for shortness of breath or wheezing. 5. Hyperlipidemia, chronic, presumed stable -will continue home regimen of simvastatin 20 mg daily at bedtime. 6. Acquired hypothyroidism, chronic, presumed stable. -will continue home regimen of levothyroxine 150 mcg daily. 8. Overactive bladder, chronic, stable -continue home regimen of oxybutynin 5 mg at bedtime 9. Impaired memory, chronic. -patient with impaired memory and recall, the patient is for 3-4 years and lives alone. -the patient lives alone with support of her son who sets up her medications for her. VTE prophylaxis: SCDs, enoxaparin Diet: Clear liquid IVF: Normal saline 100 cc/hour The patient is admitted to the hospital due to the severity of her symptoms and C difficile infection. She is admitted as an inpatient with expected length of stay to be greater than 2 midnights. Scores GCS Calion coma scale eye opening: Spontaneous Cale coma scale verbal response: Orientated Calion coma scale motor response: Obey commands Cale coma scale total score: 15
[2019-08-14] VITALS (16 sets, daily range): BP systolic 99–140; BP diastolic 39–74; PULSE 74–93; RESP 18–20; TEMP 36.4–37.8; O2SAT 90–98
[2019-08-14] MEDS: SODIUM CHLORIDE 0.9% 1,000 ML 150 ML IV (05:01)
[2019-08-14 05:53] LABS: Add Manual Diff / Slide Review NO; Basophils Absolute Auto 0 /uL (0-100); Basophils Percent Auto 0.2 % (0-2); Eosinophils Absolute Auto 0 /uL (0-450); Eosinophils Percent Auto 0.1 % (2-4); Hematocrit 39.6 % (36-46); Hemoglobin 13.1 g/dL (12.0-16.0); Lymphocytes Absolute Auto 800 /uL (1100-4500); Lymphocytes Percent Auto 3.9 % (25-40); Mean Corpuscular HGB Conc 33.1 % (30-36); Mean Corpuscular Hemoglobin 30.8 PG (26-34); Mean Corpuscular Volume 93.2 fL (80-100); Monocytes Absolute Auto 1100 /uL (0-900); Monocytes Percent Auto 5.6 % (3-14); Neutrophils Absolute Auto 18200 /uL (1500-7000); Neutrophils Percent Auto 90.2 % (50-75); Platelet Count 318 X10^3/uL (150-400); Red Blood Cell Count 4.25 X10^6/uL (4.0-5.2); Red Cell Distribution Width 13.7 % (11.6-14.8); White Blood Cell Count 20.1 X10^3/uL (4.5-11.0)
[2019-08-14 06:12] LABS: BUN Creatinine Ratio 28.8 (6-22); Blood Urea Nitrogen 42 mg/dL (7-17); Calcium 9.9 mg/dL (8.4-10.2); Carbon Dioxide 28 mmol/L (22-32); Chloride 101 mmol/L (98-107); Estimated Glomerular Filt Rate 34.9 mL/min (>60); Glucose 133 mg/dL (80-110); HEMOLYSIS < 15 (0-50); Potassium 4.1 mmol/L (3.4-5.1); Sodium 136 mmol/L (137-145)
[2019-08-14 10:02] LABS: RBC Urine None Seen (0-5/HPF); WBC Urine None Seen (0-5/HPF)
[2019-08-14 10:04] LABS: Appearance Urine UA CLEAR; Bilirubin Urine UA NEGATIVE (NEGATIVE); Color Urine UA YELLOW; Glucose Urine UA NEGATIVE (Negative); Ketones Urine UA NEGATIVE (NEGATIVE); Leukocyte Esterase Urine UA NEGATIVE (NEGATIVE); Nitrite Urine UA NEGATIVE (Negative); Occult Blood Urine UA NEGATIVE (Negative); Protein Urine UA NEGATIVE (Negative); Urobilinogen Urine UA 0.2 E.U./dL (0.2)
[2019-08-14] MEDS: ENOXAPARIN 40 MG/0.4 ML SYRINGE SUBCUT (10:11)
[2019-08-14] MEDS: BRIMONIDINE 0.1% OPHTH 5 ML 1 DROPS EYE-RIGHT ×2 (10:12→20:42)
[2019-08-14] MEDS: LEVOTHYROXINE 150 MCG TABLET PO (10:12)
[2019-08-14] MEDS: VANCOMYCIN 125 MG CAPSULE PO ×4 (10:12→20:43)
[2019-08-14] MEDS: FELODIPINE ER 5 MG TAB 10 MG PO (10:12)
[2019-08-14 11:01] LABS: Bacteria Urine Moderate (10-30); Culture Indicated Urine Specimen Cultured; Hyaline Casts Urine 1-5/LPF; Mucus Urine 1+ (Negative); Squamous Epithelial Cell Urine 1-5 /HPF (0-5/HPF)
[2019-08-14] MEDS: INSULIN ASPART 100 UNIT/ML INSULN PEN SUBCUT (14:09)
--- NOTE | 2019-08-14 15:00 | PC.NURSE ---
Day Shift Pt had 1 BM this shift, it was formed and not diarrhea. Up to BSC with 1-2 person assist with FWW.
--- NOTE | 2019-08-14 15:36 | CM.DANOTE ---
DCP Brief Assessment Note Patient is a 73 year old female who was admitted on 08/13/19 for Dizziness. Pt has [employer] for insurance and her PCP is not listed. EMR was reviewed. Per MD, pt tested positive for Cdiff with severe kidney injury and currently on IV-Abx and waiting for white count and kidney function to improve and ability to tolerate advanced diet prior to d/c. Pt on COVID r/o with test results pending. PT ordered and pending. No bedside assessment completed due to triage needs and COVID r/o precautions. Plan: SW to follow closely tomorrow for PT eval and recommendations to determine if pt will be safe for d/c home and any further d/c planning needs. ROSETTE Bass
[2019-08-14 16:25] LABS: Magnesium 1.9 mg/dL (1.6-2.3)
[2019-08-14 16:28] LABS: Lactate (Lactic Acid) 1.2 mmol/L (0.7-2.1)
[2019-08-14 16:42] LABS: Procalcitonin 0.89 ng/mL (<0.5)
--- NOTE | 2019-08-14 16:50 | P.PN_ITS ---
Subjective Subjective Date Patient Seen: 08/14/19 Interval history: Carrie Cortez is a 73-year-old female with a past medical history significant for hypertension, hyperlipidemia, morbid obesity, diabetes mellitus type 2, asthma, GERD, hypothyroidism, osteoarthritis degenerative joint disease and dementia who presented to the ED with acute onset of nausea, vomiting and diarrhea. The patient is resting in bed comfortably. She reports her abdominal cramping has improved. She had 1 formed bowel movement this morning per nursing staff. Patient has no other complaints and denies headache, cough, shortness of breath, chest pain, nausea, vomiting, fever, chills, or dysuria. She is voiding and eliminating without difficulty. She is up ambulating with assistance. Exam Vital Signs (past 8 hours): - 08/14/19 09:00 08/14/19 09:05 08/14/19 11:42 Temperature 99.1 F Pulse Rate 74 Pulse Rate [Orthostatic Lying] 84 Pulse Rate [Orthostatic Sitting] 91 H Pulse Rate [Orthostatic Standing] 93 H Respiratory Rate 18 Blood Pressure 115/57 L Blood Pressure [Orthostatic Lying] 126/56 L Blood Pressure [Orthostatic Sitting] 131/61 Blood Pressure [Orthostatic Standing] 135/63 Pulse Oximetry 93 94 08/14/19 14:17 08/14/19 15:49 Temperature Pulse Rate 86 Pulse Rate [Orthostatic Lying] Pulse Rate [Orthostatic Sitting] Pulse Rate [Orthostatic Standing] Respiratory Rate 18 Blood Pressure 124/56 L Blood Pressure [Orthostatic Lying] Blood Pressure [Orthostatic Sitting] Blood Pressure [Orthostatic Standing] Pulse Oximetry 94 98 Oxygen Delivery Method Room Air Oxygen Flow Rate 0 Narrative Exam Narrative: General: Elderly female lying in bed and in no acute distress, well-developed, well-nourished, alert and oriented to person and place, moderate dementia with short term memory recall deficit but otherwise appropriately interactive. HEENT: Normocephalic, atraumatic. External ears without defect. Pupils equal, round, and reactive to light. Anicteric sclerae, moist conjunctivae, and no lid lag. Oropharynx free of erythema and cobble stoning with moist mucosa. Neck: Supple with full range of motion. No lymphadenopathy or thyromegaly. Cardiovascular: Regular rate and rhythm without murmurs, rubs, or gallops appreciated Pulmonary: Clear to auscultation bilaterally without crackles, wheezes, or rh onchi. Normal respiratory effort with no use of accessory muscles. Abdomen: Soft, obese, bowel sounds present, no significant tenderness to palpation, nondistended. Extremities: No clubbing, cyanosis, or edema. Skin: Normal temperature, turgor, and texture; no rash, ulcers, or subcutaneous nodules appreciated. Neurological: Cranial nerves grossly intact. Psychiatric: Normal mood and affect. Alert and oriented to person and place. Moderate dementia with moderate short term memory recall deficit. Objective Labs Result Diagrams: 08/15/19 06:00 08/15/19 06:00 Labs: Laboratory Results - last 24 hr 08/13/19 08/13/19 08/13/19 17:35 18:09 18:09 WBC 23.2 H RBC 5.04 Hgb 15.6 Hct 47.4 H MCV 93.9 MCH 30.9 MCHC 32.9 RDW 13.9 Plt Count 345 Neut % (Auto) 91.7 H Lymph % (Auto) 3.4 L [place] % (Auto) 4.5 Eos % (Auto) 0.2 L Baso % (Auto) 0.2 Neut # (Auto) 06088 H Lymph # (Auto) 800 L [place] # (Auto) 1000 H Eos # (Auto) 0 Baso # (Auto) 0 PT 11.7 INR 1.0 APTT 47 H D Sodium Potassium Chloride Carbon Dioxide BUN Creatinine Estimated GFR BUN/Creatinine Ratio Glucose Lactate Calcium Phosphorus Magnesium Ferritin Total Bilirubin AST ALT Alkaline Phosphatase Total Creatine Kinase CK-MB (CK-2) CK-MB (CK-2) Rel Index Troponin I Total Protein Albumin Globulin Albumin/Globulin Ratio Lipase Procalcitonin Urine Color Urine Appearance Urine pH Ur Specific [place] Urine Protein Urine Glucose (UA) Urine Ketones Urine Occult Blood Urine Nitrate Urine Bilirubin Urine Urobilinogen Ur Leukocyte Esterase Urine RBC Urine WBC Ur Squamous Epith Cells Urine Bacteria Hyaline Casts Urine Mucus Ur Culture Indicated? Stl C. cayetanensis PCR Stool Rotavirus (PCR) Stool Adenovirus (PCR) Stool Astrovirus (PCR) Stool Cryptosporidium PCR Stl E.coli Shiga Tox PCR St Sh/Enteroin Ecoli PCR Stool E coli O157 PCR Stl Enterotoxigenic E PCR Stool EPEC (PCR) Stl E. histolytica PCR Stool Giardia Lamblia PCR Stool Sapovirus (PCR) Stl P. shigelloides PCR St Y.enterocolitica PCR Stool Vibrio (PCR) Stl Vibrio cholerae PCR Stl Enteroaggr Ecoli PCR Stl Norovirus GI/GII PCR Campylobacter (PCR) C. difficile Tox (PCR) Influenza A (RT-PCR) Flu a negative Influenza B (RT-PCR) Flu b negative Salmonella (PCR) 08/13/19 08/13/19 08/13/19 18:09 18:09 18:09 WBC RBC Hgb Hct MCV MCH MCHC RDW Plt Count Neut % (Auto) Lymph % (Auto) [place] % (Auto) Eos % (Auto) Baso % (Auto) Neut # (Auto) Lymph # (Auto) [place] # (Auto) Eos # (Auto) Baso # (Auto) PT INR APTT Sodium 137 Potassium 3.8 Chloride 98 Carbon Dioxide 25 BUN 37 H Creatinine 1.41 H Estimated GFR 36.4 L BUN/Creatinine Ratio 26.2 H Glucose 185 H Lactate 2.3 H Calcium 11.3 H Phosphorus Magnesium Ferritin Total Bilirubin 0.7 AST 37 H ALT 23 Alkaline Phosphatase 112 Total Creatine Kinase 117 CK-MB (CK-2) 6.81 H CK-MB (CK-2) Rel Index 5.8 H Troponin I 0.024 Total Protein 9.1 H Albumin 5.1 H Globulin 4.0 Albumin/Globulin Ratio 1.3 Lipase 228 Procalcitonin 0.12 Urine Color Urine Appearance Urine pH Ur Specific [place] Urine Protein Urine Glucose (UA) Urine Ketones Urine Occult Blood Urine Nitrate Urine Bilirubin Urine Urobilinogen Ur Leukocyte Esterase Urine RBC Urine WBC Ur Squamous Epith Cells Urine Bacteria Hyaline Casts Urine Mucus Ur Culture Indicated? Stl C. cayetanensis PCR Stool Rotavirus (PCR) Stool Adenovirus (PCR) Stool Astrovirus (PCR) Stool Cryptosporidium PCR Stl E.coli Shiga Tox PCR St Sh/Enteroin Ecoli PCR Stool E coli O157 PCR Stl Enterotoxigenic E PCR Stool EPEC (PCR) Stl E. histolytica PCR Stool Giardia Lamblia PCR Stool Sapovirus (PCR) Stl P. shigelloides PCR St Y.enterocolitica PCR Stool Vibrio (PCR) Stl Vibrio cholerae PCR Stl Enteroaggr Ecoli PCR Stl Norovirus GI/GII PCR Campylobacter (PCR) C. difficile Tox (PCR) Influenza A (RT-PCR) Influenza B (RT-PCR) Salmonella (PCR) 03/08/13/19 08/13/19 18:09 18:09 19:30 WBC RBC Hgb Hct MCV MCH MCHC RDW Plt Count Neut % (Auto) Lymph % (Auto) [place] % (Auto) Eos % (Auto) Baso % (Auto) Neut # (Auto) Lymph # (Auto) [place] # (Auto) Eos # (Auto) Baso # (Auto) PT INR APTT Sodium Potassium Chloride Carbon Dioxide BUN Creatinine Estimated GFR BUN/Creatinine Ratio Glucose Lactate Calcium Phosphorus 4.8 H Magnesium Ferritin 18 Total Bilirubin AST ALT Alkaline Phosphatase Total Creatine Kinase CK-MB (CK-2) CK-MB (CK-2) Rel Index Troponin I Total Protein Albumin Globulin Albumin/Globulin Ratio Lipase Procalcitonin Urine Color Urine Appearance Urine pH Ur Specific [place] Urine Protein Urine Glucose (UA) Urine Ketones Urine Occult Blood Urine Nitrate Urine Bilirubin Urine Urobilinogen Ur Leukocyte Esterase Urine RBC Urine WBC Ur Squamous Epith Cells Urine Bacteria Hyaline Casts Urine Mucus Ur Culture Indicated? Stl C. cayetanensis PCR Not detected Stool Rotavirus (PCR) Not detected Stool Adenovirus (PCR) Not detected Stool Astrovirus (PCR) Not detected Stool Cryptosporidium PCR Not detected Stl E.coli Shiga Tox PCR Not detected St Sh/Enteroin Ecoli PCR Not detected Stool E coli O157 PCR Not Reportable Stl Enterotoxigenic E PCR Not detected Stool EPEC (PCR) Not detected Stl E. histolytica PCR Not detected Stool Giardia Lamblia PCR Not detected Stool Sapovirus (PCR) Not detected Stl P. shigelloides PCR Not detected St Y.enterocolitica PCR Not detected Stool Vibrio (PCR) Not detected Stl Vibrio cholerae PCR Not detected Stl Enteroaggr Ecoli PCR Not detected Stl Norovirus GI/GII PCR Not detected Campylobacter (PCR) Not detected C. difficile Tox (PCR) Detected H Influenza A (RT-PCR) Influenza B (RT-PCR) Salmonella (PCR) Not detected 08/13/19 08/14/19 08/14/19 20:35 05:40 05:40 WBC 20.1 H RBC 4.25 Hgb 13.1 Hct 39.6 MCV 93.2 MCH 30.8 MCHC 33.1 RDW 13.7 Plt Count 318 Neut % (Auto) 90.2 H Lymph % (Auto) 3.9 L [place] % (Auto) 5.6 Eos % (Auto) 0.1 L Baso % (Auto) 0.2 Neut # (Auto) 07527 H Lymph # (Auto) 800 L [place] # (Auto) 1100 H Eos # (Auto) 0 Baso # (Auto) 0 PT INR APTT Sodium 136 L Potassium 4.1 Chloride 101 Carbon Dioxide 28 BUN 42 H Creatinine 1.46 H Estimated GFR 34.9 L BUN/Creatinine Ratio 28.8 H Glucose 133 H Lactate 2.3 H Calcium 9.9 Phosphorus Magnesium Ferritin Total Bilirubin AST ALT Alkaline Phosphatase Total Creatine Kinase CK-MB (CK-2) CK-MB (CK-2) Rel Index Troponin I Total Protein Albumin Globulin Albumin/Globulin Ratio Lipase Procalcitonin Urine Color Urine Appearance Urine pH Ur Specific [place] Urine Protein Urine Glucose (UA) Urine Ketones Urine Occult Blood Urine Nitrate Urine Bilirubin Urine Urobilinogen Ur Leukocyte Esterase Urine RBC Urine WBC Ur Squamous Epith Cells Urine Bacteria Hyaline Casts Urine Mucus Ur Culture Indicated? Stl C. cayetanensis PCR Stool Rotavirus (PCR) Stool Adenovirus (PCR) Stool Astrovirus (PCR) Stool Cryptosporidium PCR Stl E.coli Shiga Tox PCR St Sh/Enteroin Ecoli PCR Stool E coli O157 PCR Stl Enterotoxigenic E PCR Stool EPEC (PCR) Stl E. histolytica PCR Stool Giardia Lamblia PCR Stool Sapovirus (PCR) Stl P. shigelloides PCR St Y.enterocolitica PCR Stool Vibrio (PCR) Stl Vibrio cholerae PCR Stl Enteroaggr Ecoli PCR Stl Norovirus GI/GII PCR Campylobacter (PCR) C. difficile Tox (PCR) Influenza A (RT-PCR) Influenza B (RT-PCR) Salmonella (PCR) 08/14/19 08/14/19 08/14/19 09:56 15:54 15:54 WBC RBC Hgb Hct MCV MCH MCHC RDW Plt Count Neut % (Auto) Lymph % (Auto) [place] % (Auto) Eos % (Auto) Baso % (Auto) Neut # (Auto) Lymph # (Auto) [place] # (Auto) Eos # (Auto) Baso # (Auto) PT INR APTT Sodium Potassium Chloride Carbon Dioxide BUN Creatinine Estimated GFR BUN/Creatinine Ratio Glucose Lactate 1.2 Calcium Phosphorus Magnesium Ferritin Total Bilirubin AST ALT Alkaline Phosphatase Total Creatine Kinase CK-MB (CK-2) CK-MB (CK-2) Rel Index Troponin I Total Protein Albumin Globulin Albumin/Globulin Ratio Lipase Procalcitonin 0.89 H Urine Color Yellow Urine Appearance Clear Urine pH 5.0 Ur Specific [place] 1.010 Urine Protein Negative Urine Glucose (UA) Negative Urine Ketones Negative Urine Occult Blood Negative Urine Nitrate Negative Urine Bilirubin Negative Urine Urobilinogen 0.2 Ur Leukocyte Esterase Negative Urine RBC None seen Urine WBC None seen Ur Squamous Epith Cells 1-5 /hpf Urine Bacteria Moderate (10-30) H Hyaline Casts 1-5/lpf Urine Mucus 1+ H Ur Culture Indicated? Specimen cultured Stl C. cayetanensis PCR Stool Rotavirus (PCR) Stool Adenovirus (PCR) Stool Astrovirus (PCR) Stool Cryptosporidium PCR Stl E.coli Shiga Tox PCR St Sh/Enteroin Ecoli PCR Stool E coli O157 PCR Stl Enterotoxigenic E PCR Stool EPEC (PCR) Stl E. histolytica PCR Stool Giardia Lamblia PCR Stool Sapovirus (PCR) Stl P. shigelloides PCR St Y.enterocolitica PCR Stool Vibrio (PCR) Stl Vibrio cholerae PCR Stl Enteroaggr Ecoli PCR Stl Norovirus GI/GII PCR Campylobacter (PCR) C. difficile Tox (PCR) Influenza A (RT-PCR) Influenza B (RT-PCR) Salmonella (PCR) 08/14/19 15:54 WBC RBC Hgb Hct MCV MCH MCHC RDW Plt Count Neut % (Auto) Lymph % (Auto) [place] % (Auto) Eos % (Auto) Baso % (Auto) Neut # (Auto) Lymph # (Auto) [place] # (Auto) Eos # (Auto) Baso # (Auto) PT INR APTT Sodium Potassium Chloride Carbon Dioxide BUN Creatinine Estimated GFR BUN/Creatinine Ratio Glucose Lactate Calcium Phosphorus Magnesium 1.9 Ferritin Total Bilirubin AST ALT Alkaline Phosphatase Total Creatine Kinase CK-MB (CK-2) CK-MB (CK-2) Rel Index Troponin I Total Protein Albumin Globulin Albumin/Globulin Ratio Lipase Procalcitonin Urine Color Urine Appearance Urine pH Ur Specific [place] Urine Protein Urine Glucose (UA) Urine Ketones Urine Occult Blood Urine Nitrate Urine Bilirubin Urine Urobilinogen Ur Leukocyte Esterase Urine RBC Urine WBC Ur Squamous Epith Cells Urine Bacteria Hyaline Casts Urine Mucus Ur Culture Indicated? Stl C. cayetanensis PCR Stool Rotavirus (PCR) Stool Adenovirus (PCR) Stool Astrovirus (PCR) Stool Cryptosporidium PCR Stl E.coli Shiga Tox PCR St Sh/Enteroin Ecoli PCR Stool E coli O157 PCR Stl Enterotoxigenic E PCR Stool EPEC (PCR) Stl E. histolytica PCR Stool Giardia Lamblia PCR Stool Sapovirus (PCR) Stl P. shigelloides PCR St Y.enterocolitica PCR Stool Vibrio (PCR) Stl Vibrio cholerae PCR Stl Enteroaggr Ecoli PCR Stl Norovirus GI/GII PCR Campylobacter (PCR) C. difficile Tox (PCR) Influenza A (RT-PCR) Influenza B (RT-PCR) Salmonella (PCR) Assessment & Plan Assessment & Plan narrative: Carrie Cortez is a 73-year-old female with a past medical history significant for hypertension, hyperlipidemia, morbid obesity, diabetes mellitus type 2, asthma, GERD, hypothyroidism, osteoarthritis degenerative joint disease and dementia who presented to the ED with acute onset of nausea, vomiting and diarrhea. 1. Acute C difficile infection, present on admission. Active. -The patient presented with nausea, vomiting, and crampy abdominal pain with watery diarrhea. Patient has had several courses of antibiotics over the 3 months. -GI stool panel positive for C difficile. -Initial WBC 23.2 and procalcitonin 0.89. Continue to monitor WBC and procalcitonin daily. -Continue vancomycin 125 mg 4 times daily. -Ordered Zofran every 6 hours as needed for nausea. -Continue to advance diet as tolerated. 2. Acute kidney injury, present on admission. Active. -Secondary to acute infection and GI losses with C difficile diarrhea. -Initial creatinine 1.41. Baseline creatinine 0.7-0.8. -Avoid nephrotoxic agents and optimize renal perfusion. -Continue normal saline at 100 mL/hr. -Continue to monitor renal function daily. 3. Diabetes mellitus type 2, non-insulin using, chronic, present on admission. Stable. -Hemoglobin A1C 6.2% in 05/2019 indicative of tight glycemic control. Patient does report neuropathy the feet. -Held home glimepiride and home Victoza. -Continue [facility] blood glucose checks and low dose correctional scale insulin. 4. Hypertension, chronic, present on admission. Stable. -Blood pressure on admission is 112/63. -Continue felodipine 10 mg daily and lisinopril 20 mg daily at bedtime. Held hydrochlorothiazide 25 mg daily to avoid dehydration in setting of C. difficile diarrhea. 5. Hyperlipidemia, chronic, present on admission. Stable. -Continue home simvastatin 20 mg daily at bedtime. 6. GERD, chronic, present on admission. Stable. -No complaints of abdominal pain or heartburn. -Continue home ranitidine 300 mg each evening. 7. Hypothyroidism, chronic, present on admission. Stable. -TSH normal at 1.71 on 05/2019. -Continue home levothyroxine 150 mcg daily. 8. Overactive bladder, chronic, present on admission. Stable -Continue home oxybutynin 5 mg daily at bedtime. 9. Moderate dementia without behavioral disturbance, chronic, present on admission. Stable. -Patient with impaired memory recall. Patient is for 3-4 years and lives alone with support of her son who sets up her medications for her. -Occupational therapy previously performed SLUMS which she scored a 12/30 which is indicative of moderate dementia. Patient previously seen by occupational therapy and appears to have adequate resources for community living. Code status: Full code VTE prophylaxis: Enoxaparin and SCDs Disposition: Patient likely to discharge home with home health versus [facility] for rehabilitation in the next 1-2 days. Quality VTE Deep Vein Thrombosis/Pulmonary Embolism Present on Admission: No
[2019-08-14] MEDS: HEPARIN 5,000 UNIT/ML VIAL 7500 UNIT SUBCUT (20:33)
[2019-08-14] MEDS: lisinopriL 20 MG TABLET PO (20:40)
[2019-08-14] MEDS: SIMVASTATIN 20 MG TABLET PO (20:42)
[2019-08-14] MEDS: OXYBUTYNIN 5 MG TABLET PO (20:42)
--- NOTE | 2019-08-14 22:41 | PC.NURSE ---
Evening note: Carrie had an uneventful night, VS stable, RA oxygen mid 90's. Denies chest pain or SOB, does have rare but intermittent dry cough. She is Ox3 and to situation, repositioned q1-2 hours for comfort. IV infusing to RFA IV with no difficulty, rate decreased to 100 ml/hour per new order. RAC PIV is saline locked. Able to transfer to [facility], otherwise is fairly weak. Needs 1-2 person assist/fww/gait belt. Voiding with no reported difficulty. Fall precautions in place, alarm active for safety tonight. Pt using call button appropriately & denies needs/concerns/questions tonight.
[2019-08-15] VITALS (7 sets, daily range): BP systolic 126–161; BP diastolic 60–77; PULSE 64–98; RESP 16–20; TEMP 36.2–36.8; O2SAT 94–99
[2019-08-15] MEDS: HEPARIN 5,000 UNIT/ML VIAL 7500 UNIT SUBCUT ×2 (05:09→12:02)
[2019-08-15] MEDS: SODIUM CHLORIDE 0.9% 1,000 ML 150 ML IV (05:52)
[2019-08-15] MEDS: LEVOTHYROXINE 150 MCG TABLET PO (05:53)
[2019-08-15 06:08] LABS: Add Manual Diff / Slide Review NO; Basophils Absolute Auto 100 /uL (0-100); Basophils Percent Auto 0.6 % (0-2); Eosinophils Absolute Auto 100 /uL (0-450); Hematocrit 36.9 % (36-46); Hemoglobin 12.1 g/dL (12.0-16.0); Lymphocytes Absolute Auto 1300 /uL (1100-4500); Lymphocytes Percent Auto 11.3 % (25-40); Mean Corpuscular HGB Conc 32.7 % (30-36); Mean Corpuscular Hemoglobin 30.8 PG (26-34); Monocytes Absolute Auto 700 /uL (0-900); Monocytes Percent Auto 6.5 % (3-14); Neutrophils Absolute Auto 8900 /uL (1500-7000); Neutrophils Percent Auto 80.6 % (50-75); Platelet Count 273 X10^3/uL (150-400); Red Blood Cell Count 3.92 X10^6/uL (4.0-5.2); Red Cell Distribution Width 13.7 % (11.6-14.8)
[2019-08-15 06:19] LABS: Alanine Aminotransferase 18 IU/L (<35); Albumin 3.3 g/dL (3.5-5.0); Albumin Globulin Ratio 1.1 (1.0-2.8); Alkaline Phosphatase 67 U/L (38-126); Aspartate Aminotransferase 25 IU/L (14-36); BUN Creatinine Ratio 22.5 (6-22); Bilirubin Total 0.4 mg/dL (0.2-1.3); Blood Urea Nitrogen 20 mg/dL (7-17); Carbon Dioxide 29 mmol/L (22-32); Chloride 105 mmol/L (98-107); Estimated Glomerular Filt Rate > 60.0 mL/min (>60); Glucose 129 mg/dL (80-110); HEMOLYSIS < 15 (0-50); Magnesium 1.8 mg/dL (1.6-2.3); Potassium 3.7 mmol/L (3.4-5.1); Sodium 137 mmol/L (137-145); Total Protein 6.3 g/dL (6.3-8.2)
[2019-08-15 06:56] LABS: Procalcitonin 0.59 ng/mL (<0.5)
[2019-08-15] MEDS: BRIMONIDINE 0.1% OPHTH 5 ML 1 DROPS EYE-RIGHT (08:19)
[2019-08-15] MEDS: INSULIN ASPART 100 UNIT/ML INSULN PEN SUBCUT ×2 (08:20→11:59)
[2019-08-15] MEDS: FELODIPINE ER 5 MG TAB 10 MG PO (08:20)
[2019-08-15] MEDS: VANCOMYCIN 125 MG CAPSULE PO ×3 (08:20→18:17)
--- NOTE | 2019-08-15 09:29 | OT.IP.EVAL ---
Current Diagnoses Enterocolitis due to Clostridium difficile, not specified as recurrent (08/13/19) Past Medical History (Last Reviewed 08/14/19 @ 08:23 by IONA Evans) Arthritis (Acute) Diabetes (Acute) Easy bruisability (Acute) Edema (Acute) Hair loss (Acute) Heartburn (Acute) HLD (hyperlipidemia) (Acute) HTN (hypertension) (Acute) Hypothyroid (Acute) Pneumonia (Acute) Sciatica (Acute) Seasonal allergies (Acute) Wrinkled retina, right eye (Acute) Surgical History (Last Reviewed 08/14/19 @ 08:23 by IONA Evans) H/O: hysterectomy (Acute) Hx laparoscopic cholecystectomy (Acute) Hx of bilateral cataract extraction (Acute) Occupational Therapy Inpatient Evaluation/Re-Eval M1 PT/OT-IP Prior Functional Status Start: 08/15/19 11:53 Freq: NEEDED Status: Active Protocol: Document 08/15/19 11:53 [facility] (Rec: 08/15/19 12:13 [facility] [id number]) Medical Review Prior Functional Status Medical History Reviewed Yes Communication Independent Mobility and Gait Independent and use of 1-2 SPC at home and at times does not use any SPC to walk with. Activities of Daily Living and IADL's Completely independent with all ADl's, IADL's, does her own bills and medications. Prior Functional Level (Other details) Pt's son comes and assist with heavy chores weekly. Social History Household Members none Living Arrangements House Number of Floors (Floors) One Floor Number of Stairs To Enter/Railing? Ramp to get in. Home Environment High Toilet,Walk in Shower Home Equipment Straight Cane,Raised Toilet Seat w/Armrests,Shower Seat without Backrest,Hand Held Shower,Lift Recliner,Grab Bars In Shower M2 OT-IP Current Condition Start: 08/15/19 11:53 Freq: Status: Active Protocol: Document 08/15/19 11:53 [facility] (Rec: 08/15/19 12:13 [facility] [id number]) Occupational Therapy Current Condition Current Condition Evaluation Date 08/15/19 Treatment Diagnosis C-diff Diagnosis Onset Date 08/13/19 Weight Bearing Status Weight Bearing Status Weight Bear as Tolerated M3 OT- IP Subjective and Pain Start: 08/15/19 11:53 Freq: Status: Active Protocol: Document 08/15/19 11:53 [facility] (Rec: 08/15/19 12:13 [facility] [id number]) OT- Subjective Occupational Therapy Visit Type Type Initial Evaluation Visit Start Time 08:50 Visit Stop Time 09:29 Total Visit Minutes 39 Occupational Therapy Visit Comments Patient Comments Pt just getting back to bed, but willing to get up for OT eval. Patient/Caregiver Goals To go home. OT Pain Assessment Pain When Pain Assessed At Rest Pain Present Pain Present Denied Pain M4 OT- IP ADL's Start: 08/15/19 11:53 Freq: Status: Active Protocol: Document 08/15/19 11:53 [facility] (Rec: 08/15/19 12:13 [facility] [id number]) OT [id number] Comments OT Self-Feeding Comments Per pt independent. OT ADL-Grooming General Evaluation Grooming Ability Independent OT ADL-Oral Care General Eval Oral Care Ability Independent OT ADL-Dressing Comments OT Dressing Comments Pt uses LB dressing equipment at home to be able to assist for LB dressing needs. OT ADL-Toileting General Evaluation Toileting Ability Independent OT ADL-Bathing Comments OT Bathing Comments Not performed. M5 OT- IP IADL's Start: 08/15/19 11:53 Freq: Status: Active Protocol: Document 08/15/19 11:53 [facility] (Rec: 08/15/19 12:13 [facility] [id number]) OT-Instrumental Activities of Daily Living Home Safety Awareness Awareness of Need for Assistance at Home Good Awareness Ability to Problem Solve Emergency Able to Problem Solve Situations Home Safety Comments Pt's son assist with heavy chores at home weekly. Pt able to answer all home safety questionnaire with 100% accuracy. Medication Management Medication Management Comments Pt states son prior was providing supervision but recently has been able to do it on her own. Money Management Money Management No Deficits Identified Meal Preparation Meal Preparation No Deficits Identified Manager Tax Manager Tax Caregiver Provides Assist M6 OT- IP Functional Cognition Start: 08/15/19 11:53 Freq: Status: Active Protocol: Document 08/15/19 11:53 [facility] (Rec: 08/15/19 12:13 [facility] [id number]) Cognitive Factors Limiting Selfcare Function Cognitive Ability Level of Alertness Alert Patient Orientation Name,Age,Birthday,Month,Date, Year,Day of Week,Place, Situation Attention Span Ability Capable of Focused Attention, Capable of Sustained Attention Ability to Follow Commands Able to Follow Multi-Step Commands Memory Description Short Term Impaired Problem Solving Ability No deficits Noted Cognitive Comments Cognitive Assessment Comments Pt appears at baseline for cognitive needs, still having decreased short term memory. Appears to be same level at last time scoring 4.6 on ACL which implies may live alone with daily assistance. OT- Vision and Hearing OT- Hearing Assessment OT- Hearing Assessment WFL M7 OT- IP Mobility and Balance Start: 08/15/19 11:53 Freq: Status: Active Protocol: Document 08/15/19 11:53 [facility] (Rec: 08/15/19 12:13 [facility] [id number]) OT- Bed Mobility Assessment Rolling Type of Rolling Roll to Right Level of Assistance Standby Assistance Supine to Sit Supine to Sit Assist Standby Assistance OT-Transfer Assessment Sit to and From Stand Sit to and from Stand Standby Assistance Transfers Transfer Ability Standby Assistance Technique Transfer Destination Bed,Chair Transfer Technique Stand Step Pivot Devices Transfer Assistive Devices Gait Belt,Straight Cane Comments Mobility Comments Pt needing increase time to get up form the bed via log rolling and has a bed post at home which she uses to assist. Pt able get up with increased time. Pt able to stand with 2 SPC and walk to the sink and then the bathroom on her own. OT- Balance Assessment Sitting Balance and Reactions Static Sitting Balance Ability Normal Dynamic Sitting Balance Ability Good Standing Balance and Reactions Static Standing Balance Ability Good M8 OT- IP Objective Assessments Start: 08/15/19 11:53 Freq: Status: Active Protocol: Document 08/15/19 11:53 [facility] (Rec: 08/15/19 12:13 [facility] [id number]) OT Gross Range of Motion Upper Extremity Range of Motion Assessment Within Functional Limits OT Strength Upper Extremity Strength Assessment Within Functional Limits OT-Muscle Tone Assessment Muscle Tone WNL Yes M9 OT- IP Assessment and Plan Start: 08/15/19 11:53 Freq: Status: Active Protocol: Document 08/15/19 11:53 [facility] (Rec: 08/15/19 12:13 [facility] [id number]) OT Summary Assessment and Plan Potential Rehabilitation Potential Good Analytic Complexity at Evaluation Low Summary OT Impairments Functional Mobility,Bathing, Activity Tolerance Progress Towards Goals Progressing Toward Goals Assessment Summary Pt low complexity and main barrier is decreased activity tolerance and would benefit from home health at home. Pt is at baseline for cognition as prior has decreased short term memory and son visits her weekly to assist for needs. Goals Self-Feeding Goal Independent Grooming Goal Independent Dressing Goal Independent,Seed Collector,Sock Aid Toileting Goal Independent Bathing Goal Independent Toilet Transfer Goal Independent Shower Transfer Goal Independent Days to Meet Goals 2 Frequency of Treatment Frequency Of Treatment Once a Day Treatment Plan OT Treatment Plan ADL Training,Functional Mobility,Patient/Family Education,Discharge Planning Other Treatment Recommendations and Next Shower if still here. Treatment Focus Discharge Recommendations OT Discharge Recommendations Home with Assistance,Home Health Transportation Needs at Discharge Private Vehicle
--- NOTE | 2019-08-15 11:15 | PT.IIE ---
Current Diagnoses Enterocolitis due to Clostridium difficile, not specified as recurrent (08/13/19) Surgical History (Last Reviewed 08/14/19 @ 08:23 by IONA Evans) H/O: hysterectomy (Acute) Hx laparoscopic cholecystectomy (Acute) Hx of bilateral cataract extraction (Acute) Medical History (Last Reviewed 08/14/19 @ 08:23 by IONA Evans) Arthritis (Acute) Diabetes (Acute) Easy bruisability (Acute) Edema (Acute) Hair loss (Acute) Heartburn (Acute) HLD (hyperlipidemia) (Acute) HTN (hypertension) (Acute) Hypothyroid (Acute) Pneumonia (Acute) Sciatica (Acute) Seasonal allergies (Acute) Wrinkled retina, right eye (Acute) Physical Therapy Inpatient Evaluation/Re-Eval M1 PT/OT-IP Prior Functional Status Start: 08/15/19 10:40 Freq: NEEDED Status: Active Protocol: Document 08/15/19 11:15 [facility] (Rec: 08/15/19 12:20 [facility] [id number]) Medical Review Prior Functional Status Medical History Reviewed Yes Mobility and Gait Independent with mobility. Gait with 2 canes inside the house. Activities of Daily Living and IADL's Independent Prior Functional Level (Other details) Ambs in/out of house using a ramp at entry Social History Household Members none Living Arrangements House Number of Floors (Floors) One Floor Number of Stairs To Enter/Railing? Ramp at entry Home Environment Standard Height Toilet,Walk in Shower Home Equipment Straight Cane,Raised Toilet Seat w/Armrests,Shower Seat without Backrest Additional Social History Comment Has post at bed to assist with in/out transfers. M1 PT/OT-IP Prior Functional Status Start: 08/15/19 11:53 Freq: NEEDED Status: Active Protocol: Document 08/15/19 11:53 [facility] (Rec: 08/15/19 12:13 [facility] [id number]) Medical Review Prior Functional Status Medical History Reviewed Yes Communication Iindependent Mobility and Gait Independent and use of 1-2 SPC at home and at times did not use any SPC to wawlk with. Activities of Daily Living and IADL's Completely independent with all ADl's, IADL's, did her own bills and medications. Prior Functional Level (Other details) Pt's son come and assist with heavy chores weekly. Social History Household Members none Living Arrangements House Number of Floors (Floors) One Floor Number of Stairs To Enter/Railing? Ramp to get in. Home Environment High Toilet,Walk in Shower Home Equipment Straight Cane,Raised Toilet Seat w/Armrests,Shower Seat without Backrest,Hand Held Shower,Lift Recliner,Grab Bars In Shower M2 PT-IP Current Condition Start: 08/15/19 10:40 Freq: NEEDED Status: Active Protocol: Document 08/15/19 11:15 [facility] (Rec: 08/15/19 12:20 [facility] [id number]) Physical Therapy Current Condition Current Condition Evaluation Date 08/15/19 Treatment Diagnosis C-diff Onset Date 08/13/19 Precautions Lumbar Precautions No Twisting,Limit Bending Other Precautions Contact Droplet precautions. Pt has old lumbar surgery that she has chosen to follow precautions for Weight Bearing Status Weight Bearing Status Full Weight Bearing M3 PT-IP Subjective Start: 08/15/19 10:40 Freq: NEEDED Status: Active Protocol: Document 08/15/19 11:15 [facility] (Rec: 08/15/19 12:20 [facility] [email or web address]) Subjective Physical Therapy Visit Type Type Initial Evaluation Visit Start Time 11:15 Visit Stop Time 11:45 Total Visit Minutes 30 Physical Therapy Visit Comments Patient Comments Pt planning on going home with son to assist getting into the house Patient Goals Pt goal is to go home when ready. M4 PT-IP Mobility and Gait Start: 08/15/19 10:40 Freq: NEEDED Status: Active Protocol: Document 08/15/19 11:15 [facility] (Rec: 08/15/19 12:20 [facility] [id number]) PT-Bed Mobility Assessment Sit to Supine Sit to Supine Independent Scooting Scooting to Edge of Bed Independent PT-Transfer Assessment Sit to and From Stand Sit to and from Stand Independent Equipment Transfer Assistive Device Gait Belt,Front Wheeled Walker Orthotic/Prosthetic Devices or Brace: No Transfers Transfer Destination Bed Transfer Technique Stand, walk to bed Transfer Ability Level of Assist Independent Comments Mobility Comments Assist given for IV pole. Pt was Slow but steady with ambulation. Gait Assessment Gait Gait Assistance Required: Independent Distance (Feet) 50 Able to Maintain Weight Bearing Status Yes During Gait Assistive Devices Assistive Device Gait Belt,Front Wheeled Walker Orthotic/Prosthetic Devices or Brace: No Gait Deviations General Gait Pattern Decreased Stride Length,Flexed Trunk,Wide Based Gait Factors Limiting Gait Function Factors Limiting Gait Function Decreased Activity Tolerance Comments Gait Comments Pt was able to turn around with walker without increased sway or LOB. Pt gait was on level surface. Pt felt unsteady using a walker and felt she was more stable using 2 canes since that is what she is used to ambulating with inside her home. PT-Balance Assessment Sitting Balance and Reactions Static Sitting Balance Ability Good Dynamic Sitting Balance Ability Good Standing Balance and Reactions Static Standing Balance Ability Good Dynamic Standing Balance Ability Good Device Used FWW Comments Other Balance Tests/Deviations/Treatment Balance assessment was with : use of FWW M5 PT-IP Objective Assessments Start: 08/15/19 10:40 Freq: NEEDED Status: Active Protocol: Document 08/15/19 11:15 [facility] (Rec: 08/15/19 12:20 [facility] [id number]) Orientation Orientation/Cognition Level of Alertness Alert Orientation Name,Place,Situation Language Function Ability No Deficits Noted Safety Awareness Understands Safety Issues Memory Description No Deficits Noted Gross Range of Motion Upper Extremity ROM Assessment Within Functional Limits Lower Extremity ROM Assessment Within Functional Limits Strength Upper Extremity Strength Assessment Within Functional Limits Lower Extremity Strength Assessment Within Functional Limits M7 PT-IP Assessment and Plan Start: 08/15/19 10:40 Freq: NEEDED Status: Active Protocol: Document 08/15/19 11:15 [facility] (Rec: 08/15/19 12:20 [facility] [id number]) PT Summary Assessment and Plan Potential Rehabilitation Potential Good Status of Condition at Evaluation Stable Summary Assessment Summary Pt is was out of bed with nursing at the start of therapy and was sitting on a commode chair. Per pt, she was able to get out of bed on her own this AM. The pt was walked in the room and was able to independently transfer back to bed and reposition herself in bed. The pt walked in the room (on level surface ) slowly but independently and appeared safe. She is appears to be at her baseline prior level of function, except for her endurance is decreased as expected. The pt is appropriate for DC from PT with nursing to continue with assisting the pt with her IV pole for ambulation as needed. Frequency of Treatment Frequency Of Treatment Discharge Recommendations To Nursing Amount of Assist Needed 1 Person Assist Discharge Recommendations PT Discharge Recommendations Home with Assistance,Home Health Transportation Needs at Discharge Private Vehicle
--- NOTE | 2019-08-15 11:30 | PC.NURSE ---
Assess- Patient is awake and sitting at the side of her bed. She denies pain but states that once in a while she does have cramps. She has not had any bowel movements. Using walker to ambulate and working with physical therapy/ot. She has been discharged to home but still needs to round on her.
--- NOTE | 2019-08-15 12:49 | P.DS_ITS ---
History of Present Illness History of Present Illness Date Patient Seen: 08/13/19 Chief complaint: Dizziness Narrative: Written by Isreal MONSON: Ms. Carrie Cortez is a 73-year-old female with a history significant for morbid obesity, diabetes type 2, hypertension, hyperlipidemia, asthma, GERD, hypothyroidism, osteoarthritis degenerative joint disease and memory loss presents to the ER complaining of abrupt onset of nausea vomiting and diarrhea starting after lunch today. The patient presents complaining of crescendo crampy abdominal pain that becomes progressively worse until she passes watery diarrhea stool and feels somewhat better only for the processed began again. She has associated symptoms of headache and dizziness. The patient denies sick contacts and has been isolating per the pandemic guidelines and has been going out for walks most days approximately 1 block. She reports no sick contacts either with fever cough or shortness of breath or gastric symptoms. The patient has had no recent exposures to antibiotics. She denies complaints of fevers or chills, nasal congestion or sore throat. She has had no chest pain or palpita tions and denies shortness of breath cough or wheezing. She has had abdominal pain as described above passing watery diarrhea with flecks. She denies urinary complaints. Upon arrival the patient is afebrile with temperature 97.4?, heart rate of 70, blood pressure 112/63, respiratory rate of 18 saturating 96% on room air. A no a been eating has been obtained. On laboratory analysis she has an elevated white count of 23.2, hemoglobin of 15.6, hematocrit of 47.6 and platelets 345. She has a PT of 11.7, INR 1.0 and PTT of 47. Her potassium is 3.8 has elevated calcium 11.3, BUN of 37 and creatinine of 1.41. She has a nonfasting glucose of 187. Her liver functions are all within normal limits. She has a procalcitonin of 0.12, lactic acid 2.3. She has a total CK of 117, CK-MB of 6.81, index of 5.8 and troponin of 0.024. A GI PCR is negative and C difficile PCR is positive. The patient is admitted to the medicine service for C difficile infection. Discharge Providers Provider Date of admission: 08/13/19 20:44 Discharge Date: 08/15/19 Consults: 08/14/19 06:35 Consult to Respiratory Therapy Evaluate & Treat Comment: Physician Instructions: Evaluate and treat 08/14/19 08:34 Consult to Respiratory Therapy Evaluate & Treat Comment: Asthma Physician Instructions: Evaluate and treat 08/14/19 15:31 Consult to Physical Therapy Evaluate & Treat Comment: Physician Instructions: Evaluate and Treat 08/14/19 16:45 Consult to Occupational Therapy Evaluate & Treat Comment: Physician Instructions: Evaluate and treat Discharge provider: Keisha Gibbons DO Summary Hospital Course Discharge Diagnosis: 1. Acute C. difficile infection, present on admission. Resolving. 2. Acute kidney injury, present on admission. Resolved. 3. Diabetes mellitus type 2, non-insulin using, chronic, present on admission. Stable. 4. Hypertension, chronic, present on admission. Stable. 5. Hyperlipidemia, chronic, present on admission. Stable. 6. Hypothyroidism, chronic, present on admission. Stable. 7. Overactive bladder, chronic, present on admission. Stable 8. Moderate dementia without behavioral disturbance, chronic, present on admission. Stable. Hospital Course: Carrie Cortez is a 73-year-old female with a past medical history significant for hypertension, hyperlipidemia, morbid obesity, diabetes mellitus type 2, asthma, GERD, hypothyroidism, osteoarthritis degenerative joint disease and dementia who presented to the ED with acute onset of nausea, vomiting and diarrhea. 1. Acute C. difficile infection, present on admission. Resolving. -The patient presented with nausea, vomiting, and crampy abdominal pain with watery diarrhea. Patient has had several courses of antibiotics over the last 3 months predisposing her to C difficile infection. -GI stool panel positive for C. difficile. -Initial WBC 23.2 and procalcitonin 0.89. Continue to monitor WBC and procalcitonin daily. -Continued vancomycin 125 mg 4 times daily and discharge to complete 2 weeks total. -Continued Zofran every 6 hours as needed for nausea. -Continued to advance diet as tolerated. Patient tolerating soft carbohydrate consistent/heart healthy diet. 2. Acute kidney injury, present on admission. Resolved. -Secondary to acute infection and GI losses with C. difficile diarrhea. -Initial creatinine 1.41. Baseline creatinine 0.7-0.8. Creatinine back to baseline at 0.89. -Avoided nephrotoxic agents and optimize renal perfusion. -Continued IV fluids until adequately hydrated then discontinued. -Continued to monitor renal function daily. 3. Diabetes mellitus type 2, non-insulin using, chronic, present on admission. Stable. -Hemoglobin A1C 6.2% in 05/2019 indicative of tight glycemic control. Patient does report neuropathy the feet. -Held home glimepiride and home Victoza. Continued home Victoza at time of discharge. Held glimepiride until patient's diarrhea has improved, patient eating normally and able to follow-up with PCP. -Continued ACHS blood glucose checks and low dose correctional scale insulin. -Continued to advance diet as tolerated. Patient tolerating soft carbohydrate consistent/heart healthy diet. 4. Hypertension, chronic, present on admission. Stable. -Blood pressure on admission is 112/63. -Continued felodipine 10 mg daily and lisinopril 20 mg daily at bedtime. Held hydrochlorothiazide 25 mg daily to avoid dehydration in setting of C. difficile diarrhea until patient's diarrhea has improved, eating normally and able to follow-up with PCP. 5. Hyperlipidemia, chronic, present on admission. Stable. -Continued home simvastatin 20 mg daily at bedtime. 6. Hypothyroidism, chronic, present on admission. Stable. -TSH normal at 1.71 on 05/2019. -Continued home levothyroxine 150 mcg daily. 7. Overactive bladder, chronic, present on admission. Stable -Continued home oxybutynin 5 mg daily at bedtime. 8. Moderate dementia without behavioral disturbance, chronic, present on admission. Stable. -Patient with impaired memory recall. Patient is for 3-4 years and lives alone with support of her son who sets up her medications for her. -Occupational therapy previously performed SLUMS which she scored a 12/30 which is indicative of moderate dementia. -Continued physical and occupational therapy evaluation and treatment. Patient discharged home with home health for continued PT and OT. Exam Vital Signs (past 8 hours): - 08/15/19 05:11 08/15/19 07:25 08/15/19 11:32 Temperature 97.9 F 98.2 F 97.2 F L Pulse Rate 64 69 78 Respiratory Rate 18 16 16 Blood Pressure 126/70 133/60 143/64 H Pulse Oximetry 97 96 99 Oxygen Delivery Method Room Air Oxygen Flow Rate 0 Narrative Exam Narrative: General: Elderly female lying in bed and in no acute distress, well-developed, well-nourished, alert and oriented to person and place, moderate dementia with short term memory recall deficit but otherwise appropriately interactive. HEENT: Normocephalic, atraumatic. External ears without defect. Pupils equal, round, and reactive to light. Anicteric sclerae, moist conjunctivae, and no lid lag. Oropharynx free of erythema and cobble stoning with moist mucosa. Neck: Supple with full range of motion. No lymphadenopathy or thyromegaly. Cardiovascular: Regular rate and rhythm without murmurs, rubs, or gallops appreciated Pulmonary: Clear to auscultation bilaterally without crackles, wheezes, or rhonchi. Normal respiratory effort with no use of accessory muscles. Abdomen: Soft, obese, bowel sounds present, no significant tenderness to palpation, nondistended. Extremities: No clubbing, cyanosis, or edema. Skin: Normal temperature, turgor, and texture; no rash, ulcers, or subcutaneous nodules appreciated. Neurological: Cranial nerves grossly intact. Psychiatric: Normal mood and affect. Alert and oriented to person and place. Mo derate dementia with moderate short term memory recall deficit. Objective Labs Result Diagrams: 08/15/19 06:00 08/15/19 06:00 Labs: Laboratory Results - last 24 hr 08/14/19 08/14/19 08/14/19 15:54 15:54 15:54 WBC RBC Hgb Hct MCV MCH MCHC RDW Plt Count Neut % (Auto) Lymph % (Auto) [place] % (Auto) Eos % (Auto) Baso % (Auto) Neut # (Auto) Lymph # (Auto) [place] # (Auto) Eos # (Auto) Baso # (Auto) Sodium Potassium Chloride Carbon Dioxide BUN Creatinine Estimated GFR BUN/Creatinine Ratio Glucose Lactate 1.2 Calcium Magnesium 1.9 Total Bilirubin AST ALT Alkaline Phosphatase Total Protein Albumin Globulin Albumin/Globulin Ratio Procalcitonin 0.89 H 08/15/19 08/15/19 08/15/19 06:00 06:00 06:00 WBC 11.0 RBC 3.92 L Hgb 12.1 Hct 36.9 MCV 94.0 MCH 30.8 MCHC 32.7 RDW 13.7 Plt Count 273 Neut % (Auto) 80.6 H Lymph % (Auto) 11.3 L [place] % (Auto) 6.5 Eos % (Auto) 1.0 L Baso % (Auto) 0.6 Neut # (Auto) 8900 H Lymph # (Auto) 1300 [place] # (Auto) 700 Eos # (Auto) 100 Baso # (Auto) 100 Sodium 137 Potassium 3.7 Chloride 105 Carbon Dioxide 29 BUN 20 H Creatinine 0.89 Estimated GFR > 60.0 BUN/Creatinine Ratio 22.5 H Glucose 129 H Lactate Calcium 9.0 Magnesium 1.8 Total Bilirubin 0.4 AST 25 ALT 18 Alkaline Phosphatase 67 Total Protein 6.3 Albumin 3.3 L Globulin 3.0 Albumin/Globulin Ratio 1.1 Procalcitonin 0.59 H Discharge Plan Discharge Plan Patient Disposition: Home Health Service Discharge comment: You are being discharged home with home health for physical and occupational therapy. You have C. difficile colitis which is likely due to multiple antibiotic courses over the last 3 months. You have been prescribed vancomycin 125 mg 4 times daily for 2 weeks total (two additional doses due to today). Please follow-up with your primary care physician in the next 1-2 weeks regarding your hospitalization for C. difficile. Hydrochlorothiazide and glimepiride have been held until your diarrhea improves and you are eating normally. Please do not restart these medications until you follow-up with your PCP. Please use frequent hand washing especially after using the bathroom and/or bleach for disinfectant as C. difficile is a spore and highly resistant. You are currently being tested and ruled out for hunter virus. You will need to remain in self isolation until your test has resulted and we will call you with your results. Discharge orders & Medications Prescriptions: New vancomycin 125 mg Capsule 125 mg PO QID Qty: 49 RF: 0 Continued levothyroxine [Synthroid] 150 MCG tablet 150 mcg PO QAM Qty: 0 RF: 0 cholecalciferol (vitamin D3) [Vitamin D3] 2,000 UNIT capsule 2,000 iu PO DAILY Qty: 0 RF: 0 acetaminophen [Tylenol Extra Strength] 500 MG tablet 1,000 mg PO TID PRN (Reason: Pain (Scale Score 1-3)) Qty: 0 RF: 0 lisinopril 20 mg Tablet 20 mg PO BEDTIME RF: 0 felodipine 5 mg Tablet Extended Release 24 Hr 10 mg PO QAM RF: 0 meclizine 25 mg Tablet 25 mg PO DAILY PRN (Reason: Vertigo) RF: 0 simvastatin 20 mg Tablet 20 mg PO BEDTIME RF: 0 diphenhydramine HCl [Benadryl] 25 mg Capsule 50 mg PO BEDTIME PRN (Reason: Allergic Symptoms) RF: 0 oxybutynin chloride 5 mg Tablet 5 mg PO BEDTIME RF: 0 Alphagan P 0.1 % drops 0.1 % EYE-RIGHT BID RF: 0 Victoza 3-Wilfredo 0.6 mg/0.1 mL (18 mg/3 mL) pen injector 1.2 mg SUBCUT BEDTIME RF: 0 multivitamin with minerals Tablet 1 tab PO DAILY RF: 0 calcium carbonate [Calcium 600] 600 mg calcium (1,500 mg) Tablet 600 mg PO BID RF: 0 Discontinued glimepiride [Amaryl] 2 MG tablet 1 mg PO BID Qty: 0 RF: 0 hydrochlorothiazide 25 MG tablet 25 mg PO DAILY Qty: 0 RF: 0 Follow up/Referrals: Zabrina Vicnent PA-C [Non-Staff] - 08/22/19 7:30 am (appt:08/21 @ 4030 with nguyễn kapadia [phone] ) Diet/Activity/Treatments Diet: Carb-consistent/Diabetic, Low-fat, Low-sodium and Low-cholesterol Activity: Activity as tolerated with forward wheeled walker and physical and occupational therapy Visit Report/Discharge Packet Instructions: DI for Antibiotic -- associated Colitis -- C difficile, DI for Clostridium difficile Infection Discharges patient from system. Discharge Date/Time: 08/15/19 19:26 Quality VTE Deep Vein Thrombosis/Pulmonary Embolism Present on Admission: No
--- NOTE | 2019-08-15 13:31 | CM.DPC ---
Addendum entered by Florence Oropeza LPN 08/15/19 14:31: Checked in with PT re ? need for walker. She confirms that pt was trialed again using her usual 2 canes and did fine with this. Her home does not lend itself to walker use and thus they no longer are recommending a walker. Original Note: DCP: continued: Case received, EMR reviewed and spoke with Dr. Gibbnos who has had the d/c button pushed for pt to leave today since this morning. She is seeing pt now to and would like to have HH set up for pt. Have now spoken with pt via phone as she remains on a COVID-19 rule out protocol: test results are still pending. Introduced self and role. Pt confirms that at baseline she is functionally independent in the community. She drives. Her son who lives in [place] will be taking her home at d/c. She requests that he be called. Pt says she has heard from the nurse that she will d/c today and has not yet seen the physician. Have left a vm now for Todd Cortez/SAMARA son: cell [phone]. Confirmed with pt that this was the correct number for him. Left vm re the d/c today and need to pick pt up. HH agencies were discussed with pt: referral is now given to [facility] and she accepts for RN and PT. Have received now a call back from Todd. He expresses thankfulness for the HH as I need all the help I can get with her. He notes that he was at pt's home yesterday for about 5 hours cleaning up the house after all the diarrhea that his mother had been having. He will not be able to stay with his mother but a family friend lives close by and has offered prn assist. He does say that his mother has short term memory loss (for instance he moved from [facility] to couple years ago but his other brother lives in [place]..she forgets). He sets up her medications and watches closely for accuracy. Agreed to leave his a [facility] Resource booklet for help in future planning. Leon will be here as close to 1800 as he can. P: home today as per above with [facility].
--- NOTE | 2019-08-15 19:22 | PC.NURSE ---
Lula shift note: Patient discharged home with HH RN and PT home care arranged. Discussed discharge instructions with patient and son Jarrod, including importance of isolation until COVID test results. Discussed importance of Antibiotic therapy PO x 2 weeks and hand washing techniques. Both verbalized understanding of instructions. Discharge home with alina Garay via WC by Jessica SALES.
--- NOTE | 2019-08-16 09:11 | CM.DPC ---
DCP cont: Faxed discharge summary to [facility] at fax # [phone]. Fax confirmation scanned in. Gaby Granger, [employer]
[2019-08-16 11:58] LABS: COVID19 Sendout Not Detected (Not Detected)
== END 2019-08-15 19:26 | disposition home health service (06) | DRG 372 ==
LOC: ED 20:05 → AC 20:45
PROVIDERS: Emergency Medicine; Internal Medicine; Admitting Provider Nurse Practitioner Adult Health; Emergency Provider Emergency Medicine; Referring Provider Emergency Medicine; Visit Provider Nurse Practitioner Adult Health
DX: A04.72 Enterocolitis due to Clostridium difficile, not specified as recurrent (principal); Z68.41 Body mass index [BMI] 40.0-44.9, adult; N17.9 Acute kidney failure, unspecified; E66.01 Morbid (severe) obesity due to excess calories; I10 Essential (primary) hypertension; E78.5 Hyperlipidemia, unspecified; E11.9 Type 2 diabetes mellitus without complications; E03.9 Hypothyroidism, unspecified; J45.909 Unspecified asthma, uncomplicated; F03.90 Unspecified dementia, unspecified severity, without behavioral disturbance, psychotic disturbance, mood disturbance, and anxiety; K21.9 Gastro-esophageal reflux disease without esophagitis; Z87.891 Personal history of nicotine dependence; N32.81 Overactive bladder; Z03.818 Encounter for observation for suspected exposure to other biological agents ruled out
CPT/HCPCS: 36415; 71045; 74177; 80048; 80053; 81001; 82550; 82553; 82728; 82962; 83605; 83690; 83735; 84100; 84145; 84484; 85025; 85610; 85730; 87086; 87502; 87507; 87635; 93005; 96374; 96375; 97161; 97165; 99284; J1200; J1644; J1650; J1885; J2405; J2765